=== PATIENT | female | born 1930 | race Caucasian/White ===

== ENCOUNTER 2016-11-15 13:43 | Observation (INO) | payer MEDICARE ==
[~2016-11-15] VITALS: Ht 162.6 cm; Wt 67.0 kg
[~2016-11-15 13:43] MED LIST: ASPI81CH CHEW; ASPI81TA19 PO; CALCCHW25 CHEW; CARD120T4 PO; CORT5TAB PO; DILT120T PO; HYDR10TA65 PO; HYDR5TAB64 PO; MACR100C2 PO; OMEP20TA PO; PAXI10TA2 PO; PRIL20CA9 PO; ZOFR4TAB3 SL
[2016-11-15 13:52] VITALS: BP 99/68; PULSE 97; RESP 17; TEMP 98.4; O2SAT 95
[2016-11-15] MEDS ORDERED: ONDANSETRON HCL 4 MG/2 ML VIAL IV PUSH ONE (14:30)
[2016-11-15] MEDS ORDERED: HYDROCORTISONE SOD SUCCINATE 100 MG VIAL IV PUSH ONE (14:30)
--- NOTE | 2016-11-15 14:35 | PD ---
HPI Chief Complaint: GI Complaint Time Seen by Provider: 14:25 Travel History International Travel<30 days: No Contact w/Intl Traveler<30days: No Traveled to known affect area: No History of Present Illness HPI This 86-year-old female is complaining of vomiting and diarrhea. She states that this morning she had 5 bouts of diarrhea. She had some abdominal pain while having the diarrhea. She is not having pain now. He tried to drink some water and vomited that. She then tried to drink Gatorade and she also vomited that. She has a history of a pituitary adenoma and takes hydrocortisone. She did not hold her hydrocortisone. Says that her stools were black. She had been traveling yesterday and had eaten at the airport. [facility] Past Medical History Cardiovascular Problems: Yes Diminished Hearing: Yes (RIGHT) Hypertension: Yes Past Surgical History Abdominal Surgery: Yes Cholecystectomy: Yes Genitourinary Surgery: Yes (HEMORRHOIDS) Tonsillectomy: Yes Other Surgery: Yes (PITUITARY) Social History Alcohol Use: No Tobacco Use: No Substance Use: No Allergies-Medications (Allergen,Severity, Reaction): Coded Allergies: No Known Allergies (Unverified , 11/15/16) Reported Meds & Prescriptions Reported Meds & Active Scripts Active Reported Cardizem (Diltiazem HCl) 120 Mg Tab 120 Mg PO BID Aspir-Low (Aspirin) 81 Mg Tabdr 1 Tab PO DAILY Omeprazole 20 Mg Tab 20 Mg PO DAILY Paxil (Paroxetine HCl) 10 Mg Tab 10 Mg PO DAILY Hydrocortisone 5 Mg Tab 5 Mg PO HS Take with food to decrease GI upset Hydrocortisone 10 Mg Tab 10 Mg PO DAILY IN THE AM Take with food to decrease GI upset Review of Systems General / Constitutional: No: Fever, Chills Eyes: No: Diploplia, Blurred Vision HENT: No: Headaches, Vertigo Respiratory: No: Cough Gastrointestinal: Positive: Vomiting, Diarrhea Genitourinary: No: Urgency, Frequency Musculoskeletal: No: Myalgias Skin: No Rash, No Itching Physical Exam Narrative GENERAL: Well-developed female SKIN: Warm and dry. HEAD: Atraumatic. Normocephalic. EYES: Pupils equal and round. No scleral icterus. No injection or drainage. ENT: No nasal bleeding or discharge. Mucous membranes dry NECK: Trachea midline. No JVD. CARDIOVASCULAR: Regular rate and rhythm. No murmur appreciated. RESPIRATORY: No accessory muscle use. Clear to auscultation. Breath sounds equal bilaterally. GASTROINTESTINAL: Abdomen soft, non-tender, nondistended. Hepatic and splenic margins not palpable. Stool is brown and guaiac negative MUSCULOSKELETAL: No obvious deformities. No clubbing. No cyanosis. No edema. NEUROLOGICAL: Awake and alert. No obvious cranial nerve deficits. Motor grossly within normal limits. Normal speech. PSYCHIATRIC: Appropriate mood and affect; insight and judgment normal. Data Data Last Documented VS Vital Signs Date Time Temp Pulse Resp B/P Pulse Ox O2 Delivery O2 Flow Rate FiO2 11/15/16 15:11 87 18 102/61 96 Room Air 11/15/16 13:52 98.4 Orders Complete Blood Count With Diff (11/15/16 14:29) Basic Metabolic Panel (Bmp) (11/15/16 14:29) Hydrocortisone Inj (Solucortef Inj) (11/15/16 14:30) Ondansetron Inj (Zofran Inj) (11/15/16 14:30) Sodium Chlor 0.9% 1000 Ml Inj (Ns 1000 M (11/15/16 14:45) Electrocardiogram (11/15/16 15:30) Sodium Chlor 0.9% 1000 Ml Inj (Ns 1000 M (11/15/16 15:30) Urinalysis - C+S If Indicated (11/15/16 15:46) Labs Laboratory Tests Test 11/15/16 14:30 White Blood Count 10.5 TH/MM3 Red Blood Count 5.32 MIL/MM3 Hemoglobin 14.3 GM/DL Hematocrit 43.3 % Mean Corpuscular Volume 81.5 FL Mean Corpuscular Hemoglobin 26.9 PG Mean Corpuscular Hemoglobin 33.0 % Concent Red Cell Distribution Width 14.9 % Platelet Count 282 TH/MM3 Mean Platelet Volume 9.4 FL Neutrophils (%) (Auto) 76.2 % Lymphocytes (%) (Auto) 10.9 % Monocytes (%) (Auto) 5.7 % Eosinophils (%) (Auto) 2.4 % Basophils (%) (Auto) 4.8 % Neutrophils # (Auto) 8.0 TH/MM3 Lymphocytes # (Auto) 1.1 TH/MM3 Monocytes # (Auto) 0.6 TH/MM3 Eosinophils # (Auto) 0.3 TH/MM3 Basophils # (Auto) 0.5 TH/MM3 CBC Comment DIFF FINAL Differential Comment Sodium Level 141 MEQ/L Potassium Level 6.5 MEQ/L Chloride Level 106 MEQ/L Carbon Dioxide Level 24.8 MEQ/L Anion Gap 10 MEQ/L Blood Urea Nitrogen 16 MG/DL Creatinine 1.20 MG/DL Estimat Glomerular Filtration 43 ML/MIN Rate Random Glucose 107 MG/DL Calcium Level 9.1 MG/DL [facility] Medical Decision Making Medical Screen Exam Complete: Yes Emergency Medical Condition: Yes Medical Record Reviewed: Yes Interpretation(s) Laboratory Tests Test 11/15/16 14:30 White Blood Count 10.5 TH/MM3 Red Blood Count 5.32 MIL/MM3 Hemoglobin 14.3 GM/DL Hematocrit 43.3 % Mean Corpuscular Volume 81.5 FL Mean Corpuscular Hemoglobin 26.9 PG Mean Corpuscular Hemoglobin 33.0 % Concent Red Cell Distribution Width 14.9 % Platelet Count 282 TH/MM3 Mean Platelet Volume 9.4 FL Neutrophils (%) (Auto) 76.2 % Lymphocytes (%) (Auto) 10.9 % Monocytes (%) (Auto) 5.7 % Eosinophils (%) (Auto) 2.4 % Basophils (%) (Auto) 4.8 % Neutrophils # (Auto) 8.0 TH/MM3 Lymphocytes # (Auto) 1.1 TH/MM3 Monocytes # (Auto) 0.6 TH/MM3 Eosinophils # (Auto) 0.3 TH/MM3 Basophils # (Auto) 0.5 TH/MM3 CBC Comment DIFF FINAL Differential Comment Sodium Level 141 MEQ/L Potassium Level 6.5 MEQ/L Chloride Level 106 MEQ/L Carbon Dioxide Level 24.8 MEQ/L Anion Gap 10 MEQ/L Blood Urea Nitrogen 16 MG/DL Creatinine 1.20 MG/DL Estimat Glomerular Filtration 43 ML/MIN Rate Random Glucose 107 MG/DL Calcium Level 9.1 MG/DL Differential Diagnosis Differential includes gastroenteritis, dehydration, Harnett's disease Narrative Course Lab work was drawn and the patient was started on IV fluids. 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 She has been given Solu-Cortef and additional fluids. It was noted that there is some hemolysis. EKG shows normal sinus rhythm with first-degree heart block the rate is 85. Patient has been given Zofran and IV fluids. She continues to complain of nausea. She lives alone. I don't think he is stable for discharge in view of the hyperkalemia and ongoing nausea Diagnosis Primary Impression: Adrenal insufficiency (Harnett's disease) Additional Impression: Intractable vomiting Admitting Information Admitting Physician Requests: Observation Adrian Lazo MD Nov 15, 2016 14:35
[2016-11-15] MEDS ORDERED: SODIUM CHLOR 0.9% 1000 ML INJ 1,000 ML IV ONE (14:45)
[2016-11-15 14:51] LABS: BASOPHIL # 0.5 TH/MM3 (0-0.2); BASOPHIL % 4.8 % (0.0-2.0); EOSINOPHIL # 0.3 TH/MM3 (0-0.4); EOSINOPHIL % 2.4 % (0.0-4.0); HEMATOCRIT 43.3 % (35.0-46.0); LYMPH % 10.9 % (9.0-44.0); LYMPHOCYTE # 1.1 TH/MM3 (1.0-4.8); MEAN CELL VOLUME 81.5 FL (80.0-100.0); MEAN CORPUSCULAR HEMOGLOBIN 26.9 PG (27.0-34.0); MONO % 5.7 % (0.0-8.0); NEUT % 76.2 % (16.0-70.0); PLATELET COUNT 282 TH/MM3 (150-450); RED BLOOD COUNT 5.32 MIL/MM3 (4.00-5.30); RED CELL DISTRIBUTION WIDTH 14.9 % (11.6-17.2); WHITE BLOOD COUNT 10.5 TH/MM3 (4.0-11.0)
[2016-11-15 15:00] LABS: HEMO FLAGS DIFF FINAL
[2016-11-15 15:08] LABS: BICARBONATE 24.8 MEQ/L (21.0-32.0)
[2016-11-15 15:11] VITALS: BP 102/61; PULSE 87; RESP 18; O2SAT 96
[2016-11-15 15:13] LABS: POTASSIUM 6.5 MEQ/L (3.5-5.1)
[2016-11-15] MEDS: SODIUM CHLOR 0.9% 1000 ML INJ 1,000 ML IV SCH ×2 (16:27→21:40)
[2016-11-15 16:29] LABS: BLOOD, URINE NEG (NEG); GLUCOSE,URINE NEG (NEG); KETONE, URINE 15 mg/dL (NEG); NITRITE,URINE NEG (NEG); PH, URINE 5.5 (5.0-8.5)
[2016-11-15 16:32] LABS: METHOD OF COLLECTION CLEAN CATCH; URINE COLOR YELLOW (YELLW/STRAW)
[2016-11-15 16:34] LABS: COMMENT (UR) CULT NOT INDICATED; COMMENT2 (UR) MUCOUS PRESENT; CULTURE IF INDICATED CULT NOT INDICATED; RBC, URINE 0-3 /hpf (0-3); SQUAMOUS EPITHELIAL CELL URINE 0-5 /hpf (0-5)
[2016-11-15 17:21] VITALS: BP 120/68; PULSE 83; RESP 18; O2SAT 99
[2016-11-15 18:15] VITALS: BP 191/91; PULSE 92; RESP 20; O2SAT 97
[2016-11-15 20:00] VITALS: BP 125/67; PULSE 85; RESP 18; TEMP 96; O2SAT 93
[2016-11-15] MEDS ORDERED: SODIUM CHLORIDE 0.9% FLUSH 5 ML FLUSH FLUSH PRN (20:15)
[2016-11-15] MEDS ORDERED: ONDANSETRON HCL 4 MG/2 ML VIAL IVP PRN (20:15)
[2016-11-15] MEDS ORDERED: ACETAMINOPHEN 325 MG TAB PO PRN (20:15)
[2016-11-15] MEDS ORDERED: NALOXONE HCL 0.4 MG/ML AMP IV PRN (20:15)
[2016-11-15] MEDS ORDERED: TEMAZEPAM 15 MG CAP PO PRN (20:15)
[2016-11-15] MEDS ORDERED: DILTIAZEM-CD 120 MG CAP ER PO SCH (21:00)
[2016-11-15] MEDS ORDERED: HYDROCORTISONE 10 MG TAB PO SCH ×2 (21:00)
[2016-11-15] MEDS: SODIUM CHLORIDE 0.9% FLUSH 5 ML FLUSH FLUSH SCH (21:00)
--- NOTE | 2016-11-15 21:30 | EKG ---
Date Performed: 11/15/2016 Time Performed: 15:30:56 PTAGE: 86 years EKG: Sinus rhythm with 1st degree A-V block Possible left anterior fascicular block Abnormal ECG PREVIOUS TRACING : 10/08/2016 10.27 No significant change from previous tracing noted. DOCTOR: Jared Kamara Interpretating Date/Time 11/15/2016 21:29:07
[2016-11-15] MEDS: HYDROCORTISONE 10 MG TAB PO SCH (21:41)
[2016-11-16] VITALS: BP 127/71; PULSE 77; RESP 20; TEMP 97; O2SAT 93
[2016-11-16 04:00] VITALS: BP 104/64; PULSE 81; RESP 20; TEMP 97.6; O2SAT 92; O2SAT 97
[2016-11-16] MEDS: SODIUM CHLOR 0.9% 1000 ML INJ 1,000 ML IV SCH ×2 (04:50→11:48)
--- NOTE | 2016-11-16 05:31 | MH ---
cc: MINNA VALLE DATE OF ADMISSION: 11/15/2016 ADMISSION DIAGNOSES Intractable vomiting, diarrhea. Adrenal insufficiency. HISTORY OF PRESENT ILLNESS The patient is a very pleasant 86-year-old female who states she was in fairly good health. She was visiting her daughter [facility] for the holidays. She states she returned to [facility] yesterday. Apparently yesterday she was already feeling poorly. She was a little bit nauseous. She really did not eat much. She actually asked a flight manager if she could lay out on the plane; they got her three seats and she did so. She arrived in [facility]. She states that as soon as she got in she went to bed as she was so fatigued. However, this morning when she woke up she states she had copious diarrhea; some of it was black which made her worried. She had approximately four to five bowel movements. She tried to keep down liquids and could not. She tried water, she tried Gatorade. Finally she became very concerned and she came to the emergency room. PAST MEDICAL HISTORY 1. Significant for adrenal insufficiency. 2. Reflux. 3. Hypertension. 4. Sarcoidosis. ALLERGIES She denies. PAST SURGICAL HISTORY 1. She has had bilateral hip replacement. 2. Hemorrhoidectomy. 3. She has also had surgery for pituitary adenoma. 4. Tonsillectomy. 5. Cholecystectomy. MEDICATIONS 1. Diltiazem 120 twice a day. 2. Hydrocortisone 10 in the morning and 5 in the evening. She says when she is in a period of increased stress her apn we will have her double this dose. She does state she did miss a dose yesterday and today. 3. She is on Paxil 10 mg; she says she takes this for muscle spasms. 4. Omeprazole 20 mg daily. 5. A baby aspirin. HABITS She smoked approximately a pack a day for five years; she stopped 55 years ago. She denies any alcohol consumption. SOCIAL HISTORY She is . 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 Currently she lives alone locally. She is waiting to get into [facility]. Her daughter lives [facility]. REVIEW OF SYSTEMS See HPI. She says up until the last couple of days she was feeling fairly well. No fevers, no chills, no weight change. She states that she has occasional chest pain but she was admitted and a evaluated for that in October of this year. She denies any shortness of breath or palpitations. She denies any abdominal pain with any of these episodes. She does say that she has problems with constipation and sometimes needs to take a medication to help her bowel movements. She is due for a colonoscopy. No difficulty with urination, no dysuria or burning, no increased or diminished urination. No swelling or pain in her lower extremities. FAMILY HISTORY Noncontributory. PHYSICAL EXAMINATION Vital Signs: Temperature was 96, pulse was 85, respirations 15, blood pressure 125/67, pulse ox was 93% on room air. General: This is an elderly female lying in the hospital bed. She is alert and oriented, very pleasant and cooperative. Does not appear to be in any acute distress right now. HEENT: Normocephalic and traumatic. EOM is intact. She is wearing glasses. She has moist oral mucosa. Neck: Supple. She has no bruits. Lungs: Clear to auscultation bilaterally. No rhonchi, rales or wheezes. Heart: Regular rate and work my rhythm. She has no murmurs. Abdomen: Sounded slightly diminished to me, slight mid-epigastric tenderness. No rebound or guarding. She has a healed midline incision from a prior surgery. Extremities: No clubbing, cyanosis or edema. Skin: She does have a rash under her left breast; it is erythematous. The skin is a little bit moist. LABORATORY DATA Lab work that was done when she came in showed a white count of 10.5, hemoglobin of 13.3, hematocrit of 43.3, platelet count of 282. Sodium was 141, potassium was 6.5. According to the conversation with the emergency room doctor he says the specimen was slightly hemolyzed. BUN was 16, creatinine was 1.2, GFR was 43. Random glucose was 107,calcium was 9.1. Her urine was clear. ASSESSMENT/PLAN 1. An 86-year-old female with history of adrenal insufficiency, presented to the emergency room with diarrhea, nausea and emesis, unable to take her medication for the last two days. According to the emergency room doctor, when she presented her blood pressure was a little bit low. When she came in she was hydrated and she continued with the nausea and ability to tolerate orals. In view of her adrenal insufficiency she received Solu-Cortef and volume resuscitation in the emergency room. She has been admitted overnight for continued IV fluids and hydrocortisone or Decadron depending on how she does overnight. Already when I saw her this evening she is already beginning to feel a little bit better. We will tentatively start her on ice chips and clear liquids, if we can monitor her blood pressure. 2. The hyperkalemia I suspect might have been secondary to the hemolysis when the blood was drawn but we will recheck that. 3. For her history of reflux, we will maintain her on her PPI. 4. She does have hypertension. Currently I will hold her diltiazem until we get a more adequate blood pressure response. Hopefully she will do well overnight and we will be able to discharge her in the a.m. Further recommendations as the case develops. MD DULCE Sheets/MAVIS /9:34 PM /5:02 AM
[2016-11-16 06:15] LABS: AUTOMATED NEUTROPHIL # 6.7 TH/MM3 (1.8-7.7); BASOPHIL % 0.3 % (0.0-2.0); EOSINOPHIL # 0.1 TH/MM3 (0-0.4); EOSINOPHIL % 0.9 % (0.0-4.0); HEMATOCRIT 36.2 % (35.0-46.0); HEMO FLAGS DIFF FINAL; LYMPH % 11.2 % (9.0-44.0); LYMPHOCYTE # 0.9 TH/MM3 (1.0-4.8); MEAN CELL VOLUME 80.7 FL (80.0-100.0); MEAN CORPUSCULAR HEMOGLOBIN 26.2 PG (27.0-34.0); MEAN CORPUSCULAR HGB CONC 32.4 % (32.0-36.0); MONO % 5.9 % (0.0-8.0); NEUT % 81.7 % (16.0-70.0); PLATELET COUNT 231 TH/MM3 (150-450); RED BLOOD COUNT 4.49 MIL/MM3 (4.00-5.30); RED CELL DISTRIBUTION WIDTH 13.9 % (11.6-17.2); WHITE BLOOD COUNT 8.2 TH/MM3 (4.0-11.0)
[2016-11-16 06:17] LABS: BICARBONATE 25.3 MEQ/L (21.0-32.0)
[2016-11-16 08:00] VITALS: BP 112/54; PULSE 70; RESP 20; TEMP 96.8; O2SAT 95
[2016-11-16] MEDS ORDERED: ASPIRIN EC 81 MG TABEC PO SCH (09:00)
[2016-11-16] MEDS ORDERED: PNEUMOCOCCAL POLYVALENT INJ 25 MCG/0.5 ML SYR IM ONE (09:00)
[2016-11-16] MEDS ORDERED: PARoxetine HCL 20 MG TAB PO SCH (09:00)
[2016-11-16] MEDS ORDERED: PANTOPRAZOLE SOD 20 MG DELAYED RELEASE TAB PO SCH (09:00)
[2016-11-16] MEDS ORDERED: DEXAMETHASONE SOD PHOS 4 MG/ML VIAL IV PUSH ONE (11:00)
[2016-11-16] MEDS: HYDROCORTISONE 10 MG TAB PO SCH ×2 (11:00→18:49)
--- NOTE | 2016-11-16 11:00 | HHI.PR ---
Subjective Remarks Feels better this am, still tired, no diarrhea. Tolerated clear liquids, no diarrhea. Objective Vitals Vital Signs Date Time Temp Pulse Resp B/P Pulse Ox O2 Delivery O2 Flow Rate FiO2 11/16/16 08:00 96.8 70 20 112/54 95 11/16/16 04:00 97.6 81 20 104/64 92 11/16/16 04:00 97.6 81 20 104/64 97 11/16/16 00:00 97.0 77 20 127/71 93 11/15/16 20:00 96.0 85 18 125/67 93 11/15/16 18:15 92 20 191/91 97 Room Air 11/15/16 17:21 83 18 120/68 99 Room Air 11/15/16 15:11 87 18 102/61 96 Room Air 11/15/16 13:52 98.4 97 17 99/68 95 11/15/16 11/15/16 11/16/16 15:00 23:00 07:00 Intake Total 60 ml 240 ml Balance 60 ml 240 ml Intake Oral 60 ml 240 ml # Voids 1 2 # Bowel Movements 0 0 Result Diagram: 11/16/16 0515 11/16/16 0515 A/P Problem List: (1) Hypertension Status: Chronic Plan: cardizem on hold , cont IVfluids, hydrocortisone (2) Intractable vomiting Status: Acute Plan: so far no further emesis or diarrhea today progress diet (3) Adrenal insufficiency (Gustavo's disease) Status: Chronic Plan: she has been under increased stress with her visit [place] and missed her medication for 2 days have temporarily increased her hydrocortisone Discharge Planning if she tolerates food and has no further gi symptoms will probably discharge later today Jyotsna Estrella MD Nov 16, 2016 11:00
[2016-11-16] MEDS: SODIUM CHLORIDE 0.9% FLUSH 5 ML FLUSH FLUSH SCH (11:01)
[2016-11-16 12:00] VITALS: BP 126/63; PULSE 72; RESP 20; TEMP 96.9; O2SAT 94
[2016-11-16 16:00] VITALS: BP 126/76; PULSE 67; RESP 16; TEMP 98.1; O2SAT 98
[2016-11-16] MEDS ORDERED: HYDRO10 PO (18:27)
[2016-11-16] MEDS ORDERED: PAXI10TA2 PO (18:27)
== END 2016-11-16 19:14 | disposition home or self-care (01) ==
LOC: PHED 13:43 → PHEDA 16:00 → UNDOADMOB 16:00 → MERGE 16:00 → PHEDA 18:56 → PH3A 18:56 → UNDODISOB 11-16 19:14
PROVIDERS: ADMIT Legal Medicine; ATTEND Legal Medicine
DX: E27.1 Primary adrenocortical insufficiency (principal); E87.5 Hyperkalemia; K21.9 Gastro-esophageal reflux disease without esophagitis; I10 Essential (primary) hypertension; D86.9 Sarcoidosis, unspecified; H91.91 Unspecified hearing loss, right ear; Z87.891 Personal history of nicotine dependence; Z96.643 Presence of artificial hip joint, bilateral; Z23 Encounter for immunization
CPT/HCPCS: 80048; 81001; 84132; 85025; 90732; 93005; 96374; 96375; 99285; G0009; G0378; J1100; J1720; J2405; J7030; 90471

== ENCOUNTER 2017-02-01 17:55 | Observation (INO) | payer MEDICARE ==
[~2017-02-01] VITALS: Ht 162.6 cm; Wt 63.6 kg
[~2017-02-01 17:55] MED LIST changes: -CARD120T4 PO; +HYDRO10 PO
[2017-02-01 18:31] VITALS: BP 116/76; PULSE 85; RESP 20; TEMP 98.8; O2SAT 95
--- NOTE | 2017-02-01 18:49 | PD ---
HPI Chief Complaint: Fall Time Seen by Provider: 18:45 Travel History International Travel<30 days: No Contact w/Intl Traveler<30days: No Traveled to known affect area: No History of Present Illness HPI Patient is 86-year-old female presenting to the emergency department for evaluation of left wrist and forearm pain after sustaining a mechanical fall prior to arrival. 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 She denies any chest pain, shortness breath, dizziness prior to the fall. She denies any other physical complaints currently. Left wrist is a 7 out of 10. She normally ambulates with a cane only but did not have it with her when she fell. She denies any head injury or loss of consciousness. 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) Endocrine: No Genitourinary: No Hypertension: Yes Immune Disorder: No Neurologic: No Psychiatric: No Reproductive: No Respiratory: Yes (SARCOIDOSIS) Immunizations Current: Yes Menopausal: Yes Past Surgical History Abdominal Surgery: Yes Cholecystectomy: Yes Genitourinary Surgery: Yes (HEMORRHOIDS) Joint Replacement: Yes (LEFT HIP) Tonsillectomy: Yes Other Surgery: Yes (PITUITARY) Social History Alcohol Use: No Tobacco Use: No Substance Use: No Allergies-Medications (Allergen,Severity, Reaction): Coded Allergies: No Known Allergies (Unverified , 02/01/17) Reported Meds & Prescriptions Reported Meds & Active Scripts Active Paxil (Paroxetine HCl) 10 Mg Tab 5 Mg PO DAILY Reported Hydrocortisone 5 Mg Tab 5 Mg PO DAILY Take with food to decrease GI upset Omeprazole 20 Mg Tab 20 Mg PO DAILY Review of Systems Except as stated in HPI: all other systems reviewed are Neg Musculoskeletal: Positive: Myalgias, Arthralgias, Edema, Pain Physical Exam Narrative GENERAL: Well-developed, well-nourished, alert elderly female. Resting comfortably in no acute distress. SKIN: Focused skin assessment warm/dry. Mild edema noted to the lateral aspect of the left wrist. HEAD: Atraumatic. Normocephalic. EYES: Pupils equal and round. No scleral icterus. No injection or drainage. ENT: No nasal bleeding or discharge. Mucous membranes pink and moist. NECK: Trachea midline. No JVD. CARDIOVASCULAR: Regular rate and rhythm. No murmur appreciated. RESPIRATORY: No accessory muscle use. Clear to auscultation. Breath sounds equal bilaterally. GASTROINTESTINAL: Abdomen soft, non-tender, nondistended. Hepatic and splenic margins not palpable. MUSCULOSKELETAL: No obvious deformities. No clubbing. No cyanosis. Positive radial pulse, brisk less than 3 second capillary refill. Decreased furnace brazer strength on the left. NEUROLOGICAL: Awake and alert. No obvious cranial nerve deficits. Motor grossly within normal limits with the exception of the above. Normal speech. PSYCHIATRIC: Appropriate mood and affect; insight and judgment normal. Data Data Last Documented VS Vital Signs Date Time Temp Pulse Resp B/P Pulse Ox O2 Delivery O2 Flow Rate FiO2 02/01/17 19:13 72 18 116/76 97 Room Air 02/01/17 18:31 98.8 Orders Wrist, Complete ([id number]) (02/01/17 ) Forearm (2vws) (02/01/17 ) Iv Access Insert/Monitor (02/01/17 19:17) Morphine Inj (Morphine Inj) (02/01/17 19:30) Ondansetron Inj (Zofran Inj) (02/01/17 19:30) Sodium Chlor 0.9% 1000 Ml Inj (Ns 1000 M (02/01/17 19:30) Splinting (02/01/17 ) Support Splint (02/01/17 19:29) Acetamin-Hydrocod 325-5 Mg ([place] 5-325 (02/01/17 19:45) Admit Order (Ed Use Only) (02/01/17 20:06) Complete Blood Count With Diff (02/01/17 20:06) Comprehensive Metabolic Panel (02/01/17 20:06) Act Partial Throm Time (Ptt) (02/01/17 20:06) Prothrombin Time / Inr (Pt) (02/01/17 20:06) Diet Heart Healthy (02/01/17 Dinner) MDM Medical Decision Making Medical Screen Exam Complete: Yes Emergency Medical Condition: Yes Interpretation(s) Vital Signs Date Time Temp Pulse Resp B/P Pulse Ox O2 Delivery O2 Flow Rate FiO2 02/01/17 18:42 77 20 95 Room Air 02/01/17 18:31 98.8 85 20 116/76 95 Differential Diagnosis Fracture versus sprain versus strain versus dislocation versus other Narrative Course Patient is an 86-year-old female presenting to emergency department evaluation of left wrist and forearm pain after sustaining a mechanical fall. Patient denies any head injury or loss of consciousness, she denies any other complaints at this time. Patient is neurovascularly intact. Imaging ordered and pending. 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 Patient placed in sugar tong splint, pain medication ordered per my attending physician. We discussed results of imaging with patient as well as plan of care and follow-up with orthopedic surgeon, she is hesitant to be discharged home as she lives alone and feels she cannot care for herself. [facility] hospitalist paged for admission. accepted admission a month patient placed under observation. Labs, IV access ordered. Diagnosis Primary Impression: Wrist fracture, left Qualified Code: S62.102A - Wrist fracture, left, closed, initial encounter Additional Impressions: Impaired mobility and ADLs Adrenal insufficiency (Bedford's disease) Admitting Information Admitting Physician Requests: Observation Condition: Stable Em Schumacher Feb 01, 2017 18:49
[2017-02-01] MEDS ORDERED: HYDR5TAB64 PO (19:11)
--- NOTE | 2017-02-01 19:12 | RADRPT ---
EXAM DATE/TIME: 02/01/2017 18:58 [facility] COMPARISON: No previous studies available for comparison. INDICATIONS : Left forearm pain after fall. MEDICAL HISTORY : None. SURGICAL HISTORY : None. ENCOUNTER: Initial ACUITY: 1 day PAIN SCORE: 6/10 LOCATION: Left distal forearm. FINDINGS: There is evidence of an acute minimally angulated comminuted fracture involving the left distal radiu s with involvement of the articular surface. Severe osteoarthritis is noted involving the first carp ometacarpal joint as well as the scaphotrapezium and scaphotrapezoid joints. CONCLUSION: 1. Acute minimally angulated comminuted fracture involving the left distal radius with involvement of the articular surface. 2. Severe osteoarthritis involving the first carpometacarpal joint and the scaphotrapezium and scapho trapezoid joints. Fritz Sidhu MD on February 01, 2017 at 19:06 Board Certified Radiologist. This report was verified electronically.
[2017-02-01 19:13] VITALS: BP 116/76; PULSE 72; RESP 18; O2SAT 97
--- NOTE | 2017-02-01 19:14 | RADRPT ---
EXAM DATE/TIME: 02/01/2017 19:01 [facility] COMPARISON: No previous studies available for comparison. INDICATIONS : Left wrist pain after fall. MEDICAL HISTORY : None. SURGICAL HISTORY : None. ENCOUNTER: Initial ACUITY: 1 day PAIN SCORE: 8/10 LOCATION: Left distal wrist. FINDINGS: There is an acute minimally angulated comminuted fracture involving the left distal radius with invol vement of the articular surface. The distal ulna appears to be intact. Severe osteoarthritis is not ed involving the first carpometacarpal joint as well as the scaphotrapezium and scaphotrapezoid joint s. CONCLUSION: 1. Acute minimally displaced comminuted fracture involving the left distal radius with involvement of the articular surface. 2. Severe osteoarthritis involving the left first carpometacarpal joint as well as the scaphotrapeziu m and scaphotrapezoid joints. Fritz Sidhu MD on February 01, 2017 at 19:07 Board Certified Radiologist. This report was verified electronically.
[2017-02-01] MEDS ORDERED: SODIUM CHLOR 0.9% 1000 ML INJ 1,000 ML IV SCH (19:30)
[2017-02-01] MEDS ORDERED: MORPHINE SULFATE 4 MG/ML INJ IV PUSH ONE (19:30)
[2017-02-01] MEDS ORDERED: ONDANSETRON HCL 4 MG/2 ML VIAL IV PUSH ONE (19:30)
[2017-02-01] MEDS ORDERED: ACETAMINOPHEN/HYDROcodone 325 MG/5 MG TAB PO ONE (19:45)
--- NOTE | 2017-02-01 20:04 | PD ---
Data Data Last Documented VS Vital Signs Date Time Temp Pulse Resp B/P Pulse Ox O2 Delivery O2 Flow Rate FiO2 02/01/17 19:13 72 18 116/76 97 Room Air 02/01/17 18:31 98.8 Orders Wrist, Complete ([id number]) (02/01/17 ) Forearm (2vws) (02/01/17 ) Iv Access Insert/Monitor (02/01/17 19:17) Morphine Inj (Morphine Inj) (02/01/17 19:30) Ondansetron Inj (Zofran Inj) (02/01/17 19:30) Sodium Chlor 0.9% 1000 Ml Inj (Ns 1000 M (02/01/17 19:30) Splinting (02/01/17 ) Support Splint (02/01/17 19:29) Acetamin-Hydrocod 325-5 Mg ([place] 5-325 (02/01/17 19:45) MDM Medical Record Reviewed: Yes Supervised Visit with ANNETTE: Yes Narrative Course I, Dr. Cisse, have reviewed the advance practice practitioner's documentation and am in agreement, met with the patient face to face, made the diagnosis, and the medical decision making was done by me. The patient was initially seen by Em, the nurse practitioner. Please see her complete history and physical. *My assessment and Findings: The patient is an 86-year-old female who presents to [facility] emergency Department with a history of a mechanical trip and fall onto her outstretched left wrist. The patient's past medical history is significant for [place]'s, sarcoidosis, hypertension. The patient reports that she lives at home alone and is usually unsteady on her feet and uses a cane for mobility. The patient is concerned about going home related to her left wrist fracture. The patient denies hitting her head or losing consciousness. She denies having any new neck pain. She denies having chest pain or shortness of breath. She denies having any abdominal pain. She denies having any other extremity pain. The patient's examination is remarkable for left wrist swelling, tenderness to the distal radius on palpation. The patient has intact sensation over all fingertips and less than 3 second capillary refill. The patient has no other extremity pain on examination the left upper extremities. X-ray reveals a mildly displaced distal radius fracture involving the joint. [facility] with a consultation to the orthopedic physician. The patient was placed in a splint. Gala Cisse MD Feb 01, 2017 20:04
--- NOTE | 2017-02-01 21:29 | HHI.HP ---
HPI Service [facility] Hospitalists Primary Care Physician Chad Garcia MD Admission Diagnosis WRIST FRACTURE, IMPAIRED GAIT, IMPAIRED ADL'S Chief Complaint: accidental fall with left wrist fracture Travel History International Travel<30 Days: No Contact w/Intl Traveler <30 Da: No Traveled to Known Affected Are: No History of Present Illness Patient is 86-year-old female presenting to the emergency department for evaluation of left wrist and forearm pain after sustaining a mechanical fall prior to arrival. Patient states she was in her yard attempting to clam picker her newspaper when she tripped because she stepped on sticky things and fell forward bracing herself with her left arm. She denies any chest pain, shortness breath, dizziness prior to the fall. She denies any other physical complaints currently. Left wrist is a 7 out of 10. She normally ambulates with a cane only but did not have it with her when she fell. She denies any head injury or loss of consciousness Patient with difficulty ambulating and with splint to left hand feels uncomfortable going home will ask for ortho to see and arrange follow up and will ask case management to see as well. Review of Systems Musculoskeletal: COMPLAINS OF: Joint pain Past Family Social History Past Medical History darryl sarcoid,hypertension, Past Surgical History gallbladder,left hip tonsil Reported Medications paxil hydrocortisone,prilosec Allergies: Coded Allergies: No Known Allergies (Unverified , 02/01/17) Social History NS,ND Physical Exam Vital Signs Vital Signs Date Time Temp Pulse Resp B/P Pulse Ox O2 Delivery O2 Flow Rate FiO2 02/01/17 19:13 72 18 116/76 97 Room Air 02/01/17 18:42 77 20 95 Room Air 02/01/17 18:31 98.8 85 20 116/76 95 Physical Exam GENERAL: This is a well-nourished, well-developed patient, in no apparent distress. SKIN: No rashes, ecchymoses or lesions. Cool and dry. HEAD: Atraumatic. Normocephalic. No temporal or scalp tenderness. EYES: Pupils equal round and reactive. Extraocular motions intact. No scleral icterus. No injection or drainage. ENT: Nose without bleeding, purulent drainage or septal hematoma. Throat without erythema, tonsillar hypertrophy or exudate. Uvula midline. Airway patent. NECK: Trachea midline. No JVD or lymphadenopathy. Supple, nontender, no meningeal signs. CARDIOVASCULAR: Regular rate and rhythm without murmurs, gallops, or rubs. RESPIRATORY: Clear to auscultation. Breath sounds equal bilaterally. No wheezes , rales, or rhonchi. GASTROINTESTINAL: Abdomen soft, non-tender, nondistended. No hepato-splenomegaly , or palpable masses. No guarding. MUSCULOSKELETAL: Extremities with left wrist splint with pain NEUROLOGICAL: Awake and alert. Cranial nerves II through XII intact. Motor and sensory grossly within normal limits. Five out of 5 muscle strength in all muscle groups. Normal speech. Imaging Last 24 hours Impressions Wrist X-Ray 02/01/17 0000 Signed Impressions: Service Date/Time: Wednesday, February 01, 2017 19:01 - CONCLUSION: 1. Acute minimally displaced comminuted fracture involving the left distal radius with involvement of the articular surface. 2. 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 Fritz Sidhu MD Radius/Ulna X-Ray 02/01/17 0000 Signed Impressions: Service Date/Time: Wednesday, February 01, 2017 18:58 - CONCLUSION: 1. Acute minimally angulated comminuted fracture involving the left distal radius with involvement of the articular surface. 2. Severe osteoarthritis involving the first carpometacarpal joint and the scaphotrapezium and scaphotrapezoid joints. Fritz Sidhu MD Course in er given splint and pain meds Assessment and Plan Problem List: (1) Wrist fracture, left Status: Acute Plan: plan ortho evaluation casemanagement for possible placement , (2) Impaired mobility and ADLs Status: Acute Plan: somewhat impaired ability to ambulate will get PT evaluation Assessment and Plan as above continue home meds Code Status full Discussed Condition With patient Problem Qualifiers (1) Wrist fracture, left: Qualified Code: S62.102A - Wrist fracture, left, closed, initial encounter Gavin Kinsey MD Feb 01, 2017 21:29
[2017-02-01] MEDS ORDERED: NALOXONE HCL 0.4 MG/ML AMP IV PRN (21:30)
[2017-02-01] MEDS ORDERED: PILL SPLITTER OTHER PRN (21:30)
[2017-02-01] MEDS ORDERED: SODIUM CHLORIDE 0.9% FLUSH 10 ML FLUSH IV FLUSH PRN (21:30)
[2017-02-01] MEDS ORDERED: ONDANSETRON HCL 4 MG/2 ML VIAL IVP PRN (21:30)
[2017-02-01 21:39] LABS: AUTOMATED NEUTROPHIL # 8.8 TH/MM3 (1.8-7.7); BASOPHIL # 0.1 TH/MM3 (0-0.2); BASOPHIL % 0.5 % (0.0-2.0); EOSINOPHIL # 0.3 TH/MM3 (0-0.4); EOSINOPHIL % 2.4 % (0.0-4.0); HEMATOCRIT 38.9 % (35.0-46.0); HEMO FLAGS DIFF FINAL; LYMPH % 19.8 % (9.0-44.0); LYMPHOCYTE # 2.5 TH/MM3 (1.0-4.8); MEAN CELL VOLUME 80.3 FL (80.0-100.0); MEAN CORPUSCULAR HGB CONC 33.6 % (32.0-36.0); MONO % 7.6 % (0.0-8.0); NEUT % 69.7 % (16.0-70.0); PLATELET COUNT 252 TH/MM3 (150-450); RED BLOOD COUNT 4.85 MIL/MM3 (4.00-5.30); RED CELL DISTRIBUTION WIDTH 15.1 % (11.6-17.2); WHITE BLOOD COUNT 12.6 TH/MM3 (4.0-11.0)
[2017-02-01 21:49] LABS: APTT (PATIENT) 27.3 SEC (24.3-30.1); INTERNATIONAL NORMALIZED RATIO 1.1 RATIO; PROTHROMBIN TIME - PATIENT 12.2 SEC (9.8-11.6)
[2017-02-01 21:53] LABS: ANION GAP 10 MEQ/L (5-15); AST (GOT) 19 U/L (15-37); BICARBONATE 25.7 MEQ/L (21.0-32.0); BLOOD UREA NITROGEN 24 MG/DL (7-18); CHLORIDE 102 MEQ/L (98-107); GLOMERULAR FILTRATION RATE 45 ML/MIN (>89); POTASSIUM 4.2 MEQ/L (3.5-5.1); SODIUM (NA) 138 MEQ/L (136-145)
[2017-02-01 21:56] LABS: ALKALINE PHOSPHATASE 76 U/L (45-117); ALT (GPT) 22 U/L (10-53); TOTAL BILIRUBIN ADULT 0.3 MG/DL (0.2-1.0)
[2017-02-01 23:18] VITALS: BP 129/64; PULSE 72; RESP 18; TEMP 97.8; O2SAT 92
[2017-02-01] MEDS: MORPHINE SULFATE 4 MG/ML INJ IV PRN (23:25)
[2017-02-02 04:04] VITALS: BP 91/59; PULSE 75; RESP 18; TEMP 97.7; O2SAT 94
[2017-02-02] MEDS: MORPHINE SULFATE 4 MG/ML INJ IV PRN ×3 (04:13→14:53)
[2017-02-02 07:11] VITALS: BP 141/66; PULSE 79; RESP 18; TEMP 98.3; O2SAT 93
[2017-02-02] MEDS ORDERED: PAROXETINE 5 MG PO SCH (09:00)
[2017-02-02] MEDS ORDERED: HYDROCORTISONE 10 MG TAB PO SCH (09:00)
[2017-02-02] MEDS ORDERED: PARoxetine HCL SUSP 20 MG/10 ML UDC PO SCH (09:00)
[2017-02-02] MEDS ORDERED: NON-FORMULARY DRUG (Omeprazole 20 MG) PO SCH (09:00)
[2017-02-02] MEDS ORDERED: PANTOPRAZOLE SOD 20 MG DELAYED RELEASE TAB PO SCH (09:00)
[2017-02-02] MEDS ORDERED: SODIUM CHLORIDE 0.9% FLUSH 10 ML FLUSH IV FLUSH SCH (09:00)
[2017-02-02] MEDS ORDERED: ACETAMINOPHEN/HYDROcodone 325 MG/5 MG TAB PO PRN ×2 (11:00)
[2017-02-02 11:15] VITALS: BP 136/69; PULSE 90; RESP 18; TEMP 98.9; O2SAT 94
[2017-02-02] MEDS ORDERED: DOCUSATE SODIUM 100 MG CAP PO SCH (11:15)
[2017-02-02] MEDS ORDERED: HYDR-3516 PO (15:12)
[2017-02-02] MEDS ORDERED: ZOFR4TAB PO (15:12)
--- NOTE | 2017-02-02 15:14 | HHI.DCPOC ---
Discharge Care Plan Diagnosis: (1) Wrist fracture, left (2) Hypertension (3) GERD (gastroesophageal reflux disease) (4) Impaired mobility and ADLs Goals to Promote Your Health * To prevent worsening of your condition and complications * To maintain your health at the optimal level Directions to Meet Your Goals Take your medications as prescribed Follow your dietary instruction Follow activity as directed Keep your appointments as scheduled Take your immunizations and boosters as scheduled If your symptoms worsen call your PCP, if no PCP go to Urgent Care Center or Emergency Room Smoking is Dangerous to Your Health. Avoid second hand smoke Call the 24-hour hour crisis hotline for domestic abuse at Abraham Spaulding DO Feb 02, 2017 15:14
[2017-02-02 15:18] VITALS: BP 121/68; PULSE 94; RESP 20; TEMP 98.8; O2SAT 94
--- NOTE | 2017-02-02 15:19 | HHI.PR ---
Subjective Remarks pain controlled. Objective Vitals Vital Signs Date Time Temp Pulse Resp B/P Pulse Ox O2 Delivery O2 Flow Rate FiO2 02/02/17 11:15 98.9 90 18 136/69 94 02/02/17 07:11 98.3 79 18 141/66 93 02/02/17 04:04 97.7 75 18 91/59 94 02/01/17 23:18 97.8 72 18 129/64 92 02/01/17 19:13 72 18 116/76 97 Room Air 02/01/17 18:42 77 20 95 Room Air 02/01/17 18:31 98.8 85 20 116/76 95 02/01/17 02/01/17 02/02/17 15:00 23:00 07:00 Intake Total 240 ml Balance 240 ml Intake Oral 240 ml # Voids 1 Result Diagram: 02/01/17211402/01/172114 Imaging Last 24 hours Impressions Wrist X-Ray 02/01/17 0000 Signed Impressions: Service Date/Time: Wednesday, February 01, 2017 19:01 - CONCLUSION: 1. Acute minimally displaced comminuted fracture involving the left distal radius with involvement of the articular surface. 2. 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 Fritz Sidhu MD Radius/Ulna X-Ray 02/01/17 0000 Signed Impressions: Service Date/Time: Wednesday, February 01, 2017 18:58 - CONCLUSION: 1. Acute minimally angulated comminuted fracture involving the left distal radius with involvement of the articular surface. 2. Severe osteoarthritis involving the first carpometacarpal joint and the scaphotrapezium and scaphotrapezoid joints. Fritz Sidhu MD Objective Remarks GENERAL: This is a well-nourished, well-developed patient, in no apparent distress. CARDIOVASCULAR: Regular rate and rhythm without murmurs, gallops, or rubs. RESPIRATORY: Clear to auscultation. Breath sounds equal bilaterally. No wheezes , rales, or rhonchi. GASTROINTESTINAL: Abdomen soft, non-tender, nondistended. Normal active bowel sounds MUSCULOSKELETAL: Extremities without clubbing, cyanosis, or edema. NEURO: Alert & Oriented x4 to person, place, time, situation. Moves all ext x4 A/P Problem List: (1) Wrist fracture, left Status: Acute Plan: - case reviewed by on-call Orthopedist - Pt will NOT require surgery. Conservative Mgmt - Sling and swath of LUE - norco prn - discharge to SNF - Per pt she already has upcoming appointment with Dr. Luis M Zaidi for 02/05/17 - SNF will arrange transportation to above appointment or arrange for below - F/U with Dr. Bradford in 1 week (2) Impaired mobility and ADLs Status: Acute Plan: - will need SNF at the conclusion of this hospitalization - Pt has been accepted at [facility] Problem Qualifiers (1) Wrist fracture, left: Qualified Code: S62.102A - Wrist fracture, left, closed, initial encounter Abraham Spaulding DO Feb 02, 2017 15:19
== END 2017-02-02 17:47 ==
LOC: NEPC 17:55 → NEDA 20:12 → MERGE 20:12 → NEPHCDU 22:49
PROVIDERS: ADMIT Hospitalist; ATTEND Hospitalist
DX: S62.102A Fracture of unspecified carpal bone, left wrist, initial encounter for closed fracture (principal); I10 Essential (primary) hypertension; H91.90 Unspecified hearing loss, unspecified ear; Z96.642 Presence of left artificial hip joint; Z74.09 Other reduced mobility; W01.0XXA Fall on same level from slipping, tripping and stumbling without subsequent striking against object, initial encounter; Y92.096 Garden or yard of other non-institutional residence as the place of occurrence of the external cause
CPT/HCPCS: 29125; 73090; 73110; 80053; 85025; 85610; 85730; 97162; 99285; G0378; J2270

== ENCOUNTER 2017-02-08 10:12 | Emergency (ER) | payer MEDICARE ==
[~2017-02-08] VITALS: Ht 162.6 cm; Wt 74.0 kg
[~2017-02-08 10:12] MED LIST changes: -ASPI81TA19 PO; +HYDR-3516 PO; -HYDR10TA65 PO; -HYDRO10 PO; +ZOFR4TAB PO
[2017-02-08 10:16] VITALS: BP 100/64; PULSE 80; RESP 16; TEMP 98.8; O2SAT 90
--- NOTE | 2017-02-08 10:51 | PD ---
HPI Chief Complaint: Edema Time Seen by Provider: 10:22 Travel History International Travel<30 days: No Contact w/Intl Traveler<30days: No Traveled to known affect area: No History of Present Illness HPI The patient is a 86-year-old female who presents emergency department for edema of the left upper extremity. Patient has a history of recent left wrist fracture and was a 23 hour observation at [facility] at the end of January. The patient had a splint applied at that time and was referred to see orthopedics on an outpatient basis. The patient did seen orthopedic [facility] who [facility], [facility]y [facility], to evaluate the patient. The patient has been wearing a sugar tong splint, however, now complains of edema to the fingers of the left hand. The patient has been elevating the affected area and wore a a sling, however, continues to have edema. She denies any numbness or tingling to the left upper extremity. The patient is right- hand dominant. PFSH Past Medical History Arthritis: Yes Blood Disorders: No Anxiety: Yes Depression: Yes Heart Rhythm Problems: No Cancer: No Cardiac Catheterization: Yes Cardiovascular Problems: Yes High Cholesterol: No Chemotherapy: No Chest Pain: No Congestive Heart Failure: No Cerebrovascular Accident: No Diabetes: No Diminished Hearing: Yes ([place] BOTH EARS) Endocrine: Yes (SUSAN'S) Gastrointestinal Disorders: Yes GERD: Yes Glaucoma: No Genitourinary: No Hepatitis: No Hiatal Hernia: No Hypertension: Yes Immune Disorder: No Inguinal Hernia: Yes Implanted Vascular Access Dvce: No Musculoskeletal: Yes (SCIATICA, "SEVERAL COLLAPSED VERTEBRAE") Neurologic: Yes Psychiatric: Yes Reproductive: No Respiratory: Yes (SARCODOSIS) Immunizations Current: Yes Myocardial Infarction: No Radiation Therapy: No Thyroid Disease: No Ulcer: No Menopausal: Yes Past Surgical History Abdominal Surgery: Yes (EXP LAP) AICD: No Appendectomy: Yes Body Medical Devices: ADDISONS Cardiac Surgery: No Cholecystectomy: Yes Coronary Artery Bypass Graft: No Ear Surgery: No Endocrine Surgery: Yes (PITUITARY ADENOMA REMOVED) Eye Surgery: No Genitourinary Surgery: No Gynecologic Surgery: No Hysterectomy: Yes Joint Replacement: No Neurologic Surgery: No Oral Surgery: Yes (TONSILECTOMY) Pacemaker: No Thoracic Surgery: No Tonsillectomy: Yes Other Surgery: Yes Social History Alcohol Use: No Tobacco Use: No Substance Use: No Allergies-Medications (Allergen,Severity, Reaction): Coded Allergies: No Known Allergies (Verified , 09/29/16) Reported Meds & Prescriptions Reported Meds & Active Scripts Active Macrobid (Nitrofurantoin Monoh/Nitrofur Macro) 100 Mg Cap 100 Mg PO BID 10 Days Zofran Odt (Ondansetron Odt) 4 Mg Tab 4 Mg SL Q6HR PRN Reported Cortef (Hydrocortisone) 5 Mg Tab 5 Mg PO DAILY Take with food to decrease GI upset Paxil (Paroxetine HCl) 10 Mg Tab 5 Mg PO DAILY Diltiazem (Diltiazem HCl) 120 Mg Tab 120 Mg PO BID Prilosec (Omeprazole) 20 Mg Cap 20 Mg PO DAILY Calcium + D & K (Calcium-Vitamins D & K) 500-1,000-40 Mg-Unit-Mcg Chew 1,200 Tab CHEW HS Aspirin 81 Mg Chew 81 Mg CHEW DAILY Review of Systems ROS Limitations: Other: (extremely hard of hearing) Except as stated in HPI: all other systems reviewed are Neg General / Constitutional: No: Fever Musculoskeletal: Positive: Edema, Pain Neurologic: No: Paresthesia, Sensory Disturbance Physical Exam Narrative GENERAL: Awake, alert, very pleasant 86-year-old female who appears her stated age and is in no acute respiratory distress. The patient is hard of hearing. SKIN: Focused skin assessment warm/dry. HEAD: Atraumatic. Normocephalic. EYES: No injection or drainage. NECK: Trachea midline. No JVD. MUSCULOSKELETAL: The left upper extremity was in a sugar tong splint. The splint was removed, the patient does have mild edema the fingers of the left hand just distal to the splint. Positive left radial pulse. Mild ecchymosis and swelling over the anterior aspect of the left wrist. Patient is able flex and extend the left elbow, but is unable to flex or extend the left wrist or supinate/pronate secondary to pain. Patient is able to move all 5 digits of the left hand. NEUROLOGICAL: Awake and alert. No obvious cranial nerve deficits. Motor grossly within normal limits. Normal speech. Sensation is intact with radial, median, and ulnar distribution of the left hand. PSYCHIATRIC: Appropriate mood and affect; insight and judgment normal. Data Data Last Documented VS Vital Signs Date Time Temp Pulse Resp B/P Pulse Ox O2 Delivery O2 Flow Rate FiO2 02/08/17 10:39 Room Air 4/3/17 10:16 98.8 80 16 100/64 90 Orders Radiology Film Requests (02/08/17 ) Support Splint (02/08/17 10:34) MDM Medical Decision Making Medical Screen Exam Complete: Yes Emergency Medical Condition: Yes Medical Record Reviewed: Yes Differential Diagnosis Differential diagnosis includes compartment syndrome, fracture, dependent edema , splenic complication, fracture, hematoma, contusion. Narrative Course The patient's splint was removed, patient was neurovascularly intact. A new sugar tong splint will be applied. The patient is advised elevate, ice, take Tylenol and or Motrin as needed for pain. The patient will be provided a copy of her x-rays at discharge as [place] by orthopedics. Diagnosis Primary Impression: Wrist fracture, left Qualified Code: S62.102D - Wrist fracture, left, with routine healing, subsequent encounter Patient Instructions: General Instructions Additional Instructions: Sugar tong splint and sling as directed. Please provide the patient a copy of her x-ray on DVD/disc as she is [place] to be evaluated by orthopedics. Elevate and ice. Disposition: 01 DISCHARGE HOME Condition: Stable Robbin Hawthorne MD Feb 08, 2017 10:51
== END 2017-02-08 11:18 | disposition home or self-care (01) ==
LOC: PHED 10:12
DX: S62.102D Fracture of unspecified carpal bone, left wrist, subsequent encounter for fracture with routine healing (principal); E27.1 Primary adrenocortical insufficiency; K21.9 Gastro-esophageal reflux disease without esophagitis; D86.9 Sarcoidosis, unspecified; M19.90 Unspecified osteoarthritis, unspecified site; F41.9 Anxiety disorder, unspecified; F32.9 Major depressive disorder, single episode, unspecified; X58.XXXD Exposure to other specified factors, subsequent encounter
CPT/HCPCS: 29125

== ENCOUNTER 2017-07-04 13:49 | Emergency (ER) | payer MEDICARE ==
[~2017-07-04] VITALS: Ht 162.6 cm; Wt 65.0 kg
[~2017-07-04 13:49] MED LIST changes: -DILT120T PO; -MACR100C2 PO
[2017-07-04 13:52] VITALS: BP 149/77; PULSE 86; RESP 16; TEMP 98.1; O2SAT 95
[2017-07-04 14:15] VITALS: BP 160/83; PULSE 79; RESP 18; O2SAT 94
[2017-07-04] MEDS ORDERED: SODIUM CHLORIDE 0.9% FLUSH 10 ML FLUSH IVF PRN (14:15)
[2017-07-04] MEDS ORDERED: HTN MED (14:18)
--- NOTE | 2017-07-04 14:23 | PD ---
HPI . Bilateral upper extremity pain Chief Complaint: Musculoskeletal Complaint Time Seen by Provider: 14:03 Travel History International Travel<30 days: No Contact w/Intl Traveler<30days: No Traveled to known affect area: No History of Present Illness HPI This patient presents complaining with a 2 day history of bilateral upper extremity pain. She has noted the pain on awakening the past 2 mornings. The pain only lasts for a very short period of time. She has not noted any exacerbating or relieving factor. That is, she has not noticed increased pain with movement. She denies any chest pain, shortness of breath, nausea, diaphoresis. She states that she is here because she is concerned that this might be her heart. She states that other people in her family have had heart disease. She further states that this could be arthritis. She states that she was diagnosed with arthritis several years ago and was treated with gabapentin. She states that she had good relief of her pain with gabapentin. She no longer takes it. She states that she had arthritis in her hands and her shoulder. She reports no pain now. 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) Gastrointestinal Disorders: Yes GERD: Yes Glaucoma: No Genitourinary: No Hepatitis: No Hiatal Hernia: No Hypertension: Yes Immune Disorder: No Inguinal Hernia: Yes Implanted Vascular Access Dvce: Yes Musculoskeletal: Yes (SCIATICA, "SEVERAL COLLAPSED VERTEBRAE") Neurologic: Yes Psychiatric: Yes Reproductive: No Respiratory: Yes (SARCODOSIS) Immunizations Current: Yes Myocardial Infarction: No Radiation Therapy: No Sleep Apnea: No Thyroid Disease: No Ulcer: No Influenza Vaccination: Yes ?: Not Menopausal: Yes Past Surgical History Abdominal Surgery: Yes (EXP LAP) AICD: No Appendectomy: Yes Body Medical Devices: ADDISONS Cardiac Surgery: No Cholecystectomy: Yes Coronary Artery Bypass Graft: No Ear Surgery: No Endocrine Surgery: Yes (PITUITARY ADENOMA REMOVED) Eye Surgery: No Genitourinary Surgery: Yes (HEMORRHOIDS) Gynecologic Surgery: No Hysterectomy: Yes Joint Replacement: Yes (LEFT HIP) Neurologic Surgery: No Oral Surgery: Yes (TONSILECTOMY) Pacemaker: No Thoracic Surgery: No Tonsillectomy: Yes Other Surgery: Yes Family History Family Myocardial Infarction: Yes Social History Alcohol Use: No Tobacco Use: No Substance Use: No Allergies-Medications (Allergen,Severity, Reaction): Coded Allergies: No Known Allergies (Verified , 07/04/17) Reported Meds & Prescriptions Reported Meds & Active Scripts Active Reported [Htn Med] 0 Omeprazole 20 Mg Tab 20 Mg PO DAILY Cortef (Hydrocortisone) 5 Mg Tab 5 Mg PO DAILY Take with food to decrease GI upset Paxil (Paroxetine HCl) 10 Mg Tab 5 Mg PO DAILY Calcium + D & K (Calcium-Vitamins D & K) 500-1,000-40 Mg-Unit-Mcg Chew 1,200 Tab CHEW HS Aspirin 81 Mg Chew 81 Mg CHEW DAILY Review of Systems Except as stated in HPI: all other systems reviewed are Neg General / Constitutional: No: Fever, Chills Cardiovascular: No: Chest Pain or Discomfort Respiratory: No: Shortness of Breath Gastrointestinal: No: Nausea Musculoskeletal: Positive: Myalgias Physical Exam Narrative GENERAL: This is an elderly woman who is hard of hearing but in no acute distress. SKIN: Warm and dry. HEAD: Atraumatic. Normocephalic. EYES: Pupils equal and round. Extraocular movements are intact. ENT: No nasal bleeding or discharge. Mucous membranes pink and moist. NECK: Trachea midline. C-spine is nontender. CARDIOVASCULAR: Regular rate and rhythm. Heart sounds are normal. RESPIRATORY: No accessory muscle use. Lungs are clear with good air movement throughout. GASTROINTESTINAL: Abdomen soft, non-tender, nondistended. MUSCULOSKELETAL: No obvious deformities. No edema. I am unable to elicit any tenderness of her joints or muscles. NEUROLOGICAL: Awake and alert. No obvious cranial nerve deficits. Motor grossly within normal limits. Normal speech. PSYCHIATRIC: Appropriate mood and affect; insight and judgment normal. Data Data Last Documented VS Vital Signs Date Time Temp Pulse Resp B/P (MAP) Pulse Ox O2 Delivery O2 Flow Rate FiO2 07/04/17 14:36 106/70 (82) 07/04/17 14:15 79 18 94 Room Air 07/04/17 13:52 98.1 Orders Orders Electrocardiogram (07/04/17 14:03) Basic Metabolic Panel (Bmp) (07/04/17 14:03) Ckmb (Isoenzyme) Profile (07/04/17 14:03) Complete Blood Count With Diff (07/04/17 14:03) Magnesium (Mg) (07/04/17 14:03) Prothrombin Time / Inr (Pt) (07/04/17 14:03) Act Partial Throm Time (Ptt) (07/04/17 14:03) Troponin I (07/04/17 14:03) Chest, Single Ap (07/04/17 14:03) Ecg Monitoring (07/04/17 14:03) Bilateral Bp Monitoring (07/04/17 14:03) Iv Access Insert/Monitor (07/04/17 14:03) Oximetry (07/04/17 14:03) Oxygen Administration (07/04/17 14:03) Sodium Chloride 0.9% Flush (Ns Flush) (07/04/17 14:15) Labs Laboratory Tests Test 07/04/17 14:40 White Blood Count 8.3 TH/MM3 Red Blood Count 4.86 MIL/MM3 Hemoglobin 13.1 GM/DL Hematocrit 39.1 % Mean Corpuscular Volume 80.4 FL Mean Corpuscular Hemoglobin 26.9 PG Mean Corpuscular Hemoglobin Concent 33.5 % Red Cell Distribution Width 13.7 % Platelet Count 212 TH/MM3 Mean Platelet Volume 8.5 FL Neutrophils (%) (Auto) 53.9 % Lymphocytes (%) (Auto) 31.7 % Monocytes (%) (Auto) 8.2 % Eosinophils (%) (Auto) 5.1 % Basophils (%) (Auto) 1.1 % Neutrophils # (Auto) 4.5 TH/MM3 Lymphocytes # (Auto) 2.6 TH/MM3 Monocytes # (Auto) 0.7 TH/MM3 Eosinophils # (Auto) 0.4 TH/MM3 Basophils # (Auto) 0.1 TH/MM3 CBC Comment DIFF FINAL Differential Comment Prothrombin Time 11.6 SEC Prothromb Time International Ratio 1.0 RATIO Activated Partial Thromboplast Time 26.6 SEC Blood Urea Nitrogen 17 MG/DL Creatinine 1.10 MG/DL Random Glucose 101 MG/DL Calcium Level 8.6 MG/DL Magnesium Level 2.1 MG/DL Sodium Level 139 MEQ/L Potassium Level 3.7 MEQ/L Chloride Level 105 MEQ/L Carbon Dioxide Level 23.3 MEQ/L Anion Gap 11 MEQ/L Estimat Glomerular Filtration Rate 47 ML/MIN Total Creatine Kinase 37 U/L Troponin I LESS THAN 0.02 NG/ML MDM Medical Decision Making Medical Screen Exam Complete: Yes Emergency Medical Condition: Yes Interpretation(s) EKG shows a sinus rhythm with a first-degree AV block. No acute changes. Differential Diagnosis Differential diagnosis includes but is not limited to viral syndrome, rhabdomyolysis, sepsis, overuse syndrome, arthritis, cervical radiculopathy, ACS Narrative Course This patient presents complaining with bilateral upper extremity pain. She has had brief pain upon awakening last 2 mornings. She has no pain now. She has no other symptoms. She states that she is here because she wants to make sure that her heart is okay. She is also concerned that she might have arthritis. Last Impressions Chest X-Ray 07/04/17 1403 Signed Impressions: Service Date/Time: Tuesday, July 04, 2017 14:23 - CONCLUSION: Mild bibasilar atelectasis. Josh Au MD The chest x-ray has been independently viewed by me. CBC & BMP Diagram 07/04/17 14:40 Calcium Level 8.6, Magnesium Level 2.1 Cardiac enzymes are negative. The history, exam, diagnostic testing, and current condition do not suggest any significant pathology to warrant further testing, continued ED treatment, admission, or surgical evaluation at this point. The patient's condition is stable and appropriate for discharge. Diagnosis Primary Impression: Bilateral arm pain Patient Instructions: Arm Pain (ED), General Instructions Disposition: 01 DISCHARGE HOME Condition: Stable Jess Ernst MD Jul 04, 2017 14:23
[2017-07-04 14:36] VITALS: BP 106/70
--- NOTE | 2017-07-04 14:38 | RADRPT ---
EXAM DATE/TIME: 07/04/2017 14:23 [facility] COMPARISON: CHEST SINGLE AP, October 08, 2016, 2:26. INDICATIONS : Bilateral arm, shoulder area pain, upper chest pain MEDICAL HISTORY : None. SURGICAL HISTORY : None. ENCOUNTER: Initial ACUITY: 2 days PAIN SCORE: 8/10 LOCATION: Bilateral upper chest FINDINGS: A single view of the chest demonstrates mild bibasilar atelectasis. There is hypoaeration of both lali g leiva most likely from poor inspiration. Otherwise, no significant changes compared to the prior s tudy.. The cardiomediastinal contours are unremarkable. Osseous structures are intact and stable wi th evidence of previous kyphoplasty involving the lower thoracic spine.. CONCLUSION: Mild bibasilar atelectasis. Josh Au MD on July 04, 2017 at 14:35 Board Certified Radiologist. This report was verified electronically.
[2017-07-04 14:44] LABS: AUTOMATED NEUTROPHIL # 4.5 TH/MM3 (1.8-7.7); BASOPHIL # 0.1 TH/MM3 (0-0.2); BASOPHIL % 1.1 % (0.0-2.0); EOSINOPHIL # 0.4 TH/MM3 (0-0.4); EOSINOPHIL % 5.1 % (0.0-4.0); HEMATOCRIT 39.1 % (35.0-46.0); HEMO FLAGS DIFF FINAL; LYMPH % 31.7 % (9.0-44.0); LYMPHOCYTE # 2.6 TH/MM3 (1.0-4.8); MEAN CELL VOLUME 80.4 FL (80.0-100.0); MEAN CORPUSCULAR HEMOGLOBIN 26.9 PG (27.0-34.0); MEAN CORPUSCULAR HGB CONC 33.5 % (32.0-36.0); MONO % 8.2 % (0.0-8.0); NEUT % 53.9 % (16.0-70.0); PLATELET COUNT 212 TH/MM3 (150-450); RED BLOOD COUNT 4.86 MIL/MM3 (4.00-5.30); RED CELL DISTRIBUTION WIDTH 13.7 % (11.6-17.2); WHITE BLOOD COUNT 8.3 TH/MM3 (4.0-11.0)
[2017-07-04 14:52] LABS: CHLORIDE 105 MEQ/L (98-107); POTASSIUM 3.7 MEQ/L (3.5-5.1); SODIUM (NA) 139 MEQ/L (136-145)
[2017-07-04 14:55] LABS: ANION GAP 11 MEQ/L (5-15); BICARBONATE 23.3 MEQ/L (21.0-32.0); BLOOD UREA NITROGEN 17 MG/DL (7-18); MAGNESIUM 2.1 MG/DL (1.5-2.5)
[2017-07-04 14:58] LABS: APTT (PATIENT) 26.6 SEC (24.3-30.1); PROTHROMBIN TIME - PATIENT 11.6 SEC (9.8-11.6)
[2017-07-04 14:59] LABS: GLOMERULAR FILTRATION RATE 47 ML/MIN (>89)
[2017-07-04 15:04] LABS: CREATINE KINASE 37 U/L (26-192)
[2017-07-04 15:25] VITALS: BP 115/89
--- NOTE | 2017-07-05 15:12 | EKG ---
Date Performed: 07/04/2017 Time Performed: 14:11:14 PTAGE: 87 years EKG: Sinus rhythm WITH FIRST DEGREE AV BLOCK MARKED LEFT AXIS DEVIATION ABNORMAL ECG PREVIOUS TRACING : 11/15/2016 15.30 Since previous tracing, no significant change noted DOCTOR: Roger Su Interpretating Date/Time 07/05/2017 15:10:01
== END 2017-07-04 15:38 | disposition home or self-care (01) ==
LOC: PHED 13:49
DX: M79.602 Pain in left arm (principal); M79.601 Pain in right arm; M19.90 Unspecified osteoarthritis, unspecified site; E27.9 Disorder of adrenal gland, unspecified; K21.9 Gastro-esophageal reflux disease without esophagitis; I10 Essential (primary) hypertension; H91.93 Unspecified hearing loss, bilateral; Z79.899 Other long term (current) drug therapy
CPT/HCPCS: 71010; 80048; 82550; 83735; 84484; 85025; 85610; 85730; 93005; 99285

== ENCOUNTER 2017-08-05 21:23 | Emergency (ER) | payer MEDICARE ==
[~2017-08-05] VITALS: Ht 162.6 cm; Wt 60.0 kg
[~2017-08-05 21:23] MED LIST changes: +HTN MED; -HYDR-3516 PO; -HYDR5TAB64 PO; -PRIL20CA9 PO; -ZOFR4TAB PO; -ZOFR4TAB3 SL
--- NOTE | 2017-08-05 21:40 | PD ---
HPI Chief Complaint: FALL Time Seen by Provider: 21:32 Travel History International Travel<30 days: No Contact w/Intl Traveler<30days: No Traveled to known affect area: No History of Present Illness HPI WHILE AT HOME, HAD A MECH FALL IN WHICH SHE LANDED ON RIGHT HIP AND NECK WHIPPED AROUND, NOW C/O NECK PAIN MORE THAN RIGHT HIP PAIN, NECK 7/10, RIGHT HIP 4/10, NONRAD. 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) Gastrointestinal Disorders: Yes GERD: Yes Glaucoma: No Genitourinary: No Hepatitis: No Hiatal Hernia: No Hypertension: Yes Immune Disorder: No Inguinal Hernia: Yes Implanted Vascular Access Dvce: Yes Musculoskeletal: Yes (SCIATICA, "SEVERAL COLLAPSED VERTEBRAE") Neurologic: Yes Psychiatric: Yes Reproductive: No Respiratory: Yes (SARCODOSIS) Immunizations Current: Yes Myocardial Infarction: No Radiation Therapy: No Sleep Apnea: No Thyroid Disease: No Ulcer: No Menopausal: Yes Past Surgical History Abdominal Surgery: Yes (EXP LAP) AICD: No Appendectomy: Yes Body Medical Devices: ADDISONS Cardiac Surgery: No Cholecystectomy: Yes Coronary Artery Bypass Graft: No Ear Surgery: No Endocrine Surgery: Yes (PITUITARY ADENOMA REMOVED) Eye Surgery: No Genitourinary Surgery: Yes (HEMORRHOIDS) Gynecologic Surgery: No Hysterectomy: Yes Joint Replacement: Yes (LEFT HIP) Neurologic Surgery: No Oral Surgery: Yes (TONSILECTOMY) Pacemaker: No Thoracic Surgery: No Tonsillectomy: Yes Other Surgery: Yes Social History Alcohol Use: No Tobacco Use: No Substance Use: No Allergies-Medications (Allergen,Severity, Reaction): Coded Allergies: No Known Allergies (Verified , 07/04/17) Reported Meds & Prescriptions Reported Meds & Active Scripts Active Reported [Htn Med] 0 Omeprazole 20 Mg Tab 20 Mg PO DAILY Cortef (Hydrocortisone) 5 Mg Tab 5 Mg PO DAILY Take with food to decrease GI upset Paxil (Paroxetine HCl) 10 Mg Tab 5 Mg PO DAILY Calcium + D & K (Calcium-Vitamins D & K) 500-1,000-40 Mg-Unit-Mcg Chew 1,200 Tab CHEW HS Aspirin 81 Mg Chew 81 Mg CHEW DAILY Review of Systems Except as stated in HPI: all other systems reviewed are Neg HENT: Positive: Neck Pain Musculoskeletal: Positive: Pain (RT HIP PAIN) Physical Exam Narrative GENERAL: SKIN: Warm and dry. HEAD: Atraumatic. Normocephalic. EYES: Pupils equal and round. No scleral icterus. No injection or drainage. ENT: No nasal bleeding or discharge. Mucous membranes pink and moist. NECK: Trachea midline. No JVD. C COLLAR IN PLACE BY EMS CARDIOVASCULAR: Regular rate and rhythm. RESPIRATORY: No accessory muscle use. Clear to auscultation. Breath sounds equal bilaterally. GASTROINTESTINAL: Abdomen soft, non-tender, nondistended. Hepatic and splenic margins not palpable. MUSCULOSKELETAL: Extremities without clubbing, cyanosis, or edema. No obvious deformities. NEUROLOGICAL: Awake and alert. No obvious cranial nerve deficits. Motor grossly within normal limits. Five out of 5 muscle strength in the arms and legs. Normal speech. PSYCHIATRIC: Appropriate mood and affect; insight and judgment normal. Data Data Last Documented VS Vital Signs Date Time Temp Pulse Resp B/P (MAP) Pulse Ox O2 Delivery O2 Flow Rate FiO2 08/05/17 23:16 97.9 70 16 115/58 (77) [address] Cerv Spine W/O Contrast (08/05/17 ) Ct Brain W/O Iv Contrast(Rout) (08/05/17 ) Electrocardiogram (08/05/17 21:40) Complete Blood Count With Diff (08/05/17 21:40) Comprehensive Metabolic Panel (08/05/17 21:40) B-Type Natriuretic Peptide (08/05/17 21:40) Ckmb (Isoenzyme) Profile (08/05/17 21:40) Troponin I (08/05/17 21:40) Act Partial Throm Time (Ptt) (08/05/17 21:40) Prothrombin Time / Inr (Pt) (08/05/17 21:40) Urinalysis - C+S If Indicated (08/05/17 21:40) Chest, Single Ap (08/05/17 21:40) Ecg Monitoring (08/05/17 21:40) Iv Access Insert/Monitor (08/05/17 21:40) Oximetry (08/05/17 21:40) Sodium Chloride 0.9% Flush (Ns Flush) (08/05/17 21:45) Labs Laboratory Tests Test 08/05/17 21:54 White Blood Count 11.9 TH/MM3 Red Blood Count 5.03 MIL/MM3 Hemoglobin 13.6 GM/DL Hematocrit 41.6 % Mean Corpuscular Volume 82.8 FL Mean Corpuscular Hemoglobin 27.1 PG Mean Corpuscular Hemoglobin Concent 32.8 % Red Cell Distribution Width 14.6 % Platelet Count 241 TH/MM3 Mean Platelet Volume 9.1 FL Neutrophils (%) (Auto) 71.1 % Lymphocytes (%) (Auto) 17.4 % Monocytes (%) (Auto) 7.6 % Eosinophils (%) (Auto) 3.4 % Basophils (%) (Auto) 0.5 % Neutrophils # (Auto) 8.5 TH/MM3 Lymphocytes # (Auto) 2.1 TH/MM3 Monocytes # (Auto) 0.9 TH/MM3 Eosinophils # (Auto) 0.4 TH/MM3 Basophils # (Auto) 0.1 TH/MM3 CBC Comment DIFF FINAL Differential Comment Prothrombin Time 11.4 SEC Prothromb Time International Ratio 1.0 RATIO Activated Partial Thromboplast Time 24.7 SEC Blood Urea Nitrogen 23 MG/DL Creatinine 1.40 MG/DL Random Glucose 126 MG/DL Total Protein 7.1 GM/DL Albumin 3.7 GM/DL Calcium Level 9.2 MG/DL Alkaline Phosphatase 91 U/L Aspartate Amino Transf (AST/SGOT) 19 U/L Alanine Aminotransferase (ALT/SGPT) 20 U/L Total Bilirubin 0.5 MG/DL Sodium Level 140 MEQ/L Potassium Level 3.6 MEQ/L Chloride Level 106 MEQ/L Carbon Dioxide Level 25.0 MEQ/L Anion Gap 9 MEQ/L Estimat Glomerular Filtration Rate 36 ML/MIN Total Creatine Kinase 48 U/L Troponin I LESS THAN 0.02 NG/ML B-Type Natriuretic Peptide 64 PG/ML MDM Medical Decision Making Medical Screen Exam Complete: Yes Emergency Medical Condition: Yes Medical Record Reviewed: Yes Differential Diagnosis ICH V NECK SPRAIN V NECK FX V SYNCOPE Narrative Course NO ICH, NO NECK FX, NO ANEMIA, NO ELECTROLYTE ABNL, Diagnosis Primary Impression: S/P FALL Additional Impressions: NECK SPRAIN Contusion of right hip Qualified Codes: S70.01XA - Contusion of right hip, initial encounter Patient Instructions: Cervical Neck Strain Exercises (GEN), General Instructions, Hip Contusion (ED) Disposition: 01 DISCHARGE HOME Condition: Stable Roe Kat MD Aug 05, 2017 21:40
[2017-08-05] MEDS ORDERED: SODIUM CHLORIDE 0.9% FLUSH 10 ML FLUSH IVF PRN (21:45)
--- NOTE | 2017-08-05 22:06 | RADRPT ---
EXAM DATE/TIME: 08/05/2017 21:51 [facility] COMPARISON: CT BRAIN W/O CONTRAST, October 04, 2014, 18:56. INDICATIONS : Trauma, fall. RADIATION DOSE: 37.09 CTDIvol (mGy) MEDICAL HISTORY : Cardiovascular disease. Gastroesophageal reflux disease. Hypertension.[place]one[place]'s disease. inguinal her magalis.sarcodosis. SURGICAL HISTORY : Hysterectomy. Appendectomy.Cholecystectomy. ENCOUNTER: Initial ACUITY: 1 day PAIN SCALE: 0/10 LOCATION: cranial TECHNIQUE: Multiple contiguous axial images were obtained of the head. Using automated exposure control and adj ustment of the mA and/or kV according to patient size, radiation dose was kept as low as reasonably a chievable to obtain optimal diagnostic quality images. DICOM format image data is available electro nically for review and comparison. FINDINGS: CEREBRUM: The ventricles are normal for age. No evidence of midline shift, mass lesion, hemorrhage or acute in farction. No extra-axial fluid collections are seen. POSTERIOR FOSSA: The cerebellum and brainstem are intact. The 4th ventricle is midline. The cerebellopontine angle i s unremarkable. EXTRACRANIAL: The visualized portion of the orbits is intact. SKULL: The calvaria is intact. No evidence of skull fracture. CONCLUSION: Negative noncontrast head CT. Lenny Taylor MD on August 05, 2017 at 22:04 Board Certified Radiologist. This report was verified electronically.
--- NOTE | 2017-08-05 22:08 | RADRPT ---
EXAM DATE/TIME: 08/05/2017 21:51 [facility] COMPARISON: No previous studies available for comparison. INDICATIONS : Trauma, fall. Complains of neck pain. RADIATION DOSE: 17.91 CTDIvol (mGy) MEDICAL HISTORY : Cardiovascular disease. Hypertension. Gastroesophageal reflux disease.Inguinal hernia. Sarcodosis. Ad dison's disease. SURGICAL HISTORY : Hysterectomy. Appendectomy.Cholecystectomy. ENCOUNTER: Initial ACUITY: 1 day PAIN SCALE: 7/10 LOCATION: neck TECHNIQUE: Volumetric scanning of the cervical spine was performed. Multiplanar reconstructions in the sagittal, coronal and oblique axial planes were performed. Using automated exposure control and adjustment o f the mA and/or kV according to patient size, radiation dose was kept as low as reasonably achievable to obtain optimal diagnostic quality images. DICOM format image data is available electronically f or review and comparison. FINDINGS: Cervical spine alignment is normal. Vertebral bodies have normal height. No cortical break or trabecu lar disruption. Mild uncovertebral and facet osteoarthritis seen at essentially all levels. There is mild disc space narrowing and a small, broad/diffuse disc osteophyte complex at C4/C5. Paravertebral soft tissues are within normal limits. Mild wispy infiltrate and/or scarring seen in the visualized right upper lobe. CONCLUSION: 1. Intact cervical spine. 2. Mild degenerative changes, mostly C4/C5. 3. Mild scarring or infiltrate seen of the visualized upper lobe of the right lung. Lenny Taylor MD on August 05, 2017 at 22:05 Board Certified Radiologist. This report was verified electronically.
--- NOTE | 2017-08-05 22:14 | RADRPT ---
EXAM DATE/TIME: 08/05/2017 21:57 [facility] COMPARISON: CHEST SINGLE AP, July 04, 2017, 14:23. INDICATIONS : Weakness; fall today. MEDICAL HISTORY : Hypertension. Sarcodosis. SURGICAL HISTORY : Cardiac cath. ENCOUNTER: Initial ACUITY: 1 day PAIN SCORE: 0/10 LOCATION: Bilateral chest FINDINGS: A single view of the chest demonstrates the lungs to be symmetrically aerated without evidence of mas s, infiltrate or effusion. The cardiomediastinal contours are unremarkable. Osseous structures are grossly intact. Evidence of lower thoracic kyphoplasty again noted. CONCLUSION: No acute pneumonia or other acute cardiopulmonary disease demonstrated. Lenny Taylor MD on August 05, 2017 at 22:12 Board Certified Radiologist. This report was verified electronically.
[2017-08-05 22:16] LABS: AUTOMATED NEUTROPHIL # 8.5 TH/MM3 (1.8-7.7); BASOPHIL # 0.1 TH/MM3 (0-0.2); BASOPHIL % 0.5 % (0.0-2.0); EOSINOPHIL # 0.4 TH/MM3 (0-0.4); EOSINOPHIL % 3.4 % (0.0-4.0); HEMATOCRIT 41.6 % (35.0-46.0); HEMO FLAGS DIFF FINAL; LYMPH % 17.4 % (9.0-44.0); LYMPHOCYTE # 2.1 TH/MM3 (1.0-4.8); MEAN CELL VOLUME 82.8 FL (80.0-100.0); MEAN CORPUSCULAR HEMOGLOBIN 27.1 PG (27.0-34.0); MEAN CORPUSCULAR HGB CONC 32.8 % (32.0-36.0); MONO % 7.6 % (0.0-8.0); NEUT % 71.1 % (16.0-70.0); PLATELET COUNT 241 TH/MM3 (150-450); RED BLOOD COUNT 5.03 MIL/MM3 (4.00-5.30); RED CELL DISTRIBUTION WIDTH 14.6 % (11.6-17.2); WHITE BLOOD COUNT 11.9 TH/MM3 (4.0-11.0)
[2017-08-05 22:23] LABS: APTT (PATIENT) 24.7 SEC (24.3-30.1); PROTHROMBIN TIME - PATIENT 11.4 SEC (9.8-11.6)
[2017-08-05 22:41] LABS: ALT (GPT) 20 U/L (10-53); ANION GAP 9 MEQ/L (5-15); AST (GOT) 19 U/L (15-37); BLOOD UREA NITROGEN 23 MG/DL (7-18); CHLORIDE 106 MEQ/L (98-107); GLOMERULAR FILTRATION RATE 36 ML/MIN (>89); POTASSIUM 3.6 MEQ/L (3.5-5.1); SODIUM (NA) 140 MEQ/L (136-145)
[2017-08-05 22:45] LABS: ALKALINE PHOSPHATASE 91 U/L (45-117); TOTAL BILIRUBIN ADULT 0.5 MG/DL (0.2-1.0)
[2017-08-05 22:58] LABS: CREATINE KINASE 48 U/L (26-192)
[2017-08-05 23:13] VITALS: O2SAT 95
[2017-08-05 23:16] VITALS: BP 115/58; PULSE 70; RESP 16; TEMP 97.9; O2SAT 95
[2017-08-06] MEDS ORDERED: CYCL5TAB PO (00:34)
[2017-08-06 06:00] VITALS: BP 137/67; PULSE 75; RESP 16; O2SAT 96
== END 2017-08-06 09:50 | disposition home or self-care (01) ==
LOC: NEPE 21:23
DX: S13.9XXA Sprain of joints and ligaments of unspecified parts of neck, initial encounter (principal); S70.01XA Contusion of right hip, initial encounter; H91.90 Unspecified hearing loss, unspecified ear; I10 Essential (primary) hypertension; W01.0XXA Fall on same level from slipping, tripping and stumbling without subsequent striking against object, initial encounter; Y92.009 Unspecified place in unspecified non-institutional (private) residence as the place of occurrence of the external cause
CPT/HCPCS: 70450; 71010; 72125; 80053; 82550; 83880; 84484; 85025; 85610; 85730; 99285

== ENCOUNTER 2017-08-11 17:43 | Observation (INO) | payer MEDICARE ==
[~2017-08-11] VITALS: Ht 162.6 cm; Wt 60.0 kg
[~2017-08-11 17:43] MED LIST changes: +CYCL5TAB PO
[2017-08-11 17:58] VITALS: BP 130/60; PULSE 84; RESP 16; TEMP 99.1; O2SAT 95
[2017-08-11] MEDS ORDERED: SODIUM CHLORIDE 0.9% FLUSH 10 ML FLUSH IVF PRN (18:15)
--- NOTE | 2017-08-11 18:25 | PD ---
HPI Chief Complaint: Chest Pain Time Seen by Provider: 18:05 Travel History International Travel<30 days: No Contact w/Intl Traveler<30days: No Traveled to known affect area: No History of Present Illness HPI 87-year-old female presents with central chest pain that is been present since yesterday. She states she is concerned about her heart as she's had an issue with their before. She states her mother also had heart disease. She states the pain is worse if she walks. She does state that she recently had a fall but she is arty been evaluated for that. She denies any other concurrent complaints. Quality is pressure. She received aspirin and nitroglycerin in route denies any specific change. 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'S) Gastrointestinal Disorders: Yes GERD: Yes Glaucoma: No Genitourinary: No Hepatitis: No Hiatal Hernia: No Heparin Induced Thrombocytopen: No Hypertension: Yes Immune Disorder: No Inguinal Hernia: Yes Implanted Vascular Access Dvce: Yes Musculoskeletal: Yes (SCIATICA, "SEVERAL COLLAPSED VERTEBRAE") Neurologic: Yes Psychiatric: Yes Reproductive: No Respiratory: Yes (SARCODOSIS) Immunizations Current: Yes Myocardial Infarction: No Radiation Therapy: No Sleep Apnea: No Thyroid Disease: No Ulcer: No Menopausal: Yes Past Surgical History Abdominal Surgery: Yes (EXP LAP) AICD: No Appendectomy: Yes Body Medical Devices: ADDISONS Cardiac Surgery: No Cholecystectomy: Yes Coronary Artery Bypass Graft: No Ear Surgery: No Endocrine Surgery: Yes (PITUITARY ADENOMA REMOVED) Eye Surgery: No Genitourinary Surgery: Yes (HEMORRHOIDS) Gynecologic Surgery: No Hysterectomy: Yes Insulin Pump: No Joint Replacement: Yes (LEFT HIP) Neurologic Surgery: No Oral Surgery: Yes (TONSILECTOMY) Pacemaker: No Thoracic Surgery: No Tonsillectomy: Yes Other Surgery: Yes Family History Family Myocardial Infarction: Yes Social History Alcohol Use: No Tobacco Use: No Substance Use: No Allergies-Medications (Allergen,Severity, Reaction): Coded Allergies: No Known Allergies (Verified , 08/11/17) Reported Meds & Prescriptions Reported Meds & Active Scripts Active Reported [Htn Med] 0 Omeprazole 20 Mg Tab 20 Mg PO DAILY Cortef (Hydrocortisone) 5 Mg Tab 5 Mg PO DAILY Take with food to decrease GI upset Paxil (Paroxetine HCl) 10 Mg Tab 5 Mg PO DAILY Calcium + D & K (Calcium-Vitamins D & K) 500-1,000-40 Mg-Unit-Mcg Chew 1,200 Tab CHEW HS Aspirin 81 Mg Chew 81 Mg CHEW DAILY Review of Systems Except as stated in HPI: all other systems reviewed are Neg Physical Exam Exam Limitations: Poor Historian Narrative GENERAL: Well-nourished, well-developed patient. SKIN: Warm and dry. HEAD: Normocephalic and atraumatic. EYES: No injection or drainage. ENT: No nasal drainage noted. NECK: Supple, trachea midline. CARDIOVASCULAR: Regular rate and rhythm RESPIRATORY: Breath sounds equal bilaterally. No accessory muscle use. GASTROINTESTINAL: Abdomen soft, non-tender, nondistended. NEUROLOGICAL: Moves all extremities, clear speech, awake and appropriate Data Data Last Documented VS Vital Signs Date Time Temp Pulse Resp B/P (MAP) Pulse Ox O2 Delivery O2 Flow Rate FiO2 08/11/17 17:58 99.1 84 16 130/60 (83) 95 Orders Orders Electrocardiogram (08/11/17 ) Electrocardiogram (08/11/17 18:05) Ckmb (Isoenzyme) Profile (08/11/17 18:05) Complete Blood Count With Diff (08/11/17 18:05) Comprehensive Metabolic Panel (08/11/17 18:05) Magnesium (Mg) (08/11/17 18:05) Prothrombin Time / Inr (Pt) (08/11/17 18:05) Act Partial Throm Time (Ptt) (08/11/17 18:05) Troponin I (08/11/17 18:05) Chest, Single Ap (08/11/17 18:05) Ecg Monitoring (08/11/17 18:05) Bilateral Bp Monitoring (08/11/17 18:05) Iv Access Insert/Monitor (08/11/17 18:05) Oximetry (08/11/17 18:05) Sodium Chloride 0.9% Flush (Ns Flush) (08/11/17 18:15) Admit Order (Ed Use Only) (08/11/17 18:53) Activity Bed Rest With Brp (08/11/17 18:53) Vital Signs (Adult) Q4H (08/11/17 18:53) Cardiac Rhythm .As Directed (08/11/17 18:53) Notify Dr: Other .PRN (08/11/17 18:53) Notify DrJosé Manuel Parameters (08/11/17 18:53) Resp Oxygen Nasal Cannula (08/11/17 ) Ckmb (Isoenzyme) Profile (08/11/17 18:53) Ckmb (Isoenzyme) Profile (08/11/17 21:53) Troponin I (08/11/17 18:53) Troponin I (08/11/17 21:53) Electrocardiogram (08/11/17 18:53) Electrocardiogram (08/11/17 21:53) ^ Obtain (08/11/17 18:53) Sodium Chloride 0.9% Flush (Ns Flush) (08/11/17 19:00) Sodium Chloride 0.9% Flush (Ns Flush) (08/11/17 21:00) Foreign Languages Professor / Telemetry ABNER.Q8H (08/11/17 18:53) Labs Laboratory Tests Test 08/11/17 18:15 White Blood Count 8.6 TH/MM3 Red Blood Count 4.52 MIL/MM3 Hemoglobin 12.7 GM/DL Hematocrit 37.5 % Mean Corpuscular Volume 83.0 FL Mean Corpuscular Hemoglobin 28.1 PG Mean Corpuscular Hemoglobin Concent 33.8 % Red Cell Distribution Width 14.8 % Platelet Count 184 TH/MM3 Mean Platelet Volume 8.8 FL Neutrophils (%) (Auto) 63.1 % Lymphocytes (%) (Auto) 23.2 % Monocytes (%) (Auto) 9.0 % Eosinophils (%) (Auto) 2.3 % Basophils (%) (Auto) 2.4 % Neutrophils # (Auto) 5.4 TH/MM3 Lymphocytes # (Auto) 2.0 TH/MM3 Monocytes # (Auto) 0.8 TH/MM3 Eosinophils # (Auto) 0.2 TH/MM3 Basophils # (Auto) 0.2 TH/MM3 CBC Comment DIFF FINAL Differential Comment Prothrombin Time 12.5 SEC Prothromb Time International Ratio 1.1 RATIO Activated Partial Thromboplast Time 30.3 SEC Blood Urea Nitrogen 17 MG/DL Creatinine 0.98 MG/DL Random Glucose 85 MG/DL Total Protein 5.8 GM/DL Albumin 3.0 GM/DL Calcium Level 8.1 MG/DL Magnesium Level 1.7 MG/DL Alkaline Phosphatase 77 U/L Aspartate Amino Transf (AST/SGOT) 15 U/L Alanine Aminotransferase (ALT/SGPT) 13 U/L Total Bilirubin 0.6 MG/DL Sodium Level 138 MEQ/L Potassium Level 3.7 MEQ/L Chloride Level 106 MEQ/L Carbon Dioxide Level 23.6 MEQ/L Anion Gap 8 MEQ/L Estimat Glomerular Filtration Rate 54 ML/MIN Total Creatine Kinase 30 U/L Troponin I LESS THAN 0.02 NG/ML MDM Medical Decision Making Medical Screen Exam Complete: Yes Emergency Medical Condition: Yes Medical Record Reviewed: Yes (past history confirm, stress test from 2015 reviewed) Interpretation(s) EKG shows NSR, no ST elevation or depression, and no arrhythmias. No significant T-wave inversions. CBC & BMP Diagram 08/11/17 18:15 Total Protein 5.8 #L, Albumin 3.0 L, Calcium Level 8.1 L, Magnesium Level 1.7, Alkaline Phosphatase 77, Aspartate Amino Transf (AST/SGOT) 15, Alanine Aminotransferase (ALT/SGPT) 13, Total Bilirubin 0.6 Differential Diagnosis [place], gastritis, musculoskeletal, pneumothorax.... Narrative Course will check labs, cxr, ekg and monitor, patient already had aspirin and nitroglycerin labs without emergent findings, will place in [facility] observation Diagnosis Primary Impression: Chest pain Qualified Codes: R07.9 - Chest pain, unspecified Admitting Information Admitting Physician Requests: Observation Maryjane Tao MD Aug 11, 2017 18:25
[2017-08-11 18:41] LABS: APTT (PATIENT) 30.3 SEC (24.3-30.1); INTERNATIONAL NORMALIZED RATIO 1.1 RATIO; PROTHROMBIN TIME - PATIENT 12.5 SEC (9.8-11.6)
--- NOTE | 2017-08-11 18:43 | RADRPT ---
EXAM DATE/TIME: 08/11/2017 18:27 [facility] COMPARISON: CHEST SINGLE AP, July 04, 2017, 14:23. CHEST SINGLE AP, August 05, 2017, 21:57. INDICATIONS : Chest pain post fall 3 days ago MEDICAL HISTORY : Hypertension. Sarcodosis. SURGICAL HISTORY : Cardiac cath. ENCOUNTER: Initial ACUITY: 3 days PAIN SCORE: 5/10 LOCATION: Right chest FINDINGS: A single view of the chest demonstrates the lungs to be symmetrically aerated without evidence of mas s, infiltrate or effusion. The cardiomediastinal contours are unremarkable. The patient is status po st vertebroplasty at the lower thoracic spine.. CONCLUSION: No acute disease. Lenny Henderson MD on August 11, 2017 at 18:40 Board Certified Radiologist. This report was verified electronically.
[2017-08-11 18:44] LABS: AUTOMATED NEUTROPHIL # 5.4 TH/MM3 (1.8-7.7); BASOPHIL # 0.2 TH/MM3 (0-0.2); BASOPHIL % 2.4 % (0.0-2.0); EOSINOPHIL # 0.2 TH/MM3 (0-0.4); EOSINOPHIL % 2.3 % (0.0-4.0); HEMATOCRIT 37.5 % (35.0-46.0); HEMO FLAGS DIFF FINAL; LYMPH % 23.2 % (9.0-44.0); MEAN CORPUSCULAR HEMOGLOBIN 28.1 PG (27.0-34.0); MEAN CORPUSCULAR HGB CONC 33.8 % (32.0-36.0); NEUT % 63.1 % (16.0-70.0); PLATELET COUNT 184 TH/MM3 (150-450); RED BLOOD COUNT 4.52 MIL/MM3 (4.00-5.30); RED CELL DISTRIBUTION WIDTH 14.8 % (11.6-17.2); WHITE BLOOD COUNT 8.6 TH/MM3 (4.0-11.0)
[2017-08-11 18:46] LABS: ANION GAP 8 MEQ/L (5-15); AST (GOT) 15 U/L (15-37); BICARBONATE 23.6 MEQ/L (21.0-32.0); BLOOD UREA NITROGEN 17 MG/DL (7-18); CHLORIDE 106 MEQ/L (98-107); GLOMERULAR FILTRATION RATE 54 ML/MIN (>89); MAGNESIUM 1.7 MG/DL (1.5-2.5); POTASSIUM 3.7 MEQ/L (3.5-5.1); SODIUM (NA) 138 MEQ/L (136-145)
[2017-08-11 18:47] LABS: ALT (GPT) 13 U/L (10-53)
[2017-08-11 18:50] LABS: ALKALINE PHOSPHATASE 77 U/L (45-117); TOTAL BILIRUBIN ADULT 0.6 MG/DL (0.2-1.0)
[2017-08-11 18:51] LABS: CREATINE KINASE 30 U/L (26-192)
[2017-08-11] MEDS ORDERED: SODIUM CHLORIDE 0.9% FLUSH 10 ML FLUSH IV FLUSH PRN (19:00)
[2017-08-11 20:32] VITALS: BP 125/82; PULSE 81; RESP 16; TEMP 98.2; O2SAT 96
[2017-08-11] MEDS: SODIUM CHLORIDE 0.9% FLUSH 10 ML FLUSH IV FLUSH SCH (21:00)
[2017-08-11 21:38] VITALS: BP 126/58; PULSE 88; RESP 12; TEMP 99.1; O2SAT 97
[2017-08-11] MEDS ORDERED: MIRA3350 PO (21:40)
[2017-08-11 21:45] VITALS: PULSE 80
[2017-08-11 22:22] LABS: CREATINE KINASE 77 U/L (26-192)
[2017-08-11 23:59] VITALS: PULSE 78
[2017-08-12 00:30] VITALS: PULSE 80
[2017-08-12 01:18] LABS: CREATINE KINASE 56 U/L (26-192)
[2017-08-12 01:54] VITALS: BP 121/59; PULSE 78; RESP 19; TEMP 98; O2SAT 96
[2017-08-12 04:00] VITALS: PULSE 72
[2017-08-12 07:49] VITALS: BP 117/76; PULSE 70; RESP 18; TEMP 96.8; O2SAT 92
[2017-08-12 08:10] VITALS: PULSE 70
--- NOTE | 2017-08-12 08:21 | HHI.HP ---
HPI Primary Care Physician Chad Garcia MD Chief Complaint Chest pain History of Present Illness Ms. Christiansen is an 87-year-old female patient with a known medical history of Seymour's disease, hypertension, and GERD who presented to the ED with complains of chest pain. Patient states she fell a week ago on her left side and has had intermittent pain since. Last evening patient was resting and awoken by a sharp pain in her left rib cage area. She states that the pain would last roughly 1 min, would go away, and then return on and off. Inspiration made the pain worse, no known alleviating factors. Patient does state that the pain is much better today and has resolved. Denies any radiation of pain. Denies any associated shortness of breath, nausea or diaphoresis. Denies any recent illness including fever, chills, cough, abdominal pain, nausea , vomiting, diarrhea or dysuria. Review of Systems Consitutional: DENIES: Fever, Chills Respiratory: DENIES: Cough, Shortness of breath, Wheezing Cardiovascular: COMPLAINS OF: See HPI, Chest pain Gastrointestinal: DENIES: Nausea, Vomiting, Change in bowel habits Genitourinary: DENIES: Urinary incontinence Neurologic: DENIES: Tingling or numbness Musculoskeletal: COMPLAINS OF: Back pain Past Family Social History Allergies: Coded Allergies: No Known Allergies (Verified , 08/11/17) Past Medical History Arthritis Anxiety Seymour's disease Hypertension MANZANITA in bilateral ears. Sciatica Sarcoidosis GERD Past Surgical History Appendectomy Cholecystectomy Hysterectomy Pituitary adenoma removal Left hip replacement Tonsillectomy Hemorrhoidectomy Reported Medications Active Reported Miralax Powder (Polyethylene Glycol 3350 Powder) 17 Gm Powd 17 Gm PO HS Mix and dissolve one measuring cap-ful (17 grams) in water or juice. [Htn Med] 0 Omeprazole 20 Mg Tab 20 Mg PO DAILY Cortef (Hydrocortisone) 5 Mg Tab 5 Mg PO DAILY Take with food to decrease GI upset Paxil (Paroxetine HCl) 10 Mg Tab 5 Mg PO DAILY Calcium + D & K (Calcium-Vitamins D & K) 500-1,000-40 Mg-Unit-Mcg Chew 1,200 Tab CHEW HS Aspirin 81 Mg Chew 81 Mg CHEW DAILY Active Ordered Medications Current Medications Medications (Trade) Dose Ordered Sig/Jorge Route Start Time Stop Time Status Last Admin (NS Flush) 2 ml UNSCH PRN IVF 08/11/17 18:15 (NS Flush) 2 ml UNSCH PRN IV FLUSH 08/11/17 19:00 (NS Flush) 2 ml BID IV FLUSH 08/11/17 21:00 Family History Maternal medical history significant for [place] at the age of 67. Father had Alzheimer disease. Social History Denies any current tobacco use. Denies any alcohol use. Denies any illicit drug use. Physical Exam Vital Signs Vital Signs Date Time Temp Pulse Resp B/P (MAP) Pulse Ox O2 Delivery O2 Flow Rate FiO2 08/12/17 07:49 96.8 70 18 117/76 (90) 92 08/12/17 04:00 72 08/12/17 01:54 98.0 78 19 121/59 (79) 96 08/12/17 00:30 80 08/11/17 23:59 78 08/11/17 23:18 Nasal Cannula 2.00 08/11/17 21:45 80 08/11/17 21:38 99.1 88 12 126/58 (80) 97 08/11/17 21:16 08/11/17 20:32 98.2 81 16 125/82 (96) 96 Nasal Cannula 3.00 08/11/17 17:58 99.1 84 16 130/60 (83) 95 Physical Exam GENERAL: This is a well-nourished, well-developed patient, in no apparent distress. Patient speaks in clear complete sentences. Patient is pleasant. HEENT: Head is atraumatic and normocephalic. Neck is supple without lymphadenopathy and trachea is midline. No JVD or carotid bruits. CARDIOVASCULAR: Regular rate and rhythm without murmurs, gallops, or rubs. RESPIRATORY: Clear to auscultation. Breath sounds equal bilaterally. No wheezes , rales, or rhonchi. No use of accessory muscles. GASTROINTESTINAL: Abdomen is nontender, nondistended. Abdomen soft. No obvious pulsatile mass or bruit. No CVA tenderness. Normal bowel sounds in all quadrants. MUSCULOSKELETAL: Patient is moving upper and lower extremities freely. No calf tenderness or edema, no Homans sign. Strong pulses in upper and lower extremities. Left lateral rib cage area tender to palpation and torso movement. NEUROLOGICAL: Patient is alert and oriented. Cranial nerves 2-12 are grossly intact. No focal deficits and speech is clear. SKIN: No rash and turgor is normal. Laboratory Laboratory Tests Test 08/11/17 18:15 08/11/17 21:25 08/12/17 00:15 White Blood Count 8.6 Red Blood Count 4.52 Hemoglobin 12.7 Hematocrit 37.5 Mean Corpuscular Volume 83.0 Mean Corpuscular Hemoglobin 28.1 Mean Corpuscular Hemoglobin Concent 33.8 Red Cell Distribution Width 14.8 Platelet Count 184 Mean Platelet Volume 8.8 Neutrophils (%) (Auto) 63.1 Lymphocytes (%) (Auto) 23.2 Monocytes (%) (Auto) 9.0 Eosinophils (%) (Auto) 2.3 Basophils (%) (Auto) 2.4 Neutrophils # (Auto) 5.4 Lymphocytes # (Auto) 2.0 Monocytes # (Auto) 0.8 Eosinophils # (Auto) 0.2 Basophils # (Auto) 0.2 CBC Comment DIFF FINAL Differential Comment Prothrombin Time 12.5 Prothromb Time International Ratio 1.1 Activated Partial Thromboplast Time 30.3 Blood Urea Nitrogen 17 Creatinine 0.98 Random Glucose 85 Total Protein 5.8 Albumin 3.0 Calcium Level 8.1 Magnesium Level 1.7 Alkaline Phosphatase 77 Aspartate Amino Transf (AST/SGOT) 15 Alanine Aminotransferase (ALT/SGPT) 13 Total Bilirubin 0.6 Sodium Level 138 Potassium Level 3.7 Chloride Level 106 Carbon Dioxide Level 23.6 Anion Gap 8 Estimat Glomerular Filtration Rate 54 Total Creatine Kinase 30 77 56 Troponin I LESS THAN 0.02 LESS THAN 0.02 LESS THAN 0.02 Result Diagram: 08/11/17181408/11/171814 Imaging Last Impressions Chest X-Ray 08/11/171804 Signed Impressions: Service Date/Time: Friday, August 11, 2017 18:27 - CONCLUSION: No acute disease. Lenny Henderson MD Caprini VTE Risk Assessment Caprini VTE Risk Assessment: Mod/High Risk (score >= 2) Caprini Risk Assessment Model Point Value = 1 Point Value = 2 Point Value = 3 Point Value = 5 Age 41-60 Minor surgery BMI > 25 kg/m2 Swollen legs Varicose veins or History of unexplained or recurrent spontaneous Oral contraceptives or hormone replacement Sepsis (< 1 month) Serious lung disease, including pneumonia (< 1 month) Abnormal pulmonary function Acute myocardial infarction Congestive heart failure (< 1 month) History of inflammatory bowel disease Medical patient at bed rest Age 61-74 Arthroscopic surgery Major open surgery (> 45 min) Laparoscopic surgery (> 45 min) Malignancy Confined to bed (> 72 hours) Immobilizing plaster cast Central venous access Age >= 75 History of VTE Family history of VTE Factor V Leiden Prothrombin [id number] Lupus anticoagulant Anticardiolipin antibodies Elevated serum homocysteine Heparin-induced thrombocytopenia Other congenital or acquired thrombophilia Stroke (< 1 month) Elective arthroplasty Hip, pelvis, or leg fracture Acute spinal cord injury (< 1 month) Prophylaxis Regimen Total Risk Factor Score Risk Level Prophylaxis Regimen 0-1 Low Early ambulation 2 Moderate Order ONE of the following: *Sequential Compression Device (SCD) *Heparin 5000 units SQ BID 3-4 Higher Order ONE of the following medications: *Heparin 5000 units SQ TID *Enoxaparin/Lovenox 40 mg SQ daily (WT < 150 kg, CrCl > 30 mL/min) *Enoxaparin/Lovenox 30 mg SQ daily (WT < 150 kg, CrCl > 10-29 mL/min) *Enoxaparin/Lovenox 30 mg SQ BID (WT < 150 kg, CrCl > 30 mL/min) AND/OR *Sequential Compression Device (SCD) 5 or more Highest Order ONE of the following medications: *Heparin 5000 units SQ TID (Preferred with Epidurals) *Enoxaparin/Lovenox 40 mg SQ daily (WT < 150 kg, CrCl > 30 mL/min) *Enoxaparin/Lovenox 30 mg SQ daily (WT < 150 kg, CrCl > 10-29 mL/min) *Enoxaparin/Lovenox 30 mg SQ BID (WT < 150 kg, CrCl > 30 mL/min) AND *Sequential Compression Device (SCD) Assessment and Plan Assessment and Plan * Chest pain: likely musculoskeletal in nature secondary to fall. Serial EKGs and troponins done for ruling out purposes. CXR reviewed showing no acute disease. Patient has been seen and examined by Dr. Avila in the chest pain center. A chemical stress test has been offered and patient adamantly refusing. All risks and benefits were shared with patient and patient continues to refuse recommendations for a stress test. Refusal of treatment form has been signed by patient. Patient encouraged to follow up with PCP in the outpatient setting and return to ED for interval issues. Patient is stable at this time and agreeable to the plan. Kash De Los Santos Aug 12, 2017 08:21
--- NOTE | 2017-08-12 08:38 | HHI.DCPOC ---
Discharge Care Plan Diagnosis: (1) Chest pain Goals to Promote Your Health * To prevent worsening of your condition and complications * To maintain your health at the optimal level Directions to Meet Your Goals Take your medications as prescribed Follow your dietary instruction Follow activity as directed Keep your appointments as scheduled Take your immunizations and boosters as scheduled If your symptoms worsen call your PCP, if no PCP go to Urgent Care Center or Emergency Room Smoking is Dangerous to Your Health. Avoid second hand smoke Call the 24-hour hour crisis hotline for domestic abuse at Kash De Los Santos Aug 12, 2017 08:38
[2017-08-12] MEDS ORDERED: PILL SPLITTER OTHER PRN (08:45)
[2017-08-12] MEDS ORDERED: ASPIRIN 81 MG CHEW TAB CHEW SCH (09:00)
[2017-08-12] MEDS ORDERED: HYDROCORTISONE 10 MG TAB PO SCH (09:00)
[2017-08-12] MEDS ORDERED: PARoxetine HCL 20 MG TAB PO SCH (09:00)
[2017-08-12] MEDS: PANTOPRAZOLE SOD 20 MG DELAYED RELEASE TAB PO SCH ×2 (09:00→09:32)
[2017-08-12] MEDS: SODIUM CHLORIDE 0.9% FLUSH 10 ML FLUSH IV FLUSH SCH (09:33)
--- NOTE | 2017-08-12 11:38 | HHI.FF ---
Face to Face Verification Diagnosis: (1) Risk for falls (2) Chest pain Physical Therapy Order: Evaluate and Treat, Improve ambulation, Strength and gait training Home Health Nursing Order: Medical education Medication education-adverse effect Nursing assessment with vital signs I have seen patient Kasia Christiansen on 08/12/17. My clinical findings support the need for the requested home health care services because: Deconditioned w/ increased weakness High risk of falls I certify that my clinical findings support that this patient is homebound because: Unsteady gait/balance Kash De Los Santos Aug 12, 2017 11:38
[2017-08-12 11:50] VITALS: PULSE 75
--- NOTE | 2017-08-12 17:15 | EKG ---
Date Performed: 08/11/2017 Time Performed: 18:06:34 PTAGE: 87 years EKG: Sinus rhythm WITH FIRST DEGREE AV BLOCK MARKED LEFT AXIS DEVIATION INCOMPLETE RIGHT BUNDLE BRANCH BLOCK ABNORMAL ECG Since PREVIOUS TRACING , no significant change noted PREVIOUS TRACIN07/04/2017 14.11 DOCTOR: Gwendolyn Avila Interpretating Date/Time 08/12/2017 17:14:06
--- NOTE | 2017-08-12 17:16 | EKG ---
Date Performed: 08/11/2017 Time Performed: 22:31:07 PTAGE: 87 years EKG: Sinus rhythm WITH FIRST DEGREE AV BLOCK MARKED LEFT AXIS DEVIATION SEPTAL MYOCARDIAL INFARCTION ABNORMAL ECG Sinc e PREVIOUS TRACING , no significant change noted PREVIOUS TRACIN08/11/2017 18.06 DOCTOR: Gwendolyn Avila Interpretating Date/Time 08/12/2017 17:15:34
--- NOTE | 2017-08-12 17:17 | EKG ---
Date Performed: 08/12/2017 Time Performed: 02:02:38 PTAGE: 87 years EKG: Sinus rhythm WITH FIRST DEGREE AV BLOCK LEFT ANTERIOR FASCICULAR BLOCK SEPTAL MYOCARDIAL INFARCTION ABNORMAL ECG Since PREVIOUS TRACING , no significant change noted PREVIOUS TRACIN08/11/2017 22.31 DOCTOR: Gwendolyn Avila Interpretating Date/Time 08/12/2017 17:16:10
== END 2017-08-12 13:43 | disposition home or self-care (01) ==
LOC: NEPE 17:43 → NEDA 18:54 → NEPHCDU 21:18
PROVIDERS: ADMIT Internal Medicine Cardiovascular Disease; ATTEND Internal Medicine Cardiovascular Disease
DX: R07.9 Chest pain, unspecified (principal); I10 Essential (primary) hypertension; K21.9 Gastro-esophageal reflux disease without esophagitis; R94.31 Abnormal electrocardiogram [ECG] [EKG]; E27.1 Primary adrenocortical insufficiency; M54.30 Sciatica, unspecified side; Z91.81 History of falling; M19.90 Unspecified osteoarthritis, unspecified site; H91.90 Unspecified hearing loss, unspecified ear
CPT/HCPCS: 71010; 80053; 82550; 83735; 84484; 85025; 85610; 85730; 93005; 97163; 99285; G0378; G8987; G8988

== ENCOUNTER 2017-11-06 18:51 | Observation (INO) | payer MEDICARE ==
[~2017-11-06] VITALS: Ht 162.6 cm; Wt 59.0 kg
[~2017-11-06 18:51] MED LIST changes: +ASPI-516 CHEW; -ASPI81CH CHEW; -CYCL5TAB PO; +MIRA3350 PO; -OMEP20TA PO; +OMEP20TA93 PO; -PAXI10TA2 PO; +PAXI10TA8 PO
[2017-11-06 18:58] VITALS: BP 144/64; PULSE 66; RESP 17; TEMP 98.7; O2SAT 96
[2017-11-06] MEDS ORDERED: TRIAM.1%T TOPICAL (19:17)
[2017-11-06] MEDS ORDERED: CART120C PO (19:17)
--- NOTE | 2017-11-06 19:24 | PD ---
HPI Chief Complaint: Chest Pain Time Seen by Provider: 19:08 Travel History International Travel<30 days: No Contact w/Intl Traveler<30days: No Traveled to known affect area: No History of Present Illness HPI 87-year-old female complains of chest pain. Patient states that the pain aching pain started on the left sided chest with radiation to left upper back and left shoulder pad. Patient denies any coughing congestion fever chills. Patient denies any injury. Patient denies any history of CAD. Patient denies palpitation nausea diaphoresis. Patient states that the pain is not associate with exertion. Patient states the pain started 5 days ago and has been persistent since then. Patient has history hypertension and hyperlipidemia. Patient denies history diabetes. Patient is a nonsmoker. Patient has family history of heart disease. Patient also complains of generalized and weakness. On a scale of 1-10 the pain is 6. 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) Endocrine: Yes (GUSTAVO'S) Gastrointestinal Disorders: Yes GERD: Yes Glaucoma: No Genitourinary: No Hepatitis: No Hiatal Hernia: No Heparin Induced Thrombocytopen: No Hypertension: Yes Immune Disorder: No Inguinal Hernia: Yes Implanted Vascular Access Dvce: Yes Musculoskeletal: Yes (SCIATICA, "SEVERAL COLLAPSED VERTEBRAE") Neurologic: Yes Psychiatric: Yes Reproductive: No Respiratory: Yes (SARCODOSIS) Immunizations Current: Yes Myocardial Infarction: No Radiation Therapy: No Sleep Apnea: No Thyroid Disease: No Ulcer: No Influenza Vaccination: Yes Menopausal: Yes Past Surgical History Abdominal Surgery: Yes (EXP LAP) AICD: No Appendectomy: Yes Body Medical Devices: ADDISONS Cardiac Surgery: No Cholecystectomy: Yes Coronary Artery Bypass Graft: No Ear Surgery: No Endocrine Surgery: Yes (PITUITARY ADENOMA REMOVED) Eye Surgery: No Genitourinary Surgery: Yes (HEMORRHOIDS) Gynecologic Surgery: No Hysterectomy: Yes Insulin Pump: No Joint Replacement: Yes (LEFT HIP) Neurologic Surgery: No Oral Surgery: Yes (TONSILECTOMY) Pacemaker: No Thoracic Surgery: No Tonsillectomy: Yes Other Surgery: Yes Family History Family Myocardial Infarction: Yes Social History Alcohol Use: No Tobacco Use: No Substance Use: No Allergies-Medications (Allergen,Severity, Reaction): Coded Allergies: No Known Allergies (Verified Adverse Reaction, Unknown, 11/06/17) Reported Meds & Prescriptions Reported Meds & Active Scripts Active Reported Triamcinolone Topical (Triamcinolone Acetonide) 0.1 % Oint 1 Applic TOPICAL BID Cartia Xt (Diltiazem ER 24 HR) 120 Mg Caper 120 Mg PO BID Miralax Powder (Polyethylene Glycol 3350 Powder) 17 Gm Powd 17 Gm PO HS Mix and dissolve one measuring cap-ful (17 grams) in water or juice. [Htn Med] 0 Omeprazole 20 Mg Tab 20 Mg PO BID Cortef (Hydrocortisone) 5 Mg Tab 15 Mg PO BID Take with food to decrease GI upset Paxil (Paroxetine HCl) 10 Mg Tab 5 Mg PO DAILY Aspirin 81 Mg Chew 81 Mg CHEW DAILY Review of Systems General / Constitutional: No: Fever Eyes: No: Visual changes HENT: No: Headaches Cardiovascular: Positive: Chest Pain or Discomfort Respiratory: No: Shortness of Breath Gastrointestinal: No: Abdominal Pain Genitourinary: No: Dysuria Musculoskeletal: No: Pain Skin: No Rash Neurologic: No: Weakness Psychiatric: No: Depression Endocrine: No: Polydipsia Hematologic/Lymphatic: No: Easy Bruising Physical Exam Narrative GENERAL: Well-nourished, well-developed patient. SKIN: Focused skin assessment warm/dry. HEAD: Normocephalic. EYES: No scleral icterus. No injection or drainage. NECK: Supple, trachea midline. No JVD or lymphadenopathy. CARDIOVASCULAR: Regular rate and rhythm without murmurs, gallops, or rubs. RESPIRATORY: Breath sounds equal bilaterally. No accessory muscle use. GASTROINTESTINAL: Abdomen soft, non-tender, nondistended. MUSCULOSKELETAL: No cyanosis, or edema. BACK: Nontender without obvious deformity. No CVA tenderness. Neurologic exam normal. Data Data Last Documented VS Vital Signs Date Time Temp Pulse Resp B/P (MAP) Pulse Ox O2 Delivery O2 Flow Rate FiO2 11/06/17 20:04 88 18 111/59 (76) 93 Room Air 11/06/17 18:58 98.7 Orders Orders Electrocardiogram (11/06/17 19:14) Complete Blood Count With Diff (11/06/17 19:14) Comprehensive Metabolic Panel (11/06/17 19:14) Creatine Kinase (Cpk) (11/06/17 19:14) Troponin I (11/06/17 19:14) Prothrombin Time / Inr (Pt) (11/06/17 19:14) Act Partial Throm Time (Ptt) (11/06/17 19:14) Urinalysis - C+S If Indicated (11/06/17 19:14) D-Dimer (11/06/17 19:14) Thyroid Stimulating Hormone (11/06/17 19:14) Chest, Single Ap (11/06/17 19:14) Iv Access Insert/Monitor (11/06/17 19:14) Ecg Monitoring (11/06/17 19:14) Oximetry (11/06/17 19:14) Ct Pulmonary Angiogram (11/06/17 20:03) Iohexol 350 Inj (Omnipaque 350 Inj) (11/06/17 20:38) Labs Laboratory Tests Test 11/06/17 19:20 11/06/17 21:00 White Blood Count 10.1 TH/MM3 Red Blood Count 5.02 MIL/MM3 Hemoglobin 14.1 GM/DL Hematocrit 41.9 % Mean Corpuscular Volume 83.4 FL Mean Corpuscular Hemoglobin 28.1 PG Mean Corpuscular Hemoglobin Concent 33.7 % Red Cell Distribution Width 14.0 % Platelet Count 225 TH/MM3 Mean Platelet Volume 8.8 FL Neutrophils (%) (Auto) 79.2 % Lymphocytes (%) (Auto) 11.7 % Monocytes (%) (Auto) 6.6 % Eosinophils (%) (Auto) 2.0 % Basophils (%) (Auto) 0.5 % Neutrophils # (Auto) 8.0 TH/MM3 Lymphocytes # (Auto) 1.2 TH/MM3 Monocytes # (Auto) 0.7 TH/MM3 Eosinophils # (Auto) 0.2 TH/MM3 Basophils # (Auto) 0.1 TH/MM3 CBC Comment DIFF FINAL Differential Comment Prothrombin Time 11.8 SEC Prothromb Time International Ratio 1.2 RATIO Activated Partial Thromboplast Time 28.4 SEC D-Dimer Quantitative (PE/DVT) 0.82 MG/L FEU Blood Urea Nitrogen 17 MG/DL Creatinine 1.11 MG/DL Random Glucose 104 MG/DL Total Protein 7.2 GM/DL Albumin 3.4 GM/DL Calcium Level 8.9 MG/DL Alkaline Phosphatase 105 U/L Aspartate Amino Transf (AST/SGOT) 31 U/L Alanine Aminotransferase (ALT/SGPT) 21 U/L Total Bilirubin 0.9 MG/DL Sodium Level 139 MEQ/L Potassium Level 4.0 MEQ/L Chloride Level 102 MEQ/L Carbon Dioxide Level 25.6 MEQ/L Anion Gap 11 MEQ/L Estimat Glomerular Filtration Rate 46 ML/MIN Total Creatine Kinase 31 U/L Troponin I LESS THAN 0.02 NG/ML Thyroid Stimulating Hormone 3rd Gen 2.010 uIU/ML MDM Medical Decision Making Medical Screen Exam Complete: Yes Emergency Medical Condition: Yes Interpretation(s) 1923 PM. EKG shows sinus rhythm nonspecific ST-T wave change. 2053 PM. Chest x-ray shows no acute process. CBC within normal limit. CMP within normal limit. Creatinine 1.11. Cardiac enzymes are normal. D-dimer 0.82. Differential Diagnosis Differential diagnosis including musculoskeletal, angina, MT, PE, pneumothorax. Narrative Course 87-year-old female with chest pain. Aspirin 162 mg by mouth now Patient will be admitted to the chest pain center. Diagnosis Primary Impression: Chest pain Qualified Codes: R07.9 - Chest pain, unspecified Admitting Information Admitting Physician Requests: Observation Oleg Che MD Nov 06, 2017 19:24
[2017-11-06 19:41] LABS: BASOPHIL # 0.1 TH/MM3 (0-0.2); BASOPHIL % 0.5 % (0.0-2.0); EOSINOPHIL # 0.2 TH/MM3 (0-0.4); HEMATOCRIT 41.9 % (35.0-46.0); HEMOGLOBIN 14.1 GM/DL (11.6-15.3); LYMPH % 11.7 % (9.0-44.0); LYMPHOCYTE # 1.2 TH/MM3 (1.0-4.8); MEAN CELL VOLUME 83.4 FL (80.0-100.0); MEAN CORPUSCULAR HEMOGLOBIN 28.1 PG (27.0-34.0); MEAN CORPUSCULAR HGB CONC 33.7 % (32.0-36.0); MEAN PLATELET VOLUME 8.8 FL (7.0-11.0); MONO % 6.6 % (0.0-8.0); MONOCYTE # 0.7 TH/MM3 (0-0.9); NEUT % 79.2 % (16.0-70.0); PLATELET COUNT 225 TH/MM3 (150-450); RED BLOOD COUNT 5.02 MIL/MM3 (4.00-5.30); WHITE BLOOD COUNT 10.1 TH/MM3 (4.0-11.0)
--- NOTE | 2017-11-06 19:53 | RADRPT ---
EXAM DATE/TIME: 11/06/2017 19:25 [facility] COMPARISON: CHEST SINGLE AP, August 11, 2017, 18:27. INDICATIONS : Chest pain. MEDICAL HISTORY : Hypertension. Sarcodosis. SURGICAL HISTORY : Cardiac cath. Kyphoplasty. ENCOUNTER: Initial ACUITY: 1 day PAIN SCORE: 6/10 LOCATION: Bilateral chest FINDINGS: The lungs are clear without infiltrate, nodule, or mass. There is no appreciable pleural effusion fo r technique. Heart and mediastinum are unremarkable. There is evidence for prior vertebroplasty. The re are atherosclerotic calcifications of the aorta due to chronic atherosclerotic disease. CONCLUSION: No acute cardiopulmonary disease. Eitan Hampton MD on November 06, 2017 at 19:51 Board Certified Radiologist. This report was verified electronically.
[2017-11-06 19:58] LABS: INTERNATIONAL NORMALIZED RATIO 1.2 RATIO; PROTHROMBIN TIME - PATIENT 11.8 SEC (9.8-11.6)
[2017-11-06 19:59] LABS: D-DIMER 0.82 MG/L FEU (0.00-0.50)
[2017-11-06 20:00] LABS: ALBUMIN 3.4 GM/DL (3.4-5.0); AST (GOT) 31 U/L (15-37); BICARBONATE 25.6 MEQ/L (21.0-32.0); BLOOD UREA NITROGEN 17 MG/DL (7-18); CALCIUM 8.9 MG/DL (8.5-10.1); CHLORIDE 102 MEQ/L (98-107); CREATININE 1.11 MG/DL (0.50-1.00); GLOMERULAR FILTRATION RATE 46 ML/MIN (>89); GLUCOSE,RANDOM 104 MG/DL (74-106); SODIUM (NA) 139 MEQ/L (136-145)
[2017-11-06 20:01] LABS: ALT (GPT) 21 U/L (10-53)
[2017-11-06 20:04] VITALS: BP 111/59; PULSE 88; RESP 18; O2SAT 93
[2017-11-06 20:11] LABS: ALKALINE PHOSPHATASE 105 U/L (45-117); TOTAL BILIRUBIN ADULT 0.9 MG/DL (0.2-1.0); TOTAL PROTEIN 7.2 GM/DL (6.4-8.2); TROPONIN I LESS THAN 0.02 NG/ML (0.02-0.05)
[2017-11-06] MEDS ORDERED: IOHEXOL 350 MG/ML 10 ML VIAL (for RAD DIAG) IVCONTRAST ONE (20:38)
--- NOTE | 2017-11-06 20:56 | RADRPT ---
EXAM DATE/TIME: 11/06/2017 20:19 [facility] COMPARISON: CHEST SINGLE AP, November 06, 2017, 19:25. INDICATIONS : Chest pain with hypoxia; rule out pulmonary embolus IV CONTRAST: 56 cc Omnipaque 350 (iohexol) IV RADIATION DOSE: 6.18 CTDIvol (mGy) MEDICAL HISTORY : Cardiovascular disease. Hypertension. TB SURGICAL HISTORY : Appendectomy. Cholecystectomy. ENCOUNTER: Initial ACUITY: 1 day PAIN SCALE: Non-responsive LOCATION: chest TECHNIQUE: Volumetric scanning of the chest was performed using a pulmonary embolism protocol MIP images were re constructed. Using automated exposure control and adjustment of the mA and/or kV according to patien t size, radiation dose was kept as low as reasonably achievable to obtain optimal diagnostic quality images. DICOM format image data is available electronically for review and comparison. Follow-up recommendations for detected pulmonary nodules are based at a minimum on nodule size and pa tient risk factors according to Fleischner Society Guidelines. FINDINGS: The lungs are clear without infiltrate, nodule, or mass except for slight scarring in the lingula and right apex. There is no pleural effusion. No appreciable pathological adenopathy is seen within th e mediastinum. There is no evidence for PE for technique. There are atherosclerotic calcifications of the aorta due to chronic atherosclerotic disease. There is evidence for prior vertebroplasty. CONCLUSION: Scarring in the lungs and no evidence for PE. Eitan Hampton MD on November 06, 2017 at 20:50 Board Certified Radiologist. This report was verified electronically.
[2017-11-06] MEDS ORDERED: ASPIRIN 81 MG CHEW TAB ONE (21:07)
[2017-11-06] MEDS ORDERED: ASPIRIN 81 MG CHEW TAB CHEW ONE (21:15)
[2017-11-06] MEDS ORDERED: SODIUM CHLORIDE 0.9% FLUSH 10 ML FLUSH IV FLUSH PRN (21:15)
[2017-11-06] MEDS ORDERED: ACETAMINOPHEN 500 MG CPLT PO PRN (21:15)
[2017-11-06 21:20] LABS: BACTERIA, URINE OCC /hpf; BILIRUBIN, URINE NEG (NEG); BLOOD, URINE NEG (NEG); GLUCOSE,URINE NEG (NEG); HYALINE CAST, URINE 4 /lpf (RARE); KETONE, URINE NEG (NEG); MUCUS URINE FEW /lpf (OCC); NITRITE,URINE NEG (NEG); PH, URINE 5.5 (5.0-8.5); SQUAMOUS EPITHELIAL CELL URINE 1 /hpf (0-5); URINE COLOR YELLOW (YELLW/STRAW); URINE LEUKOCYTE ESTERASE LARGE (NEG)
[2017-11-06 21:49] VITALS: O2SAT 93; O2SAT 97
[2017-11-06 21:52] VITALS: BP 112/57
[2017-11-06 22:55] VITALS: PULSE 84
[2017-11-06 23:11] VITALS: BP 105/59; PULSE 86; RESP 18; TEMP 98.7; O2SAT 93
[2017-11-06 23:54] LABS: TROPONIN I LESS THAN 0.02 NG/ML (0.02-0.05)
[2017-11-07 02:45] VITALS: BP 103/58; PULSE 78; RESP 18; TEMP 98.2; O2SAT 92
[2017-11-07 03:33] LABS: TROPONIN I LESS THAN 0.02 NG/ML (0.02-0.05)
[2017-11-07 03:57] VITALS: PULSE 76
[2017-11-07] MEDS ORDERED: PILL SPLITTER OTHER PRN (07:30)
[2017-11-07 08:09] VITALS: PULSE 79
[2017-11-07 08:34] VITALS: BP 93/50; PULSE 87; RESP 16; TEMP 98.1; O2SAT 95
[2017-11-07] MEDS ORDERED: PARoxetine HCL 20 MG TAB PO SCH (09:00)
[2017-11-07] MEDS ORDERED: PANTOPRAZOLE SOD 20 MG DELAYED RELEASE TAB PO SCH (09:00)
[2017-11-07] MEDS ORDERED: DILTIAZEM-CD 120 MG CAP ER PO SCH (09:00)
[2017-11-07] MEDS ORDERED: NITROFURANTOIN MONOHYD MACROCR 100 MG CAP PO SCH (09:00)
[2017-11-07] MEDS ORDERED: SODIUM CHLORIDE 0.9% FLUSH 10 ML FLUSH IV FLUSH SCH (09:00)
[2017-11-07] MEDS ORDERED: ASPIRIN 81 MG CHEW TAB CHEW SCH (09:00)
[2017-11-07] MEDS ORDERED: HYDROCORTISONE 10 MG TAB PO SCH (09:00)
[2017-11-07] MEDS ORDERED: BACT400T PO (09:40)
--- NOTE | 2017-11-07 09:42 | HHI.DCPOC ---
Discharge Care Plan Diagnosis: (1) UTI (urinary tract infection) (2) Chest pain, atypical Goals to Promote Your Health * To prevent worsening of your condition and complications * To maintain your health at the optimal level Directions to Meet Your Goals Take your medications as prescribed Follow your dietary instruction Follow activity as directed Keep your appointments as scheduled Take your immunizations and boosters as scheduled If your symptoms worsen call your PCP, if no PCP go to Urgent Care Center or Emergency Room Smoking is Dangerous to Your Health. Avoid second hand smoke Call the 24-hour hour crisis hotline for domestic abuse at Eva Lozada Nov 07, 2017 09:42
[2017-11-07 10:58] VITALS: BP 104/52; PULSE 76; RESP 16; TEMP 98.7; O2SAT 93
--- NOTE | 2017-11-07 11:35 | HHI.HP ---
HPI Primary Care Physician Chad Garcia MD History of Present Illness 87 year old elderly female admitted to [facility] for observation for chest pain. She verbalizes that she came to the ER because she has been sleeping a lot over the last week and feels like she has no energy. She lives alone and endorses she felt very anxious about it and "thought she was going to " so came to the ER. She denies multiple times during the conversation that she has any chest pain but then said she had some pain in her left upper back 3 days ago when she bumped it along the wall last week. She denies that it is bothering her currently at all. She has friends coming down from [place] on Wednesday. Her daughter lives in [place] and she may be going to live with her sometime in the summertime. She also mentions she has spoken to her PCP about going to [employer] to live if she sells her house. She denies any other symptoms/pains. Past Family Social History Allergies: Coded Allergies: No Known Allergies (Verified Allergy, Unknown, 11/06/17) Reported Medications Reported Meds & Active Scripts Active Bactrim (Sulfamethoxazole-Trimethoprim) 400-80 Mg Tab 1 Tab PO BID 7 Days Reported Triamcinolone Topical (Triamcinolone Acetonide) 0.1 % Oint 1 Applic TOPICAL BID Cartia Xt (Diltiazem ER 24 HR) 120 Mg Caper 120 Mg PO BID Miralax Powder (Polyethylene Glycol 3350 Powder) 17 Gm Powd 17 Gm PO HS Mix and dissolve one measuring cap-ful (17 grams) in water or juice. [Htn Med] 0 Omeprazole 20 Mg Tab 20 Mg PO BID Cortef (Hydrocortisone) 5 Mg Tab 15 Mg PO BID Take with food to decrease GI upset Paxil (Paroxetine HCl) 10 Mg Tab 5 Mg PO DAILY Aspirin 81 Mg Chew 81 Mg CHEW DAILY Active Ordered Medications Current Medications Medications (Trade) Dose Ordered Sig/Jorge Route Start Time Stop Time Status Last Admin (Aspirin Chew) 162 mg DAILY CHEW 11/07/17 09:00 11/07/17 09:33 (NS Flush) 2 ml UNSCH PRN IV FLUSH 11/06/17 21:15 (NS Flush) 2 ml BID IV FLUSH 11/07/17 09:00 (Tylenol) 500 mg Q4H PRN PO 11/06/17 21:15 (Cortef) 15 mg BID PO 11/07/17 09:00 11/07/17 10:24 (Miralax) 17 gm HS PO 11/07/17 21:00 (Protonix) 20 mg BID PO 11/07/17 09:00 11/07/17 09:33 (Paxil) 5 mg DAILY PO 11/07/17 09:00 11/07/17 09:33 (Pill Splitter) 1 ea UNSCH PRN OTHER 11/07/17 07:30 (Cardizem Cd) 120 mg BID PO 11/07/17 09:00 11/07/17 09:33 Physical Exam Vital Signs Vital Signs Date Time Temp Pulse Resp B/P (MAP) Pulse Ox O2 Delivery O2 Flow Rate FiO2 11/07/17 10:58 98.7 76 16 104/52 (69) 93 11/07/17 08:34 98.1 87 16 93/50 (64) 95 11/07/17 08:09 79 11/07/17 03:57 76 11/07/17 02:45 98.2 78 18 103/58 (73) 92 11/06/17 23:11 98.7 86 18 105/59 (74) 93 11/06/17 22:55 84 11/06/17 21:52 93 16 112/57 (75) 92 11/06/17 21:49 93 11/06/17 20:04 88 18 111/59 (76) 93 Room Air 11/06/17 18:58 98.7 66 17 144/64 (90) 96 Laboratory Laboratory Tests Test 11/06/17 19:20 11/06/17 21:00 11/06/17 23:10 11/07/17 02:30 White Blood Count 10.1 Red Blood Count 5.02 Hemoglobin 14.1 Hematocrit 41.9 Mean Corpuscular Volume 83.4 Mean Corpuscular Hemoglobin 28.1 Mean Corpuscular Hemoglobin Concent 33.7 Red Cell Distribution Width 14.0 Platelet Count 225 Mean Platelet Volume 8.8 Neutrophils (%) (Auto) 79.2 Lymphocytes (%) (Auto) 11.7 Monocytes (%) (Auto) 6.6 Eosinophils (%) (Auto) 2.0 Basophils (%) (Auto) 0.5 Neutrophils # (Auto) 8.0 Lymphocytes # (Auto) 1.2 Monocytes # (Auto) 0.7 Eosinophils # (Auto) 0.2 Basophils # (Auto) 0.1 CBC Comment DIFF FINAL Differential Comment Prothrombin Time 11.8 Prothromb Time International Ratio 1.2 Activated Partial Thromboplast Time 28.4 D-Dimer Quantitative (PE/DVT) 0.82 Blood Urea Nitrogen 17 Creatinine 1.11 Random Glucose 104 Total Protein 7.2 Albumin 3.4 Calcium Level 8.9 Alkaline Phosphatase 105 Aspartate Amino Transf (AST/SGOT) 31 Alanine Aminotransferase (ALT/SGPT) 21 Total Bilirubin 0.9 Sodium Level 139 Potassium Level 4.0 Chloride Level 102 Carbon Dioxide Level 25.6 Anion Gap 11 Estimat Glomerular Filtration Rate 46 Total Creatine Kinase 31 25 27 Troponin I LESS THAN 0.02 LESS THAN 0.02 LESS THAN 0.02 Thyroid Stimulating Hormone 3rd Gen 2.010 Urine Color YELLOW Urine Turbidity CLEAR Urine pH 5.5 Urine Specific [place] 1.024 Urine Protein TRACE Urine Glucose (UA) NEG Urine Ketones NEG Urine Occult Blood NEG Urine Nitrite NEG Urine Bilirubin NEG Urine Urobilinogen LESS THAN 2.0 Urine Leukocyte Esterase LARGE Urine RBC 6 Urine WBC 49 Urine Squamous Epithelial Cells 1 Urine Bacteria OCC Urine Hyaline Casts 4 Urine Mucus FEW Microscopic Urinalysis Comment CULTURE INDICATED Date/Time Source Procedure Growth Status 11/06/17 21:00 Urine Random Urine Urine Culture Pending Received Result Diagram: 11/06/17191911/06/171919 Caprini VTE Risk Assessment Caprini Risk Assessment Model Point Value = 1 Point Value = 2 Point Value = 3 Point Value = 5 Age 41-60 Minor surgery BMI > 25 kg/m2 Swollen legs Varicose veins or History of unexplained or recurrent spontaneous Oral contraceptives or hormone replacement Sepsis (< 1 month) Serious lung disease, including pneumonia (< 1 month) Abnormal pulmonary function Acute myocardial infarction Congestive heart failure (< 1 month) History of inflammatory bowel disease Medical patient at bed rest Age 61-74 Arthroscopic surgery Major open surgery (> 45 min) Laparoscopic surgery (> 45 min) Malignancy Confined to bed (> 72 hours) Immobilizing plaster cast Central venous access Age >= 75 History of VTE Family history of VTE Factor V Leiden Prothrombin [id number] Lupus anticoagulant Anticardiolipin antibodies Elevated serum homocysteine Heparin-induced thrombocytopenia Other congenital or acquired thrombophilia Stroke (< 1 month) Elective arthroplasty Hip, pelvis, or leg fracture Acute spinal cord injury (< 1 month) Prophylaxis Regimen Total Risk Factor Score Risk Level Prophylaxis Regimen 0-1 Low Early ambulation 2 Moderate Order ONE of the following: *Sequential Compression Device (SCD) *Heparin 5000 units SQ BID 3-4 Higher Order ONE of the following medications: *Heparin 5000 units SQ TID *Enoxaparin/Lovenox 40 mg SQ daily (WT < 150 kg, CrCl > 30 mL/min) *Enoxaparin/Lovenox 30 mg SQ daily (WT < 150 kg, CrCl > 10-29 mL/min) *Enoxaparin/Lovenox 30 mg SQ BID (WT < 150 kg, CrCl > 30 mL/min) AND/OR *Sequential Compression Device (SCD) 5 or more Highest Order ONE of the following medications: *Heparin 5000 units SQ TID (Preferred with Epidurals) *Enoxaparin/Lovenox 40 mg SQ daily (WT < 150 kg, CrCl > 30 mL/min) *Enoxaparin/Lovenox 30 mg SQ daily (WT < 150 kg, CrCl > 10-29 mL/min) *Enoxaparin/Lovenox 30 mg SQ BID (WT < 150 kg, CrCl > 30 mL/min) AND *Sequential Compression Device (SCD) Eva Lozada Nov 07, 2017 11:35
--- NOTE | 2017-11-07 11:35 | HHI.HP ---
HPI Service [facility] Dr. Saravia Primary Care Physician Chad Garcia MD Chief Complaint fatigue, unsteady gait, lack of energy, chest pain History of Present Illness 87 year old elderly female admitted to [facility] for observation for chest pain. She verbalizes that she came to the ER because she has been sleeping a lot over the last week and feels like she has no energy. She lives alone and endorses she felt very anxious about it and "thought she was going to " so came to the ER. She denies multiple times during the conversation that she has any chest pain but then said she had some pain in her left upper back 3 days ago when she bumped it along the wall last week. She denies that it is bothering her currently at all. She has friends coming down from [place] on Wednesday. Her daughter lives in [place] and she may be going to live with her sometime in the summertime. She also mentions she has spoken to her PCP about going to [place] to live if she sells her house. She denies any other symptoms/pains. Review of Systems Consitutional: COMPLAINS OF: Fatigue Eyes: DENIES: Amaurosis Fugax, Change in vision HEENT: DENIES: Lightheadedness, Change in hearing Respiratory: DENIES: See HPI, Cough, Snoring, Shortness of breath, Wheezing, Sputum production Cardiovascular: DENIES: See HPI, Chest pain, Palpitations, Syncope, Tachycardia Gastrointestinal: DENIES: Nausea, Vomiting, Change in bowel habits, Reflux, Bloody stools, Melena Genitourinary: DENIES: Urinary incontinence, Difficulty voiding Integumentary: DENIES: Rash Neurologic: COMPLAINS OF: Poor Balance Musculoskeletal: DENIES: Joint pain, Muscle pain, Limited range of motion, Back pain Psychiatric: COMPLAINS OF: Anxiety Past Family Social History Allergies: Coded Allergies: No Known Allergies (Verified Allergy, Unknown, 11/06/17) Past Medical History OA, Anxiety, Gustavo's disease, [place], sciatica, sarcoidosis, GERD, HTN. Denies CAD Past Surgical History Appendectomy, Cholecystectomy, Hysterectomy, Pituitary Adenoma removed, Left Hip Arthroplasty, Tonsillectomy, Hemorrhoidectomy Reported Medications Reported Meds & Active Scripts Active Bactrim (Sulfamethoxazole-Trimethoprim) 400-80 Mg Tab 1 Tab PO BID 7 Days Reported Triamcinolone Topical (Triamcinolone Acetonide) 0.1 % Oint 1 Applic TOPICAL BID Cartia Xt (Diltiazem ER 24 HR) 120 Mg Caper 120 Mg PO BID Miralax Powder (Polyethylene Glycol 3350 Powder) 17 Gm Powd 17 Gm PO HS Mix and dissolve one measuring cap-ful (17 grams) in water or juice. [Htn Med] 0 Omeprazole 20 Mg Tab 20 Mg PO BID Cortef (Hydrocortisone) 5 Mg Tab 15 Mg PO BID Take with food to decrease GI upset Paxil (Paroxetine HCl) 10 Mg Tab 5 Mg PO DAILY Aspirin 81 Mg Chew 81 Mg CHEW DAILY Active Ordered Medications Current Medications Medications (Trade) Dose Ordered Sig/Jorge Route Start Time Stop Time Status Last Admin (Aspirin Chew) 162 mg DAILY CHEW 11/07/17 09:00 11/07/17 09:33 (NS Flush) 2 ml UNSCH PRN IV FLUSH 11/06/17 21:15 (NS Flush) 2 ml BID IV FLUSH 11/07/17 09:00 (Tylenol) 500 mg Q4H PRN PO 11/06/17 21:15 (Cortef) 15 mg BID PO 11/07/17 09:00 11/07/17 10:24 (Miralax) 17 gm HS PO 11/07/17 21:00 (Protonix) 20 mg BID PO 11/07/17 09:00 11/07/17 09:33 (Paxil) 5 mg DAILY PO 11/07/17 09:00 11/07/17 09:33 (Pill Splitter) 1 ea UNSCH PRN OTHER 11/07/17 07:30 (Cardizem Cd) 120 mg BID PO 11/07/17 09:00 11/07/17 09:33 Family History Mom with MS age 67 Father with Alzheimer Disease Social History No ETOH No Tobacco No Illicit Drug Use Physical Exam Vital Signs Vital Signs Date Time Temp Pulse Resp B/P (MAP) Pulse Ox O2 Delivery O2 Flow Rate FiO2 11/07/17 10:58 98.7 76 16 104/52 (69) 93 11/07/17 08:34 98.1 87 16 93/50 (64) 95 11/07/17 08:09 79 11/07/17 03:57 76 11/07/17 02:45 98.2 78 18 103/58 (73) 92 11/06/17 23:11 98.7 86 18 105/59 (74) 93 11/06/17 22:55 84 11/06/17 21:52 93 16 112/57 (75) 92 11/06/17 21:49 93 11/06/17 20:04 88 18 111/59 (76) 93 Room Air 11/06/17 18:58 98.7 66 17 144/64 (90) 96 Physical Exam GENERAL: Very pleasant elderly thin 87 y.o. female lying quietly in bed. Arouses easily and answers questions readily. SKIN: Warm and dry. HEAD: Atraumatic. Normocephalic. EYES: Pupils equal and round. No scleral icterus. No injection or drainage. ENT: No nasal bleeding or discharge. Mucous membranes pink and moist. NECK: Trachea midline. No JVD. No Carotid bruits. CARDIOVASCULAR: Regular rate and rhythm. Two heart sounds. No rub, gallop, murmur. RESPIRATORY: No accessory muscle use. Clear to auscultation. Breath sounds equal bilaterally. GASTROINTESTINAL: Abdomen soft, non-tender, nondistended. Hepatic and splenic margins not palpable. MUSCULOSKELETAL: Extremities without clubbing, cyanosis, or edema. No obvious deformities. NEUROLOGICAL: Awake and alert. No obvious cranial nerve deficits. Motor grossly within normal limits. Normal speech. PSYCHIATRIC: Mildly depressed and anxious affect; insight and judgment normal. EXT: No leg edema. Pulses 2+ Laboratory Laboratory Tests Test 11/06/17 19:20 11/06/17 21:00 11/06/17 23:10 11/07/17 02:30 White Blood Count 10.1 Red Blood Count 5.02 Hemoglobin 14.1 Hematocrit 41.9 Mean Corpuscular Volume 83.4 Mean Corpuscular Hemoglobin 28.1 Mean Corpuscular Hemoglobin Concent 33.7 Red Cell Distribution Width 14.0 Platelet Count 225 Mean Platelet Volume 8.8 Neutrophils (%) (Auto) 79.2 Lymphocytes (%) (Auto) 11.7 Monocytes (%) (Auto) 6.6 Eosinophils (%) (Auto) 2.0 Basophils (%) (Auto) 0.5 Neutrophils # (Auto) 8.0 Lymphocytes # (Auto) 1.2 Monocytes # (Auto) 0.7 Eosinophils # (Auto) 0.2 Basophils # (Auto) 0.1 CBC Comment DIFF FINAL Differential Comment Prothrombin Time 11.8 Prothromb Time International Ratio 1.2 Activated Partial Thromboplast Time 28.4 D-Dimer Quantitative (PE/DVT) 0.82 Blood Urea Nitrogen 17 Creatinine 1.11 Random Glucose 104 Total Protein 7.2 Albumin 3.4 Calcium Level 8.9 Alkaline Phosphatase 105 Aspartate Amino Transf (AST/SGOT) 31 Alanine Aminotransferase (ALT/SGPT) 21 Total Bilirubin 0.9 Sodium Level 139 Potassium Level 4.0 Chloride Level 102 Carbon Dioxide Level 25.6 Anion Gap 11 Estimat Glomerular Filtration Rate 46 Total Creatine Kinase 31 25 27 Troponin I LESS THAN 0.02 LESS THAN 0.02 LESS THAN 0.02 Thyroid Stimulating Hormone 3rd Gen 2.010 Urine Color YELLOW Urine Turbidity CLEAR Urine pH 5.5 Urine Specific [place] 1.024 Urine Protein TRACE Urine Glucose (UA) NEG Urine Ketones NEG Urine Occult Blood NEG Urine Nitrite NEG Urine Bilirubin NEG Urine Urobilinogen LESS THAN 2.0 Urine Leukocyte Esterase LARGE Urine RBC 6 Urine WBC 49 Urine Squamous Epithelial Cells 1 Urine Bacteria OCC Urine Hyaline Casts 4 Urine Mucus FEW Microscopic Urinalysis Comment CULTURE INDICATED Date/Time Source Procedure Growth Status 11/06/17 21:00 Urine Random Urine Urine Culture Pending Received Result Diagram: 11/06/17191911/06/171919 Imaging Last [address] Angiography 11/06/172002 Signed Impressions: Service Date/Time: Monday, November 06, 2017 20:19 - CONCLUSION: Scarring in the lungs and no evidence for PE. Eitan Hampton MD Chest X-Ray 11/06/171913 Signed Impressions: Service Date/Time: Monday, November 06, 2017 19:25 - CONCLUSION: No acute cardiopulmonary disease. Eitan Hampton MD Course EKGs x 3 SR, 1st degree AV block, Left axis, LAFB. No ischemia Caprini VTE Risk Assessment Caprini VTE Risk Assessment: Mod/High Risk (score >= 2) Caprini Risk Assessment Model Point Value = 1 Point Value = 2 Point Value = 3 Point Value = 5 Age 41-60 Minor surgery BMI > 25 kg/m2 Swollen legs Varicose veins or History of unexplained or recurrent spontaneous Oral contraceptives or hormone replacement Sepsis (< 1 month) Serious lung disease, including pneumonia (< 1 month) Abnormal pulmonary function Acute myocardial infarction Congestive heart failure (< 1 month) History of inflammatory bowel disease Medical patient at bed rest Age 61-74 Arthroscopic surgery Major open surgery (> 45 min) Laparoscopic surgery (> 45 min) Malignancy Confined to bed (> 72 hours) Immobilizing plaster cast Central venous access Age >= 75 History of VTE Family history of VTE Factor V Leiden Prothrombin [id number] Lupus anticoagulant Anticardiolipin antibodies Elevated serum homocysteine Heparin-induced thrombocytopenia Other congenital or acquired thrombophilia Stroke (< 1 month) Elective arthroplasty Hip, pelvis, or leg fracture Acute spinal cord injury (< 1 month) Prophylaxis Regimen Total Risk Factor Score Risk Level Prophylaxis Regimen 0-1 Low Early ambulation 2 Moderate Order ONE of the following: *Sequential Compression Device (SCD) *Heparin 5000 units SQ BID 3-4 Higher Order ONE of the following medications: *Heparin 5000 units SQ TID *Enoxaparin/Lovenox 40 mg SQ daily (WT < 150 kg, CrCl > 30 mL/min) *Enoxaparin/Lovenox 30 mg SQ daily (WT < 150 kg, CrCl > 10-29 mL/min) *Enoxaparin/Lovenox 30 mg SQ BID (WT < 150 kg, CrCl > 30 mL/min) AND/OR *Sequential Compression Device (SCD) 5 or more Highest Order ONE of the following medications: *Heparin 5000 units SQ TID (Preferred with Epidurals) *Enoxaparin/Lovenox 40 mg SQ daily (WT < 150 kg, CrCl > 30 mL/min) *Enoxaparin/Lovenox 30 mg SQ daily (WT < 150 kg, CrCl > 10-29 mL/min) *Enoxaparin/Lovenox 30 mg SQ BID (WT < 150 kg, CrCl > 30 mL/min) AND *Sequential Compression Device (SCD) Assessment and Plan Problem List: (1) UTI (urinary tract infection) ICD Codes: N39.0 - Urinary tract infection, site not specified Status: Acute Plan: Rx low dose Bactrim bid x 1 week. C & S pending, discussed f/u with Dr. Garcia in office. (2) Chest pain, atypical ICD Codes: R07.89 - Other chest pain Status: Resolved Plan: Patient was ruled out for ACS with 3 sets of cardiac enzymes and EKGs. Had negative Lexiscan for ischemia in 12/2015. Denied any chest pain upon assessment. Telemetry monitoring without events. Declines repeat Lexiscan. F/U Dr. Garcia (3) Risk for falls ICD Codes: Z91.81 - History of falling Plan: Physical therapy evaluation ordered and ambulated well without ataxia. Case management was also consulted. Patient safe for discharge home. Has friends coming from [place] day after tomorrow. Urged f/u with Dr. Garcia next week and return to ER for any emergent needs. Discussed Condition With Patient was seen and evaluated by Dr. Saravia in Cardiology and agrees with plan above. Eva Lozada Nov 07, 2017 11:35
--- NOTE | 2017-11-07 13:08 | EKG ---
Date Performed: 11/07/2017 Time Performed: 02:52:53 PTAGE: 87 years EKG: Sinus rhythm WITH FIRST DEGREE AV BLOCK LEFT ANTERIOR FASCICULAR BLOCK ABNORMAL ECG NO CHANGE PREVIOUS TRACING : 11/06/2017 23.18 DOCTOR: Ciro Saravia Interpretating Date/Time 11/07/2017 13:06:39
--- NOTE | 2017-11-07 13:09 | EKG ---
Date Performed: 11/06/2017 Time Performed: 23:18:22 PTAGE: 87 years EKG: Sinus rhythm WITH FIRST DEGREE AV BLOCK MARKED LEFT AXIS DEVIATION SEPTAL MYOCARDIAL INFARCTION ABNORMAL ECG NO S IG CHANGE PREVIOUS TRACING : 11/06/2017 19.02 DOCTOR: Ciro Saravia Interpretating Date/Time 11/07/2017 13:07:26
--- NOTE | 2017-11-07 13:10 | EKG ---
Date Performed: 11/06/2017 Time Performed: 19:02:34 PTAGE: 87 years EKG: ATRIAL FLUTTER/TACHYCARDIA MARKED LEFT AXIS DEVIATION POSSIBLE ANTERIOR INFARCT AGE UNDETER MINED ABNORMAL ECG NO SIGNIFICANT CHANGE NO PREVIOUS TRACING DOCTOR: Ciro Saravia Interpretating Date/Time 11/07/2017 13:08:42
--- NOTE | 2017-11-07 14:05 | HHI.DCPOC ---
Discharge Care Plan Diagnosis: (1) UTI (urinary tract infection) (2) Risk for falls (3) Impaired mobility and ADLs Your Health Problems Are: Anxiety Difficulty with ADL Weight Loss Goals to Promote Your Health * To prevent worsening of your condition and complications * To maintain your health at the optimal level Directions to Meet Your Goals Take your medications as prescribed Follow your dietary instruction Follow activity as directed Keep your appointments as scheduled Take your immunizations and boosters as scheduled If your symptoms worsen call your PCP, if no PCP go to Urgent Care Center or Emergency Room Smoking is Dangerous to Your Health. Avoid second hand smoke Call the 24-hour hour crisis hotline for domestic abuse at Physical Therapy Order: Evaluate and Treat Home Health Nursing Order: Medical education Nursing assessment with vital signs Home Health Aide Order: To Assist In: Bathing and personal care, linen grader and meal prep I have seen patient Kasia Christiansen on 11/07/17. My clinical findings support the need for the requested home health care services because: home safety evaluation and treatment 3x/week Deconditioned w/ increased weakness High risk of falls I certify that my clinical findings support that this patient is homebound because: Unsteady gait/balance Unsafe to leave home unassisted Unable to use public transportation Eva Lozada Nov 07, 2017 14:05
[2017-11-07] MEDS ORDERED: POLYETHYLENE GLYCOL 17 GM PKG PO SCH (21:00)
== END 2017-11-07 14:26 | disposition home or self-care (01) ==
LOC: NEPC 18:51 → NEDA 21:10 → NEPGCP 21:56
PROVIDERS: ADMIT Internal Medicine Interventional Cardiology; ATTEND Internal Medicine Interventional Cardiology
DX: N39.0 Urinary tract infection, site not specified (principal); R07.89 Other chest pain; R63.4 Abnormal weight loss; I44.0 Atrioventricular block, first degree; I10 Essential (primary) hypertension; E78.5 Hyperlipidemia, unspecified; F41.9 Anxiety disorder, unspecified; E27.1 Primary adrenocortical insufficiency; K21.9 Gastro-esophageal reflux disease without esophagitis; D86.9 Sarcoidosis, unspecified; H91.90 Unspecified hearing loss, unspecified ear; Z91.81 History of falling; Z79.82 Long term (current) use of aspirin; Z90.710 Acquired absence of both cervix and uterus; Z96.642 Presence of left artificial hip joint
CPT/HCPCS: 71010; 71275; 80053; 81001; 82550; 84443; 84484; 85025; 85379; 85610; 85730; 87086; 93005; 97162; 99285; G0378; G8987; G8988; Q9967

== ENCOUNTER 2017-11-13 19:08 | Observation (INO) | payer MEDICARE ==
[~2017-11-13] VITALS: Ht 162.6 cm; Wt 60.0 kg
[~2017-11-13 19:08] MED LIST changes: +BACT400T PO; -CALCCHW25 CHEW; +CART120C PO; +TRIAM.1%T TOPICAL
[2017-11-13 19:14] VITALS: BP 143/66; PULSE 78; RESP 20; TEMP 98.1; O2SAT 97
--- NOTE | 2017-11-13 20:38 | RADRPT ---
EXAM DATE/TIME: 11/13/2017 19:56 [facility] COMPARISON: HIP LEFT (AP&LAT 2/3VWS) W AP PELVIS, December 07, 2015, 10:37. INDICATIONS : Pain in left hip after fall today. MEDICAL HISTORY : Cardiovascular disease. Hypertension TB. SURGICAL HISTORY : Appendectomy. Cholecystectomy. Bilateral hip replacements. ENCOUNTER: Initial ACUITY: 1 day PAIN SCORE: 8/10 LOCATION: Left hip. FINDINGS: Bilateral hip prostheses are noted. There is no evidence of acute fracture or dislocation. CONCLUSION: Status post left hip replacement. No evidence of acute fracture or dislocation. Christiano Beltran MD on November 13, 2017 at 20:35 Board Certified Radiologist. This report was verified electronically.
--- NOTE | 2017-11-13 20:42 | RADRPT ---
EXAM DATE/TIME: 11/13/2017 19:56 [facility] COMPARISON: No previous studies available for comparison. INDICATIONS : Left sided rib pain after fall today. MEDICAL HISTORY : Hyperthyroidism. Cardiovascular disease. TB. SURGICAL HISTORY : Appendectomy. Cholecystectomy. Bilateral hip replacements. ENCOUNTER: Initial ACUITY: 1 day PAIN SCORE: 8/10 LOCATION: Left ribs. FINDINGS: Multiple views of the left ribs were performed. Cortical deformity is identified of the left third fo urth and fifth ribs. There is no evidence of displaced rib fracture. Chronic lung changes are noted. Bone cement is identified in the lower thoracic spine following previous augmentation. CONCLUSION: 1. Suspected nondisplaced fractures of the third fourth and fifth left ribs. 2. No evidence of displaced rib fracture. 3. Status post vertebral body augmentation in the lower thoracic spine. Christiano Beltran MD on November 13, 2017 at 20:36 Board Certified Radiologist. This report was verified electronically.
--- NOTE | 2017-11-13 20:44 | RADRPT ---
EXAM DATE/TIME: 11/13/2017 20:01 [facility] COMPARISON: CT BRAIN W/O CONTRAST, August 05, 2017, 21:51. INDICATIONS : Trauma. Fall today. RADIATION DOSE: 56.36 CTDIvol (mGy) MEDICAL HISTORY : Cardiovascular disease. Hypertension. SURGICAL HISTORY : None. ENCOUNTER: Initial ACUITY: 1 day PAIN SCALE: 6/10 LOCATION: cranial TECHNIQUE: Multiple contiguous axial images were obtained of the head. Using automated exposure control and adj ustment of the mA and/or kV according to patient size, radiation dose was kept as low as reasonably a chievable to obtain optimal diagnostic quality images. DICOM format image data is available electro nically for review and comparison. FINDINGS: CEREBRUM: Enlarged CSF spaces are again noted. No evidence of midline shift, mass lesion, hemorrhage or acute infarction. No extra-axial fluid collections are seen. POSTERIOR FOSSA: The cerebellum and brainstem are intact. The 4th ventricle is midline. The cerebellopontine angle i s unremarkable. EXTRACRANIAL: Chronic occlusion the sphenoid sinus is identified with opacification and sclerotic wall thickening SKULL: The calvaria is intact. No evidence of skull fracture. CONCLUSION: 1. No evidence of acute infarct, hemorrhage, mass or edema. 2. Aging brain with generalized volume loss. 3. Chronic sphenoid sinus occlusion Christiano Beltran MD on November 13, 2017 at 20:39 Board Certified Radiologist. This report was verified electronically.
--- NOTE | 2017-11-13 20:47 | RADRPT ---
EXAM DATE/TIME: 11/13/2017 20:02 [place] COMPARISON: CT CERVICAL SPINE W/O CONTRAST, August 05, 2017, 21:51. INDICATIONS : Trauma. Fall. RADIATION DOSE: 43.14 CTDIvol (mGy) MEDICAL HISTORY : Cardiovascular disease. Hypertension. SURGICAL HISTORY : None. ENCOUNTER: Initial ACUITY: 1 day PAIN SCALE: 6/10 LOCATION: neck TECHNIQUE: Volumetric scanning of the cervical spine was performed. Multiplanar reconstructions in the sagittal, coronal and oblique axial planes were performed. Using automated exposure control and adjustment o f the mA and/or kV according to patient size, radiation dose was kept as low as reasonably achievable to obtain optimal diagnostic quality images. DICOM format image data is available electronically f or review and comparison. FINDINGS: Craniocervical cervical vertebral body alignment are intact. There is no evidence of acute compression fracture. Posterior elements are intact. Facet joints are satisfactory aligned. Mild degenerative disc disease is noted. Mild/moderate facet arthropathy is seen bilaterally. CONCLUSION: Stable evaluation of the cervical spine with facet arthropathy but no evidence of acute bony trauma o r traumatic listhesis. Christiano Beltran MD on November 13, 2017 at 20:42 Board Certified Radiologist. This report was verified electronically.
--- NOTE | 2017-11-13 21:15 | PD ---
HPI Chief Complaint: Fall Time Seen by Provider: 19:29 Travel History International Travel<30 days: No Contact w/Intl Traveler<30days: No Traveled to known affect area: No History of Present Illness HPI 87-year-old female that presents to the ED for evaluation of mechanical fall. Per patient she had a fall will at home. Per patient she missed a step and fell. She landed on her left ribs. Per patient her pain is only in the left ribs. She denies any abdominal pain. She also has some neck pain and hip pain but she states that she did not hit. She is not too concerned about it. Apparently per ambulance she took off her cervical collar on her own. She has a history multiple falls in the past has been here for similar in the past. Denies any urinary or bowel movement issues. Per patient she had a left hip replacement. She's been able to ambulate otherwise. She is able to move her neck to palpation the pain is minimal if she doesn't move it if she moves or takes a deep breath on the left ribs she has sharp pain. Per patient she rates an 8 out of 10. She denies any blood thinners. She denies hitting her head or losing consciousness. No back pain. No ankle pain or knee pain. No allergies to medication. No urinary or bowel movement issues. Injury occurred an hour before coming. Came by ambulance. 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) Gastrointestinal Disorders: Yes GERD: Yes Glaucoma: No Genitourinary: No Hepatitis: No Hiatal Hernia: No Heparin Induced Thrombocytopen: No Hypertension: Yes Immune Disorder: No Inguinal Hernia: Yes Implanted Vascular Access Dvce: Yes Musculoskeletal: Yes (SCIATICA, "SEVERAL COLLAPSED VERTEBRAE") Neurologic: Yes Psychiatric: Yes Reproductive: No Respiratory: Yes (SARCODOSIS) Immunizations Current: Yes Myocardial Infarction: No Radiation Therapy: No Sleep Apnea: No Thyroid Disease: No Ulcer: No Menopausal: Yes Past Surgical History Abdominal Surgery: Yes (EXP LAP) AICD: No Appendectomy: Yes Body Medical Devices: ADDISONS Cardiac Surgery: No Cholecystectomy: Yes Coronary Artery Bypass Graft: No Ear Surgery: No Endocrine Surgery: Yes (PITUITARY ADENOMA REMOVED) Eye Surgery: No Genitourinary Surgery: Yes (HEMORRHOIDS) Gynecologic Surgery: No Hysterectomy: Yes Insulin Pump: No Joint Replacement: Yes (LEFT HIP) Oral Surgery: Yes (TONSILECTOMY) Pacemaker: No Thoracic Surgery: No Tonsillectomy: Yes Other Surgery: Yes Family History Family Myocardial Infarction: Yes Social History Alcohol Use: No Tobacco Use: No Substance Use: No Allergies-Medications (Allergen,Severity, Reaction): Coded Allergies: No Known Allergies (Verified Allergy, Unknown, 11/13/17) Reported Meds & Prescriptions Reported Meds & Active Scripts Active Bactrim (Sulfamethoxazole-Trimethoprim) 400-80 Mg Tab 1 Tab PO BID 7 Days Reported Triamcinolone Topical (Triamcinolone Acetonide) 0.1 % Oint 1 Applic TOPICAL BID Cartia Xt (Diltiazem ER 24 HR) 120 Mg Caper 120 Mg PO BID Miralax Powder (Polyethylene Glycol 3350 Powder) 17 Gm Powd 17 Gm PO HS Mix and dissolve one measuring cap-ful (17 grams) in water or juice. [Htn Med] 0 Omeprazole 20 Mg Tab 20 Mg PO BID Cortef (Hydrocortisone) 5 Mg Tab 15 Mg PO BID Take with food to decrease GI upset Paxil (Paroxetine HCl) 10 Mg Tab 5 Mg PO DAILY Aspirin 81 Mg Chew 81 Mg CHEW DAILY Review of Systems Except as stated in HPI: all other systems reviewed are Neg Physical Exam Narrative GENERAL: SKIN: Warm and dry. HEAD: Atraumatic. Normocephalic. EYES: Pupils equal and round. No scleral icterus. No injection or drainage. ENT: No nasal bleeding or discharge. Mucous membranes pink and moist. Tongue is midline. No uvula deviation. NECK: Trachea midline. No JVD. CARDIOVASCULAR: Regular rate and rhythm. No murmurs, S3, S4. RESPIRATORY: No accessory muscle use. Clear to auscultation. Breath sounds equal bilaterally. GASTROINTESTINAL: Abdomen soft, non-tender, nondistended. Hepatic and splenic margins not palpable. MUSCULOSKELETAL: Extremities without clubbing, cyanosis, or edema. No obvious deformities. Full range of motion of the upper and lower extremities bilaterally. 2+ pulses bilaterally. Tenderness to palpation on the left ribs. NEUROLOGICAL: Awake and alert. No obvious cranial nerve deficits. Motor grossly within normal limits. Five out of 5 muscle strength in the arms and legs. Normal speech. PSYCHIATRIC: Appropriate mood and affect; insight and judgment normal. Data Data Last Documented VS Vital Signs Date Time Temp Pulse Resp B/P (MAP) Pulse Ox O2 Delivery O2 Flow Rate FiO2 11/13/17 19:14 98.1 78 20 143/66 (91) 97 Orders Orders Complete Blood Count With Diff (11/13/17 19:43) Basic Metabolic Panel (Bmp) (11/13/17 19:43) Ct Brain W/O Iv Contrast(Rout) (11/13/17 19:43) Ct Cerv Spine W/O Contrast (11/13/17 19:43) Hip, Uni(Ap&Lat) W Ap Pelvis (11/13/17 19:43) Ribs, Uni (W/Exp Cxr-Min 3vw) (11/13/17 19:43) Resp Incentive Spirometry (11/13/17 ) Acetaminophen (Tylenol) (11/13/17 21:30) Admit Order (Ed Use Only) (11/13/17 21:49) MDM Medical Decision Making Medical Screen Exam Complete: Yes Emergency Medical Condition: Yes Medical Record Reviewed: Yes Interpretation(s) Last Impressions Ribs X-Ray 11/13/171942 Signed Impressions: Service Date/Time: Monday, November 13, 2017 19:56 - CONCLUSION: 1. Suspected nondisplaced fractures of the third fourth and fifth left ribs. 2. No evidence of displaced rib fracture. 3. Status post vertebral body augmentation in the lower thoracic spine. Christiano Beltran MD Hip and Pelvis X-Ray 11/13/171942 Signed Impressions: Service Date/Time: Monday, November 13, 2017 19:56 - CONCLUSION: Status post left hip replacement. No evidence of acute fracture or dislocation. Christiano Beltran MD Head CT 11/13/171942 Signed Impressions: Service Date/Time: Monday, November 13, 2017 20:01 - CONCLUSION: 1. No evidence of acute infarct, hemorrhage, mass or edema. 2. Aging brain with generalized volume loss. 3. Chronic sphenoid sinus occlusion Christiano Beltran MD Cervical Spine CT 11/13/171942 Signed Impressions: Service Date/Time: Monday, November 13, 2017 20:02 - CONCLUSION: Stable evaluation of the cervical spine with facet arthropathy but no evidence of acute bony trauma or traumatic listhesis. Christiano Beltran MD Differential Diagnosis Rib fracture versus neck injury versus fall versus mechanical fall Narrative Course 87-year-old female that presents to the ED for evaluation of mechanical fall. Patient was properly examined and was found to have signs and symptoms consistent with fall. Labs and imaging were ordered. Labs and imaging show fractures of the third and fourth ribs. Patient takes no blood thinners. No loss of consciousness. Case was discussed in my attending who recommends admission for observation as patient is unsafe discharge. She is 87 years old and lives by herself. She has been here multiple times for falls. I did review patient's medical records and she was here on November 06 for chest pain and at the time they did recommend that placement but she did not want it at the time I sent her home with home health and possible physical therapy. Per patient she has not had any home health at home and she has no one to take care of her. She does have very fractures. Concerned that she will go back and she will follow again. A call was placed to [facility] doctor to evaluate for possible ADMISSION as there is no case management able to evaluate the patient. Case discussed with Dr. Spaulding who agrees to admission. Diagnosis Primary Impression: Ribs, multiple fractures Qualified Codes: S22.42XA - Multiple fractures of ribs, left side, initial encounter for closed fracture Additional Impression: Risk for falls Admitting Information Admitting Physician Requests: Observation Bertram Diaz Nov 13, 2017 21:15
[2017-11-13] MEDS ORDERED: ACETAMINOPHEN 325 MG TAB PO ONE (21:30)
[2017-11-13 21:54] VITALS: BP 122/62; PULSE 77; RESP 20; O2SAT 97
[2017-11-13] MEDS ORDERED: NALOXONE HCL 0.4 MG/ML AMP IV PUSH PRN (22:15)
[2017-11-13] MEDS ORDERED: MAGNESIUM HYDROXIDE SUSP 30 ML CUP PO PRN (22:15)
[2017-11-13] MEDS ORDERED: SODIUM CHLORIDE 0.9% FLUSH 10 ML FLUSH IV FLUSH PRN (22:15)
[2017-11-13] MEDS ORDERED: ACETAMINOPHEN 325 MG TAB PO PRN ×2 (22:15→22:30)
[2017-11-13] MEDS ORDERED: ONDANSETRON HCL 4 MG/2 ML VIAL IVP PRN (22:15)
[2017-11-13 22:40] LABS: AUTOMATED NEUTROPHIL # 6.7 TH/MM3 (1.8-7.7); BASOPHIL % 0.4 % (0.0-2.0); EOSINOPHIL # 0.2 TH/MM3 (0-0.4); HEMATOCRIT 40.5 % (35.0-46.0); HEMOGLOBIN 13.4 GM/DL (11.6-15.3); LYMPH % 12.3 % (9.0-44.0); MEAN CORPUSCULAR HEMOGLOBIN 27.8 PG (27.0-34.0); MEAN CORPUSCULAR HGB CONC 33.1 % (32.0-36.0); MEAN PLATELET VOLUME 8.5 FL (7.0-11.0); MONO % 5.5 % (0.0-8.0); MONOCYTE # 0.5 TH/MM3 (0-0.9); NEUT % 79.8 % (16.0-70.0); PLATELET COUNT 267 TH/MM3 (150-450); RED BLOOD COUNT 4.82 MIL/MM3 (4.00-5.30); RED CELL DISTRIBUTION WIDTH 14.5 % (11.6-17.2); WHITE BLOOD COUNT 8.4 TH/MM3 (4.0-11.0)
[2017-11-13] MEDS ORDERED: PILL SPLITTER OTHER PRN (22:45)
[2017-11-13 22:54] LABS: BICARBONATE 26.2 MEQ/L (21.0-32.0); CALCIUM 8.6 MG/DL (8.5-10.1); CREATININE 1.19 MG/DL (0.50-1.00)
[2017-11-13 23:55] VITALS: BP 111/52; PULSE 77; RESP 16; TEMP 98.1; O2SAT 98
[2017-11-14 04:02] VITALS: BP 104/52; PULSE 75; RESP 16; TEMP 98.7; O2SAT 96
[2017-11-14] MEDS: traMADol HCL 50 MG TAB PO PRN ×2 (04:52→13:01)
[2017-11-14 08:06] VITALS: BP 127/60; PULSE 70; RESP 20; TEMP 98.5; O2SAT 97
[2017-11-14 08:15] VITALS: PULSE 67
[2017-11-14] MEDS ORDERED: PARoxetine HCL 20 MG TAB PO SCH (09:00)
[2017-11-14] MEDS ORDERED: PANTOPRAZOLE SOD 20 MG DELAYED RELEASE TAB PO SCH (09:00)
[2017-11-14] MEDS ORDERED: ASPIRIN 81 MG CHEW TAB CHEW SCH (09:00)
[2017-11-14] MEDS ORDERED: DILTIAZEM-CD 120 MG CAP ER PO SCH (09:00)
[2017-11-14] MEDS ORDERED: SODIUM CHLORIDE 0.9% FLUSH 10 ML FLUSH IV FLUSH SCH (09:00)
[2017-11-14] MEDS ORDERED: HYDROCORTISONE 10 MG TAB PO SCH (09:00)
--- NOTE | 2017-11-14 09:09 | HHI.HP ---
HPI Service [facility] Hospitalists Primary Care Physician Chad Garcia MD Admission Diagnosis acute fall, multiple falls, unsafe discharge, rib fractures Chief Complaint: Mechanical fall Travel History International Travel<30 Days: No Contact w/Intl Traveler <30 Da: No Traveled to Known Affected Are: No History of Present Illness This is a 87-year-old female patient with past medical history which includes arthritis, anxiety, [place]'s disease, hypertension, heart of hearing, sciatica , sarcoidosis and GERD. Patient presented to the emergency department last night 11/13/2017 after a mechanical fall at home where she hurt her left chest. Patient reports the pain is worsened with deep breathing and is sharp in nature. Rib x-ray reveals suspected nondisplaced ribs of the third fourth and fifth left ribs. No evidence of displaced rib fracture. Status post vertebral body augmentation in the lower thoracic spine. Patient denies head trauma or loss of consciousness. Patient offers no other specific complaints. Patient does endorse a history of multiple falls prior to this admission patient was seen in the emergency department on August 05, 2017 for a fall. Patient denies feeling lightheaded, dizzy shortness of breath nausea vomiting diarrhea constipation fevers or chills. Review of Systems Constitutional: DENIES: Fatigue, Fever, Chills Eyes: DENIES: Blurred vision, Diplopia, Vision loss Respiratory: DENIES: Cough, Sputum production, Shortness of breath Cardiovascular: COMPLAINS OF: Chest pain (fractured ribs status post fall), DENIES: Palpitations, Syncope, Dyspnea on Exertion Gastrointestinal: DENIES: Abdominal pain, Constipation, Diarrhea, Nausea, Vomiting Neurologic: COMPLAINS OF: Abnormal gait, Poor Balance, DENIES: Headache, Localized weakness, Speech Problems Psychiatric: DENIES: Anxiety, Confusion, Depression Past Family Social History Past Medical History Arthritis Anxiety Gustavo's disease Hypertension 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 Sciatica Sarcoidosis GERD Past Surgical History Appendectomy Cholecystectomy Hysterectomy Pituitary adenoma removal Left hip replacement Tonsillectomy Hemorrhoidectomy Reported Medications Triamcinolone Topical (Triamcinolone Acetonide) 0.1 % Oint 1 Applic TOPICAL BID Cartia Xt (Diltiazem ER 24 HR) 120 Mg Caper 120 Mg PO BID Miralax Powder (Polyethylene Glycol 3350 Powder) 17 Gm Powd 17 Gm PO HS Mix and dissolve one measuring cap-ful (17 grams) in water or juice. [Htn Med] 0 Omeprazole 20 Mg Tab 20 Mg PO BID Cortef (Hydrocortisone) 5 Mg Tab 15 Mg PO BID Take with food to decrease GI upset Paxil (Paroxetine HCl) 10 Mg Tab 5 Mg PO DAILY Aspirin 81 Mg Chew 81 Mg CHEW DAILY Allergies: Coded Allergies: No Known Allergies (Verified Allergy, Unknown, 11/13/17) Active Ordered Medications Current Medications Medications (Trade) Dose Ordered Sig/Jorge Route Start Time Stop Time Status Last Admin (NS Flush) 2 ml UNSCH PRN IV FLUSH 11/13/17 22:15 (NS Flush) 2 ml BID IV FLUSH 11/14/17 09:00 11/14/17 08:20 (Tylenol) 650 mg Q4H PRN PO 11/13/17 22:15 (Zofran Inj) 4 mg Q6H PRN IVP 11/13/17 22:15 (Narcan Inj) 0.4 mg UNSCH PRN IV PUSH 11/13/17 22:15 (Milk Of Magnsasha Liq) 30 ml Q12H PRN PO 11/13/17 22:15 (Tylenol) 650 mg Q4H PRN PO 11/13/17 22:30 (Ultram) 50 mg Q6H PRN PO 11/13/17 22:30 11/14/17 04:52 (Aspirin Chew) 81 mg DAILY CHEW 11/14/17 09:00 (Cardizem Cd) 120 mg BID PO 11/14/17 09:00 11/14/17 08:21 (Cortef) 15 mg BID PO 11/14/17 09:00 (Miralax) 17 gm HS PO 11/14/17 21:00 (Protonix) 20 mg BID PO 11/14/17 09:00 11/14/17 08:21 (Paxil) 5 mg DAILY PO 11/14/17 09:00 11/14/17 08:20 (Pill Splitter) 1 ea UNSCH PRN OTHER 11/13/17 22:45 Family History Maternal medical history significant for IA at the age of 67. Father had Alzheimer disease. Social History Denies any current tobacco use. Denies any alcohol use. Denies any illicit drug use. Physical Exam Vital Signs Vital Signs Date Time Temp Pulse Resp B/P (MAP) Pulse Ox O2 Delivery O2 Flow Rate FiO2 11/14/17 08:06 98.5 70 20 127/60 (82) 97 11/14/17 04:02 98.7 75 16 104/52 (69) 96 11/13/17 23:55 98.1 77 16 111/52 (71) 98 11/13/17 22:57 11/13/17 21:54 77 20 122/62 (82) 97 11/13/17 19:14 98.1 78 20 143/66 (91) 97 Physical Exam GENERAL: This is a well-nourished, well-developed patient elderly 87-year-old female, in no apparent distress. SKIN: No rashes, ecchymoses or lesions. Cool and dry. HEAD: Atraumatic. Normocephalic. No temporal or scalp tenderness. EYES: Extraocular motions intact. No scleral icterus. No injection or drainage. CARDIOVASCULAR: Regular rate and rhythm RESPIRATORY: Clear to auscultation. Breath sounds equal bilaterally. GASTROINTESTINAL: Abdomen soft, non-tender, nondistended. MUSCULOSKELETAL: Extremities without clubbing, cyanosis, or edema. No joint tenderness, effusion, or edema noted. No calf tenderness. Negative Homans sign bilaterally. NEUROLOGICAL: Awake and alert. No focal deficits appreciated. Motor and sensory grossly within normal limits. 4 out of 5 muscle strength in all muscle groups. Normal speech. Laboratory Laboratory Tests Test 11/13/17 22:20 White Blood Count 8.4 Red Blood Count 4.82 Hemoglobin 13.4 Hematocrit 40.5 Mean Corpuscular Volume 84.0 Mean Corpuscular Hemoglobin 27.8 Mean Corpuscular Hemoglobin Concent 33.1 Red Cell Distribution Width 14.5 Platelet Count 267 Mean Platelet Volume 8.5 Neutrophils (%) (Auto) 79.8 Lymphocytes (%) (Auto) 12.3 Monocytes (%) (Auto) 5.5 Eosinophils (%) (Auto) 2.0 Basophils (%) (Auto) 0.4 Neutrophils # (Auto) 6.7 Lymphocytes # (Auto) 1.0 Monocytes # (Auto) 0.5 Eosinophils # (Auto) 0.2 Basophils # (Auto) 0.0 CBC Comment DIFF FINAL Differential Comment Blood Urea Nitrogen 22 Creatinine 1.19 Random Glucose 103 Calcium Level 8.6 Sodium Level 139 Potassium Level 4.9 Chloride Level 106 Carbon Dioxide Level 26.2 Anion Gap 7 Estimat Glomerular Filtration Rate 43 Result Diagram: 11/13/17221911/13/172219 Imaging Last Impressions Ribs X-Ray 11/13/171942 Signed Impressions: Service Date/Time: Monday, November 13, 2017 19:56 - CONCLUSION: 1. Suspected nondisplaced fractures of the third fourth and fifth left ribs. 2. No evidence of displaced rib fracture. 3. Status post vertebral body augmentation in the lower thoracic spine. Christiano Beltran MD Hip and Pelvis X-Ray 11/13/171942 Signed Impressions: Service Date/Time: Monday, November 13, 2017 19:56 - CONCLUSION: Status post left hip replacement. No evidence of acute fracture or dislocation. Christiano Beltran MD Head CT 11/13/171942 Signed Impressions: Service Date/Time: Monday, November 13, 2017 20:01 - CONCLUSION: 1. No evidence of acute infarct, hemorrhage, mass or edema. 2. Aging brain with generalized volume loss. 3. Chronic sphenoid sinus occlusion Christiano Beltran MD Cervical Spine CT 11/13/171942 Signed Impressions: Service Date/Time: Monday, November 13, 2017 20:02 - CONCLUSION: Stable evaluation of the cervical spine with facet arthropathy but no evidence of acute bony trauma or traumatic listhesis. Christiano Beltran MD Caprini VTE Risk Assessment Caprini VTE Risk Assessment: No/Low Risk (score <= 1) Caprini Risk Assessment Model Point Value = 1 Point Value = 2 Point Value = 3 Point Value = 5 Age 41-60 Minor surgery BMI > 25 kg/m2 Swollen legs Varicose veins or History of unexplained or recurrent spontaneous Oral contraceptives or hormone replacement Sepsis (< 1 month) Serious lung disease, including pneumonia (< 1 month) Abnormal pulmonary function Acute myocardial infarction Congestive heart failure (< 1 month) History of inflammatory bowel disease Medical patient at bed rest Age 61-74 Arthroscopic surgery Major open surgery (> 45 min) Laparoscopic surgery (> 45 min) Malignancy Confined to bed (> 72 hours) Immobilizing plaster cast Central venous access Age >= 75 History of VTE Family history of VTE Factor V Leiden Prothrombin [id number] Lupus anticoagulant Anticardiolipin antibodies Elevated serum homocysteine Heparin-induced thrombocytopenia Other congenital or acquired thrombophilia Stroke (< 1 month) Elective arthroplasty Hip, pelvis, or leg fracture Acute spinal cord injury (< 1 month) Prophylaxis Regimen Total Risk Factor Score Risk Level Prophylaxis Regimen 0-1 Low Early ambulation 2 Moderate Order ONE of the following: *Sequential Compression Device (SCD) *Heparin 5000 units SQ BID 3-4 Higher Order ONE of the following medications: *Heparin 5000 units SQ TID *Enoxaparin/Lovenox 40 mg SQ daily (WT < 150 kg, CrCl > 30 mL/min) *Enoxaparin/Lovenox 30 mg SQ daily (WT < 150 kg, CrCl > 10-29 mL/min) *Enoxaparin/Lovenox 30 mg SQ BID (WT < 150 kg, CrCl > 30 mL/min) AND/OR *Sequential Compression Device (SCD) 5 or more Highest Order ONE of the following medications: *Heparin 5000 units SQ TID (Preferred with Epidurals) *Enoxaparin/Lovenox 40 mg SQ daily (WT < 150 kg, CrCl > 30 mL/min) *Enoxaparin/Lovenox 30 mg SQ daily (WT < 150 kg, CrCl > 10-29 mL/min) *Enoxaparin/Lovenox 30 mg SQ BID (WT < 150 kg, CrCl > 30 mL/min) AND *Sequential Compression Device (SCD) Assessment and Plan Problem List: (1) Recurrent falls ICD Codes: R29.6 - Repeated falls Plan: This is a 87-year-old female patient presented to the emergency department last night 11/13/2017 after a mechanical fall at home where she hurt her left chest. Patient reports the pain is worsened with deep breathing and is sharp in nature. Rib x-ray reveals suspected nondisplaced ribs of the third fourth and fifth left ribs. No evidence of displaced rib fracture. Status post vertebral body augmentation in the lower thoracic spine. Patient denies head trauma or loss of consciousness. Patient offers no other specific complaints. Patient does endorse a history of multiple falls prior to this admission patient was seen in the emergency department on August 05, 2017 for a fall. Left hip and pelvis x-ray reviewed and reveals status post left hip replacement no evidence of acute fracture or dislocation CT of the head reviewed no evidence of acute infarction, hemorrhage, mass or edema. 18 brain with generalized volume loss. Chronic sphenoid sinusitis occlusion. Cervical spine CT reviewed and reveals stable evaluation of the cervical spine with facet arthropathy but no evidence of acute bony trauma or traumatic listhesis Physical therapy requested Plan to discharged to SNF DVT prophylaxis with SCDs Patient medically stable will DC to SNF with prescription for pain medication and laxatives as needed Patient to follow up with PCP in 1 week IS Q1H while awake - Pt meets criteria for observation status. (2) Ribs, multiple fractures ICD Codes: S22.49XA - Multiple fractures of ribs, unspecified side, initial encounter for closed fracture Status: Acute Plan: X-ray reviewed and reveals suspected nondisplaced fractures of the third fourth and fifth left ribs. No evidence of displaced rib fracture. Status post vertebral body augmentation in the lower thoracic spine. 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 Assessment and plan formulated with Rebekah Otrega PA-C. I agree with the above. Problem Qualifiers (1) Ribs, multiple fractures: Qualified Codes: S22.42XA - Multiple fractures of ribs, left side, initial encounter for closed fracture Rebekah Ortega Nov 14, 2017 09:09 Abraham Spaulding DO Nov 14, 2017 15:35
[2017-11-14 12:23] VITALS: BP 128/62; PULSE 72; RESP 18; TEMP 98.2; O2SAT 95
[2017-11-14 12:25] VITALS: PULSE 69
[2017-11-14] MEDS ORDERED: MAGN30S PO (13:33)
[2017-11-14] MEDS ORDERED: ACETAMINOPHEN/HYDROcodone 325 MG/5 MG TAB PO PRN (13:45)
--- NOTE | 2017-11-14 13:52 | EKG ---
Date Performed: 11/13/2017 Time Performed: 22:55:12 PTAGE: 87 years EKG: AXIS BORDERLINE LEFTWARD FIRST DEGREE AV BLOCK POOR INITIAL ANTERIOR FORCES WHICH MAY BE NO RMAL VARIANT Compared to previous tracing, there is slight loss of R force loss in V2, otherwise no s ignificant change. ABNORMAL ECG PREVIOUS TRACING : 11/07/2017 02.52 DOCTOR: Gold Dyer Interpretating Date/Time 11/14/2017 13:51:04
[2017-11-14] MEDS ORDERED: HYDR-3516 PO (14:00)
[2017-11-14] MEDS ORDERED: POLYETHYLENE GLYCOL 17 GM PKG PO SCH (21:00)
== END 2017-11-14 19:00 | disposition home or self-care (01) ==
LOC: NEPC 19:08 → NEDA 21:50 → INTOOBSV 22:15 → OBSVTOIN 22:15 → NEPHCDU 23:41 → UNDODISIN 11-14 19:01
PROVIDERS: ADMIT Hospitalist; ATTEND Hospitalist
DX: S22.42XA Multiple fractures of ribs, left side, initial encounter for closed fracture (principal); R29.6 Repeated falls; E27.1 Primary adrenocortical insufficiency; I10 Essential (primary) hypertension; D86.9 Sarcoidosis, unspecified; E78.00 Pure hypercholesterolemia, unspecified; J32.3 Chronic sphenoidal sinusitis; K21.9 Gastro-esophageal reflux disease without esophagitis; M46.90 Unspecified inflammatory spondylopathy, site unspecified; W10.9XXA Fall (on) (from) unspecified stairs and steps, initial encounter; Y92.009 Unspecified place in unspecified non-institutional (private) residence as the place of occurrence of the external cause; Z91.81 History of falling; Z90.710 Acquired absence of both cervix and uterus; Z96.643 Presence of artificial hip joint, bilateral
CPT/HCPCS: 70450; 71101; 72125; 73502; 80048; 85025; 93005; 94150; 97163; 99285; G0378; G8987; G8988

== ENCOUNTER 2018-01-03 09:31 | Emergency (ER) | payer MEDICARE ==
[~2018-01-03] VITALS: Ht 162.6 cm; Wt 56.0 kg
[~2018-01-03 09:31] MED LIST changes: -BACT400T PO; -HTN MED; +HYDR-3516 PO; +MAGN30S PO; -TRIAM.1%T TOPICAL
[2018-01-03 09:38] VITALS: BP 109/69; PULSE 85; RESP 17; TEMP 98.1; O2SAT 96
[2018-01-03] MEDS ORDERED: SODIUM CHLORID 0.9% 500 ML INJ 500 ML IV ONE (09:45)
[2018-01-03 09:47] VITALS: O2SAT 96
--- NOTE | 2018-01-03 10:06 | PD ---
HPI Chief Complaint: Syncope/Near-Syncope Time Seen by Provider: 09:43 Travel History International Travel<30 days: No Contact w/Intl Traveler<30days: No Traveled to known affect area: No History of Present Illness HPI 87-year-old female with a history of reactive airway disease, Cannon's disease , who presents here today with complaints of a near syncopal episode. Patient was at her primary care physician's office for what she describes as just feeling "washed out". She states that when she was at the desk to pay for her co-pay, she became severely dizzy and nauseous and nearly passed out. Initially she did not recall the incident. When her physician evaluated her, they found her systolic blood pressure to be in the 80s and her heart rate to be 110. The patient denies any chest pain, chest pressure. She denies any palpitations. She did report feeling weak and dizzy. She denies any dizziness at this time. She reports that she still feels "washed out". There has been no reported dysuria urgency or frequency. The patient denies any nausea vomiting diarrhea. She does report that she takes MiraLAX daily and has normal bowel movements with that. She does admit that she may not be drinking enough fluid. 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) Endocrine: No Gastrointestinal Disorders: Yes GERD: Yes Glaucoma: No Genitourinary: No Hepatitis: No Hiatal Hernia: No Heparin Induced Thrombocytopen: No Hypertension: Yes Immune Disorder: Yes (addisons disease) Inguinal Hernia: Yes Implanted Vascular Access Dvce: Yes Musculoskeletal: Yes (arthritis) Neurologic: No Psychiatric: No Reproductive: No Respiratory: Yes (sarcoidosis) Immunizations Current: Yes Myocardial Infarction: No Radiation Therapy: No Sleep Apnea: No Thyroid Disease: No Ulcer: No Menopausal: Yes Past Surgical History Abdominal Surgery: Yes (EXP LAP) AICD: No Appendectomy: Yes Body Medical Devices: artificial hips Cardiac Surgery: No Cholecystectomy: Yes Coronary Artery Bypass Graft: No Ear Surgery: No Endocrine Surgery: Yes (PITUITARY ADENOMA REMOVED) Eye Surgery: No Genitourinary Surgery: Yes (HEMORRHOIDS) Gynecologic Surgery: No Hysterectomy: Yes Insulin Pump: No Joint Replacement: Yes (LEFT HIP) Oral Surgery: Yes (TONSILECTOMY) Pacemaker: No Thoracic Surgery: No Tonsillectomy: Yes Other Surgery: Yes Social History Alcohol Use: No Tobacco Use: No Substance Use: No Allergies-Medications (Allergen,Severity, Reaction): Coded Allergies: No Known Allergies (Verified Allergy, Unknown, 11/13/17) Reported Meds & Prescriptions Reported Meds & Active Scripts Active Hydrocodone-Acetamin 5-325 mg (Hydrocodone/Acetaminophen) 5 Mg-325 Mg Tablet 1 Tab PO Q6H PRN Qc Milk of Magnesia (Magnesium Hydroxide) 400 Mg/5 Ml Arelis 30 Ml PO Q12H PRN Reported Cartia Xt (Diltiazem ER 24 HR) 120 Mg Caper 120 Mg PO BID Miralax Powder (Polyethylene Glycol 3350 Powder) 17 Gm Powd 17 Gm PO HS Mix and dissolve one measuring cap-ful (17 grams) in water or juice. Omeprazole 20 Mg Tab 20 Mg PO BID Cortef (Hydrocortisone) 5 Mg Tab 15 Mg PO BID Take with food to decrease GI upset Paxil (Paroxetine HCl) 10 Mg Tab 5 Mg PO DAILY Aspirin 81 Mg Chew 81 Mg CHEW DAILY Review of Systems Except as stated in HPI: all other systems reviewed are Neg General / Constitutional: No: Fever, Chills HENT: Positive: Lightheadedness (Earlier), No: Headaches, Neck Pain Cardiovascular: No: Chest Pain or Discomfort, Palpitations Respiratory: No: Cough, Shortness of Breath Gastrointestinal: Positive: Nausea (Earlier, none now), No: Vomiting, Diarrhea , Abdominal Pain Genitourinary: No: Frequency, Dysuria, Incontinence Musculoskeletal: Positive: Weakness, No: Pain Neurologic: Positive: Weakness, No: Dizziness, Headache, Change in Mentation Physical Exam Narrative GENERAL: Well-developed well-nourished female in no acute respiratory distress. SKIN: Focused skin assessment warm/dry. HEAD: Atraumatic. Normocephalic. EYES: Pupils equal and round. No scleral icterus. No injection or drainage. ENT: No nasal bleeding or discharge. Mucous membranes pink and dry. NECK: Trachea midline. No JVD. CARDIOVASCULAR: Regular rate and rhythm. No murmur appreciated. RESPIRATORY: No accessory muscle use. Clear to auscultation. Breath sounds equal bilaterally. GASTROINTESTINAL: Abdomen soft, non-tender, nondistended. No palpable masses. No pulsatile masses. MUSCULOSKELETAL: No obvious deformities. No clubbing. No cyanosis. No edema. NEUROLOGICAL: Awake and alert. No obvious cranial nerve deficits. Motor grossly within normal limits. Normal speech. Data Data Last Documented VS Vital Signs Date Time Temp Pulse Resp B/P (MAP) Pulse Ox O2 Delivery O2 Flow Rate FiO2 01/03/18 13:31 75 17 136/68 (90) 96 Room Air 01/03/18 09:38 98.1 Orders Orders Electrocardiogram (01/03/18 09:44) Complete Blood Count With Diff (01/03/18 09:44) Comprehensive Metabolic Panel (01/03/18 09:44) Creatine Kinase (Cpk) (01/03/18 09:44) Troponin I (01/03/18 09:44) Lipase (01/03/18 09:44) Urinalysis - C+S If Indicated (01/03/18 09:44) Thyroid Stimulating Hormone (01/03/18 09:44) Chest, Single Ap (01/03/18 09:44) Iv Access Insert/Monitor (01/03/18 09:44) Ecg Monitoring (01/03/18 09:44) Oximetry (01/03/18 09:44) Sodium Chlorid 0.9% 500 Ml Inj (Ns 500 M (01/03/18 09:45) Labs Laboratory Tests Test 01/03/18 10:00 White Blood Count 9.5 TH/MM3 Red Blood Count 4.95 MIL/MM3 Hemoglobin 14.1 GM/DL Hematocrit 41.5 % Mean Corpuscular Volume 83.8 FL Mean Corpuscular Hemoglobin 28.4 PG Mean Corpuscular Hemoglobin Concent 33.9 % Red Cell Distribution Width 14.4 % Platelet Count 224 TH/MM3 Mean Platelet Volume 9.0 FL Neutrophils (%) (Auto) 61.4 % Lymphocytes (%) (Auto) 21.4 % Monocytes (%) (Auto) 11.7 % Eosinophils (%) (Auto) 4.9 % Basophils (%) (Auto) 0.6 % Neutrophils # (Auto) 5.8 TH/MM3 Lymphocytes # (Auto) 2.0 TH/MM3 Monocytes # (Auto) 1.1 TH/MM3 Eosinophils # (Auto) 0.5 TH/MM3 Basophils # (Auto) 0.1 TH/MM3 CBC Comment DIFF FINAL Differential Comment Blood Urea Nitrogen 18 MG/DL Creatinine 1.16 MG/DL Random Glucose 107 MG/DL Total Protein 7.0 GM/DL Albumin 3.4 GM/DL Calcium Level 8.7 MG/DL Alkaline Phosphatase 91 U/L Aspartate Amino Transf (AST/SGOT) 21 U/L Alanine Aminotransferase (ALT/SGPT) 17 U/L Total Bilirubin 0.4 MG/DL Sodium Level 139 MEQ/L Potassium Level 3.9 MEQ/L Chloride Level 108 MEQ/L Carbon Dioxide Level 25.3 MEQ/L Anion Gap 6 MEQ/L Estimat Glomerular Filtration Rate 44 ML/MIN Total Creatine Kinase 34 U/L Troponin I LESS THAN 0.02 NG/ML Lipase 173 U/L Thyroid Stimulating Hormone 3rd Gen 3.160 uIU/ML MDM Medical Decision Making Medical Screen Exam Complete: Yes Emergency Medical Condition: Yes Interpretation(s) EKG shows sinus rhythm with a rate of 82. There are no acute ST elevations or depressions. There is nonspecific ST changes noted in the anterior septal leads , V1, V2. Differential Diagnosis Near syncope versus metabolic derangement versus anemia versus cardiac dysrhythmia Narrative Course 87-year-old female presents from her primary care doctor's office after a near syncopal episode. Patient was found to be hypotensive and tachycardic upon the initial episode. The patient states that she does not feel normal. She has been given IV fluids, 500 cc bolus 1 dose. Labs show no evidence of acute process. EKG showed no obvious findings. Laboratory tests are within normal limits. The patient states she feels much improved. She wants to go home. We will arrange for her to be taken home. She will follow-up with her primary care physician, Dr. Chad Garcia. Diagnosis Primary Impression: Near syncope Additional Impression: Hx of Cannon's disease Additional Instructions: Drink plenty of fluids. Return if feeling worse. Follow-up with your primary care physician. Disposition: 01 DISCHARGE HOME Condition: Stable Cesar Rose MD Jan 03, 2018 10:06
[2018-01-03 10:18] LABS: AUTOMATED NEUTROPHIL # 5.8 TH/MM3 (1.8-7.7); BASOPHIL # 0.1 TH/MM3 (0-0.2); BASOPHIL % 0.6 % (0.0-2.0); EOSINOPHIL # 0.5 TH/MM3 (0-0.4); EOSINOPHIL % 4.9 % (0.0-4.0); HEMATOCRIT 41.5 % (35.0-46.0); HEMOGLOBIN 14.1 GM/DL (11.6-15.3); LYMPH % 21.4 % (9.0-44.0); MEAN CELL VOLUME 83.8 FL (80.0-100.0); MEAN CORPUSCULAR HEMOGLOBIN 28.4 PG (27.0-34.0); MEAN CORPUSCULAR HGB CONC 33.9 % (32.0-36.0); MONO % 11.7 % (0.0-8.0); MONOCYTE # 1.1 TH/MM3 (0-0.9); NEUT % 61.4 % (16.0-70.0); PLATELET COUNT 224 TH/MM3 (150-450); RED BLOOD COUNT 4.95 MIL/MM3 (4.00-5.30); RED CELL DISTRIBUTION WIDTH 14.4 % (11.6-17.2); WHITE BLOOD COUNT 9.5 TH/MM3 (4.0-11.0)
--- NOTE | 2018-01-03 10:41 | RADRPT ---
EXAM DATE/TIME: 01/03/2018 10:07 [facility] COMPARISON: CT PULMONARY ANGIOGRAM, November 06, 2017, 20:19. CHEST SINGLE AP, November 06, 2017, 19:25. INDICATIONS : Possible syncopal episode. MEDICAL HISTORY : Sarcoidosis. Addisons disease. SURGICAL HISTORY : Cardiac cath. ENCOUNTER: Initial ACUITY: 1 day PAIN SCORE: 0/10 LOCATION: Bilateral chest FINDINGS: A single view of the chest demonstrates the lungs to be symmetrically aerated without evidence of mas s, infiltrate or effusion. The cardiomediastinal contours are unremarkable. Previous kyphoplasty is noted.. CONCLUSION: No acute disease. Lenny Marsh MD on January 03, 2018 at 10:39 Board Certified Radiologist. This report was verified electronically.
[2018-01-03 10:52] LABS: ALBUMIN 3.4 GM/DL (3.4-5.0); ALKALINE PHOSPHATASE 91 U/L (45-117); ALT (GPT) 17 U/L (10-53); AST (GOT) 21 U/L (15-37); BICARBONATE 25.3 MEQ/L (21.0-32.0); BLOOD UREA NITROGEN 18 MG/DL (7-18); CALCIUM 8.7 MG/DL (8.5-10.1); CHLORIDE 108 MEQ/L (98-107); CREATININE 1.16 MG/DL (0.50-1.00); GLOMERULAR FILTRATION RATE 44 ML/MIN (>89); GLUCOSE,RANDOM 107 MG/DL (74-106); SODIUM (NA) 139 MEQ/L (136-145); TOTAL BILIRUBIN ADULT 0.4 MG/DL (0.2-1.0); TROPONIN I LESS THAN 0.02 NG/ML (0.02-0.05)
[2018-01-03 11:11] VITALS: BP 129/62; PULSE 74; RESP 18; O2SAT 96
[2018-01-03 13:31] VITALS: BP 136/68; PULSE 75; RESP 17; O2SAT 96
[2018-01-03 14:28] VITALS: BP 132/67
--- NOTE | 2018-01-04 22:57 | EKG ---
Date Performed: 01/03/2018 Time Performed: 09:48:04 PTAGE: 87 years EKG: Sinus rhythm WITH FIRST DEGREE AV BLOCK MARKED LEFT AXIS DEVIATION ABNORMAL ECG PREVIOUS TRACING : 11/13/2017 22.55 Since the prior tracing, there has been no significant knapp DOCTOR: Kassandra Tejada Interpretating Date/Time 01/04/2018 22:55:43
== END 2018-01-03 14:29 | disposition home or self-care (01) ==
LOC: NEPC 09:31
DX: E27.1 Primary adrenocortical insufficiency (principal); K21.9 Gastro-esophageal reflux disease without esophagitis
CPT/HCPCS: 71045; 80053; 82550; 83690; 84443; 84484; 85025; 93005; 96360; 99285; J7040

== ENCOUNTER 2018-01-17 23:38 | Emergency (ER) | payer MEDICARE ==
[2018-01-17 23:52] VITALS: BP 115/61; PULSE 105; RESP 18; TEMP 98.1; O2SAT 96
[2018-01-18 00:10] LABS: AUTOMATED NEUTROPHIL # 4.1 TH/MM3 (1.8-7.7); BASOPHIL # 0.1 TH/MM3 (0-0.2); BASOPHIL % 0.8 % (0.0-2.0); EOSINOPHIL # 0.5 TH/MM3 (0-0.4); EOSINOPHIL % 5.9 % (0.0-4.0); HEMATOCRIT 42.6 % (35.0-46.0); HEMOGLOBIN 14.8 GM/DL (11.6-15.3); LYMPHOCYTE # 2.5 TH/MM3 (1.0-4.8); MEAN CORPUSCULAR HEMOGLOBIN 29.1 PG (27.0-34.0); MEAN CORPUSCULAR HGB CONC 34.7 % (32.0-36.0); MEAN PLATELET VOLUME 8.3 FL (7.0-11.0); MONO % 11.5 % (0.0-8.0); MONOCYTE # 0.9 TH/MM3 (0-0.9); NEUT % 50.8 % (16.0-70.0); PLATELET COUNT 232 TH/MM3 (150-450); RED BLOOD COUNT 5.07 MIL/MM3 (4.00-5.30)
[2018-01-18 00:23] LABS: INTERNATIONAL NORMALIZED RATIO 1.2 RATIO
[2018-01-18 00:40] LABS: ALBUMIN 3.8 GM/DL (3.4-5.0); ALT (GPT) 16 U/L (10-53); AST (GOT) 22 U/L (15-37); BLOOD UREA NITROGEN 22 MG/DL (7-18); CALCIUM 9.4 MG/DL (8.5-10.1); CHLORIDE 104 MEQ/L (98-107); GLOMERULAR FILTRATION RATE 42 ML/MIN (>89); GLUCOSE,RANDOM 82 MG/DL (74-106); SODIUM (NA) 140 MEQ/L (136-145)
[2018-01-18 00:43] LABS: ALKALINE PHOSPHATASE 89 U/L (45-117); TOTAL PROTEIN 7.2 GM/DL (6.4-8.2)
[2018-01-18 03:29] VITALS: BP 130/61; PULSE 91; RESP 17; O2SAT 99
[2018-01-18] MEDS ORDERED: SODIUM CHLOR 0.9% 1000 ML INJ 1,000 ML IV ONE (04:15)
--- NOTE | 2018-01-18 04:15 | PD ---
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 Said she also has abdominal pain. Denies any fever, chest pain, sob, urinary complaints, focal weakness or numbness. Pt said she is moving into a [place] in a few weeks but lives by herself now. 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) Endocrine: No Gastrointestinal Disorders: Yes GERD: Yes Glaucoma: No Genitourinary: No Hepatitis: No Hiatal Hernia: No Heparin Induced Thrombocytopen: No Hypertension: Yes Immune Disorder: Yes (addisons disease) Inguinal Hernia: Yes Implanted Vascular Access Dvce: Yes Musculoskeletal: Yes (arthritis) Neurologic: No Psychiatric: No Reproductive: No Respiratory: Yes (sarcoidosis) Immunizations Current: Yes Myocardial Infarction: No Radiation Therapy: No Sleep Apnea: No Thyroid Disease: No Ulcer: No ?: Not Menopausal: Yes Past Surgical History Abdominal Surgery: Yes (EXP LAP) AICD: No Appendectomy: Yes Body Medical Devices: artificial hips Cardiac Surgery: No Cholecystectomy: Yes Coronary Artery Bypass Graft: No Ear Surgery: No Endocrine Surgery: Yes (PITUITARY ADENOMA REMOVED) Eye Surgery: No Genitourinary Surgery: Yes (HEMORRHOIDS) Gynecologic Surgery: No Hysterectomy: Yes Insulin Pump: No Joint Replacement: Yes (LEFT HIP) Oral Surgery: Yes (TONSILECTOMY) Pacemaker: No Thoracic Surgery: No Tonsillectomy: Yes Other Surgery: Yes (hip replacement) Family History Family Myocardial Infarction: Yes Social History Alcohol Use: No Tobacco Use: No Substance Use: No Allergies-Medications (Allergen,Severity, Reaction): Coded Allergies: No Known Allergies (Verified Allergy, Unknown, 01/17/18) Reported Meds & Prescriptions Reported Meds & Active Scripts Active Zofran Odt (Ondansetron Odt) 4 Mg Tab 4 Mg SL Q12HR PRN Bactrim DS (Sulfamethoxazole-Trimethoprim) 800-160 Mg Tab 1 Tab PO BID Hydrocodone-Acetamin 5-325 mg (Hydrocodone/Acetaminophen) 5 Mg-325 Mg Tablet 1 Tab PO Q6H PRN Qc Milk of Magnesia (Magnesium Hydroxide) 400 Mg/5 Ml Arelis 30 Ml PO Q12H PRN Reported Cartia Xt (Diltiazem ER 24 HR) 120 Mg Caper 120 Mg PO BID Miralax Powder (Polyethylene Glycol 3350 Powder) 17 Gm Powd 17 Gm PO HS Mix and dissolve one measuring cap-ful (17 grams) in water or juice. Omeprazole 20 Mg Tab 20 Mg PO BID Cortef (Hydrocortisone) 5 Mg Tab 15 Mg PO BID Take with food to decrease GI upset Paxil (Paroxetine HCl) 10 Mg Tab 5 Mg PO DAILY Aspirin 81 Mg Chew 81 Mg CHEW DAILY Review of Systems Except as stated in HPI: all other systems reviewed are Neg Physical Exam Narrative GENERAL: 87yo F not in distress. SKIN: Focused skin assessment warm/dry. HEAD: Atraumatic. Normocephalic. CARDIOVASCULAR: Regular rate and rhythm. No murmur appreciated. RESPIRATORY: No accessory muscle use. Clear to auscultation. Breath sounds equal bilaterally. GASTROINTESTINAL: Abdomen soft, mild tenderness to palpation diffusely. No rebound tenderness or guarding. MUSCULOSKELETAL: No obvious deformities. No clubbing. No cyanosis. No edema. NEUROLOGICAL: Awake and alert. No obvious cranial nerve deficits. Motor grossly within normal limits. Normal speech. PSYCHIATRIC: Appropriate mood and affect; insight and judgment normal. Data Data Last Documented VS Vital Signs Date Time Temp Pulse Resp B/P (MAP) Pulse Ox O2 Delivery O2 Flow Rate FiO2 01/18/18 07:59 16 01/18/18 06:17 93 120/57 (78) 97 Room Air 01/17/18 23:52 98.1 Orders Orders Complete Blood Count With Diff (01/17/18 23:49) Comprehensive Metabolic Panel (01/17/18 23:49) Urinalysis - C+S If Indicated (01/17/18 23:49) Iv Access Insert/Monitor (01/17/18 23:49) Oxygen Administration (01/17/18 23:49) Oximetry (01/17/18 23:49) Lipase (01/17/18 23:49) Act Partial Throm Time (Ptt) (01/17/18 23:49) Prothrombin Time / Inr (Pt) (01/17/18 23:49) Electrocardiogram (01/18/18 ) Ct Abd/Pel W Iv Contrast(Rout) (01/18/18 ) Sodium Chlor 0.9% 1000 Ml Inj (Ns 1000 M (01/18/18 04:15) Iohexol 350 Inj (Omnipaque 350 Inj) (01/18/18 04:23) Ondansetron Inj (Zofran Inj) (01/18/18 05:45) Acetaminophen (Tylenol) (01/18/18 05:45) Urine Culture (01/18/18 05:20) Ceftriaxone Inj (Rocephin Inj) (01/18/18 06:30) Ed Discharge Order (01/18/18 06:43) Labs Laboratory Tests Test 01/17/18 23:55 01/18/18 05:20 White Blood Count 8.0 TH/MM3 Red Blood Count 5.07 MIL/MM3 Hemoglobin 14.8 GM/DL Hematocrit 42.6 % Mean Corpuscular Volume 84.0 FL Mean Corpuscular Hemoglobin 29.1 PG Mean Corpuscular Hemoglobin Concent 34.7 % Red Cell Distribution Width 14.0 % Platelet Count 232 TH/MM3 Mean Platelet Volume 8.3 FL Neutrophils (%) (Auto) 50.8 % Lymphocytes (%) (Auto) 31.0 % Monocytes (%) (Auto) 11.5 % Eosinophils (%) (Auto) 5.9 % Basophils (%) (Auto) 0.8 % Neutrophils # (Auto) 4.1 TH/MM3 Lymphocytes # (Auto) 2.5 TH/MM3 Monocytes # (Auto) 0.9 TH/MM3 Eosinophils # (Auto) 0.5 TH/MM3 Basophils # (Auto) 0.1 TH/MM3 CBC Comment DIFF FINAL Differential Comment Prothrombin Time 12.0 SEC Prothromb Time International Ratio 1.2 RATIO Activated Partial Thromboplast Time 29.9 SEC Blood Urea Nitrogen 22 MG/DL Creatinine 1.20 MG/DL Random Glucose 82 MG/DL Total Protein 7.2 GM/DL Albumin 3.8 GM/DL Calcium Level 9.4 MG/DL Alkaline Phosphatase 89 U/L Aspartate Amino Transf (AST/SGOT) 22 U/L Alanine Aminotransferase (ALT/SGPT) 16 U/L Total Bilirubin 1.0 MG/DL Sodium Level 140 MEQ/L Potassium Level 4.2 MEQ/L Chloride Level 104 MEQ/L Carbon Dioxide Level 27.0 MEQ/L Anion Gap 9 MEQ/L Estimat Glomerular Filtration Rate 42 ML/MIN Lipase 155 U/L Urine Color YELLOW Urine Turbidity CLEAR Urine pH 5.0 Urine Specific [place] 1.040 Urine Protein TRACE mg/dL Urine Glucose (UA) NEG mg/dL Urine Ketones 10 mg/dL Urine Occult Blood NEG Urine Nitrite NEG Urine Bilirubin NEG Urine Urobilinogen LESS THAN 2.0 MG/DL Urine Leukocyte Esterase LARGE Urine RBC 4 /hpf Urine WBC 29 /hpf Urine Squamous Epithelial Cells <1 /hpf Urine Transitional Epithelial Cells <1 /hpf Urine Bacteria RARE /hpf Urine Hyaline Casts 1 /lpf Urine Mucus FEW /lpf Microscopic Urinalysis Comment CULTURE INDICATED MDM Medical Decision Making Medical Screen Exam Complete: Yes Emergency Medical Condition: Yes Interpretation(s) EKG: NSR 89bpm. LAD. No ST segment elevation or depression. Differential Diagnosis Gastroenteritis vs. dehydration vs. electrolyte abnormality vs. colitis Narrative Course 87yo F with abdominal pain, diarrhea and vomiting for 4 days. Pt is well appearing but a little anxious appearing. Initially a little tachycardic but HR improved with NS IVF. She is afebrile. Labs reviewed, no leukocytosis. H/ H normal. BUN/creatinine mildly elevated at 22/1.20. Lipase normal. CT a/p showed no acute abnormality. Prior cholecystectomy. Colonic diverticulosis. Pt given zofran for nausea. Pt reevaluated and feels better after NS IVF and zofran. UA showed large leukocyte. WBC 29. Pt given ceftriaxone 1mg IV. She is well appearing and tolerating PO. Will prescribe antibiotics for UTI and instruct pt to return to the ED if symptoms worsen. Diagnosis Primary Impression: Dehydration Additional Impression: UTI (urinary tract infection) Qualified Codes: N39.0 - Urinary tract infection, site not specified Patient Instructions: General Instructions Departure Forms: Tests/Procedures Additional Instructions: Please follow up with your primary care physician in 2-3 days. Return to the ED if symptoms worsen. Med/Other Pt SpecificInfo: Prescription(s) given Scripts Ondansetron Odt (Zofran Odt) 4 Mg Tab 4 MG SL Q12HR Y for Nausea/Vomiting, #6 TAB 0 Refills Prov: Yadira Centeno DO 01/18/18 Sulfamethoxazole-Trimethoprim (Bactrim DS) 800-160 Mg Tab 1 TAB PO BID for Infection, #14 TAB 0 Refills Prov: Yadira Centeno DO 01/18/18 Disposition: 01 DISCHARGE HOME Condition: Stable Yadira Centeno DO Jan 18, 2018 04:15
[2018-01-18] MEDS ORDERED: IOHEXOL 350 MG/ML 10 ML VIAL (for RAD DIAG) IVCONTRAST ONE (04:23)
--- NOTE | 2018-01-18 04:51 | RADRPT ---
EXAM DATE/TIME: 01/18/2018 04:21 [facility] COMPARISON: No previous studies available for comparison. INDICATIONS : Patient complains of weakness and loss of appetite. IV CONTRAST: 70 cc Omnipaque 350 (iohexol) IV ORAL CONTRAST: No oral contrast ingested. RADIATION DOSE: 7.86 CTDIvol (mGy) MEDICAL HISTORY : Gustavo's disease, sarcoidosis SURGICAL HISTORY : Hysterectomy. Appendectomy.Cholecystectomy.Bilateral hip replacements ENCOUNTER: Initial ACUITY: 2 days PAIN SCALE: 0/10 LOCATION: abdomen TECHNIQUE: Volumetric scanning of the abdomen and pelvis was performed. Using automated exposure control and ad justment of the mA and/or kV according to patient size, radiation dose was kept as low as reasonably achievable to obtain optimal diagnostic quality images. DICOM format image data is available electro nically for review and comparison. FINDINGS: Study is breathing motion degraded. LOWER LUNGS: The visualized lower lungs are clear. LIVER: Homogeneous density without lesion. There is no dilation of the biliary tree. Prior cholecystectomy. SPLEEN: Normal size without lesion. PANCREAS: Within normal limits. KIDNEYS: Normal in size and shape. There is no mass, stone or hydronephrosis. A 1 cm cortical cyst seen invol ving the upper pole the right kidney. ADRENAL GLANDS: Within normal limits. VASCULAR: There is no aortic aneurysm. BOWEL/MESENTERY: The stomach, small bowel, and colon demonstrate no acute abnormality. There is no free intraperitone al air or fluid. Colonic diverticuli without acute inflammation. ABDOMINAL WALL: Within normal limits. RETROPERITONEUM: There is no lymphadenopathy. BLADDER: No wall thickening or mass. REPRODUCTIVE: Within normal limits. INGUINAL: There is no lymphadenopathy or hernia. MUSCULOSKELETAL: Bilateral hip arthroplasties obscures the lower pelvis. CONCLUSION: 1. No acute abnormality. 2. Prior cholecystectomy. 3. Colonic diverticulosis. Kelechi Blanco Jr., MD on January 18, 2018 at 4:46 Board Certified Radiologist. This report was verified electronically.
[2018-01-18] MEDS ORDERED: ACETAMINOPHEN 500 MG CPLT PO ONE (05:45)
[2018-01-18] MEDS ORDERED: ONDANSETRON HCL 4 MG/2 ML VIAL IV PUSH ONE (05:45)
[2018-01-18 06:05] LABS: BACTERIA, URINE RARE /hpf; BILIRUBIN, URINE NEG (NEG); BLOOD, URINE NEG (NEG); GLUCOSE,URINE NEG (NEG); HYALINE CAST, URINE 1 /lpf (RARE); KETONE, URINE 10 mg/dL (NEG); MUCUS URINE FEW /lpf (OCC); NITRITE,URINE NEG (NEG); SQUAMOUS EPITHELIAL CELL URINE <1 /hpf (0-5); TRANSITIONAL EPI CELLS, URINE <1 /hpf; URINE COLOR YELLOW (YELLW/STRAW); URINE LEUKOCYTE ESTERASE LARGE (NEG)
[2018-01-18 06:17] VITALS: BP 120/57; PULSE 93; RESP 17; O2SAT 97
[2018-01-18] MEDS ORDERED: cefTRIAXone INJ 1,000 MG in SODIUM CHLORIDE 0.9% INJ 100 ML IV ONE (06:30)
[2018-01-18] MEDS ORDERED: ZOFR4TAB3 SL (06:31)
[2018-01-18] MEDS ORDERED: BACT800T5 PO (06:31)
[2018-01-18 07:59] VITALS: RESP 16
--- NOTE | 2018-01-18 19:24 | EKG ---
Date Performed: 01/18/2018 Time Performed: 04:31:15 PTAGE: 87 years EKG: Sinus rhythm LEFT ANTERIOR FASCICULAR BLOCK ABNORMAL ECG Since the PREVIOUS TRACING , no significant change noted DOCTOR: Kassandra Tejada Interpretating Date/Time 01/18/2018 19:22:34
== END 2018-01-18 12:17 | disposition home or self-care (01) ==
LOC: NEDAMB 23:38
DX: E86.0 Dehydration (principal); N39.0 Urinary tract infection, site not specified; R94.31 Abnormal electrocardiogram [ECG] [EKG]; E27.1 Primary adrenocortical insufficiency; F41.9 Anxiety disorder, unspecified; F32.9 Major depressive disorder, single episode, unspecified; E78.00 Pure hypercholesterolemia, unspecified; I10 Essential (primary) hypertension; D86.9 Sarcoidosis, unspecified
CPT/HCPCS: 74177; 80053; 81001; 83690; 85025; 85610; 85730; 87086; 93005; 96361; 96365; 96375; 99285; J0696; J2405; J7030; Q9967

== ENCOUNTER 2018-01-23 01:11 | Emergency (ER) | payer MEDICARE ==
[~2018-01-23] VITALS: Ht 165.1 cm; Wt 60.0 kg
[~2018-01-23 01:11] MED LIST changes: +BACT800T5 PO; +ZOFR4TAB3 SL
[2018-01-23 01:30] VITALS: BP 113/60; PULSE 80; RESP 16; TEMP 98.7; O2SAT 96
--- NOTE | 2018-01-23 03:24 | PD ---
HPI Chief Complaint: Hip Injury Time Seen by Provider: 03:01 Travel History International Travel<30 days: No Contact w/Intl Traveler<30days: No Traveled to known affect area: No History of Present Illness HPI Patient 87-year-old female presents emergency department with left hip pain that started prior to arrival. Patient states that she felt a pop in the middle the night in the left hip which was operated on 2 years ago. She is concerned because she thinks she might have done something to it. She states the pain is fairly well resolved at this time and she is able to sleep. Pain resolved, left hip, no radiation, context as above. Denies trauma. 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) Endocrine: No Gastrointestinal Disorders: Yes GERD: Yes Glaucoma: No Genitourinary: No Hepatitis: No Hiatal Hernia: No Heparin Induced Thrombocytopen: No Hypertension: Yes Immune Disorder: Yes (addisons disease) Inguinal Hernia: Yes Implanted Vascular Access Dvce: Yes Musculoskeletal: Yes (arthritis) Neurologic: No Psychiatric: No Reproductive: No Respiratory: Yes (sarcoidosis) Immunizations Current: Yes Myocardial Infarction: No Radiation Therapy: No Sleep Apnea: No Thyroid Disease: No Ulcer: No Menopausal: Yes Past Surgical History Abdominal Surgery: Yes (EXP LAP) AICD: No Appendectomy: Yes Body Medical Devices: artificial hips Cardiac Surgery: No Cholecystectomy: Yes Coronary Artery Bypass Graft: No Ear Surgery: No Endocrine Surgery: Yes (PITUITARY ADENOMA REMOVED) Eye Surgery: No Genitourinary Surgery: Yes (HEMORRHOIDS) Gynecologic Surgery: No Hysterectomy: Yes Insulin Pump: No Joint Replacement: Yes (LEFT HIP) Oral Surgery: Yes (TONSILECTOMY) Pacemaker: No Thoracic Surgery: No Tonsillectomy: Yes Other Surgery: Yes (hip replacement) Family History Family Myocardial Infarction: Yes Social History Alcohol Use: No Tobacco Use: No Substance Use: No Allergies-Medications (Allergen,Severity, Reaction): Coded Allergies: No Known Allergies (Verified Allergy, Unknown, 01/23/18) Reported Meds & Prescriptions Reported Meds & Active Scripts Active Zofran Odt (Ondansetron Odt) 4 Mg Tab 4 Mg SL Q12HR PRN Bactrim DS (Sulfamethoxazole-Trimethoprim) 800-160 Mg Tab 1 Tab PO BID Hydrocodone-Acetamin 5-325 mg (Hydrocodone/Acetaminophen) 5 Mg-325 Mg Tablet 1 Tab PO Q6H PRN Qc Milk of Magnesia (Magnesium Hydroxide) 400 Mg/5 Ml Arelis 30 Ml PO Q12H PRN Reported Cartia Xt (Diltiazem ER 24 HR) 120 Mg Caper 120 Mg PO BID Miralax Powder (Polyethylene Glycol 3350 Powder) 17 Gm Powd 17 Gm PO HS Mix and dissolve one measuring cap-ful (17 grams) in water or juice. Omeprazole 20 Mg Tab 20 Mg PO BID Cortef (Hydrocortisone) 5 Mg Tab 15 Mg PO BID Take with food to decrease GI upset Paxil (Paroxetine HCl) 10 Mg Tab 5 Mg PO DAILY Aspirin 81 Mg Chew 81 Mg CHEW DAILY Review of Systems Except as stated in HPI: all other systems reviewed are Neg Physical Exam Narrative GENERAL: Well-nourished, well-developed patient. SKIN: Focused skin assessment warm/dry. HEAD: Normocephalic. EYES: No scleral icterus. No injection or drainage. NECK: Supple, trachea midline. No JVD or lymphadenopathy. CARDIOVASCULAR: Regular rate and rhythm without murmurs, gallops, or rubs. RESPIRATORY: Breath sounds equal bilaterally. No accessory muscle use. GASTROINTESTINAL: Abdomen soft, non-tender, nondistended. MUSCULOSKELETAL: No cyanosis, or edema. Well-healed surgical hip scars, full nontender range of motion of both hips. Pulses motor and sensory intact distally in all 4 extremities, knees are atraumatic BACK: Nontender without obvious deformity. No CVA tenderness. Data Data Last Documented VS Vital Signs Date Time Temp Pulse Resp B/P (MAP) Pulse Ox O2 Delivery O2 Flow Rate FiO2 01/23/18 02:54 15 01/23/18 01:30 98.7 80 113/60 (77) 96 Orders Orders Hip, Uni(4+Vws) W Ap Pelvis (01/23/18 ) Naproxen (Naprosyn) (01/23/18 03:30) Ed Discharge Order (01/23/18 04:22) MDM Medical Decision Making Medical Screen Exam Complete: Yes Emergency Medical Condition: Yes Differential Diagnosis Hip strain, hip s sprain, hip fracture unlikely, hip spasm. Narrative Course Patient room to the emergency murmur, x-ray negative, she is amatory in the emergency department. Will be discharged home, naproxen at her request. Discussed returning to criteria follow-up with a primary care physician peer Diagnosis Primary Impression: Hip pain, left Disposition: 01 DISCHARGE HOME Condition: Stable Fritz Mathews MD Jan 23, 2018 03:24
[2018-01-23] MEDS ORDERED: NAPROXEN 375 MG TAB PO ONE (03:30)
--- NOTE | 2018-01-23 04:54 | RADRPT ---
EXAM DATE/TIME: 01/23/2018 03:37 [facility] COMPARISON: HIP LEFT (MIN 4VWS) W AP PELVIS, December 08, 2015, 9:23. INDICATIONS : Fall. Pain on left side. MEDICAL HISTORY : Cardiovascular disease. Hypertension TB. SURGICAL HISTORY : Appendectomy. Cholecystectomy. Bilateral hip replacements. ENCOUNTER: Initial ACUITY: 1 day PAIN SCORE: 4/10 LOCATION: Left Hip FINDINGS: Examination of the left hip was performed with AP pelvis. Bilateral total hip arthroplasties are radi ographically intact without fracture or dislocation. Negative bony pelvis also appears to be intact. CONCLUSION: 1. Bilateral total hip arthroplasties, both appear to be intact. 2. No acute fracture Andrew Pillai MD on January 23, 2018 at 4:51 Board Certified Radiologist. This report was verified electronically.
== END 2018-01-23 09:38 | disposition home or self-care (01) ==
LOC: NEDAMB 01:11 → NEPC 09:38
DX: M25.552 Pain in left hip (principal); K21.9 Gastro-esophageal reflux disease without esophagitis
CPT/HCPCS: 73503; 99283

== ENCOUNTER 2018-02-11 11:08 | Observation (INO) | payer MEDICARE ==
[2018-02-11] VITALS (8 sets, daily range): BP systolic 93–128; BP diastolic 51–60; PULSE 72–101; RESP 18–19; TEMP 97.2–98.6; O2SAT 92–98
[~2018-02-11] VITALS: Ht 162.6 cm; Wt 55.9 kg
[2018-02-11] MEDS ORDERED: SODIUM CHLORIDE 0.9% FLUSH 10 ML FLUSH IVF PRN (11:30)
--- NOTE | 2018-02-11 11:49 | PD ---
HPI Chief Complaint: Fall Time Seen by Provider: 11:24 Travel History International Travel<30 days: No Contact w/Intl Traveler<30days: No Traveled to known affect area: No History of Present Illness HPI 87-year-old female presents emergency department for evaluation of right hip pain and a fall that occurred just prior to arrival. Patient states that she she lives at home alone and was on the toilet this morning, attempted to stand up, and fell forward. Patient denies any loss of consciousness but was suspected to be down for approximately 1 hour. She was actually found by a friend and found sitting back on the toilet. Patient states that she was unable to stand up on her own. She does have a history of bilateral JIM of unknown ages. Currently she complains of right hip pain that is worse with movement and decreases with rest. She does have spontaneous movement of her leg but again has trouble with weightbearing because of the pain. States the pain is mild to moderate. 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) Endocrine: No Gastrointestinal Disorders: Yes GERD: Yes Glaucoma: No Genitourinary: No Hepatitis: No Hiatal Hernia: No Heparin Induced Thrombocytopen: No Hypertension: Yes Immune Disorder: Yes (addisons disease) Inguinal Hernia: Yes Implanted Vascular Access Dvce: Yes Musculoskeletal: Yes (arthritis) Neurologic: No Psychiatric: No Reproductive: No Respiratory: Yes (sarcoidosis) Immunizations Current: Yes Myocardial Infarction: No Radiation Therapy: No Sleep Apnea: No Thyroid Disease: No Ulcer: No Menopausal: Yes Past Surgical History Abdominal Surgery: Yes (EXP LAP) AICD: No Appendectomy: Yes Body Medical Devices: artificial hips Cardiac Surgery: No Cholecystectomy: Yes Coronary Artery Bypass Graft: No Ear Surgery: No Endocrine Surgery: Yes (PITUITARY ADENOMA REMOVED) Eye Surgery: No Genitourinary Surgery: Yes (HEMORRHOIDS) Gynecologic Surgery: No Hysterectomy: Yes Insulin Pump: No Joint Replacement: Yes (LEFT HIP) Oral Surgery: Yes (TONSILECTOMY) Pacemaker: No Thoracic Surgery: No Tonsillectomy: Yes Other Surgery: Yes (hip replacement) Family History Family Myocardial Infarction: Yes Social History Alcohol Use: No Tobacco Use: No Substance Use: No Allergies-Medications (Allergen,Severity, Reaction): Coded Allergies: No Known Allergies (Verified Allergy, Unknown, 01/23/18) Reported Meds & Prescriptions Reported Meds & Active Scripts Active Zofran Odt (Ondansetron Odt) 4 Mg Tab 4 Mg SL Q12HR PRN Qc Milk of Magnesia (Magnesium Hydroxide) 400 Mg/5 Ml Arelis 30 Ml PO Q12H PRN Reported Flexeril (Cyclobenzaprine HCl) 5 Mg Tab 5 Mg PO DAILY PRN Hydrocortisone 5 Mg Tab 5 Mg PO HS Take with food to decrease GI upset Cartia Xt (Diltiazem ER 24 HR) 120 Mg Caper 120 Mg PO DAILY Miralax Powder (Polyethylene Glycol 3350 Powder) 17 Gm Powd 17 Gm PO HS Mix and dissolve one measuring cap-ful (17 grams) in water or juice. Omeprazole 20 Mg Tab 20 Mg PO DAILY Cortef (Hydrocortisone) 5 Mg Tab 10 Mg PO DAILY Take with food to decrease GI upset Paxil (Paroxetine HCl) 10 Mg Tab 5 Mg PO DAILY Aspirin 81 Mg Chew 81 Mg CHEW DAILY Review of Systems Except as stated in HPI: all other systems reviewed are Neg Physical Exam Narrative GENERAL: WD, WN in NAD SKIN: Focused skin assessment warm/dry. HEAD: Atraumatic. Normocephalic. EYES: Pupils equal and round. No scleral icterus. No injection or drainage. PERRLA ENT: No nasal bleeding or discharge. Mucous membranes pink and moist. NECK: Trachea midline. No JVD. No midline tenderness CARDIOVASCULAR: Regular rate and rhythm. No murmur appreciated. RESPIRATORY: No accessory muscle use. Clear to auscultation. Breath sounds equal bilaterally. GASTROINTESTINAL: Abdomen soft, non-tender, nondistended. Hepatic and splenic margins not palpable. MUSCULOSKELETAL: No obvious deformities. No clubbing. No cyanosis. No edema. TTP to right hip- PSIS and joint region. Grade 5/5 strength. neurovascularly intact. NEUROLOGICAL: Awake and alert. No obvious cranial nerve deficits. Motor grossly within normal limits. Normal speech. PSYCHIATRIC: Appropriate mood and affect; insight and judgment normal. Data Data Last Documented VS Vital Signs Date Time Temp Pulse Resp B/P (MAP) Pulse Ox O2 Delivery O2 Flow Rate FiO2 4/6/18 13:00 88 18 103/56 (72) 92 Room Air 02/11/18 11:24 98.6 Orders Orders Electrocardiogram (02/11/18 11:25) Complete Blood Count With Diff (02/11/18 11:25) Comprehensive Metabolic Panel (02/11/18 11:25) Creatine Kinase (Cpk) (02/11/18 11:25) Prothrombin Time / Inr (Pt) (02/11/18 11:25) Act Partial Throm Time (Ptt) (02/11/18 11:25) Troponin I (02/11/18 11:25) Thyroid Stimulating Hormone (02/11/18 11:25) Urinalysis - C+S If Indicated (02/11/18 11:25) Chest, Single Ap (02/11/18 11:25) Ct Brain W/O Iv Contrast(Rout) (02/11/18 11:25) Oximetry (02/11/18 11:25) Ct Cerv Spine W/O Contrast (02/11/18 11:25) Ecg Monitoring (02/11/18 11:25) Iv Access Insert/Monitor (02/11/18 11:25) Sodium Chloride 0.9% Flush (Ns Flush) (02/11/18 11:30) Hydrocortisone (Cortef) (02/11/18 12:30) Femur (Ap & Lat/2vws) (02/11/18 ) Sodium Chlorid 0.9% 500 Ml Inj (Ns 500 M (02/11/18 12:45) CKMB (02/11/18 11:51) CKMB% (02/11/18 11:51) Pelvis, Ap Only (Routine) (02/11/18 ) Cath For Specimen (02/11/18 14:22) Aspirin Chew (Aspirin Chew) (02/11/18 16:30) Admit Order (Ed Use Only) (02/11/18 16:29) Labs Laboratory Tests Test 02/11/18 11:51 02/11/18 15:04 White Blood Count 12.5 TH/MM3 Red Blood Count 4.72 MIL/MM3 Hemoglobin 13.4 GM/DL Hematocrit 39.1 % Mean Corpuscular Volume 82.8 FL Mean Corpuscular Hemoglobin 28.5 PG Mean Corpuscular Hemoglobin Concent 34.4 % Red Cell Distribution Width 13.8 % Platelet Count 212 TH/MM3 Mean Platelet Volume 8.7 FL Neutrophils (%) (Auto) 84.3 % Lymphocytes (%) (Auto) 6.4 % Monocytes (%) (Auto) 8.4 % Eosinophils (%) (Auto) 0.6 % Basophils (%) (Auto) 0.3 % Neutrophils # (Auto) 10.5 TH/MM3 Lymphocytes # (Auto) 0.8 TH/MM3 Monocytes # (Auto) 1.0 TH/MM3 Eosinophils # (Auto) 0.1 TH/MM3 Basophils # (Auto) 0.0 TH/MM3 CBC Comment DIFF FINAL Differential Comment Prothrombin Time 12.4 SEC Prothromb Time International Ratio 1.2 RATIO Activated Partial Thromboplast Time 28.2 SEC Blood Urea Nitrogen 24 MG/DL Creatinine 1.46 MG/DL Random Glucose 92 MG/DL Total Protein 6.8 GM/DL Albumin 3.4 GM/DL Calcium Level 8.5 MG/DL Alkaline Phosphatase 205 U/L Aspartate Amino Transf (AST/SGOT) 89 U/L Alanine Aminotransferase (ALT/SGPT) 41 U/L Total Bilirubin 1.0 MG/DL Sodium Level 139 MEQ/L Potassium Level 3.9 MEQ/L Chloride Level 107 MEQ/L Carbon Dioxide Level 23.0 MEQ/L Anion Gap 9 MEQ/L Estimat Glomerular Filtration Rate 34 ML/MIN Total Creatine Kinase 571 U/L Creatine Kinase MB 8.1 NG/ML Creatine Kinase MB % 1.4 % Troponin I 0.58 NG/ML Thyroid Stimulating Hormone 3rd Gen 2.090 uIU/ML Urine Color YELLOW Urine Turbidity CLEAR Urine pH 7.0 Urine Specific [place] 1.016 Urine Protein TRACE mg/dL Urine Glucose (UA) NEG mg/dL Urine Ketones NEG mg/dL Urine Occult Blood LARGE Urine Nitrite NEG Urine Bilirubin NEG Urine Urobilinogen LESS THAN 2.0 MG/DL Urine Leukocyte Esterase NEG Urine RBC 3 /hpf Urine WBC 1 /hpf Urine Mucus FEW /lpf Microscopic Urinalysis Comment CATH-CULT NOT IND MDM Medical Decision Making Medical Screen Exam Complete: Yes Emergency Medical Condition: Yes Differential Diagnosis Urinary tract infection, dehydration, generalized weakness, right hip fracture, syncope Narrative Course 87y female presents emergency department via [facility] after being found on the toilet directly after fall that occurred today. Patient is unable to tell me her medical history is that she does take hydrocortisone daily. Patient has not taken any of her medications today. Labs and imaging studies ordered. EKG shows sinus rhythm without STEMI Patient has history is Winkelman's disease and takes hydrocortisone 15 mg twice daily. Will administer this in the emergency department today to avoid complications. According to the EMR, patient was here January 23 for left hip pain after she felt a pop in the middle the night while lying in bed. She was also here January 18 with abdominal pain, diarrhea and vomiting. She was diagnosed with urinary tract infection. Again she was here January 03 with a syncopal episode, likely after an adequate fluid intake. None of these visits required patient to be admitted. There was mention of patient going to an [facility] however, it is not apparent she has gone to 1 of these [facility] and continues to live alone. We will consult case management regarding potential placement of this patient. I spoke with case management who states patient did not previously want to go to an assisted living facility. I had this discussion with the patient as well. Patient states that she has had a hard time getting into facility as they are costly. I explained to her that she has been to the emergency department several times in the last couple months and she may require rehab facility or fpc facility for her care. Patient indicated understanding. Last Impressions Head CT 02/11/18 1125 Signed Impressions: Service Date/Time: Sunday, February 11, 2018 12:06 - CONCLUSION: 1. No bleed or other acute intracranial abnormality. 2. Atrophy and chronic white matter changes. 3. Chronic sphenoid sinus disease. Lenny Taylor MD Chest X-Ray 02/11/18 1125 Signed Impressions: Service Date/Time: Sunday, February 11, 2018 11:56 - CONCLUSION: Bibasilar atelectasis/scarring. Lenny Taylor MD Cervical Spine CT 02/11/18 1125 Signed Impressions: Service Date/Time: Sunday, February 11, 2018 12:06 - CONCLUSION: No fracture or subluxation of the cervical spine. Multilevel degenerative changes as above. Associated right foraminal stenosis at C4/C5. Lenny Taylor MD Pelvis X-Ray 02/11/18 0000 Signed Impressions: Service Date/Time: Sunday, February 11, 2018 13:43 - CONCLUSION: The bony pelvic ring is grossly intact. Kelechi Ríos MD Femur X-Ray 02/11/18 0000 Signed Impressions: Service Date/Time: Sunday, February 11, 2018 13:43 - CONCLUSION: No fracture seen. Kelechi Ríos MD ADDENDUM: The original images presented for the examination did not include the right distal femur. 2 views of the mid and distal femur are added to the study. The distal femur images demonstrate the shaft to be intact. No fracture seen. Opaque foreign bodies. Kelechi Ríos MD CBC & BMP Diagram 02/11/18 11:51 Total Protein 6.8, Albumin 3.4, Calcium Level 8.5, Alkaline Phosphatase 205 H, Aspartate Amino Transf (AST/SGOT) 89 H, Alanine Aminotransferase (ALT/SGPT) 41, Total Bilirubin 1.0 Troponin 0.58, total CK 571, CK-MB 8.1 She has leukocytosis, possibly secondary to her hydrocortisone treatment for Gustavo's. I do not see previous elevations of troponin, alk phos. patient does have apparent slight acute kidney injury likely secondary to dehydration. Patient will be admitted for generalized weakness with elevated troponin, acute kidney injury likely secondary to dehydration. Recommend case management consult. There have been placement issues secondary to financial strain. Diagnosis Primary Impression: Elevated troponin Additional Impression: Acute kidney injury Admitting Information Admitting Physician Requests: Admit Condition: Stable Keisha Gutierrez Feb 11, 2018 11:49
[2018-02-11 12:12] LABS: AUTOMATED NEUTROPHIL # 10.5 TH/MM3 (1.8-7.7); BASOPHIL % 0.3 % (0.0-2.0); EOSINOPHIL # 0.1 TH/MM3 (0-0.4); EOSINOPHIL % 0.6 % (0.0-4.0); HEMATOCRIT 39.1 % (35.0-46.0); HEMOGLOBIN 13.4 GM/DL (11.6-15.3); LYMPH % 6.4 % (9.0-44.0); LYMPHOCYTE # 0.8 TH/MM3 (1.0-4.8); MEAN CELL VOLUME 82.8 FL (80.0-100.0); MEAN CORPUSCULAR HEMOGLOBIN 28.5 PG (27.0-34.0); MEAN CORPUSCULAR HGB CONC 34.4 % (32.0-36.0); MEAN PLATELET VOLUME 8.7 FL (7.0-11.0); MONO % 8.4 % (0.0-8.0); NEUT % 84.3 % (16.0-70.0); PLATELET COUNT 212 TH/MM3 (150-450); RED BLOOD COUNT 4.72 MIL/MM3 (4.00-5.30); RED CELL DISTRIBUTION WIDTH 13.8 % (11.6-17.2); WHITE BLOOD COUNT 12.5 TH/MM3 (4.0-11.0)
[2018-02-11 12:20] LABS: INTERNATIONAL NORMALIZED RATIO 1.2 RATIO; PROTHROMBIN TIME - PATIENT 12.4 SEC (9.8-11.6)
--- NOTE | 2018-02-11 12:24 | RADRPT ---
EXAM DATE/TIME: 02/11/2018 11:56 [facility] COMPARISON: CHEST SINGLE AP, January 03, 2018, 10:07. INDICATIONS : Shortness of breath. MEDICAL HISTORY : Cardiovascular disease. Hypertension SURGICAL HISTORY : Appendectomy. Cholecystectomy. ENCOUNTER: Initial ACUITY: 1 day PAIN SCORE: 0/10 LOCATION: Bilateral chest FINDINGS: Chronic atelectasis/scarring seen of the bilateral lung bases, right more so than left and not apprec iably changed from prior CTs. Lungs otherwise appear clear. No acute pneumonia seen. No pleural effus ion seen. No pneumothorax. Normal, stable heart size. Very atherosclerotic thoracic aorta. There is a nonacute fracture laterall y of the left eighth rib, partially healed. No acute bony abnormality seen. CONCLUSION: Bibasilar atelectasis/scarring. Lenny Taylor MD on February 11, 2018 at 12:19 Board Certified Radiologist. This report was verified electronically.
[2018-02-11] MEDS ORDERED: HYDROCORTISONE 10 MG TAB PO ONE (12:30)
--- NOTE | 2018-02-11 12:30 | RADRPT ---
EXAM DATE/TIME: 02/11/2018 12:06 [facility] COMPARISON: CT BRAIN W/O CONTRAST, November 13, 2017, 20:01. INDICATIONS : Fell foward RADIATION DOSE: 64.63 CTDIvol (mGy) MEDICAL HISTORY : Cardiovascular disease. Hernia, inguinal. Osteoporosis.Hypertension, Addisons disease, pituitary lavinia lei, sarcardosis SURGICAL HISTORY : Cholecystectomy. Appendectomy.Hysterectomy. ENCOUNTER: Initial ACUITY: 1 day PAIN SCALE: 2/10 LOCATION: cranial TECHNIQUE: Multiple contiguous axial images were obtained of the head. Using automated exposure control and adj ustment of the mA and/or kV according to patient size, radiation dose was kept as low as reasonably a chievable to obtain optimal diagnostic quality images. DICOM format image data is available electro nically for review and comparison. FINDINGS: CEREBRUM: The ventricles are normal for age. No evidence of midline shift, mass lesion, hemorrhage or acute in farction. No extra-axial fluid collections are seen. Atrophy and chronic periventricular white matte r low attenuation again noted. POSTERIOR FOSSA: The cerebellum and brainstem are intact. The 4th ventricle is midline. The cerebellopontine angle i s unremarkable. EXTRACRANIAL: Chronic opacification of the sphenoid air cells again seen. SKULL: The calvaria is intact. No evidence of skull fracture. CONCLUSION: 1. No bleed or other acute intracranial abnormality. 2. Atrophy and chronic white matter changes. 3. Chronic sphenoid sinus disease. Lenny Taylor MD on February 11, 2018 at 12:27 Board Certified Radiologist. This report was verified electronically.
--- NOTE | 2018-02-11 12:36 | RADRPT ---
EXAM DATE/TIME: 02/11/2018 12:06 [facility] COMPARISON: No previous studies available for comparison. INDICATIONS : Fell forward, takes blood thinners. RADIATION DOSE: 64.63 CTDIvol (mGy) MEDICAL HISTORY : Cardiovascular disease. Osteoporosis, Adenoma, addisons, sarcoidosis SURGICAL HISTORY : Appendectomy. Cholecystectomy.Hysterectomy.Inguinal hernia ENCOUNTER: Initial ACUITY: 1 day PAIN SCALE: 6/10 LOCATION: neck TECHNIQUE: Volumetric scanning of the cervical spine was performed. Multiplanar reconstructions in the sagittal, coronal and oblique axial planes were performed. Using automated exposure control and adjustment o f the mA and/or kV according to patient size, radiation dose was kept as low as reasonably achievable to obtain optimal diagnostic quality images. DICOM format image data is available electronically f or review and comparison. FINDINGS: VERTEBRAE: Normal vertebral body height. ALIGNMENT: No evidence of subluxation. 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 There is mild to moderate intervertebral disc space narrowing with a small, broad posterior disc osteophyte complex a t C4/C5. There is moderate right foraminal stenosis at this level. CONCLUSION: No fracture or subluxation of the cervical spine. Multilevel degenerative changes as above. Associate d right foraminal stenosis at C4/C5. Lenny Taylor MD on February 11, 2018 at 12:33 Board Certified Radiologist. This report was verified electronically.
[2018-02-11 12:40] LABS: ALBUMIN 3.4 GM/DL (3.4-5.0); AST (GOT) 89 U/L (15-37); BLOOD UREA NITROGEN 24 MG/DL (7-18); CALCIUM 8.5 MG/DL (8.5-10.1); CHLORIDE 107 MEQ/L (98-107); CREATININE 1.46 MG/DL (0.50-1.00); GLOMERULAR FILTRATION RATE 34 ML/MIN (>89); GLUCOSE,RANDOM 92 MG/DL (74-106); SODIUM (NA) 139 MEQ/L (136-145)
[2018-02-11] MEDS ORDERED: SODIUM CHLORID 0.9% 500 ML INJ 500 ML IV ONE (12:45)
[2018-02-11 12:52] LABS: ALKALINE PHOSPHATASE 205 U/L (45-117); ALT (GPT) 41 U/L (10-53); TOTAL PROTEIN 6.8 GM/DL (6.4-8.2); TROPONIN I 0.58 NG/ML (0.02-0.05)
--- NOTE | 2018-02-11 14:02 | RADRPT ---
EXAM DATE/TIME: 02/11/2018 13:43 This report includes an Addendum and supersedes previous reports for this exam. [facility] COMPARISON: No previous studies available for comparison. INDICATIONS : Fall, complains of right hip pain. MEDICAL HISTORY : Dementia SURGICAL HISTORY : Bilateral total hips ENCOUNTER: Initial ACUITY: 1 day PAIN SCORE: 5/10 LOCATION: Right femur FINDINGS: Two view examination of the right femur demonstrates no evidence of fracture or dislocation. Bony mi neralization is normal. The soft tissue structures are intact. Bilateral non-cemented unipolar tota l hip arthroplasty with intact hardware. There is some heterotopic ossification between the acetabul um and lesser trochanter on the left side measuring 1.0 cm CONCLUSION: No fracture seen. Kelechi Ríos MD on February 11, 2018 at 13:59 Board Certified Radiologist. This report was verified electronically. ADDENDUM: The original images presented for the examination did not include the right distal femur. 2 views of the mid and distal femur are added to the study. The distal femur images demonstrate the shaft to b e intact. No fracture seen. Opaque foreign bodies. Kelechi Ríos MD on February 11, 2018 at 14:26 Board Certified Radiologist. This report was verified electronically.
--- NOTE | 2018-02-11 14:27 | RADRPT ---
EXAM DATE/TIME: 02/11/2018 13:43 [facility] COMPARISON: PELVIS AP ONLY, October 03, 2014, 12:53. INDICATIONS : Fall, complains of right hip pain. MEDICAL HISTORY : Dementia SURGICAL HISTORY : Bilateral total right hip ENCOUNTER: Initial ACUITY: 1 day PAIN SCORE: 6/10 LOCATION: Right pelvis FINDINGS: A single frontal view of the pelvis demonstrates no evidence of fracture. The bony pelvic ring is in tact. Bony mineralization is normal. The soft tissues are intact. Bilateral total hip arthroplasty . CONCLUSION: The bony pelvic ring is grossly intact. Kelechi Ríos MD on February 11, 2018 at 14:24 Board Certified Radiologist. This report was verified electronically.
[2018-02-11 16:09] LABS: BILIRUBIN, URINE NEG (NEG); BLOOD, URINE LARGE (NEG); GLUCOSE,URINE NEG (NEG); KETONE, URINE NEG (NEG); MUCUS URINE FEW /lpf (OCC); NITRITE,URINE NEG (NEG); URINE COLOR YELLOW (YELLW/STRAW); URINE LEUKOCYTE ESTERASE NEG (NEG)
--- NOTE | 2018-02-11 16:29 | PD ---
Physical Exam Date Seen by Provider: Feb 11, 2018 Time Seen by Provider: 14:00 Narrative I, Dr. Gibson, have reviewed the advance practice practitioner's documentation and am in agreement, met with the patient face to face, made the diagnosis, and the medical decision making was done by me. *My assessment and Findings: Patient is seen and evaluated with PA, please see PA notes for further details. She apparently had fallen off the toilet, complaining of right hip pains, and was weak. She did not have focal deficits. Exam was otherwise fairly unremarkable. EKG shows normal sinus rhythm with a rate of 93 bpm with no signs of acute ST elevations or depressions. Laboratory Tests Test 02/11/18 11:51 02/11/18 15:04 White Blood Count 12.5 TH/MM3 (4.0-11.0) Neutrophils (%) (Auto) 84.3 % (16.0-70.0) Lymphocytes (%) (Auto) 6.4 % (9.0-44.0) Monocytes (%) (Auto) 8.4 % (0.0-8.0) Neutrophils # (Auto) 10.5 TH/MM3 (1.8-7.7) Lymphocytes # (Auto) 0.8 TH/MM3 (1.0-4.8) Monocytes # (Auto) 1.0 TH/MM3 (0-0.9) Prothrombin Time 12.4 SEC (9.8-11.6) Blood Urea Nitrogen 24 MG/DL (7-18) Creatinine 1.46 MG/DL (0.50-1.00) Alkaline Phosphatase 205 U/L (45-117) Aspartate Amino Transf (AST/SGOT) 89 U/L (15-37) Estimat Glomerular Filtration Rate 34 ML/MIN (>89) Total Creatine Kinase 571 U/L (26-192) Creatine Kinase MB 8.1 NG/ML (0.5-3.6) Troponin I 0.58 NG/ML (0.02-0.05) Urine Occult Blood LARGE (NEG) Urine Mucus FEW /lpf (OCC) Last [address] 02/11/18 1125 Signed Impressions: Service Date/Time: Sunday, February 11, 2018 12:06 - CONCLUSION: 1. No bleed or other acute intracranial abnormality. 2. Atrophy and chronic white matter changes. 3. Chronic sphenoid sinus disease. Lenny Taylor MD Chest X-Ray 02/11/18 1125 Signed Impressions: Service Date/Time: Sunday, February 11, 2018 11:56 - CONCLUSION: Bibasilar atelectasis/scarring. Lenny Taylor MD Cervical Spine CT 02/11/18 1125 Signed Impressions: Service Date/Time: Sunday, February 11, 2018 12:06 - CONCLUSION: No fracture or subluxation of the cervical spine. Multilevel degenerative changes as above. Associated right foraminal stenosis at C4/C5. Lenny Taylor MD Pelvis X-Ray 02/11/18 0000 Signed Impressions: Service Date/Time: Sunday, February 11, 2018 13:43 - CONCLUSION: The bony pelvic ring is grossly intact. Kelechi Ríos MD Femur X-Ray 02/11/18 0000 Signed Impressions: Service Date/Time: Sunday, February 11, 2018 13:43 - CONCLUSION: No fracture seen. Kelechi Ríos MD ADDENDUM: The original images presented for the examination did not include the right distal femur. 2 views of the mid and distal femur are added to the study. The distal femur images demonstrate the shaft to be intact. No fracture seen. Opaque foreign bodies. Kelechi Ríos MD X-rays and CAT scans do not show any signs of acute injuries. Lab work did show elevation in troponin and mild elevation in CPK. Renal functions are mildly elevated as well. She has no chest pains currently. At this point, she has been given aspirin and plan would be to admit her for further evaluation of her heart as well. Case was discussed with Dr. Puente for admission. Data Data Last Documented VS Vital Signs Date Time Temp Pulse Resp B/P (MAP) Pulse Ox O2 Delivery O2 Flow Rate FiO2 02/11/18 13:00 88 18 103/56 (72) 92 Room Air 02/11/18 11:24 98.6 Orders Orders Electrocardiogram (02/11/18 11:25) Complete Blood Count With Diff (02/11/18 11:25) Comprehensive Metabolic Panel (02/11/18 11:25) Creatine Kinase (Cpk) (02/11/18 11:25) Prothrombin Time / Inr (Pt) (02/11/18 11:25) Act Partial Throm Time (Ptt) (02/11/18 11:25) Troponin I (02/11/18 11:25) Thyroid Stimulating Hormone (02/11/18 11:25) Urinalysis - C+S If Indicated (02/11/18 11:25) Chest, Single Ap (02/11/18 11:25) Ct Brain W/O Iv Contrast(Rout) (02/11/18 11:25) Oximetry (02/11/18 11:25) Ct Cerv Spine W/O Contrast (02/11/18 11:25) Ecg Monitoring (02/11/18 11:25) Iv Access Insert/Monitor (02/11/18 11:25) Sodium Chloride 0.9% Flush (Ns Flush) (02/11/18 11:30) Hydrocortisone (Cortef) (02/11/18 12:30) Femur (Ap & Lat/2vws) (02/11/18 ) Sodium Chlorid 0.9% 500 Ml Inj (Ns 500 M (02/11/18 12:45) CKMB (02/11/18 11:51) CKMB% (02/11/18 11:51) Pelvis, Ap Only (Routine) (02/11/18 ) Cath For Specimen (02/11/18 14:22) Aspirin Chew (Aspirin Chew) (02/11/18 16:30) Admit Order (Ed Use Only) (02/11/18 16:29) Place In Observation (02/11/18 ) Activity Oob With Assistance (02/11/18 16:34) Scd Bilateral/Knee High ABNER.QSHIFT (02/11/18 16:34) Vital Signs (Adult) ABNER.Q4H (02/11/18 16:34) Senior Director Insight / Telemetry ABNER.Q8H (02/11/18 16:34) Consult Pt Eval & Treat (02/11/18 16:34) Acetaminophen (Tylenol) (02/11/18 16:45) Ondansetron Inj (Zofran Inj) (02/11/18 16:45) Aspirin Chew (Aspirin Chew) (02/12/18 09:00) Polyethylene Glycol (Miralax) (02/11/18 21:00) (Nf) Paroxetine (Paxil) (02/12/18 09:00) Cyclobenzaprine (Flexeril) (02/11/18 16:45) Diltiazem Cd (Cardizem Cd) (02/12/18 09:00) Hydrocortisone (Cortef) (02/11/18 21:00) Hydrocortisone (Cortef) (02/12/18 09:00) (Nf) Omeprazole (02/12/18 09:00) Diet Heart Healthy (02/11/18 Dinner) Labs Laboratory Tests Test 02/11/18 11:51 02/11/18 15:04 White Blood Count 12.5 TH/MM3 Red Blood Count 4.72 MIL/MM3 Hemoglobin 13.4 GM/DL Hematocrit 39.1 % Mean Corpuscular Volume 82.8 FL Mean Corpuscular Hemoglobin 28.5 PG Mean Corpuscular Hemoglobin Concent 34.4 % Red Cell Distribution Width 13.8 % Platelet Count 212 TH/MM3 Mean Platelet Volume 8.7 FL Neutrophils (%) (Auto) 84.3 % Lymphocytes (%) (Auto) 6.4 % Monocytes (%) (Auto) 8.4 % Eosinophils (%) (Auto) 0.6 % Basophils (%) (Auto) 0.3 % Neutrophils # (Auto) 10.5 TH/MM3 Lymphocytes # (Auto) 0.8 TH/MM3 Monocytes # (Auto) 1.0 TH/MM3 Eosinophils # (Auto) 0.1 TH/MM3 Basophils # (Auto) 0.0 TH/MM3 CBC Comment DIFF FINAL Differential Comment Prothrombin Time 12.4 SEC Prothromb Time International Ratio 1.2 RATIO Activated Partial Thromboplast Time 28.2 SEC Blood Urea Nitrogen 24 MG/DL Creatinine 1.46 MG/DL Random Glucose 92 MG/DL Total Protein 6.8 GM/DL Albumin 3.4 GM/DL Calcium Level 8.5 MG/DL Alkaline Phosphatase 205 U/L Aspartate Amino Transf (AST/SGOT) 89 U/L Alanine Aminotransferase (ALT/SGPT) 41 U/L Total Bilirubin 1.0 MG/DL Sodium Level 139 MEQ/L Potassium Level 3.9 MEQ/L Chloride Level 107 MEQ/L Carbon Dioxide Level 23.0 MEQ/L Anion Gap 9 MEQ/L Estimat Glomerular Filtration Rate 34 ML/MIN Total Creatine Kinase 571 U/L Creatine Kinase MB 8.1 NG/ML Creatine Kinase MB % 1.4 % Troponin I 0.58 NG/ML Thyroid Stimulating Hormone 3rd Gen 2.090 uIU/ML Urine Color YELLOW Urine Turbidity CLEAR Urine pH 7.0 Urine Specific Holcomb 1.016 Urine Protein TRACE mg/dL Urine Glucose (UA) NEG mg/dL Urine Ketones NEG mg/dL Urine Occult Blood LARGE Urine Nitrite NEG Urine Bilirubin NEG Urine Urobilinogen LESS THAN 2.0 MG/DL Urine Leukocyte Esterase NEG Urine RBC 3 /hpf Urine WBC 1 /hpf Urine Mucus FEW /lpf Microscopic Urinalysis Comment CATH-CULT NOT IND MDM Medical Record Reviewed: Yes Supervised Visit with ANNETTE: Yes Diagnosis Primary Impression: Elevated troponin Additional Impression: Acute kidney injury Admitting Information Admitting Physician Requests: Admit Condition: Stable Iwona Gibson MD Feb 11, 2018 16:29
[2018-02-11] MEDS ORDERED: ASPIRIN 81 MG CHEW TAB CHEW ONE (16:30)
[2018-02-11] MEDS ORDERED: HYDR5TAB64 PO (16:43)
[2018-02-11] MEDS ORDERED: CYCL5TAB PO (16:43)
--- NOTE | 2018-02-11 17:10 | HHI.HP ---
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 Pt lives alone and says her daughter lives in "[place]" and works as laborer livestock. Pt says she was in her usual state of health when she went to bathroom this morning to urinate. When she stood her legs were weak and gave out and she fell to the floor. Apparently had some right hip pain. She was on the floor for at least 2 hours per her account. A neighbor found her and placed her back on the toilet seat where EMS reportedly found her. Pt denies any h/a, f/c, no cp or palpitation, no sob, no n/v/d. Pt says she was just weak. I am asked to observe her overnight. Pt now admits that she can't live alone records indicate she was given a week script for bactrim last month when she presented with vomiting. the urine cx was negative for true infection. pt doesn't recall taking the medication. Review of Systems Other fall unable to get off floor. 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 appe cholecystectomy depression right hip fx 2013 left femoral neck fx 2015. hemiarthroplasty wrist fx Reported Medications Zofran Odt (Ondansetron Odt) 4 Mg Tab 4 Mg SL Q12HR PRN Milk of Magnesia (Magnesium Hydroxide) 400 Mg/5 Ml Arelis 30 Ml PO Q12H PRN Flexeril (Cyclobenzaprine HCl) 5 Mg Tab 5 Mg PO DAILY PRN Cartia Xt (Diltiazem ER 24 HR) 120 Mg Caper 120 Mg PO DAILY Miralax Powder (Polyethylene Glycol 3350 Powder) 17 Gm Powd 17 Gm PO HS Mix and dissolve one measuring cap-ful (17 grams) in water or juice. Omeprazole 20 Mg Tab 20 Mg PO DAILY Cortef (Hydrocortisone) 10mg AM and 5mg pm Paxil (Paroxetine HCl) 10 Mg Tab 5 Mg PO DAILY Aspirin 81 Mg Chew 81 Mg CHEW DAILY Allergies: Coded Allergies: No Known Allergies (Verified Allergy, Unknown, 01/23/18) Family History nc Social History no etoh/tob Physical Exam Vital Signs lying in bed oriented following commands heart reg lung cta abd s/nt/bs ext no edema moves all 4 ext's. no focal weakness Vital Signs Date Time Temp Pulse Resp B/P (MAP) Pulse Ox O2 Delivery O2 Flow Rate FiO2 02/11/18 13:00 88 18 103/56 (72) 92 Room Air 02/11/18 12:19 92 18 98 Room Air 02/11/18 11:24 98.6 99 18 128/60 (82) 95 Room Air 02/11/18 11:24 98 18 96 Room Air 02/11/18 11:18 98.6 101 18 128/60 (82) 96 Laboratory Laboratory Tests Test 02/11/18 11:51 02/11/18 15:04 White Blood Count 12.5 Red Blood Count 4.72 Hemoglobin 13.4 Hematocrit 39.1 Mean Corpuscular Volume 82.8 Mean Corpuscular Hemoglobin 28.5 Mean Corpuscular Hemoglobin Concent 34.4 Red Cell Distribution Width 13.8 Platelet Count 212 Mean Platelet Volume 8.7 Neutrophils (%) (Auto) 84.3 Lymphocytes (%) (Auto) 6.4 Monocytes (%) (Auto) 8.4 Eosinophils (%) (Auto) 0.6 Basophils (%) (Auto) 0.3 Neutrophils # (Auto) 10.5 Lymphocytes # (Auto) 0.8 Monocytes # (Auto) 1.0 Eosinophils # (Auto) 0.1 Basophils # (Auto) 0.0 CBC Comment DIFF FINAL Differential Comment Prothrombin Time 12.4 Prothromb Time International Ratio 1.2 Activated Partial Thromboplast Time 28.2 Blood Urea Nitrogen 24 Creatinine 1.46 Random Glucose 92 Total Protein 6.8 Albumin 3.4 Calcium Level 8.5 Alkaline Phosphatase 205 Aspartate Amino Transf (AST/SGOT) 89 Alanine Aminotransferase (ALT/SGPT) 41 Total Bilirubin 1.0 Sodium Level 139 Potassium Level 3.9 Chloride Level 107 Carbon Dioxide Level 23.0 Anion Gap 9 Estimat Glomerular Filtration Rate 34 Total Creatine Kinase 571 Creatine Kinase MB 8.1 Creatine Kinase MB % 1.4 Troponin I 0.58 Thyroid Stimulating Hormone 3rd Gen 2.090 Urine Color YELLOW Urine Turbidity CLEAR Urine pH 7.0 Urine Specific Nimitz 1.016 Urine Protein TRACE Urine Glucose (UA) NEG Urine Ketones NEG Urine Occult Blood LARGE Urine Nitrite NEG Urine Bilirubin NEG Urine Urobilinogen LESS THAN 2.0 Urine Leukocyte Esterase NEG Urine RBC 3 Urine WBC 1 Urine Mucus FEW Microscopic Urinalysis Comment CATH-CULT NOT IND Result Diagram: 02/11/18 1151 02/11/18 1151 Caprini VTE Risk Assessment Caprini VTE Risk Assessment: Mod/High Risk (score >= 2) Caprini Risk Assessment Model Point Value = 1 Point Value = 2 Point Value = 3 Point Value = 5 Age 41-60 Minor surgery BMI > 25 kg/m2 Swollen legs Varicose veins or History of unexplained or recurrent spontaneous Oral contraceptives or hormone replacement Sepsis (< 1 month) Serious lung disease, including pneumonia (< 1 month) Abnormal pulmonary function Acute myocardial infarction Congestive heart failure (< 1 month) History of inflammatory bowel disease Medical patient at bed rest Age 61-74 Arthroscopic surgery Major open surgery (> 45 min) Laparoscopic surgery (> 45 min) Malignancy Confined to bed (> 72 hours) Immobilizing plaster cast Central venous access Age >= 75 History of VTE Family history of VTE Factor V Leiden Prothrombin [id number] Lupus anticoagulant Anticardiolipin antibodies Elevated serum homocysteine Heparin-induced thrombocytopenia Other congenital or acquired thrombophilia Stroke (< 1 month) Elective arthroplasty Hip, pelvis, or leg fracture Acute spinal cord injury (< 1 month) Prophylaxis Regimen Total Risk Factor Score Risk Level Prophylaxis Regimen 0-1 Low Early ambulation 2 Moderate Order ONE of the following: *Sequential Compression Device (SCD) *Heparin 5000 units SQ BID 3-4 Higher Order ONE of the following medications: *Heparin 5000 units SQ TID *Enoxaparin/Lovenox 40 mg SQ daily (WT < 150 kg, CrCl > 30 mL/min) *Enoxaparin/Lovenox 30 mg SQ daily (WT < 150 kg, CrCl > 10-29 mL/min) *Enoxaparin/Lovenox 30 mg SQ BID (WT < 150 kg, CrCl > 30 mL/min) AND/OR *Sequential Compression Device (SCD) 5 or more Highest Order ONE of the following medications: *Heparin 5000 units SQ TID (Preferred with Epidurals) *Enoxaparin/Lovenox 40 mg SQ daily (WT < 150 kg, CrCl > 30 mL/min) *Enoxaparin/Lovenox 30 mg SQ daily (WT < 150 kg, CrCl > 10-29 mL/min) *Enoxaparin/Lovenox 30 mg SQ BID (WT < 150 kg, CrCl > 30 mL/min) AND *Sequential Compression Device (SCD) Assessment and Plan Problem List: (1) Fall ICD Codes: W19.XXXA - Unspecified fall, initial encounter Status: Acute Plan: 1. general weakness, dehydration, mild a/ckd 3, and mild rhabdomyolysis from fall and lying on floor. At this point absolutely no clinical signs of ACS with the elevated trop. ckmb percent is nml. no cp/sob. no ischemia on ekg. 2. darryl dz. chronic steroids 3. sarcoidosis 4. depression plan gentle rehydration. monitor ck level and renal function. telemetry PT eval decide on dispo but at this point she seems appropriate for snf placement for PT..pt is agreeable. dvt prophylaxis. (2) Dehydration ICD Codes: E86.0 - Dehydration Status: Acute (3) Sarcoid ICD Codes: D86.9 - Sarcoidosis Status: Chronic (4) Depression ICD Codes: F32.9 - Depression Status: Chronic (5) Addisons disease ICD Codes: E27.1 - Darryl's disease Status: Chronic (6) CKD (chronic kidney disease) stage 3, GFR 30-59 ml/min ICD Codes: N18.3 - Chronic kidney disease, stage 3 (moderate) Status: Chronic Gold Puente MD Feb 11, 2018 17:10
[2018-02-11] MEDS ORDERED: ONDANSETRON HCL 4 MG/2 ML VIAL IV PRN (17:30)
[2018-02-11] MEDS ORDERED: ACETAMINOPHEN 325 MG TAB PO PRN (17:30)
[2018-02-11] MEDS ORDERED: CYCLOBENZAPRINE HCL 10 MG TAB PO PRN (17:30)
[2018-02-11] MEDS: SODIUM CHLOR 0.9% 1000 ML INJ 1,000 ML IV SCH (17:46)
[2018-02-11] MEDS ORDERED: PILL SPLITTER OTHER PRN (22:30)
[2018-02-11] MEDS: HYDROCORTISONE 10 MG TAB PO SCH (22:42)
[2018-02-11] MEDS: HEPARIN SODIUM - SQ 10,000 UNITS/ML VIAL SQ SCH (22:42)
[2018-02-11] MEDS: POLYETHYLENE GLYCOL 17 GM PKG PO SCH (22:42)
[2018-02-12] VITALS (10 sets, daily range): BP systolic 104–128; BP diastolic 53–67; PULSE 71–80; RESP 16–20; TEMP 97.7–98.3; O2SAT 94–96
[2018-02-12 02:16] LABS: BICARBONATE 24.9 MEQ/L (21.0-32.0); CALCIUM 7.8 MG/DL (8.5-10.1); CREATININE 1.45 MG/DL (0.50-1.00); MAGNESIUM 1.8 MG/DL (1.5-2.5)
[2018-02-12 02:34] LABS: TROPONIN I 0.39 NG/ML (0.02-0.05)
[2018-02-12] MEDS ORDERED: NITROGLYCERIN 0.4 MG SL 25 TABS/BTL SL ONE (03:54)
[2018-02-12] MEDS ORDERED: NITROGLYCERIN 0.4 MG SL 25 TABS/BTL SL PRN (04:15)
[2018-02-12] MEDS: SODIUM CHLOR 0.9% 1000 ML INJ 1,000 ML IV SCH ×2 (06:01→18:12)
[2018-02-12] MEDS: HYDROCORTISONE 10 MG TAB PO SCH ×2 (08:45→22:18)
[2018-02-12] MEDS: PANTOPRAZOLE SOD 20 MG DELAYED RELEASE TAB PO SCH (08:45)
[2018-02-12] MEDS: PARoxetine HCL 20 MG TAB PO SCH (08:45)
[2018-02-12] MEDS: DILTIAZEM-CD 120 MG CAP ER PO SCH ×2 (08:45→08:54)
[2018-02-12] MEDS: HEPARIN SODIUM - SQ 10,000 UNITS/ML VIAL SQ SCH ×2 (08:46→22:17)
[2018-02-12] MEDS: ASPIRIN 81 MG CHEW TAB CHEW SCH (08:46)
[2018-02-12 09:01] LABS: BASOPHIL % 0.5 % (0.0-2.0); EOSINOPHIL # 0.4 TH/MM3 (0-0.4); EOSINOPHIL % 5.4 % (0.0-4.0); HEMATOCRIT 33.9 % (35.0-46.0); HEMOGLOBIN 11.5 GM/DL (11.6-15.3); LYMPH % 12.7 % (9.0-44.0); LYMPHOCYTE # 0.9 TH/MM3 (1.0-4.8); MEAN CELL VOLUME 84.5 FL (80.0-100.0); MEAN CORPUSCULAR HEMOGLOBIN 28.7 PG (27.0-34.0); MEAN PLATELET VOLUME 9.1 FL (7.0-11.0); MONO % 8.3 % (0.0-8.0); MONOCYTE # 0.6 TH/MM3 (0-0.9); NEUT % 73.1 % (16.0-70.0); PLATELET COUNT 158 TH/MM3 (150-450); RED BLOOD COUNT 4.01 MIL/MM3 (4.00-5.30); RED CELL DISTRIBUTION WIDTH 14.2 % (11.6-17.2); WHITE BLOOD COUNT 6.9 TH/MM3 (4.0-11.0)
--- NOTE | 2018-02-12 10:44 | HHI.PR ---
Subjective Remarks in the bathroom. no distress trying to have bm Objective Vitals heart reg lung cta abd s/nt ext no edema Vital Signs Date Time Temp Pulse Resp B/P (MAP) Pulse Ox O2 Delivery O2 Flow Rate FiO2 02/12/18 08:00 73 02/12/18 08:00 98.0 73 19 114/55 (74) 95 02/12/18 04:00 97.8 71 16 104/55 (71) 94 02/12/18 03:48 75 02/12/18 00:00 97.7 75 17 105/53 (70) 94 02/11/18 23:45 72 02/11/18 21:39 75 02/11/18 20:00 97.2 73 19 104/51 (68) 94 02/11/18 18:49 98.3 75 18 93/53 (66) 93 Room Air 02/11/18 13:00 88 18 103/56 (72) 92 Room Air 02/11/18 12:19 92 18 98 Room Air 02/11/18 11:24 98.6 99 18 128/60 (82) 95 Room Air 02/11/18 11:24 98 18 96 Room Air 02/11/18 11:18 98.6 101 18 128/60 (82) 96 Result Diagram: 02/12/18 0711 02/12/18 0024 A/P Problem List: (1) Fall ICD Codes: W19.XXXA - Unspecified fall, initial encounter Status: Acute Plan: 1. general weakness, dehydration, mild a/ckd 3, and rhabdomyolysis from fall and lying on floor. At this point absolutely no clinical signs of ACS with the elevated trop. ckmb percent is nml. no cp/sob. no ischemia on ekg. 2. gustavo dz. chronic steroids 3. sarcoidosis 4. depression plan gentle rehydration. monitor ck level and renal function. telemetry PT eval decide on dispo but at this point she seems appropriate for snf placement for PT..pt is agreeable. dvt prophylaxis. (2) Rhabdomyolysis ICD Codes: M62.82 - Rhabdomyolysis Status: Acute (3) Dehydration ICD Codes: E86.0 - Dehydration Status: Acute (4) Sarcoid ICD Codes: D86.9 - Sarcoidosis Status: Chronic (5) Depression ICD Codes: F32.9 - Depression Status: Chronic (6) Addisons disease ICD Codes: E27.1 - Gustavo's disease Status: Chronic (7) CKD (chronic kidney disease) stage 3, GFR 30-59 ml/min ICD Codes: N18.3 - Chronic kidney disease, stage 3 (moderate) Status: Chronic Gold Puente MD Feb 12, 2018 10:44
[2018-02-12] MEDS ORDERED: MAGNESIUM HYDROXIDE SUSP 30 ML CUP PO PRN (12:00)
[2018-02-12] MEDS ORDERED: SENNOSIDES 8.6 MG TAB PO PRN (12:00)
[2018-02-12] MEDS ORDERED: BISACODYL 10 MG SUPP RECTAL PRN (12:00)
[2018-02-12] MEDS: DOCUSATE SODIUM 50 MG/SENNA 8.6 MG TAB PO SCH ×2 (12:07→22:17)
--- NOTE | 2018-02-12 18:37 | EKG ---
Date Performed: 02/12/2018 Time Performed: 04:10:16 PTAGE: 87 years EKG: Sinus rhythm with borderline 1st degree A-V block Possible left anterior fascicular block Since the previous trac ing, no significant change noted Borderline ECG PREVIOUS TRACING : 02/11/2018 12.34 DOCTOR: Gold Dyer Interpretating Date/Time 02/12/2018 18:36:52
--- NOTE | 2018-02-12 18:37 | EKG ---
Date Performed: 02/11/2018 Time Performed: 12:34:56 PTAGE: 87 years EKG: Sinus rhythm WITH FIRST DEGREE AV BLOCK MARKED LEFT AXIS DEVIATION Since the previous tracing, no significant layla nge noted ABNORMAL ECG PREVIOUS TRACING : 01/18/2018 04.31 DOCTOR: Gold Dyer Interpretating Date/Time 02/12/2018 18:36:26
[2018-02-12] MEDS: POLYETHYLENE GLYCOL 17 GM PKG PO SCH (22:18)
[2018-02-13] VITALS: PULSE 73
[2018-02-13 04:00] VITALS: PULSE 91
[2018-02-13 06:49] VITALS: BP 131/61; PULSE 82; RESP 20; TEMP 98.2; O2SAT 95
[2018-02-13 08:00] VITALS: BP 134/62; PULSE 72; RESP 18; TEMP 98.1; O2SAT 96
[2018-02-13 08:47] LABS: BICARBONATE 21.8 MEQ/L (21.0-32.0); CREATININE 1.08 MG/DL (0.50-1.00)
[2018-02-13] MEDS: DOCUSATE SODIUM 50 MG/SENNA 8.6 MG TAB PO SCH (09:00)
[2018-02-13] MEDS: ASPIRIN 81 MG CHEW TAB CHEW SCH (09:17)
[2018-02-13] MEDS: DILTIAZEM-CD 120 MG CAP ER PO SCH (09:17)
[2018-02-13] MEDS: PARoxetine HCL 20 MG TAB PO SCH (09:18)
[2018-02-13] MEDS: PANTOPRAZOLE SOD 20 MG DELAYED RELEASE TAB PO SCH (09:18)
[2018-02-13] MEDS: HYDROCORTISONE 10 MG TAB PO SCH (09:18)
[2018-02-13] MEDS: HEPARIN SODIUM - SQ 10,000 UNITS/ML VIAL SQ SCH (09:19)
[2018-02-13] MEDS: SODIUM CHLOR 0.9% 1000 ML INJ 1,000 ML IV SCH (09:26)
--- NOTE | 2018-02-13 09:54 | HHI.PR ---
Subjective Remarks eager to go to snf. Objective Vitals heart reg lung cta abd /snt ext no edema Vital Signs Date Time Temp Pulse Resp B/P (MAP) Pulse Ox O2 Delivery O2 Flow Rate FiO2 02/13/18 08:00 98.1 72 18 134/62 (86) 96 02/13/18 06:49 98.2 82 20 131/61 (84) 95 02/13/18 04:00 91 02/13/18 00:00 73 02/12/18 23:43 98.1 78 20 128/62 (84) 96 02/12/18 20:27 98.3 78 20 111/67 (82) 96 02/12/18 20:00 80 02/12/18 16:00 98.3 73 17 108/55 (72) 95 02/12/18 15:00 75 02/12/18 12:00 72 02/12/18 12:00 97.8 77 18 115/56 (75) 95 Result Diagram: 02/12/18 0711 02/13/18 0634 A/P Problem List: (1) Fall ICD Codes: W19.XXXA - Unspecified fall, initial encounter Status: Acute Plan: 1. general weakness, dehydration, mild a/ckd 3, and rhabdomyolysis from fall and lying on floor. At this point absolutely no clinical signs of ACS with the elevated trop. ckmb percent is nml. no cp/sob. no ischemia on ekg. 2. gustavo dz. chronic steroids 3. sarcoidosis 4. depression plan Pt was found down at home. She is weak and lives alone. She would like to go initially to snf for further PT and then decide on her living arrangement. I think she would benefit from snf. will write for d/c today (2) Rhabdomyolysis ICD Codes: M62.82 - Rhabdomyolysis Status: Acute (3) Dehydration ICD Codes: E86.0 - Dehydration Status: Acute (4) Sarcoid ICD Codes: D86.9 - Sarcoidosis Status: Chronic (5) Depression ICD Codes: F32.9 - Depression Status: Chronic (6) Addisons disease ICD Codes: E27.1 - Gustavo's disease Status: Chronic (7) CKD (chronic kidney disease) stage 3, GFR 30-59 ml/min ICD Codes: N18.3 - Chronic kidney disease, stage 3 (moderate) Status: Chronic Kwame,Gold L MD Feb 13, 2018 09:54
--- NOTE | 2018-02-13 10:02 | HHI.DCPOC ---
Discharge Care Plan Diagnosis: (1) Fall (2) Rhabdomyolysis (3) Dehydration (4) Acute kidney injury (5) Hx of Gustavo's disease (6) Depression (7) Sarcoid Goals to Promote Your Health * To prevent worsening of your condition and complications * To maintain your health at the optimal level Directions to Meet Your Goals Take your medications as prescribed Follow your dietary instruction Follow activity as directed Keep your appointments as scheduled Take your immunizations and boosters as scheduled If your symptoms worsen call your PCP, if no PCP go to Urgent Care Center or Emergency Room Smoking is Dangerous to Your Health. Avoid second hand smoke Call the 24-hour hour crisis hotline for domestic abuse at Gold Puente MD Feb 13, 2018 10:02
[2018-02-13 12:00] VITALS: BP 113/56; PULSE 70; PULSE 73; RESP 18; TEMP 97.9; O2SAT 97
[2018-02-13 16:00] VITALS: BP 105/55; PULSE 68; RESP 17; TEMP 98.2; O2SAT 96
== END 2018-02-13 17:08 | disposition home or self-care (01) ==
LOC: NEPC 11:08 → NEDA 16:31 → UNDOADMIN 16:31 → INTOOBSV 16:43 → NEDA 16:43 → N04A 19:42 → UNDODISIN 02-13 17:08
PROVIDERS: ADMIT Hospitalist; ATTEND Hospitalist
DX: M62.82 Rhabdomyolysis (principal); E86.0 Dehydration; N17.9 Acute kidney failure, unspecified; M25.551 Pain in right hip; Z96.643 Presence of artificial hip joint, bilateral; E27.1 Primary adrenocortical insufficiency; D86.9 Sarcoidosis, unspecified; F32.9 Major depressive disorder, single episode, unspecified; N18.3 Chronic kidney disease, stage 3 (moderate); I12.9 Hypertensive chronic kidney disease with stage 1 through stage 4 chronic kidney disease, or unspecified chronic kidney disease; Y92.012 Bathroom of single-family (private) house as the place of occurrence of the external cause; M19.90 Unspecified osteoarthritis, unspecified site; F41.9 Anxiety disorder, unspecified; E78.00 Pure hypercholesterolemia, unspecified; H91.90 Unspecified hearing loss, unspecified ear; K21.9 Gastro-esophageal reflux disease without esophagitis; K40.90 Unilateral inguinal hernia, without obstruction or gangrene, not specified as recurrent; R94.31 Abnormal electrocardiogram [ECG] [EKG]
CPT/HCPCS: 70450; 71045; 72125; 72170; 73552; 80048; 80053; 81001; 82550; 82552; 83735; 84443; 84484; 85025; 85610; 85730; 93005; 96360; 96361; 96372; 97163; 99285; G0378; G8987; G8988; J1644; J7030; J7040

== ENCOUNTER 2018-04-17 09:17 | Inpatient (IN) | payer MEDICARE ==
[~2018-04-17] VITALS: Ht 162.6 cm; Wt 55.0 kg
[2018-04-17] VITALS (7 sets, daily range): BP systolic 110–152; BP diastolic 53–77; PULSE 90–101; RESP 19–20; TEMP 89.8–100; O2SAT 95–98
[~2018-04-17 09:17] MED LIST changes: -BACT800T5 PO; +CYCL5TAB PO; -HYDR-3516 PO; +HYDR5TAB64 PO
[2018-04-17] MEDS ORDERED: SODIUM CHLORIDE 0.9% FLUSH 10 ML FLUSH IV FLUSH PRN ×2 (09:30→13:15)
[2018-04-17] MEDS ORDERED: SODIUM CHLOR 0.9% 1000 ML INJ 1,000 ML IV SCH (09:30)
--- NOTE | 2018-04-17 09:40 | PD ---
HPI Chief Complaint: LUQ PAIN Time Seen by Provider: 09:29 Travel History International Travel<30 days: No Contact w/Intl Traveler<30days: No Traveled to known affect area: No History of Present Illness HPI Patient complains of nausea and vomiting episodes times 2 hours ago, along with the left upper quadrant area pain, this pain is described as sharp, nonradiating. Upon EMS initially arriving they found the patient on her bed, her bed was soiled, her blood glucose was normal heart rate was normal however her blood pressure was noted to be a systolic of 84 which improved to 112 after receiving 500 cc of normal saline bolus. Patient also states that she has had some occasional episodes of diarrhea. Patient denies any alleviating or aggravating factors. Patient denies any associated factors such as fever, rash , chest pain, back pain, hematuria/frequency/urgency, sore throat, cough, runny nose. pcp dr wilkinson No nondrug allergies Past medical history significant for hard of hearing, sarcoidosis, corrective lenses, hypercholesterolemia, patient had expressed exploratory laparotomy and cholecystectomy, GERD, hysterectomy, hemorrhoids, pituitary adenoma removed, anxiety, Gustavo's disease, left hip replacement PFSH Past Medical History Arthritis: Yes Asthma: No Autoimmune Disease: Yes (Gustavo's disease) Blood Disorders: No Anxiety: Yes Depression: Yes Heart Rhythm Problems: No Cancer: No Cardiac Catheterization: Yes Cardiovascular Problems: No High Cholesterol: Yes Chemotherapy: No Chest Pain: No Congestive Heart Failure: No COPD: No Cerebrovascular Accident: No Diabetes: No Diminished Hearing: Yes ([place]) Endocrine: No Gastrointestinal Disorders: Yes GERD: Yes Glaucoma: No Genitourinary: No Hepatitis: No Hiatal Hernia: No Heparin Induced Thrombocytopen: No Hypertension: Yes Immune Disorder: Yes (addisons disease) Inguinal Hernia: Yes Implanted Vascular Access Dvce: Yes Musculoskeletal: Yes (arthritis) Neurologic: No Psychiatric: No Reproductive: No Respiratory: Yes (sarcoidosis) Immunizations Current: Yes Myocardial Infarction: No Radiation Therapy: No Sleep Apnea: No Thyroid Disease: No Ulcer: No Menopausal: Yes Past Surgical History Abdominal Surgery: Yes (EXP LAP) AICD: No Appendectomy: Yes Body Medical Devices: artificial hips Cardiac Surgery: No Cholecystectomy: Yes Coronary Artery Bypass Graft: No Ear Surgery: No Endocrine Surgery: Yes (PITUITARY ADENOMA REMOVED) Eye Surgery: No Genitourinary Surgery: Yes (HEMORRHOIDS) Gynecologic Surgery: No Hysterectomy: Yes Insulin Pump: No Joint Replacement: Yes (LEFT HIP) Oral Surgery: Yes (TONSILECTOMY) Pacemaker: No Thoracic Surgery: No Tonsillectomy: Yes Other Surgery: Yes (hip replacement) Social History Alcohol Use: No Tobacco Use: No Substance Use: No Allergies-Medications (Allergen,Severity, Reaction): Coded Allergies: No Known Allergies (Verified Allergy, Unknown, 04/17/18) Reported Meds & Prescriptions Reported Meds & Active Scripts Active Zofran Odt (Ondansetron Odt) 4 Mg Tab 4 Mg SL Q12HR PRN Qc Milk of Magnesia (Magnesium Hydroxide) 400 Mg/5 Ml Arelis 30 Ml PO Q12H PRN Reported Flexeril (Cyclobenzaprine HCl) 5 Mg Tab 5 Mg PO DAILY PRN Hydrocortisone 5 Mg Tab 5 Mg PO HS Take with food to decrease GI upset Cartia Xt (Diltiazem ER 24 HR) 120 Mg Caper 120 Mg PO DAILY Miralax Powder (Polyethylene Glycol 3350 Powder) 17 Gm Powd 17 Gm PO HS Mix and dissolve one measuring cap-ful (17 grams) in water or juice. Omeprazole 20 Mg Tab 20 Mg PO DAILY Cortef (Hydrocortisone) 5 Mg Tab 10 Mg PO DAILY Take with food to decrease GI upset Paxil (Paroxetine HCl) 10 Mg Tab 5 Mg PO DAILY Aspirin 81 Mg Chew 81 Mg CHEW DAILY Review of Systems General / Constitutional: No: Fever Eyes: No: Visual changes HENT: No: Headaches Cardiovascular: No: Chest Pain or Discomfort Respiratory: No: Shortness of Breath Gastrointestinal: Positive: Nausea, Vomiting, Diarrhea, Abdominal Pain Genitourinary: No: Dysuria Musculoskeletal: No: Pain Skin: No Rash Neurologic: No: Weakness Psychiatric: No: Depression Endocrine: No: Polydipsia Hematologic/Lymphatic: No: Easy Bruising Physical Exam Narrative GENERAL: SKIN: Warm and dry. HEAD: Atraumatic. Normocephalic. EYES: Pupils equal and round. No scleral icterus. No injection or drainage. ENT: No nasal bleeding or discharge. Mucous membranes pink and moist. NECK: Trachea midline. No JVD. CARDIOVASCULAR: Regular rate and rhythm. RESPIRATORY: No accessory muscle use. Clear to auscultation. Breath sounds equal bilaterally. GASTROINTESTINAL: Abdomen soft, mild tenderness to percussion over left upper quadrant , nondistended. MUSCULOSKELETAL: Extremities without clubbing, cyanosis, or edema. No obvious deformities. NEUROLOGICAL: Awake and alert. No obvious cranial nerve deficits. Motor grossly within normal limits. Five out of 5 muscle strength in the arms and legs. Normal speech. PSYCHIATRIC: Appropriate mood and affect; insight and judgment normal. Data Data Last Documented VS Vital Signs Date Time Temp Pulse Resp B/P (MAP) Pulse Ox O2 Delivery O2 Flow Rate FiO2 04/17/18 09:46 98 Nasal Cannula 2.00 04/17/18 09:42 98.4 96 20 131/68 (89) Orders Orders Complete Blood Count With Diff (04/17/18:30) Comprehensive Metabolic Panel (04/17/18:30) Lipase (04/17/18:30) Lactic Acid (04/17/18:30) Urinalysis - C+S If Indicated (04/17/18:30) Ct Abd/Pel W/O Iv Contrast (04/17/18:30) Iv Access Insert/Monitor (04/17/18:30) Ecg Monitoring (04/17/18:30) Oximetry (04/17/18:30) NPO (04/17/18 09:30) Sodium Chlor 0.9% 1000 Ml Inj (Ns 1000 M (04/17/18 09:30) Sodium Chloride 0.9% Flush (Ns Flush) (04/17/18 09:30) Metronidazole 500 Mg Inj (Flagyl 500 Mg (04/17/18 12:45) Levofloxacin 500 Mg Premix Inj (Levaquin (04/17/18 12:45) Labs Laboratory Tests Test 04/17/18 09:35 04/17/18 09:43 Urine Color YELLOW Urine Turbidity CLEAR Urine pH 5.0 Urine Specific [place] 1.016 Urine Protein TRACE mg/dL Urine Glucose (UA) NEG mg/dL Urine Ketones 10 mg/dL Urine Occult Blood NEG Urine Nitrite NEG Urine Bilirubin NEG Urine Urobilinogen LESS THAN 2.0 MG/DL Urine Leukocyte Esterase NEG Urine RBC 1 /hpf Urine WBC 1 /hpf Urine Amorphous Sediment RARE Urine Hyaline Casts 2 /lpf Urine Mucus FEW /lpf Microscopic Urinalysis Comment CULT NOT INDICATED White Blood Count 9.8 TH/MM3 Red Blood Count 5.37 MIL/MM3 Hemoglobin 15.3 GM/DL Hematocrit 44.8 % Mean Corpuscular Volume 83.4 FL Mean Corpuscular Hemoglobin 28.6 PG Mean Corpuscular Hemoglobin Concent 34.2 % Red Cell Distribution Width 14.0 % Platelet Count 201 TH/MM3 Mean Platelet Volume 8.5 FL Neutrophils (%) (Auto) 61.7 % Lymphocytes (%) (Auto) 22.7 % Monocytes (%) (Auto) 12.0 % Eosinophils (%) (Auto) 3.1 % Basophils (%) (Auto) 0.5 % Neutrophils # (Auto) 6.1 TH/MM3 Lymphocytes # (Auto) 2.2 TH/MM3 Monocytes # (Auto) 1.2 TH/MM3 Eosinophils # (Auto) 0.3 TH/MM3 Basophils # (Auto) 0.0 TH/MM3 CBC Comment DIFF FINAL Differential Comment Blood Urea Nitrogen 22 MG/DL Creatinine 1.35 MG/DL Random Glucose 81 MG/DL Total Protein 7.1 GM/DL Albumin 3.5 GM/DL Calcium Level 8.6 MG/DL Alkaline Phosphatase 99 U/L Aspartate Amino Transf (AST/SGOT) 24 U/L Alanine Aminotransferase (ALT/SGPT) 19 U/L Total Bilirubin 1.5 MG/DL Sodium Level 138 MEQ/L Potassium Level 4.3 MEQ/L Chloride Level 105 MEQ/L Carbon Dioxide Level 22.6 MEQ/L Anion Gap 10 MEQ/L Estimat Glomerular Filtration Rate 37 ML/MIN Lactic Acid Level 1.5 mmol/L Lipase 111 U/L [facility] Medical Decision Making Medical Screen Exam Complete: Yes Emergency Medical Condition: Yes Medical Record Reviewed: Yes Differential Diagnosis Colitis versus diverticulitis versus enteritis versus SBO Narrative Course No leukocytosis, no anemia, no left shift, normal platelet count UA is negative for UTI Electrolytes are all within normal limits with the exception of BUN 22, creatinine 1.35 which is elevated and a decreased GFR of 37 specific patient stage III CKD, patient has a normal lactic acid, normal liver and pancreatic enzymes Diagnosis Primary Impression: Acute diverticulitis Additional Impressions: RECURRENT EMESIS Dehydration Roe Kat MD Apr 17, 2018 09:40
[2018-04-17 09:48] LABS: AUTOMATED NEUTROPHIL # 6.1 TH/MM3 (1.8-7.7); BASOPHIL % 0.5 % (0.0-2.0); EOSINOPHIL # 0.3 TH/MM3 (0-0.4); EOSINOPHIL % 3.1 % (0.0-4.0); HEMATOCRIT 44.8 % (35.0-46.0); HEMOGLOBIN 15.3 GM/DL (11.6-15.3); LYMPH % 22.7 % (9.0-44.0); LYMPHOCYTE # 2.2 TH/MM3 (1.0-4.8); MEAN CELL VOLUME 83.4 FL (80.0-100.0); MEAN CORPUSCULAR HEMOGLOBIN 28.6 PG (27.0-34.0); MEAN CORPUSCULAR HGB CONC 34.2 % (32.0-36.0); MEAN PLATELET VOLUME 8.5 FL (7.0-11.0); MONOCYTE # 1.2 TH/MM3 (0-0.9); NEUT % 61.7 % (16.0-70.0); PLATELET COUNT 201 TH/MM3 (150-450); RED BLOOD COUNT 5.37 MIL/MM3 (4.00-5.30); WHITE BLOOD COUNT 9.8 TH/MM3 (4.0-11.0)
[2018-04-17 10:02] LABS: ALBUMIN 3.5 GM/DL (3.4-5.0); AST (GOT) 24 U/L (15-37); BICARBONATE 22.6 MEQ/L (21.0-32.0); BLOOD UREA NITROGEN 22 MG/DL (7-18); CALCIUM 8.6 MG/DL (8.5-10.1); CHLORIDE 105 MEQ/L (98-107); CREATININE 1.35 MG/DL (0.50-1.00); GLOMERULAR FILTRATION RATE 37 ML/MIN (>89); GLUCOSE,RANDOM 81 MG/DL (74-106); SODIUM (NA) 138 MEQ/L (136-145)
[2018-04-17 10:03] LABS: ALT (GPT) 19 U/L (10-53)
[2018-04-17 10:06] LABS: ALKALINE PHOSPHATASE 99 U/L (45-117); TOTAL BILIRUBIN ADULT 1.5 MG/DL (0.2-1.0); TOTAL PROTEIN 7.1 GM/DL (6.4-8.2)
[2018-04-17 10:42] LABS: AMORPHOUS SEDIMENT, URINE RARE; BILIRUBIN, URINE NEG (NEG); BLOOD, URINE NEG (NEG); GLUCOSE,URINE NEG (NEG); HYALINE CAST, URINE 2 /lpf (RARE); KETONE, URINE 10 mg/dL (NEG); MUCUS URINE FEW /lpf (OCC); NITRITE,URINE NEG (NEG); URINE COLOR YELLOW (YELLW/STRAW); URINE LEUKOCYTE ESTERASE NEG (NEG)
--- NOTE | 2018-04-17 11:42 | RADRPT ---
EXAM DATE: 04/17/2018 11:35 AM EDT AGE/SEX: 87 years / Female INDICATIONS: Left upper quadrant pain. CLINICAL DATA: This is the patient's initial encounter. Patient reports that signs and symptoms have been present for 1 day and indicates a pain score of 4/10. MEDICAL/SURGICAL HISTORY: Cardiovascular disease. Hysterectomy. Cholecystectomy. Appendectomy . RADIATION DOSE: 6.71 CTDI (mGy) COMPARISON: No prior exams available for comparison. TECHNIQUE: Multiple contiguous axial images were obtained through the abdomen. Images were obtained using multiple row detector helical technique. Using dose reduction techniques, radiation dose was ke pt as low as reasonably achievable to obtain optimal diagnostic quality images. FINDINGS: Bilateral total hip arthroplasties are noted. There are mild atelectatic changes at the lung bases. T he patient has had previous kyphoplasty at T10 and T11 mild wedge compression. Diffuse atheroscleroti c calcification of the aorta and iliac vessels are noted. There is an aortic valve prosthesis. Small hiatal hernia is noted. Patient is status post cholecystectomy. There is an exophytic nodule off the spleen posteriorly measuring 9.5 mm. It may reflect a small exophytic cyst, a splenule is felt less l ikely. The adrenals, kidneys unremarkable. Significant streak artifact secures the bladder and adnexa . There is focal inflammatory stranding and bowel wall thickening of the sigmoid colon within the pel vis. There is an inflamed diverticulum at this level. This is characteristic of acute diverticulitis. There is stranding of the pericolonic fat. There is severe diverticulosis of the sigmoid colon and d escending colon identified. The patient is status post appendectomy. There is no adenopathy. CONCLUSION: 1. Inflammatory stranding and bowel wall thickening of the sigmoid colon within the pelvis character istic of acute diverticulitis with severe diverticulosis present. 2. Small hiatal hernia. 3. Atherosclerosis. Electronically signed by: Uriel Higuera MD 04/17/2018 11:40 AM EDT
[2018-04-17] MEDS ORDERED: metroNIDAZOLE 500 MG INJ 100 ML IV ONE (12:45)
[2018-04-17] MEDS ORDERED: HYDROCORTISONE SOD SUCCINATE 100 MG VIAL IV PUSH ONE (12:45)
[2018-04-17] MEDS ORDERED: LEVOFLOXACIN 500 MG PREMIX INJ 100 ML IV ONE (12:45)
[2018-04-17] MEDS ORDERED: ACETAMINOPHEN 325 MG TAB PO PRN (13:15)
[2018-04-17] MEDS ORDERED: ONDANSETRON ODT 4 MG TAB PO PRN (13:15)
[2018-04-17] MEDS ORDERED: ACETAMINOPHEN/HYDROcodone 325 MG/5 MG TAB PO PRN (13:30)
[2018-04-17] MEDS ORDERED: HYDROmorphone HCL PF 2 MG/ML VIAL IV PUSH PRN (13:30)
--- NOTE | 2018-04-17 13:31 | HHI.HP ---
HPI Service [facility] Hospitalists Primary Care Physician Chad Garcia MD Admission Diagnosis diverticulitis Chief Complaint: abd pain n/v/d Travel History International Travel<30 Days: No Contact w/Intl Traveler <30 Da: No Traveled to Known Affected Are: No History of Present Illness This is a 87-year-old female patient with past medical history which includes arthritis, anxiety, Trego's disease, hypertension, heart of hearing, sciatica , sarcoidosis and GERD. Patient is [place] and a poor historian. Patient reports she feel very sick. Patient is a poor historian information gathered from patient as well as prior charting. Patient presents tot the ER today with complains of nausea and vomiting and abd pain along with the left upper quadrant area. Patient describes the pain as sharp and nonradiating. Patient also endorses intermittent episodes of diarrhea as well. Upon EMS initially arriving they found the patient on her bed, her bed was soiled and also patient noted to have systolic blood pressure of 84 which improved to 112 after receiving 500 cc of normal saline bolus. Patient denies fever, chills, rash, chest pain, back pain, hematuria/frequency/urgency, sore throat, cough, runny nose. Review of Systems ROS Limitations: Hearing Impaired, Poor Historian Gastrointestinal: COMPLAINS OF: Abdominal pain, Diarrhea, Nausea, Vomiting Past Family Social History Past Medical History Arthritis Anxiety Gustavo's disease Hypertension [place] in bilateral ears. Sciatica Sarcoidosis GERD Past Surgical History Appendectomy Cholecystectomy Hysterectomy Pituitary adenoma removal Left hip replacement Tonsillectomy Hemorrhoidectomy Reported Medications Zofran Odt (Ondansetron Odt) 4 Mg Tab 4 Mg SL Q12HR PRN Qc Milk of Magnesia (Magnesium Hydroxide) 400 Mg/5 Ml Arelis 30 Ml PO Q12H PRN Flexeril (Cyclobenzaprine HCl) 5 Mg Tab 5 Mg PO DAILY PRN Hydrocortisone 5 Mg Tab 5 Mg PO HS Take with food to decrease GI upset Cartia Xt (Diltiazem ER 24 HR) 120 Mg Caper 120 Mg PO DAILY Miralax Powder (Polyethylene Glycol 3350 Powder) 17 Gm Powd 17 Gm PO HS Mix and dissolve one measuring cap-ful (17 grams) in water or juice. Omeprazole 20 Mg Tab 20 Mg PO DAILY Cortef (Hydrocortisone) 5 Mg Tab 10 Mg PO DAILY Take with food to decrease GI upset Paxil (Paroxetine HCl) 10 Mg Tab 5 Mg PO DAILY Aspirin 81 Mg Chew 81 Mg CHEW DAILY Allergies: Coded Allergies: No Known Allergies (Verified Allergy, Unknown, 04/17/18) Family History Maternal medical history significant for PA at the age of 67. Father had Alzheimer disease. Social History Denies any current tobacco use. Denies any alcohol use. Denies any illicit drug use. Physical Exam Vital Signs Vital Signs Date Time Temp Pulse Resp B/P (MAP) Pulse Ox O2 Delivery O2 Flow Rate FiO2 04/17/18 09:46 98 Nasal Cannula 2.00 04/17/18 09:42 98.4 96 20 131/68 (89) 96 Physical Exam GENERAL: This is a elderly 87 year old female patient, well-developed patient, in no apparent distress. SKIN: No rashes, ecchymoses or lesions. Mucous membranes appear dry HEAD: Atraumatic. Normocephalic. No temporal or scalp tenderness. EYES: Extraocular motions intact. No scleral icterus. No injection or drainage. CARDIOVASCULAR: Regular rate and rhythm RESPIRATORY: Clear to auscultation. Breath sounds equal bilaterally. GASTROINTESTINAL: Abdomen soft, generalized tenderness worse LLQ, non-tender, nondistended. MUSCULOSKELETAL: Extremities without clubbing, cyanosis, or edema. No joint tenderness, effusion, or edema noted. No calf tenderness. Negative Homans sign bilaterally. NEUROLOGICAL: Awake and alert. No focal deficits. Motor and sensory grossly within normal limits. Five out of 5 muscle strength in all muscle groups. Normal speech. Laboratory Laboratory Tests Test 04/17/18 09:35 04/17/18 09:43 Urine Color YELLOW Urine Turbidity CLEAR Urine pH 5.0 Urine Specific [place] 1.016 Urine Protein TRACE Urine Glucose (UA) NEG Urine Ketones 10 Urine Occult Blood NEG Urine Nitrite NEG Urine Bilirubin NEG Urine Urobilinogen LESS THAN 2.0 Urine Leukocyte Esterase NEG Urine RBC 1 Urine WBC 1 Urine Amorphous Sediment RARE Urine Hyaline Casts 2 Urine Mucus FEW Microscopic Urinalysis Comment CULT NOT INDICATED White Blood Count 9.8 Red Blood Count 5.37 Hemoglobin 15.3 Hematocrit 44.8 Mean Corpuscular Volume 83.4 Mean Corpuscular Hemoglobin 28.6 Mean Corpuscular Hemoglobin Concent 34.2 Red Cell Distribution Width 14.0 Platelet Count 201 Mean Platelet Volume 8.5 Neutrophils (%) (Auto) 61.7 Lymphocytes (%) (Auto) 22.7 Monocytes (%) (Auto) 12.0 Eosinophils (%) (Auto) 3.1 Basophils (%) (Auto) 0.5 Neutrophils # (Auto) 6.1 Lymphocytes # (Auto) 2.2 Monocytes # (Auto) 1.2 Eosinophils # (Auto) 0.3 Basophils # (Auto) 0.0 CBC Comment DIFF FINAL Differential Comment Blood Urea Nitrogen 22 Creatinine 1.35 Random Glucose 81 Total Protein 7.1 Albumin 3.5 Calcium Level 8.6 Alkaline Phosphatase 99 Aspartate Amino Transf (AST/SGOT) 24 Alanine Aminotransferase (ALT/SGPT) 19 Total Bilirubin 1.5 Sodium Level 138 Potassium Level 4.3 Chloride Level 105 Carbon Dioxide Level 22.6 Anion Gap 10 Estimat Glomerular Filtration Rate 37 Lactic Acid Level 1.5 Lipase 111 Result Diagram: 04/17/1894204/17/18942 Imaging Last Impressions Abdomen/Pelvis CT 04/17/18 0930 Signed Impressions: CONCLUSION: 1. Inflammatory stranding and bowel wall thickening of the sigmoid colon withi n the pelvis characteristic of acute diverticulitis with severe diverticulosis present. 2. Small hiatal hernia. 3. Atherosclerosis. Caprini VTE Risk Assessment Caprini VTE Risk Assessment: No/Low Risk (score <= 1) Caprini Risk Assessment Model Point Value = 1 Point Value = 2 Point Value = 3 Point Value = 5 Age 41-60 Minor surgery BMI > 25 kg/m2 Swollen legs Varicose veins or History of unexplained or recurrent spontaneous Oral contraceptives or hormone replacement Sepsis (< 1 month) Serious lung disease, including pneumonia (< 1 month) Abnormal pulmonary function Acute myocardial infarction Congestive heart failure (< 1 month) History of inflammatory bowel disease Medical patient at bed rest Age 61-74 Arthroscopic surgery Major open surgery (> 45 min) Laparoscopic surgery (> 45 min) Malignancy Confined to bed (> 72 hours) Immobilizing plaster cast Central venous access Age >= 75 History of VTE Family history of VTE Factor V Leiden Prothrombin [id number] Lupus anticoagulant Anticardiolipin antibodies Elevated serum homocysteine Heparin-induced thrombocytopenia Other congenital or acquired thrombophilia Stroke (< 1 month) Elective arthroplasty Hip, pelvis, or leg fracture Acute spinal cord injury (< 1 month) Prophylaxis Regimen Total Risk Factor Score Risk Level Prophylaxis Regimen 0-1 Low Early ambulation 2 Moderate Order ONE of the following: *Sequential Compression Device (SCD) *Heparin 5000 units SQ BID 3-4 Higher Order ONE of the following medications: *Heparin 5000 units SQ TID *Enoxaparin/Lovenox 40 mg SQ daily (WT < 150 kg, CrCl > 30 mL/min) *Enoxaparin/Lovenox 30 mg SQ daily (WT < 150 kg, CrCl > 10-29 mL/min) *Enoxaparin/Lovenox 30 mg SQ BID (WT < 150 kg, CrCl > 30 mL/min) AND/OR *Sequential Compression Device (SCD) 5 or more Highest Order ONE of the following medications: *Heparin 5000 units SQ TID (Preferred with Epidurals) *Enoxaparin/Lovenox 40 mg SQ daily (WT < 150 kg, CrCl > 30 mL/min) *Enoxaparin/Lovenox 30 mg SQ daily (WT < 150 kg, CrCl > 10-29 mL/min) *Enoxaparin/Lovenox 30 mg SQ BID (WT < 150 kg, CrCl > 30 mL/min) AND *Sequential Compression Device (SCD) Assessment and Plan Problem List: (1) Diverticulitis ICD Codes: K57.92 - Diverticulitis of intestine, part unspecified, without perforation or abscess without bleeding Plan: CT abd pelvic reviewed and reveals: Inflammatory stranding and bowel wall thickening of the sigmoid colon within the pelvis characteristic of acute diverticulitis with severe diverticulosis present. Small hiatal hernia. Atherosclerosis. Patient continues to have nausea and vomiting in emergency department IV fluid supportive care Levaquin 500 mg every 24 Flagyl 500 mg every 8 hours Clear liquid diet at this time [place] as needed for pain CBC and BMP in a.m. Consult physical therapy for evaluation and treatment DVT prophylaxis with SCDs (2) Addisons disease ICD Codes: E27.1 - Gustavo's disease Status: Chronic Plan: Continue Cortef home dose 15 mg by mouth twice a day Assessment and Plan Patient examined. Assessment and plan formulated with Rebekah Ortega PA-C. Goran agree with the above. Pt states that she awoke with severe abdominal pain. On PE in ER, abdominal exam was unremarkable. Change ABX to PO in AM Anticipate d/c to home with HHC in 1-2 days. Physician Certification 2 Midnight Certification Type: Admission for Inpatient Services Order for Inpatient Services The services are ordered in accordance with Medicare regulations or non- Medicare payer requirements, as applicable. In the case of services not specified as inpatient-only, they are appropriately provided as inpatient services in accordance with the 2-midnight benchmark. Estimated LOS (days): 3 days is the estimated time the patient will need to remain in the hospital, assuming treatment plan goals are met and no additional complications. Post-Hospital Plan: SNF Rebekah Ortega Apr 17, 2018 13:31 Abraham Spaulding DO Apr 17, 2018 23:15
[2018-04-17] MEDS ORDERED: CYCLOBENZAPRINE HCL 10 MG TAB PO PRN (13:45)
[2018-04-17] MEDS ORDERED: PILL SPLITTER OTHER PRN (14:00)
[2018-04-17] MEDS: 1/2 NS + KCL 20 MEQ INJ 1,000 ML IV SCH (16:07)
[2018-04-17] MEDS: metroNIDAZOLE 500 MG INJ 100 ML IV SCH (18:05)
[2018-04-17] MEDS: HYDROCORTISONE 10 MG TAB PO SCH (20:46)
[2018-04-17] MEDS: SODIUM CHLORIDE 0.9% FLUSH 10 ML FLUSH IV FLUSH SCH (20:47)
[2018-04-18] VITALS: BP 113/56; PULSE 88; RESP 19; TEMP 97.7; O2SAT 96
[2018-04-18] MEDS: metroNIDAZOLE 500 MG INJ 100 ML IV SCH ×3 (02:07→19:00)
[2018-04-18] MEDS: 1/2 NS + KCL 20 MEQ INJ 1,000 ML IV SCH ×3 (02:08→21:47)
[2018-04-18 08:00] VITALS: BP 149/65; PULSE 83; RESP 18; TEMP 97.6; O2SAT 96
[2018-04-18] MEDS: PANTOPRAZOLE SOD 20 MG DELAYED RELEASE TAB PO SCH (09:00)
[2018-04-18] MEDS: SODIUM CHLORIDE 0.9% FLUSH 10 ML FLUSH IV FLUSH SCH ×2 (09:00→21:38)
[2018-04-18] MEDS: ASPIRIN 81 MG CHEW TAB CHEW SCH (10:35)
[2018-04-18] MEDS: DILTIAZEM-CD 120 MG CAP ER PO SCH (10:35)
[2018-04-18] MEDS: PARoxetine HCL 20 MG TAB PO SCH (10:35)
[2018-04-18] MEDS: LEVOFLOXACIN 500 MG PREMIX INJ 100 ML IV SCH (10:35)
[2018-04-18] MEDS: HYDROCORTISONE 10 MG TAB PO SCH ×2 (10:35→21:39)
--- NOTE | 2018-04-18 10:48 | HHI.PR ---
Subjective Remarks Patient reports that she had 3 loose BMs through the night patient also reports the stools are black in color Objective Vitals Vital Signs Date Time Temp Pulse Resp B/P (MAP) Pulse Ox O2 Delivery O2 Flow Rate FiO2 04/18/18 08:00 97.6 83 18 149/65 (93) 96 04/18/18 00:00 97.7 88 19 113/56 (75) 96 04/17/18 20:00 97.9 101 19 110/59 (76) 96 04/17/18 18:31 100.0 98 20 152/77 (102) 98 04/17/18 16:22 90 04/17/18 16:00 98.5 93 20 110/53 (72) 95 04/17/18 14:36 89.8 91 17 132/72 (92) 99 Result Diagram: 04/18/18 0916 04/17/18 0943 Other Results Laboratory Tests Test 04/17/18 09:35 04/17/18 09:43 04/18/18 09:16 Urine Color YELLOW Urine Turbidity CLEAR Urine pH 5.0 Urine Specific [place] 1.016 Urine Protein TRACE mg/dL Urine Glucose (UA) NEG mg/dL Urine Ketones 10 mg/dL Urine Occult Blood NEG Urine Nitrite NEG Urine Bilirubin NEG Urine Urobilinogen LESS THAN 2.0 MG/DL Urine Leukocyte Esterase NEG Urine RBC 1 /hpf Urine WBC 1 /hpf Urine Amorphous Sediment RARE Urine Hyaline Casts 2 /lpf Urine Mucus FEW /lpf Microscopic Urinalysis Comment CULT NOT INDICATED White Blood Count 9.8 TH/MM3 8.2 TH/MM3 Red Blood Count 5.37 MIL/MM3 3.76 MIL/MM3 Hemoglobin 15.3 GM/DL 10.6 GM/DL Hematocrit 44.8 % 31.4 % Mean Corpuscular Volume 83.4 FL 83.4 FL Mean Corpuscular Hemoglobin 28.6 PG 28.2 PG Mean Corpuscular Hemoglobin Concent 34.2 % 33.8 % Red Cell Distribution Width 14.0 % 13.7 % Platelet Count 201 TH/MM3 159 TH/MM3 Mean Platelet Volume 8.5 FL 9.0 FL Neutrophils (%) (Auto) 61.7 % 72.1 % Lymphocytes (%) (Auto) 22.7 % 14.9 % Monocytes (%) (Auto) 12.0 % 9.4 % Eosinophils (%) (Auto) 3.1 % 3.1 % Basophils (%) (Auto) 0.5 % 0.5 % Neutrophils # (Auto) 6.1 TH/MM3 5.9 TH/MM3 Lymphocytes # (Auto) 2.2 TH/MM3 1.2 TH/MM3 Monocytes # (Auto) 1.2 TH/MM3 0.8 TH/MM3 Eosinophils # (Auto) 0.3 TH/MM3 0.3 TH/MM3 Basophils # (Auto) 0.0 TH/MM3 0.0 TH/MM3 CBC Comment DIFF FINAL DIFF FINAL Differential Comment Blood Urea Nitrogen 22 MG/DL Creatinine 1.35 MG/DL Random Glucose 81 MG/DL Total Protein 7.1 GM/DL Albumin 3.5 GM/DL Calcium Level 8.6 MG/DL Alkaline Phosphatase 99 U/L Aspartate Amino Transf (AST/SGOT) 24 U/L Alanine Aminotransferase (ALT/SGPT) 19 U/L Total Bilirubin 1.5 MG/DL Sodium Level 138 MEQ/L Potassium Level 4.3 MEQ/L Chloride Level 105 MEQ/L Carbon Dioxide Level 22.6 MEQ/L Anion Gap 10 MEQ/L Estimat Glomerular Filtration Rate 37 ML/MIN Lactic Acid Level 1.5 mmol/L Lipase 111 U/L Imaging Last Impressions Abdomen/Pelvis CT 04/17/18 0930 Signed Impressions: CONCLUSION: 1. Inflammatory stranding and bowel wall thickening of the sigmoid colon withi n the pelvis characteristic of acute diverticulitis with severe diverticulosis present. 2. Small hiatal hernia. 3. Atherosclerosis. Objective Remarks GENERAL: This is an elderly well-nourished, well-developed patient, in no apparent distress. CARDIOVASCULAR: Regular rate and rhythm RESPIRATORY: Clear to auscultation. Breath sounds equal bilaterally. GASTROINTESTINAL: Abdomen soft, non-tender, nondistended. Normal active bowel sounds MUSCULOSKELETAL: Extremities without clubbing, cyanosis, or edema. NEURO: Alert & Oriented x4 to person, place, time, situation. Moves all ext x4 A/P Problem List: (1) Diverticulitis ICD Codes: K57.92 - Diverticulitis of intestine, part unspecified, without perforation or abscess without bleeding Plan: CT abd pelvic reviewed and reveals: Inflammatory stranding and bowel wall thickening of the sigmoid colon within the pelvis characteristic of acute diverticulitis with severe diverticulosis present. Small hiatal hernia. Atherosclerosis. 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 Assessment and plan formulated with Rebekah Ortega PA-C. I agree with the above. diverticulitis. cont abx. possible blood in stool. repeat h/h pending. Rebekah Ortega Apr 18, 2018 10:48 Gold Puente MD Apr 18, 2018 13:19
[2018-04-18 12:00] VITALS: BP 109/68; PULSE 74; RESP 20; TEMP 97.6; O2SAT 100
[2018-04-18 13:29] LABS: BICARBONATE 20.2 MEQ/L (21.0-32.0); CALCIUM 8.2 MG/DL (8.5-10.1); CREATININE 1.22 MG/DL (0.50-1.00)
[2018-04-18 14:09] LABS: AUTOMATED NEUTROPHIL # 7.3 TH/MM3 (1.8-7.7); BASOPHIL % 0.3 % (0.0-2.0); EOSINOPHIL # 0.4 TH/MM3 (0-0.4); EOSINOPHIL % 3.7 % (0.0-4.0); HEMATOCRIT 42.7 % (35.0-46.0); HEMOGLOBIN 14.4 GM/DL (11.6-15.3); LYMPH % 14.1 % (9.0-44.0); LYMPHOCYTE # 1.4 TH/MM3 (1.0-4.8); MEAN CELL VOLUME 84.3 FL (80.0-100.0); MEAN CORPUSCULAR HEMOGLOBIN 28.4 PG (27.0-34.0); MEAN CORPUSCULAR HGB CONC 33.7 % (32.0-36.0); MEAN PLATELET VOLUME 9.7 FL (7.0-11.0); MONO % 9.2 % (0.0-8.0); MONOCYTE # 0.9 TH/MM3 (0-0.9); NEUT % 72.7 % (16.0-70.0); PLATELET COUNT 207 TH/MM3 (150-450); RED BLOOD COUNT 5.06 MIL/MM3 (4.00-5.30); RED CELL DISTRIBUTION WIDTH 14.3 % (11.6-17.2); WHITE BLOOD COUNT 10.1 TH/MM3 (4.0-11.0)
[2018-04-18 16:00] VITALS: BP 119/70; PULSE 71; RESP 20; TEMP 97.2; O2SAT 99
[2018-04-18 17:44] LABS: HEMATOCRIT 38.3 % (35.0-46.0)
[2018-04-18 20:00] VITALS: BP 107/53; PULSE 86; RESP 18; TEMP 97.7; O2SAT 93
[2018-04-19] VITALS: BP 105/64; PULSE 114; RESP 20; TEMP 97.2; O2SAT 92
[2018-04-19] MEDS: metroNIDAZOLE 500 MG INJ 100 ML IV SCH (03:30)
[2018-04-19] MEDS: 1/2 NS + KCL 20 MEQ INJ 1,000 ML IV SCH (06:39)
[2018-04-19 07:25] LABS: AUTOMATED NEUTROPHIL # 4.4 TH/MM3 (1.8-7.7); BASOPHIL # 0.1 TH/MM3 (0-0.2); BASOPHIL % 0.8 % (0.0-2.0); EOSINOPHIL # 0.4 TH/MM3 (0-0.4); HEMATOCRIT 35.1 % (35.0-46.0); HEMOGLOBIN 11.9 GM/DL (11.6-15.3); LYMPH % 16.4 % (9.0-44.0); LYMPHOCYTE # 1.1 TH/MM3 (1.0-4.8); MEAN CELL VOLUME 82.6 FL (80.0-100.0); MEAN CORPUSCULAR HGB CONC 33.9 % (32.0-36.0); MEAN PLATELET VOLUME 8.7 FL (7.0-11.0); MONO % 11.5 % (0.0-8.0); MONOCYTE # 0.8 TH/MM3 (0-0.9); NEUT % 65.3 % (16.0-70.0); PLATELET COUNT 183 TH/MM3 (150-450); RED BLOOD COUNT 4.25 MIL/MM3 (4.00-5.30); RED CELL DISTRIBUTION WIDTH 14.5 % (11.6-17.2); WHITE BLOOD COUNT 6.8 TH/MM3 (4.0-11.0)
[2018-04-19 08:00] VITALS: BP 100/50; PULSE 71; RESP 18; TEMP 98.1; O2SAT 92
[2018-04-19] MEDS: ASPIRIN 81 MG CHEW TAB CHEW SCH (09:21)
[2018-04-19] MEDS: LEVOFLOXACIN 500 MG PREMIX INJ 100 ML IV SCH (09:21)
[2018-04-19] MEDS: SODIUM CHLORIDE 0.9% FLUSH 10 ML FLUSH IV FLUSH SCH ×2 (09:21→21:20)
[2018-04-19] MEDS: DILTIAZEM-CD 120 MG CAP ER PO SCH (09:22)
[2018-04-19] MEDS: HYDROCORTISONE 10 MG TAB PO SCH ×2 (09:22→21:17)
[2018-04-19] MEDS: PARoxetine HCL 20 MG TAB PO SCH (09:22)
[2018-04-19] MEDS: PANTOPRAZOLE SOD 20 MG DELAYED RELEASE TAB PO SCH (09:22)
--- NOTE | 2018-04-19 09:29 | HHI.PR ---
Subjective Remarks Patient reports feeling well reports that stool is becoming more formed unsure of the color of stool denies abd pain, N/V Objective Vitals Vital Signs Date Time Temp Pulse Resp B/P (MAP) Pulse Ox O2 Delivery O2 Flow Rate FiO2 04/19/18 08:00 98.1 71 18 100/50 (67) 92 04/19/18 00:00 97.2 114 20 105/64 (78) 92 04/18/18 20:00 97.7 86 18 107/53 (71) 93 04/18/18 16:00 97.2 71 20 119/70 (86) 99 04/18/18 12:00 97.6 74 20 109/68 (82) 100 04/19/18 04/19/18 04/20/18 15:00 23:00 07:00 Intake Total 534 ml Balance 534 ml IV Total 534 ml Result Diagram: 04/19/18 0648 04/18/18 1204 Other Results Laboratory Tests Test 04/17/18 09:35 04/17/18 09:43 04/18/18 09:16 04/18/18 12:04 Urine Color YELLOW Urine Turbidity CLEAR Urine pH 5.0 Urine Specific [place] 1.016 Urine Protein TRACE mg/dL Urine Glucose (UA) NEG mg/dL Urine Ketones 10 mg/dL Urine Occult Blood NEG Urine Nitrite NEG Urine Bilirubin NEG Urine Urobilinogen LESS THAN 2.0 MG/DL Urine Leukocyte Esterase NEG Urine RBC 1 /hpf Urine WBC 1 /hpf Urine Amorphous Sediment RARE Urine Hyaline Casts 2 /lpf Urine Mucus FEW /lpf Microscopic Urinalysis Comment CULT NOT INDICATED White Blood Count 9.8 TH/MM3 TH/MM3 10.1 TH/MM3 Red Blood Count 5.37 MIL/MM3 MIL/MM3 5.06 MIL/MM3 Hemoglobin 15.3 GM/DL GM/DL 14.4 GM/DL Hematocrit 44.8 % % 42.7 % Mean Corpuscular Volume 83.4 FL FL 84.3 FL Mean Corpuscular Hemoglobin 28.6 PG PG 28.4 PG Mean Corpuscular Hemoglobin Concent 34.2 % % 33.7 % Red Cell Distribution Width 14.0 % % 14.3 % Platelet Count 201 TH/MM3 TH/MM3 207 TH/MM3 Mean Platelet Volume 8.5 FL FL 9.7 FL Neutrophils (%) (Auto) 61.7 % % 72.7 % Lymphocytes (%) (Auto) 22.7 % % 14.1 % Monocytes (%) (Auto) 12.0 % % 9.2 % Eosinophils (%) (Auto) 3.1 % % 3.7 % Basophils (%) (Auto) 0.5 % % 0.3 % Neutrophils # (Auto) 6.1 TH/MM3 TH/MM3 7.3 TH/MM3 Lymphocytes # (Auto) 2.2 TH/MM3 TH/MM3 1.4 TH/MM3 Monocytes # (Auto) 1.2 TH/MM3 TH/MM3 0.9 TH/MM3 Eosinophils # (Auto) 0.3 TH/MM3 TH/MM3 0.4 TH/MM3 Basophils # (Auto) 0.0 TH/MM3 TH/MM3 0.0 TH/MM3 CBC Comment DIFF FINAL AUTO DIFF Differential Comment AUTO DIFF CONFIRMED Blood Urea Nitrogen 22 MG/DL 20 MG/DL Creatinine 1.35 MG/DL 1.22 MG/DL Random Glucose 81 MG/DL 78 MG/DL Total Protein 7.1 GM/DL Albumin 3.5 GM/DL Calcium Level 8.6 MG/DL 8.2 MG/DL Alkaline Phosphatase 99 U/L Aspartate Amino Transf (AST/SGOT) 24 U/L Alanine Aminotransferase (ALT/SGPT) 19 U/L Total Bilirubin 1.5 MG/DL Sodium Level 138 MEQ/L 140 MEQ/L Potassium Level 4.3 MEQ/L 4.3 MEQ/L Chloride Level 105 MEQ/L 109 MEQ/L Carbon Dioxide Level 22.6 MEQ/L 20.2 MEQ/L Anion Gap 10 MEQ/L 11 MEQ/L Estimat Glomerular Filtration Rate 37 ML/MIN 42 ML/MIN Lactic Acid Level 1.5 mmol/L Lipase 111 U/L Test 04/18/18 17:19 04/19/18 06:48 Hemoglobin 13.0 GM/DL 11.9 GM/DL Hematocrit 38.3 % 35.1 % White Blood Count 6.8 TH/MM3 Red Blood Count 4.25 MIL/MM3 Mean Corpuscular Volume 82.6 FL Mean Corpuscular Hemoglobin 28.0 PG Mean Corpuscular Hemoglobin Concent 33.9 % Red Cell Distribution Width 14.5 % Platelet Count 183 TH/MM3 Mean Platelet Volume 8.7 FL Neutrophils (%) (Auto) 65.3 % Lymphocytes (%) (Auto) 16.4 % Monocytes (%) (Auto) 11.5 % Eosinophils (%) (Auto) 6.0 % Basophils (%) (Auto) 0.8 % Neutrophils # (Auto) 4.4 TH/MM3 Lymphocytes # (Auto) 1.1 TH/MM3 Monocytes # (Auto) 0.8 TH/MM3 Eosinophils # (Auto) 0.4 TH/MM3 Basophils # (Auto) 0.1 TH/MM3 CBC Comment DIFF FINAL Differential Comment Imaging Last Impressions Abdomen/Pelvis CT 04/17/18 0930 Signed Impressions: CONCLUSION: 1. Inflammatory stranding and bowel wall thickening of the sigmoid colon withi n the pelvis characteristic of acute diverticulitis with severe diverticulosis present. 2. Small hiatal hernia. 3. Atherosclerosis. Objective Remarks GENERAL: This is an elderly well-nourished, well-developed patient, in no apparent distress. CARDIOVASCULAR: Regular rate and rhythm RESPIRATORY: Clear to auscultation. Breath sounds equal bilaterally. GASTROINTESTINAL: Abdomen soft, non-tender, nondistended. Normal active bowel sounds MUSCULOSKELETAL: Extremities without clubbing, cyanosis, or edema. NEURO: Alert & Oriented x4 to person, place, time, situation. Moves all ext x4 A/P Problem List: (1) Diverticulitis ICD Codes: K57.92 - Diverticulitis of intestine, part unspecified, without perforation or abscess without bleeding Plan: CT abd pelvic reviewed and reveals: Inflammatory stranding and bowel wall thickening of the sigmoid colon within the pelvis characteristic of acute diverticulitis with severe diverticulosis present. Small hiatal hernia. Atherosclerosis. - Patient continues to have nausea and vomiting in emergency department - IV fluid - supportive care - Levaquin 500 mg every 24 -> transitioned to PO (04/19) - Flagyl 500 mg every 8 hours -> transitioned to PO (04/19) - diet advanced to heart healthy diet - [place] as needed for pain - CBC reveals on admission hgb 15/3 -> (04/18) initially reported as 10.6 but blood was redrawn and then reported hgb 14.4 -> 11.9 (04/19) - Consult physical therapy for evaluation and treatment - C diff and occult stool requested and pending - recheck CBC in AM [place]'s disease continue patient's home steroids Plan to DC to SNF vs home with HHC in 1-2 days DVT prophylaxis with SCDs (2) Addisons disease ICD Codes: E27.1 - [place]'s disease Status: Chronic Assessment and Plan Patient examined. Assessment and plan formulated with Rebekah Ortega PA-C. I agree with the above. diverticulitis. cont po abx. plan for dc tomorrow with hhc/pt Rebekah Ortega Apr 19, 2018 09:28 Gold Puente MD Apr 19, 2018 13:02
[2018-04-19 12:00] VITALS: BP 120/54; PULSE 74; RESP 18; TEMP 97.6; O2SAT 97
[2018-04-19] MEDS: metroNIDAZOLE 500 MG TAB PO SCH ×2 (13:32→21:16)
[2018-04-19 16:00] VITALS: BP 126/65; PULSE 77; RESP 18; TEMP 98.1; O2SAT 96
[2018-04-19 20:00] VITALS: BP 104/54; PULSE 71; RESP 18; TEMP 98.1; O2SAT 96
[2018-04-20] VITALS: BP 116/62; PULSE 75; RESP 18; TEMP 98.3; O2SAT 95
[2018-04-20] MEDS: metroNIDAZOLE 500 MG TAB PO SCH (05:24)
[2018-04-20 08:00] VITALS: BP 107/54; PULSE 69; RESP 17; TEMP 97.9; O2SAT 94
--- NOTE | 2018-04-20 08:07 | HHI.PR ---
Subjective Remarks Pt reports that she has had one loose stool this morning She is tolerating oral intake Minimal abdominal discomfort Afebrile She is anxious for discharge to [facility] Objective Vitals Vital Signs Date Time Temp Pulse Resp B/P (MAP) Pulse Ox O2 Delivery O2 Flow Rate FiO2 04/20/18 00:00 98.3 75 18 116/62 (80) 95 04/19/18 20:00 98.1 71 18 104/54 (71) 96 04/19/18 16:00 98.1 77 18 126/65 (85) 96 04/19/18 12:00 97.6 74 18 120/54 (76) 97 Result Diagram: 04/19/18 0648 04/18/18 1204 Other Results Laboratory Tests Test 04/18/18 09:16 04/18/18 12:04 04/18/18 17:19 04/19/18 06:48 White Blood Count TH/MM3 10.1 TH/MM3 6.8 TH/MM3 Red Blood Count MIL/MM3 5.06 MIL/MM3 4.25 MIL/MM3 Hemoglobin GM/DL 14.4 GM/DL 13.0 GM/DL 11.9 GM/DL Hematocrit % 42.7 % 38.3 % 35.1 % Mean Corpuscular Volume FL 84.3 FL 82.6 FL Mean Corpuscular Hemoglobin PG 28.4 PG 28.0 PG Mean Corpuscular Hemoglobin Concent % 33.7 % 33.9 % Red Cell Distribution Width % 14.3 % 14.5 % Platelet Count TH/MM3 207 TH/MM3 183 TH/MM3 Mean Platelet Volume FL 9.7 FL 8.7 FL Neutrophils (%) (Auto) % 72.7 % 65.3 % Lymphocytes (%) (Auto) % 14.1 % 16.4 % Monocytes (%) (Auto) % 9.2 % 11.5 % Eosinophils (%) (Auto) % 3.7 % 6.0 % Basophils (%) (Auto) % 0.3 % 0.8 % Neutrophils # (Auto) TH/MM3 7.3 TH/MM3 4.4 TH/MM3 Lymphocytes # (Auto) TH/MM3 1.4 TH/MM3 1.1 TH/MM3 Monocytes # (Auto) TH/MM3 0.9 TH/MM3 0.8 TH/MM3 Eosinophils # (Auto) TH/MM3 0.4 TH/MM3 0.4 TH/MM3 Basophils # (Auto) TH/MM3 0.0 TH/MM3 0.1 TH/MM3 CBC Comment AUTO DIFF DIFF FINAL Differential Comment AUTO DIFF CONFIRMED Blood Urea Nitrogen 20 MG/DL Creatinine 1.22 MG/DL Random Glucose 78 MG/DL Calcium Level 8.2 MG/DL Sodium Level 140 MEQ/L Potassium Level 4.3 MEQ/L Chloride Level 109 MEQ/L Carbon Dioxide Level 20.2 MEQ/L Anion Gap 11 MEQ/L Estimat Glomerular Filtration Rate 42 ML/MIN Test 04/19/18 10:00 Stool C. difficile Toxin (PCR) NEGATIVE Stl C. difficile Toxin Epiderm 027 PRESUMPTIVE NEGATIVE Imaging Last Impressions Abdomen/Pelvis CT 04/17/18 0930 Signed Impressions: CONCLUSION: 1. Inflammatory stranding and bowel wall thickening of the sigmoid colon withi n the pelvis characteristic of acute diverticulitis with severe diverticulosis present. 2. Small hiatal hernia. 3. Atherosclerosis. Objective Remarks GENERAL: This is an elderly well-nourished, well-developed patient, in no apparent distress. CARDIO: Regular RESP: CTA bilaterally. ABD: +BS, soft, non-tender, nondistended. EXT: Extremities without clubbing, cyanosis, or edema. NEURO: Alert & Oriented x4 to person, place, time, situation. Moves all ext x4 A/P Problem List: (1) Diverticulitis ICD Codes: K57.92 - Diverticulitis of intestine, part unspecified, without perforation or abscess without bleeding Plan: Diverticulitis - Pt is an 87 y/o female with arthritis, anxiety, [place]'s disease, hypertension, heart of hearing, sciatica, sarcoidosis and GERD. Patient is TAZLINA and a poor historian. - She presented to the ER on 04/17/18 with complains of nausea and vomiting and abd pain along with the left upper quadrant area. - CT abd/pelvis (04/17/18) --> Inflammatory stranding and bowel wall thickening of the sigmoid colon within the pelvis characteristic of acute diverticulitis with severe diverticulosis present. Small hiatal hernia. Atherosclerosis. - Patient continues to have nausea and vomiting in emergency department and was admitted for IVF and IV Abx - Levaquin 500 mg every 24 -> transitioned to PO (04/19) - Flagyl 500 mg every 8 hours -> transitioned to PO (04/19) - diet advanced to heart healthy diet - [place] as needed for pain - CBC reveals on admission hgb 15.3 -> (04/18) initially reported as 10.6 but blood was redrawn and then reported hgb 14.4 -> 11.9 (04/19) - PT recommending home with HHC/PT but pt and family requesting SNF placement. Pt lives alone and her daughter is concerned about her being by herself as the daughter lives out of town reportedly - Pt still with loose stools, C diff is negative. - CBC and BMP are pending for today [place]'s disease - Continue patient's home steroids DVT prophylaxis with SCDs (2) Addisons disease ICD Codes: E27.1 - Gustavo's disease Status: Chronic Olga Pena Apr 20, 2018 08:07
--- NOTE | 2018-04-20 08:08 | HHI.FF ---
Face to Face Verification Diagnosis: (1) Hx of [place]'s disease (2) Diverticulitis (3) GERD (gastroesophageal reflux disease) Physical Therapy Order: Evaluate and Treat, Improve ambulation, Strength and gait training Home Health Nursing Order: Medical education Signs/symptoms of disease process Nursing assessment with vital signs I have seen patient Kasia Christiansen on 04/20/18. My clinical findings support the need for the requested home health care services because: Deconditioned w/ increased weakness Infection w/ risk of complications I certify that my clinical findings support that this patient is homebound because: Unsteady gait/balance Olga Pena Apr 20, 2018 08:08
[2018-04-20 08:32] LABS: AUTOMATED NEUTROPHIL # 4.1 TH/MM3 (1.8-7.7); BASOPHIL # 0.1 TH/MM3 (0-0.2); BASOPHIL % 0.9 % (0.0-2.0); EOSINOPHIL # 0.5 TH/MM3 (0-0.4); EOSINOPHIL % 6.9 % (0.0-4.0); HEMATOCRIT 37.1 % (35.0-46.0); HEMOGLOBIN 12.6 GM/DL (11.6-15.3); LYMPH % 20.2 % (9.0-44.0); LYMPHOCYTE # 1.4 TH/MM3 (1.0-4.8); MEAN CELL VOLUME 83.6 FL (80.0-100.0); MEAN CORPUSCULAR HEMOGLOBIN 28.4 PG (27.0-34.0); MEAN CORPUSCULAR HGB CONC 33.9 % (32.0-36.0); MEAN PLATELET VOLUME 8.9 FL (7.0-11.0); MONO % 11.4 % (0.0-8.0); MONOCYTE # 0.8 TH/MM3 (0-0.9); NEUT % 60.6 % (16.0-70.0); PLATELET COUNT 197 TH/MM3 (150-450); RED BLOOD COUNT 4.43 MIL/MM3 (4.00-5.30); RED CELL DISTRIBUTION WIDTH 14.2 % (11.6-17.2); WHITE BLOOD COUNT 6.8 TH/MM3 (4.0-11.0)
[2018-04-20] MEDS: ASPIRIN 81 MG CHEW TAB CHEW SCH (08:59)
[2018-04-20] MEDS: PANTOPRAZOLE SOD 20 MG DELAYED RELEASE TAB PO SCH (08:59)
[2018-04-20] MEDS: HYDROCORTISONE 10 MG TAB PO SCH (08:59)
[2018-04-20] MEDS: DILTIAZEM-CD 120 MG CAP ER PO SCH (09:00)
[2018-04-20] MEDS ORDERED: LEVOFLOXACIN 500 MG TAB PO SCH (09:00)
[2018-04-20] MEDS: PARoxetine HCL 20 MG TAB PO SCH (09:01)
[2018-04-20] MEDS: SODIUM CHLORIDE 0.9% FLUSH 10 ML FLUSH IV FLUSH SCH (09:05)
[2018-04-20 09:08] LABS: BICARBONATE 21.8 MEQ/L (21.0-32.0); CALCIUM 8.3 MG/DL (8.5-10.1); CREATININE 1.1 MG/DL (0.50-1.00)
[2018-04-20] MEDS ORDERED: LEVA500T33 PO ×2 (09:24→12:07)
[2018-04-20] MEDS ORDERED: METR-1 PO ×2 (09:24→12:07)
--- NOTE | 2018-04-20 09:26 | HHI.DCPOC ---
Discharge Care Plan Diagnosis: (1) Hx of Gustavo's disease (2) Diverticulitis Goals to Promote Your Health * To prevent worsening of your condition and complications * To maintain your health at the optimal level Directions to Meet Your Goals Take your medications as prescribed Follow your dietary instruction Follow activity as directed Keep your appointments as scheduled Take your immunizations and boosters as scheduled If your symptoms worsen call your PCP, if no PCP go to Urgent Care Center or Emergency Room Smoking is Dangerous to Your Health. Avoid second hand smoke Call the 24-hour hour crisis hotline for domestic abuse at Olga Pena Apr 20, 2018 09:26
[2018-04-20 12:00] VITALS: BP 112/57; PULSE 69; RESP 17; TEMP 97.9; O2SAT 96
== END 2018-04-20 13:48 | DRG 392 ==
LOC: NEPE 09:17 → OBSVTOIN 13:26 → NEDA 13:26 → NEPHCDU 14:45 → N07B 18:55
PROVIDERS: ADMIT Hospitalist; ATTEND Hospitalist
DX: K57.32 Diverticulitis of large intestine without perforation or abscess without bleeding (principal); E27.1 Primary adrenocortical insufficiency; D86.9 Sarcoidosis, unspecified; E86.0 Dehydration; I12.9 Hypertensive chronic kidney disease with stage 1 through stage 4 chronic kidney disease, or unspecified chronic kidney disease; N18.3 Chronic kidney disease, stage 3 (moderate); K44.9 Diaphragmatic hernia without obstruction or gangrene; I70.90 Unspecified atherosclerosis; E78.00 Pure hypercholesterolemia, unspecified; K21.9 Gastro-esophageal reflux disease without esophagitis; M54.30 Sciatica, unspecified side; Z96.642 Presence of left artificial hip joint; F32.9 Major depressive disorder, single episode, unspecified; F41.9 Anxiety disorder, unspecified; M19.90 Unspecified osteoarthritis, unspecified site; K64.9 Unspecified hemorrhoids; H91.93 Unspecified hearing loss, bilateral; Z90.710 Acquired absence of both cervix and uterus
CPT/HCPCS: 74176; 80048; 80053; 81001; 82272; 83605; 83690; 85014; 85018; 85025; 87493; 96361; 96365; 96368; 96375; G8987-GP; G8988-GP; J1720; J1956; J7030

== ENCOUNTER 2018-06-18 10:08 | Observation (INO) ==
[2018-06-18] MEDS ORDERED: Sod Chloride 0.9% Inj 1,000 ML IV.SIG ONE (10:59)
--- NOTE | 2018-06-18 11:09 | ED ---
HPI General Chief Complaint: Fall Stated Complaint: Syncope Time Seen by Provider: 06/18/18 10:51 Source: patient and EMS Mode of arrival: EMS Limitations: no limitations History of Present Illness HPI Narrative: 88-year-old female complains of neck pain, low back pain. Patient states that she fell this morning. Patient states that she injured her neck and back. Patient was lying on the floor and yelling for help. Patient's neighbor called EMS. Patient was brought to ED for evaluation. Patient denies any headache. Patient denies any visual change. Patient complains of sharp pain localized to her neck and low back area. Patient denies any chest pain or shortness of breath. Patient denies abdominal pain. Patient denies no focal weakness or numbness of the extremity. Patient states that she has intermittent constipation diarrhea for the past several days. Patient denies any fever chills. Patient denies any dysuria frequency. complaint: fall Onset (ago): hour(s) Fall from: standing Fall witnessed: no Place fall occurred: home Loss of consciousness: none Prolonged down time: yes Symptoms prior to fall: none Context: tripped/slipped Location of injury: neck and back Severity: moderate Severity scale (1-10): 7 Quality: sharp Associated symptoms (after fall): neck pain Related Data Home Medications Medication Instructions Recorded Confirmed albuterol sulfate [Ventolin HFA] 2 puff INHALATION Q6H PRN 06/18/18 06/18/18 aspirin 81 mg PO DAILY 06/18/18 06/18/18 calcium carbonate-vitamin D3 1 tab PO DAILY 06/18/18 06/18/18 [Calcium with Vitamin D] hydrocortisone 5 mg PO HS 06/18/18 06/18/18 hydrocortisone 10 mg PO DAILY 06/18/18 06/18/18 omeprazole 20 mg PO DAILY 06/18/18 06/18/18 paroxetine HCl [Paxil] 5 mg PO DAILY 06/18/18 06/18/18 Allergies Allergy/AdvReac Type Severity Reaction Status Date / Time No Known Allergies Allergy Verified 06/18/18 10:51 Review of Systems ROS: all other systems reviewed are negative [facility] Medical History Medical History Robeson's disease (Acute) Surgical History Surgical History History of hip surgery (Acute) History of surgical removal of pituitary gland (Acute) Hx of appendectomy (Acute) Social History Social History Substance History: No History of Abuse Second Hand Smoke Exposure: No Smoking Status: Never smoker How Often Do You Have a Drink Containing Alcohol: Never Recent Travel in [facility] within the Last 8 Weeks: No Recent Out of Country Travel within the Last 8 Weeks: No Immunization History Tetanus Immunization: Unsure Hx Influenza Vaccine This Season: No Exam Narrative Exam Narrative: GENERAL: Well-nourished, well-developed patient. SKIN: Focused skin assessment warm/dry. HEAD: Normocephalic. EYES: No scleral icterus. No injection or drainage. NECK: Supple, trachea midline. No JVD or lymphadenopathy. Patient has moderate tenderness in palpation paraspinal area cervical spine no midline tenderness. CARDIOVASCULAR: Regular rate and rhythm without murmurs, gallops, or rubs. RESPIRATORY: Breath sounds equal bilaterally. No accessory muscle use. GASTROINTESTINAL: Abdomen soft, non-tender, nondistended. MUSCULOSKELETAL: No cyanosis, or edema. BACK: Patient has moderate tenderness on palpation with the low lumbar area, without obvious deformity. No CVA tenderness. Neurologic exam: Patient is awake and alert oriented to place and person. Patient moves all extremity well. No obvious focal neurological deficit. Course Initial Documented Vital Signs Temperature 98.2 F 06/18/18 10:20 Pulse Rate 102 H 06/18/18 10:20 Respiratory Rate 18 06/18/18 10:20 Blood Pressure 103/55 L 06/18/18 10:20 Pulse Oximetry 94 L 06/18/18 10:20 Last Documented Vital Signs Temperature 98.2 F 06/18/18 10:20 Pulse Rate 107 H 06/18/18 11:15 Respiratory Rate 21 06/18/18 11:15 Blood Pressure 111/64 06/18/18 11:15 Pulse Oximetry 92 L 06/18/18 11:15 Medical Decision Making MDM Narrative Medical decision making narrative: 88-year-old female complains of neck and low back pain. Patient states that she fell this morning. Differential Diagnosis Differential Diagnosis: Differential diagnosis including head injury, neck injury, back injury, dehydration, electrolyte imbalance, UTI, sepsis. Lab Data Lab results reviewed: Yes I reviewed the patient's lab results. Result diagrams: 06/18/18 10:50 06/18/18 10:50 Lab Results 06/18/18 06/18/18 06/18/18 Range/Units 10:45 10:50 10:50 WBC 16.9 H (4.0-11.0) th/mm3 RBC 5.54 H (4.00-5.30) mil/mm3 Hgb 16.0 H (11.6-15.3) gm/dL Hct 48.5 H (35.0-46.0) % MCV 87.6 (80.0-100.0) fL MCH 29.0 (27.0-34.0) pg MCHC 33.1 (32.0-36.0) % RDW 15.1 (11.6-17.2) % Plt Count 252 (150-450) th/mm3 MPV 9.2 (7.0-11.0) fL Neut % (Auto) 80.2 H (16.0-70.0) % Lymph % (Auto) 9.9 (9.0-44.0) % [place] % (Auto) 8.8 H (0.0-8.0) % Eos % (Auto) 0.7 (0.0-4.0) % Baso % (Auto) 0.4 (0.0-2.0) % Neut # (Auto) 13.5 H (1.8-7.7) th/mm3 Lymph # (Auto) 1.7 (1.0-4.8) th/mm3 [place] # (Auto) 1.5 H (0.0-0.9) th/mm3 Eos # (Auto) 0.1 (0.0-0.4) th/mm3 Baso # (Auto) 0.1 (0.0-0.2) th/mm3 WBC Differential . Differential Comment Auto diff final PT 13.9 H (9.8-11.6) sec INR 1.4 Ratio Sodium (136-145) meq/L Potassium (3.5-5.1) meq/L Chloride (98-107) meq/L Carbon Dioxide (21.0-32.0) meq/L Anion Gap (5-15) meq/L BUN (7-18) mg/dL Creatinine (0.50-1.00) mg/dL Estimated GFR (>89) mL/min Random Glucose (74-106) mg/dL Calcium (8.5-10.1) mg/dL Total Bilirubin (0.2-1.0) mg/dL AST (15-37) U/L ALT (10-53) U/L Alkaline Phosphatase (45-117) U/L Total Creatine Kinase (26-192) U/L CK-MB (CK-2) (0.5-3.6) ng/mL CK-MB (CK-2) % (0.0-4.0) % Troponin I (0.02-0.05) ng/mL Total Protein (6.4-8.2) g/dL Albumin (3.4-5.0) g/dL TSH (0.358-3.740) uIU/mL Urine Color Yellow (Yellw/Straw) Urine Clarity Hazy H (Clear) Urine pH 5.0 (5.0-8.5) Ur Specific Agency 1.017 (1.002-1.035) Urine Protein Negative (Neg-Trace) mg/dL Urine Glucose (UA) Negative (Negative) mg/dL Urine Ketones Trace H (Negative) mg/dL Urine Occult Blood Negative (Negative) Urine Nitrate Negative (Negative) Urine Bilirubin Negative (Negative) Urine Urobilinogen Less than 2 (Less than 2) mg/dL Ur Leukocyte Esterase Trace H (Negative) Urine RBC Less than 1 (0-3) /hpf Urine WBC 2 (0-5) /hpf Urine Bacteria Rare H (None) /hpf Urine Mucus Few H (Occasional) /lpf Micro UA Comment Cath-culture ind Urine Culture Comments Cath-cult indicated 06/18/18 Range/Units 10:50 WBC (4.0-11.0) th/mm3 RBC (4.00-5.30) mil/mm3 Hgb (11.6-15.3) gm/dL Hct (35.0-46.0) % MCV (80.0-100.0) fL MCH (27.0-34.0) pg MCHC (32.0-36.0) % RDW (11.6-17.2) % Plt Count (150-450) th/mm3 MPV (7.0-11.0) fL Neut % (Auto) (16.0-70.0) % Lymph % (Auto) (9.0-44.0) % [place] % (Auto) (0.0-8.0) % Eos % (Auto) (0.0-4.0) % Baso % (Auto) (0.0-2.0) % Neut # (Auto) (1.8-7.7) th/mm3 Lymph # (Auto) (1.0-4.8) th/mm3 [place] # (Auto) (0.0-0.9) th/mm3 Eos # (Auto) (0.0-0.4) th/mm3 Baso # (Auto) (0.0-0.2) th/mm3 WBC Differential Differential Comment PT (9.8-11.6) sec INR Ratio Sodium 139 (136-145) meq/L Potassium 4.7 (3.5-5.1) meq/L Chloride 106 (98-107) meq/L Carbon Dioxide 22.5 (21.0-32.0) meq/L Anion Gap 11 (5-15) meq/L BUN 26 H (7-18) mg/dL Creatinine 1.55 H (0.50-1.00) mg/dL Estimated GFR 32 L (>89) mL/min Random Glucose 94 (74-106) mg/dL Calcium 9.0 (8.5-10.1) mg/dL Total Bilirubin 1.5 H (0.2-1.0) mg/dL AST 34 (15-37) U/L ALT 20 (10-53) U/L Alkaline Phosphatase 92 (45-117) U/L Total Creatine Kinase 255 H (26-192) U/L CK-MB (CK-2) 1.9 (0.5-3.6) ng/mL CK-MB (CK-2) % 0.7 (0.0-4.0) % Troponin I Less than 0.02 L (0.02-0.05) ng/mL Total Protein 7.6 D (6.4-8.2) g/dL Albumin 3.8 (3.4-5.0) g/dL TSH 2.120 (0.358-3.740) uIU/mL Urine Color (Yellw/Straw) Urine Clarity (Clear) Urine pH (5.0-8.5) Ur Specific Agency (1.002-1.035) Urine Protein (Neg-Trace) mg/dL Urine Glucose (UA) (Negative) mg/dL Urine Ketones (Negative) mg/dL Urine Occult Blood (Negative) Urine Nitrate (Negative) Urine Bilirubin (Negative) Urine Urobilinogen (Less than 2) mg/dL Ur Leukocyte Esterase (Negative) Urine RBC (0-3) /hpf Urine WBC (0-5) /hpf Urine Bacteria (None) /hpf Urine Mucus (Occasional) /lpf Micro UA Comment Urine Culture Comments Imaging Data Attestation: I personally reviewed and interpreted this imaging study as follows : Radiologist's impression: Cervical Spine CT 06/18/18 11:00 CONCLUSION: 1. No fracture or subluxation. Chest X-Ray 06/18/18 11:00 CONCLUSION: Chronic appearing interstitial changes Head CT 06/18/18 11:00 CONCLUSION: 1. No acute intracranial abnormality. . Lumbar Spine CT 06/18/18 11:00 CONCLUSION: 1. No acute bony fracture. 2. Mild grade 1 anterior spondylolisthesis of L4 over L5 and L5 over S1. 3. Disc degeneration and disc space narrowing at L5-S1. Moderate diffuse broad- based bulging with right lateral bulging at L4-5. There is some mild to moderate spinal canal stenosis at this level. 4. Diffuse broad-based bulging at L5-S1. 5. Mild broad-based bulging L2-3. Discharge Plan Discharge Disposition Patient Disposition: 30 Still Patient Discharge Details Diagnosis: Intractable back pain, Leukocytosis Physicians Team ED Provider: Oleg Che Primary Care Provider: UNKNOWN, Attending Provider: Gold Puente Status ED Status: Admitted Observation Patient
[2018-06-18 11:38] LABS: Baso # (Auto) 0.1 th/mm3 (0.0-0.2); Baso % (Auto) 0.4 % (0.0-2.0); Eos # (Auto) 0.1 th/mm3 (0.0-0.4); Eos % (Auto) 0.7 % (0.0-4.0); Hematocrit 48.5 % (35.0-46.0); Lymph # (Auto) 1.7 th/mm3 (1.0-4.8); Lymph % (Auto) 9.9 % (9.0-44.0); Mean Corpuscular HGB Conc 33.1 % (32.0-36.0); Mean Corpuscular Volume 87.6 fL (80.0-100.0); Mean Platelet Volume 9.2 fL (7.0-11.0); Mono # (Auto) 1.5 th/mm3 (0.0-0.9); Mono % (Auto) 8.8 % (0.0-8.0); Neut # (Auto) 13.5 th/mm3 (1.8-7.7); Neut % (Auto) 80.2 % (16.0-70.0); Platelet Count 252 th/mm3 (150-450); Red Blood Count 5.54 mil/mm3 (4.00-5.30); Red Cell Distribution Width 15.1 % (11.6-17.2); White Blood Count 16.9 th/mm3 (4.0-11.0)
[2018-06-18 11:49] LABS: Albumin 3.8 g/dL (3.4-5.0); Anion Gap 11 meq/L (5-15); Aspartate Aminotransferase 34 U/L (15-37); Blood Urea Nitrogen 26 mg/dL (7-18); Carbon Dioxide 22.5 meq/L (21.0-32.0); Chloride 106 meq/L (98-107); Glomerular Filtration Rate 32 mL/min (>89); Glucose,Random 94 mg/dL (74-106); Potassium 4.7 meq/L (3.5-5.1); Sodium 139 meq/L (136-145)
[2018-06-18 11:54] LABS: INR 1.4 Ratio; Prothrombin Time 13.9 sec (9.8-11.6)
[2018-06-18 11:55] LABS: Bacteria,Urine Rare /hpf; Bilirubin,Urine Negative (Negative); Clarity,Urine Hazy (Clear); Color,Urine Yellow (Yellw/Straw); Glucose,Urine (UA) Negative (Negative); Leukocyte Esterase,Urine Trace (Negative); Mucus,Urine Few /lpf (Occasional); Nitrite,Urine Negative (Negative); Specific Gravity,Urine 1.017 (1.002-1.035)
[2018-06-18 12:00] LABS: Alanine Aminotransferase 20 U/L (10-53); Alkaline Phosphatase 92 U/L (45-117); Creatine Kinase 255 U/L (26-192); Total Protein 7.6 g/dL (6.4-8.2)
--- NOTE | 2018-06-18 12:03 | XR ---
EXAM DATE: 06/18/2018 11:58 AM EDT AGE/SEX: 88 years / Female INDICATIONS: Trauma, Chest Pain CLINICAL DATA: This is the patient's initial encounter. Patient reports that signs and symptoms have been present for 1 day and indicates a pain score of 3/10. MEDICAL/SURGICAL HISTORY: . Cerebrovascular disease. Hyperparathyroidism. . Appendectomy. C holecystectomy. COMPARISON: [facility] [place], CHEST 1V SINGLE AP, 06/11/2018. [facility] [place], CT PULMONARY ANGIOGRAM, 11/06/2017. . FINDINGS: A single AP view of the chest demonstrates chronic interstitial changes. N. The cardiomediastinal co ntours are unremarkable. Osseous structures are intact. CONCLUSION: Chronic appearing interstitial changes Electronically signed by: Jerome Mueller MD 06/18/2018 12:02 PM EDT
[2018-06-18 12:12] LABS: CKMB Percent 0.7 % (0.0-4.0); Creatine Kinase MB 1.9 ng/mL (0.5-3.6)
--- NOTE | 2018-06-18 12:37 | CT ---
EXAM DATE: 06/18/2018 12:31 PM EDT AGE/SEX: 88 years / Female INDICATIONS: Trauma, fall. CLINICAL DATA: This is the patient's initial encounter. Patient reports that signs and symptoms have been present for 1 day and indicates a pain score of 7/10. MEDICAL/SURGICAL HISTORY: None. . pituitary gland removed RADIATION DOSE: 66.34 CTDI (mGy) COMPARISON: [facility] [place] BRAIN W/O CONTRAST, 02/11/2018. . TECHNIQUE: CT of the head without contrast. Using automated exposure control and adjustment of the mA and/or kV according to patient size, radiation dose was kept as low as reasonably achievable to ob tain optimal diagnostic quality images. DICOM format image data is available electronically for revi ew and comparison. FINDINGS: Cerebrum: The ventricles are normal for age. No evidence of midline shift, mass lesion, hemorrhage or acute infarction. No extraaxial fluid collections are seen. Posterior Fossa: The cerebellum and brainstem are intact. The 4th ventricle is midline. The cerebe llopontine angle is unremarkable. Extracranial: The visualized portion of the orbits is intact. Skull: The calvaria is intact. No evidence of skull fracture. CONCLUSION: 1. No acute intracranial abnormality. . Electronically signed by: Jerome Mueller MD 06/18/2018 12:35 PM EDT
--- NOTE | 2018-06-18 12:52 | CT ---
EXAM DATE: 06/18/2018 12:43 PM EDT AGE/SEX: 88 years / Female INDICATIONS: Trauma, fall. CLINICAL DATA: This is the patient's initial encounter. Patient reports that signs and symptoms have been present for 1 day and indicates a pain score of 7/10. MEDICAL/SURGICAL HISTORY: None. . pituitary gland removed RADIATION DOSE: 22.16 CTDI (mGy) COMPARISON: [facility] [place], CT CERVICAL SPINE W/O CONTRAST, 02/11/2018. . TECHNIQUE: Contiguous axial images were obtained using helical multirow detector technique. The vol umetric data was post-processed with multiplanar reconstruction in oblique axial, sagittal, and coron al planes. Using automated exposure control and adjustment of the mA and/or kV according to patient s ize, radiation dose was kept as low as reasonably achievable to obtain optimal diagnostic quality margie ges. DICOM format image data is available electronically for review and comparison. FINDINGS: Vertebrae: Normal vertebral body height. Scattered degenerative changes Alignment: Normal. No subluxation. C2-3: The bony spinal canal is normal in size. No evidence of disc bulge or herniation. The neural foramina are bilaterally patent. C3-4: The bony spinal canal is normal in size. No evidence of disc bulge or herniation. The neural foramina are bilaterally patent. C4-5: Small posterior disc osteophyte complex and mild neural foraminal narrowing. No canal stenosis . C5-6: Small posterior disc osteophyte complex and mild neural foraminal narrowing. No canal stenosis C6-7: The bony spinal canal is normal in size. No evidence of disc bulge or herniation. The neural foramina are bilaterally patent. C7-T1: The bony spinal canal is normal in size. No evidence of disc bulge or herniation. The neura l foramina are bilaterally patent. CONCLUSION: 1. No fracture or subluxation. Electronically signed by: Jerome Mueller MD 06/18/2018 12:50 PM EDT
--- NOTE | 2018-06-18 13:43 | CT ---
EXAM DATE: 06/18/2018 1:02 PM EDT AGE/SEX: 88 years / Female INDICATIONS: Trauma, fall. CLINICAL DATA: This is the patient's initial encounter. Patient reports that signs and symptoms have been present for 1 day and indicates a pain score of 7/10. MEDICAL/SURGICAL HISTORY: None. Appendectomy. RADIATION DOSE: 18.7 CTDI (mGy) COMPARISON: No prior exams available for comparison. TECHNIQUE: Contiguous axial images were acquired with a multirow detector CT scanner without contras t. Multiplanar reconstructions in the sagittal and coronal plane were also performed. Using automate d exposure control and adjustment of the mA and/or kV according to patient size, radiation dose was k ept as low as reasonably achievable to obtain optimal diagnostic quality images. DICOM format image data is available electronically for review and comparison. FINDINGS: Vertebrae: The bony structures are grossly intact. No compression fracture injuries are demonstrated . There is mild grade 1 anterior spondylolisthesis of L4 over L5 and L5 over S1. There is disc degene ration with disc space narrowing at L5-S1. There is mild curvature of the lumbar spine to the left. T here is evidence of previous kyphoplasty at T11. Alignment: Normal. No subluxation. T12-L1: The thecal sac has a normal diameter. No evidence of disc bulge or protrusion. The neural foramina are patent bilaterally. L1-L2: The thecal sac has a normal diameter. No evidence of disc bulge or protrusion. The neural f oramina are patent bilaterally. L2-L3: Mild broad-based bulging. Mild narrowing of the neural foramina. There is bilateral facet art hritis. L3-L4: The thecal sac has a normal diameter. No evidence of disc bulge or protrusion. The neural f oramina are patent bilaterally. Bilateral facet arthritis. L4-L5: Moderate diffuse broad-based bulging and right lateral bulging with narrowing of the right ne ural foramina. The left neural foramina appears patent. There is bilateral facet arthritis and hypert rophy ligamentum flavum creating some mild to moderate spinal canal stenosis. L5-S1: Diffuse broad-based bulging with some narrowing of the neural foramina bilaterally. There is bilateral facet arthritis. No significant spinal canal stenosis. CONCLUSION: 1. No acute bony fracture. 2. Mild grade 1 anterior spondylolisthesis of L4 over L5 and L5 over S1. 3. Disc degeneration and disc space narrowing at L5-S1. Moderate diffuse broad-based bulging with ri ght lateral bulging at L4-5. There is some mild to moderate spinal canal stenosis at this level. 4. Diffuse broad-based bulging at L5-S1. 5. Mild broad-based bulging L2-3. Electronically signed by: Josh Au MD 06/18/2018 1:41 PM EDT
[2018-06-18] MEDS ORDERED: Temazepam 15 MG Capsule PO PRN (15:28)
[2018-06-18] MEDS ORDERED: Acetaminophen 325 MG Tablet PO PRN ×2 (15:28→16:48)
--- NOTE | 2018-06-18 15:45 | P.HPIM ---
History of Present Illness Primary Care Physician: Trini Mejia Chief Complaint: Falls, back pain History of Present Illness: Ms. Christiansen is an 88 y/o female with HTN, GERD, CKD stage 3, and sciatica who presented to the ED at [facility] [place] with complaints of neck pain and low back pain. Per the ED physicians noted the pt reportedly fell this morning and was lying on the floor and yelling for help when her neighbor called EMS. Patient was reportedly found down in her own feces according to report from the ED physician. She states that she slipped and fell in the bathroom. She denies any LOC. She was brought to ED for further evaluation with complaints of neck and back pain. She states that she was able to walk without difficulty prior to her fall this morning. She had a Lumbar Spine CT in the ED which was negative for any acute bony fracture, but did note mild grade 1 anterior spondylolisthesis of L4 over L5 and L5 over S1, disc degeneration and disc space narrowing at L5-S1, moderate diffuse broad-based bulging with right lateral bulging at L4-5 with some mild to moderate spinal canal stenosis at this level, diffuse broad-based bulging at L5-S1, and mild broad-based bulging at L2-3. Cervical spine CT was negative for any fractures or subluxation. Pts labs in the ED noted WBC count 16.9, Hgb 16/Hct 48.5, Cr 1.55, BUN 26, Tbili 1.5. Her UA was abnormal and culture is pending. Patient denies any fever/ chills. Patient denies any dysuria, urgency or frequency. The patient denies any headache, visual change, chest pain, SOB, nausea/vomiting, abd pain, focal weakness or numbness of the extremity. Patient complains of sharp pain localized to her neck and low back area. Patient states that she has intermittent diarrhea for the past several days. 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 Sciatica Sarcoidosis GERD CKD, stage 3 Polymyalgia Rheumatica Asthma Past Surgical History Appendectomy Cholecystectomy Hysterectomy Pituitary adenoma removal Left hip replacement Tonsillectomy Hemorrhoidectomy Reported Medications -Omeprazole 20 Mg PO DAILY -Paxil 5 Mg PO DAILY -Aspirin 81 Mg CHEW DAILY -Ventolin HFA 90mcg 2 puffs QID PRN -Calcium with Vitamin D 600mg-400IU 2 tablets PO daily -Hydrocortisone 10 Mg PO in AM and 5 Mg in PM ?Zofran Odt 4 Mg SL Q12HR PRN ?Qc Milk of Magnesia 30 Ml PO Q12H PRN ?Flexeril 5 Mg PO DAILY PRN ?Cartia Xt 120 Mg PO DAILY ?Miralax Powder (Polyethylene Glycol 3350 Powder) 17 Gm Powd 17 Gm PO HS Family History Maternal medical history significant for PR at the age of 67. Father had Alzheimer disease. Social History Denies any current tobacco use. Denies any alcohol use. Denies any illicit drug use. Pt reports that she lives at [facility] - Diagnosis (1) Intractable back pain (2) Falls (3) HTN (hypertension) (4) GERD (gastroesophageal reflux disease) (5) Dehydration Review of Systems All other systems reviewed negative except as stated in HPI Constitutional: Denies chills, Denies fever(s) Eyes: Denies change in vision, Denies double vision Ears, Nose, Mouth, and Throat: Denies difficulty swallowing, Denies dizziness Cardiovascular: Denies chest pain, Denies rapid, pounding, or irregular heartbeat, Denies shortness of breath Respiratory: Denies chest congestion, Denies cough Gastrointestinal: Denies abdominal pain, Denies nausea, Denies vomiting Genitourinary: Denies urinary incontinence, Denies urinary urgency Musculoskeletal: Reports back pain, Reports neck pain Skin/Breast: Denies rash Neurologic: Reports frequent falls PMFSH - History History Provided By: Patient, Fun House Attendant / EMT - Medical History Medical History: Medical History (Last Reviewed 06/18/18 @ 11:07 by Oleg Che MD) Gustavo's disease - Surgical History Surgical History: Surgical History (Last Reviewed 06/18/18 @ 11:07 by Oleg Che MD) History of hip surgery History of surgical removal of pituitary gland Hx of appendectomy - Tobacco History Second Hand Smoke Exposure: No Tobacco Use In Past 30 Days: No Smoking Status: Never smoker - Alcohol History How Often Do You Have a Drink Containing Alcohol: Never - Substance Use History Substance History: No History of Abuse - Travel History Recent Travel in the [place] Within the Last 8 Weeks: No Recent Travel Out of the Country Within the Last 8 Weeks: No - Immunization History Tetanus Immunization: Unsure Hx Influenza Vaccine This Season: No Medications and Allergies Active Medications: Active Medications Acetaminophen (Tylenol) 650 mg PO Q4H PRN PRN Reason: Temp > 100.4 Al Hydroxide/Mg Hydroxide (Milk Of Alie Gandhi) 30 ml PO Q12H PRN PRN Reason: Mild Constipation Sodium Chloride (Ns Inj) 1,000 mls @ 84 mls/hr IV.CONT .[id number] SHEN Senna/Docusate Sodium (Rosa-Colace) 1 tab PO BID SHEN Temazepam (Restoril) 15 mg PO HS PRN PRN Reason: INSOMNIA Allergies Allergy/AdvReac Type Severity Reaction Status Date / Time No Known Allergies Allergy Verified 06/18/18 10:51 Home Medications Medication Instructions Recorded Confirmed Type albuterol sulfate [Ventolin HFA] 2 puff INHALATION Q6H PRN 06/18/18 06/18/18 History aspirin 81 mg PO DAILY 06/18/18 06/18/18 History calcium carbonate-vitamin D3 1 tab PO DAILY 06/18/18 06/18/18 History [Calcium with Vitamin D] hydrocortisone 5 mg PO HS 06/18/18 06/18/18 History hydrocortisone 10 mg PO DAILY 06/18/18 06/18/18 History omeprazole 20 mg PO DAILY 06/18/18 06/18/18 History paroxetine HCl [Paxil] 5 mg PO DAILY 06/18/18 06/18/18 History Exam Vital signs: Vital Signs 06/18/18 10:20 06/18/18 10:51 06/18/18 11:15 Temperature 98.2 F Pulse Rate 102 H 106 H 107 H Respiratory Rate 18 20 21 Blood Pressure 103/55 L 103/57 L 111/64 Pulse Oximetry 94 L 92 L Intake & Output 06/17/18 06/18/18 06/18/18 18:59 06:59 18:59 Intake Total 1000 / 1000 Balance 1000 / 1000 Weight 60 kg Intake: IV 1000 / 1000 NS Inj 1,000 ML @ Wide Open IV. 1000 / 1000 SIG BOLUS ONE Rx#:[id number] Narrative: GENERAL: NAD, awake and alert SKIN: Warm and dry. No notes spin tears, hematomas, or bruising HEENT: Atraumatic. Normocephalic. Pupils equal and round. No scleral icterus. No injection or drainage. No nasal bleeding or discharge. Mucous membranes pink and moist. NECK: Trachea midline. No JVD. CARDIO: Regular. RESP: No accessory muscle use. Clear to auscultation. Breath sounds equal bilaterally. ABD: Abdomen soft, non-tender, nondistended. Hepatic and splenic margins not palpable. EXT: Extremities without clubbing, cyanosis, or edema. No obvious deformities. Tenderness of the paraspinous muscles in the lumbar area bilaterally NEURO: Awake and alert. Motor grossly within normal limits. Five out of 5 muscle strength in the arms and legs. Normal speech. PSYCHIATRIC: Appropriate mood and affect; insight and judgment normal. Results - Labs CBC & Chem 7: 06/18/18 10:50 06/18/18 10:50 Labs: Short CBC 06/18/18 Range/Units 10:50 WBC 16.9 H (4.0-11.0) th/mm3 Hgb 16.0 H (11.6-15.3) gm/dL Hct 48.5 H (35.0-46.0) % Plt Count 252 (150-450) th/mm3 BMP 06/18/18 10:50 Sodium 139 Potassium 4.7 Chloride 106 Carbon Dioxide 22.5 BUN 26 H Creatinine 1.55 H Calcium 9.0 Cardiac Enzymes 06/18/18 Range/Units 10:50 Total Creatine Kinase 255 H (26-192) U/L CK-MB (CK-2) 1.9 (0.5-3.6) ng/mL Troponin I Less than 0.02 L (0.02-0.05) ng/mL Liver Function 06/18/18 Range/Units 10:50 Total Bilirubin 1.5 H (0.2-1.0) mg/dL AST 34 (15-37) U/L ALT 20 (10-53) U/L Alkaline Phosphatase 92 (45-117) U/L Albumin 3.8 (3.4-5.0) g/dL Urine 06/18/18 Range/Units 10:45 Urine Color Yellow (Yellw/Straw) Urine Clarity Hazy H (Clear) Urine pH 5.0 (5.0-8.5) Ur Specific [place] 1.017 (1.002-1.035) Urine Protein Negative (Neg-Trace) mg/dL Urine Glucose (UA) Negative (Negative) mg/dL - Imaging Impressions Cervical Spine CT 06/18/18 11:00 CONCLUSION: 1. No fracture or subluxation. Chest X-Ray 06/18/18 11:00 CONCLUSION: Chronic appearing interstitial changes Head CT 06/18/18 11:00 CONCLUSION: 1. No acute intracranial abnormality. Lumbar Spine CT 06/18/18 11:00 CONCLUSION: 1. No acute bony fracture. 2. Mild grade 1 anterior spondylolisthesis of L4 over L5 and L5 over S1. 3. Disc degeneration and disc space narrowing at L5-S1. Moderate diffuse broad- based bulging with right lateral bulging at L4-5. There is some mild to moderate spinal canal stenosis at this level. 4. Diffuse broad-based bulging at L5-S1. 5. Mild broad-based bulging L2-3. Caprini VTE Risk Assessment Caprini VTE Risk Assessment: Moderate/High Risk (score >= 2) Caprini Risk Assessment Model: Point Value = 1 Point Value = 2 Point Value = 3 Point Value = 5 Age 41-60 Minor surgery BMI > 25 kg/m2 Swollen legs Varicose veins or History of unexplained or recurrent spontaneous Oral contraceptives or hormone replacement Sepsis (< 1 month) Serious lung disease, including pneumonia (< 1 month) Abnormal pulmonary function Acute myocardial infarction Congestive heart failure (< 1 month) History of inflammatory bowel disease Medical patient at bed rest Age 61-74 Arthroscopic surgery Major open surgery (> 45 min) Laparoscopic surgery (> 45 min) Malignancy Confined to bed (> 72 hours) Immobilizing plaster cast Central venous access Age >= 75 History of VTE Family history of VTE Factor V Leiden Prothrombin [id number] Lupus anticoagulant Anticardiolipin antibodies Elevated serum homocysteine Heparin-induced thrombocytopenia Other congenital or acquired thrombophilia Stroke (< 1 month) Elective arthroplasty Hip, pelvis, or leg fracture Acute spinal cord injury (< 1 month) Prophylaxis Regimen: Total Risk Factor Score Risk Level Prophylaxis Regimen 0-1 Low Early ambulation 2 Moderate Order ONE of the following: *Sequential Compression Device (SCD) *Heparin 5000 units SQ BID 3-4 Higher Order ONE of the following medications: *Heparin 5000 units SQ TID *Enoxaparin/Lovenox 40 mg SQ daily (WT < 150 kg, CrCl > 30 mL/min) *Enoxaparin/Lovenox 30 mg SQ daily (WT < 150 kg, CrCl > 10-29 mL/min) *Enoxaparin/Lovenox 30 mg SQ BID (WT < 150 kg, CrCl > 30 mL/min) AND/OR *Sequential Compression Device (SCD) 5 or more Highest Order ONE of the following medications: *Heparin 5000 units SQ TID (Preferred with Epidurals) *Enoxaparin/Lovenox 40 mg SQ daily (WT < 150 kg, CrCl > 30 mL/min) *Enoxaparin/Lovenox 30 mg SQ daily (WT < 150 kg, CrCl > 10-29 mL/min) *Enoxaparin/Lovenox 30 mg SQ BID (WT < 150 kg, CrCl > 30 mL/min) AND *Sequential Compression Device (SCD) Assessment and Plan - Assessment (1) Intractable back pain Code(s): M54.9 - Dorsalgia, unspecified Status: Acute Plan: Intractable back pain Falls Dehydration Diarrhea - Pt is an 88 y/o female with HTN, GERD, CKD stage 3, and sciatica who presented to the ED at [facility] [place] on 06/18/[place] with complaints of neck pain and low back pain. - Per the ED physicians noted the pt reportedly fell this morning and was lying on the floor and yelling for help when her neighbor called EMS. Patient was reportedly found down in her own feces and was brought to ED for further evaluation. - Lumbar Spine CT (06/18/18): - Negative for any acute bony fracture - Mild grade 1 anterior spondylolisthesis of L4 over L5 and L5 over S1 - Disc degeneration and disc space narrowing at L5-S1 - Moderate diffuse broad-based bulging with right lateral bulging at L4-5 with some mild to moderate spinal canal stenosis at this level - Diffuse broad-based bulging at L5-S1, and mild broad-based bulging at L2- 3. - Cervical spine CT (06/18/18) - Negative for any fractures or subluxation. - Pts labs in the ED noted WBC count 16.9, Hgb 16/Hct 48.5, Cr 1.55, BUN 26, Tbili 1.5. Labs are likely consistent with more dehydration - Her UA was abnormal and culture is pending. - Pt was given a bolus of NS in the ED. We will continued with NS @ 84mL/hr - Encourage oral intake - Pain control with Pinon 5/325 Q4H PRN - PT evaluation in AM - Pt may need placement at SNF at the end of this hospitalization - Repeat labs in AM - Check KUB today - Check stool for C. diff - Supportive care HTN - Pts BP is low/normal in the ED - Monitor closely - Clonidine PRN - Pt noted to be tachycardic, which may be related to more dehydration, monitor HR on telemetry GERD - PPI (2) Falls Code(s): W19.XXXA - Unspecified fall, initial encounter Status: Acute (3) HTN (hypertension) Code(s): I10 - Essential (primary) hypertension Status: Acute (4) GERD (gastroesophageal reflux disease) Code(s): K21.9 - Gastro-esophageal reflux disease without esophagitis Status: Acute (5) Dehydration Code(s): E86.0 - Dehydration Status: Acute
[2018-06-18] MEDS: Sod Chloride 0.9% Inj 1,000 ML IV.CONT SCH ×2 (18:14)
--- NOTE | 2018-06-18 20:28 | XR ---
EXAM DATE: 06/18/2018 8:12 PM EDT AGE/SEX: 88 years / Female INDICATIONS: Abdominal pain. CLINICAL DATA: This is the patient's initial encounter. Patient reports that signs and symptoms have been present for 2 days and indicates a pain score of 6/10. MEDICAL/SURGICAL HISTORY: None. Cholecystectomy. Hysterectomy. Appendectomy. COMPARISON: No prior exams available for comparison. FINDINGS: The abdominal bowel gas pattern is normal. No abnormal masses, calcifications, or organomegaly is s een. The osseous structures are unremarkable. CONCLUSION: Nonspecific, nonobstructive bowel gas pattern. Electronically signed by: Lenny Taylor MD 06/18/2018 8:27 PM EDT
[2018-06-18] MEDS: Senna/Docusate Sodium 8.6/50 MG Tablet PO SCH (20:33)
[2018-06-18] MEDS: Hydrocortisone 10 MG Tablet PO SCH (20:34)
[2018-06-18 23:41] VITALS: RESP 16
[2018-06-19] MEDS: Sod Chloride 0.9% Inj 1,000 ML IV.CONT SCH ×4 (03:12→17:24)
--- NOTE | 2018-06-19 07:56 | P.PNIM ---
Subjective Interval history: Pt is confused She is sitting on bedside commode having a BM which is loose. Back pain is relatively unchanged. Physical Exam Vital signs: Vital Signs 06/18/18 10:20 06/18/18 10:51 06/18/18 11:15 Temperature 98.2 F Pulse Rate 102 H 106 H 107 H Respiratory Rate 18 20 21 Blood Pressure 103/55 L 103/57 L 111/64 Pulse Oximetry 94 L 92 L 06/18/18 15:28 06/18/18 18:03 06/18/18 18:34 Temperature 97.8 F Pulse Rate 105 H 98 H Respiratory Rate 18 16 18 Blood Pressure 110/60 113/63 Pulse Oximetry 95 06/18/18 19:26 06/18/18 23:40 06/19/18 03:15 Temperature 97.9 F 97.9 F 98.2 F Pulse Rate 96 H 92 H 92 H Respiratory Rate 17 16 16 Blood Pressure 110/64 108/62 104/60 Pulse Oximetry 96 96 97 06/19/18 07:45 Temperature 98.9 F Pulse Rate 97 H Respiratory Rate 16 Blood Pressure 109/57 L Pulse Oximetry 97 Intake & Output 06/18/18 06/19/18 06/19/18 18:59 06:59 18:59 Intake Total 1000 / 1000 1000 / 1000 Balance 1000 / 1000 1000 / 1000 Weight 60 kg Intake: IV 1000 / 1000 1000 / 1000 NS Inj 1,000 ML @ 84 mls/hr IV. 1000 / 1000 CONT .[id number] SHEN Rx#:[id number] NS Inj 1,000 ML @ Wide Open IV. 1000 / 1000 SIG BOLUS ONE Rx#:[id number] Other: # Voids 3 Date of Last Bowel Movement 06/15/18 Narrative: GENERAL: NAD, Awake and alert SKIN: Warm and dry. CARDIO: Regular RESP: Breath sounds equal bilaterally. No accessory muscle use. ABD: Abdomen soft, non-tender, nondistended. EXT: No cyanosis, or edema. BACK: Nontender without obvious deformity. Results - Labs CBC & Chem 7: 06/18/18 10:50 06/18/18 10:50 Laboratory Results - last 24 hr 06/18/18 06/18/18 06/18/18 10:45 10:50 10:50 WBC 16.9 H RBC 5.54 H Hgb 16.0 H Hct 48.5 H MCV 87.6 MCH 29.0 MCHC 33.1 RDW 15.1 Plt Count 252 MPV 9.2 Neut % (Auto) 80.2 H Lymph % (Auto) 9.9 [place] % (Auto) 8.8 H Eos % (Auto) 0.7 Baso % (Auto) 0.4 Neut # (Auto) 13.5 H Lymph # (Auto) 1.7 [place] # (Auto) 1.5 H Eos # (Auto) 0.1 Baso # (Auto) 0.1 WBC Differential . Differential Comment Auto diff final PT 13.9 H INR 1.4 Sodium Potassium Chloride Carbon Dioxide Anion Gap BUN Creatinine Estimated GFR Random Glucose Calcium Total Bilirubin AST ALT Alkaline Phosphatase Total Creatine Kinase CK-MB (CK-2) CK-MB (CK-2) % Troponin I Total Protein Albumin TSH Urine Color Yellow Urine Clarity Hazy H Urine pH 5.0 Ur Specific [place] 1.017 Urine Protein Negative Urine Glucose (UA) Negative Urine Ketones Trace H Urine Occult Blood Negative Urine Nitrate Negative Urine Bilirubin Negative Urine Urobilinogen Less than 2 Ur Leukocyte Esterase Trace H Urine RBC Less than 1 Urine WBC 2 Urine Bacteria Rare H Urine Mucus Few H Micro UA Comment Cath-culture ind Urine Culture Comments Cath-cult indicated 06/18/18 10:50 WBC RBC Hgb Hct MCV MCH MCHC RDW Plt Count MPV Neut % (Auto) Lymph % (Auto) [place] % (Auto) Eos % (Auto) Baso % (Auto) Neut # (Auto) Lymph # (Auto) [place] # (Auto) Eos # (Auto) Baso # (Auto) WBC Differential Differential Comment PT INR Sodium 139 Potassium 4.7 Chloride 106 Carbon Dioxide 22.5 Anion Gap 11 BUN 26 H Creatinine 1.55 H Estimated GFR 32 L Random Glucose 94 Calcium 9.0 Total Bilirubin 1.5 H AST 34 ALT 20 Alkaline Phosphatase 92 Total Creatine Kinase 255 H CK-MB (CK-2) 1.9 CK-MB (CK-2) % 0.7 Troponin I Less than 0.02 L Total Protein 7.6 D Albumin 3.8 TSH 2.120 Urine Color Urine Clarity Urine pH Ur Specific [place] Urine Protein Urine Glucose (UA) Urine Ketones Urine Occult Blood Urine Nitrate Urine Bilirubin Urine Urobilinogen Ur Leukocyte Esterase Urine RBC Urine WBC Urine Bacteria Urine Mucus Micro UA Comment Urine Culture Comments - Imaging Impressions Abdomen X-Ray 06/18/18 00:00 CONCLUSION: Nonspecific, nonobstructive bowel gas pattern. Cervical Spine CT 06/18/18 11:00 CONCLUSION: 1. No fracture or subluxation. Chest X-Ray 06/18/18 11:00 CONCLUSION: Chronic appearing interstitial changes Head CT 06/18/18 11:00 CONCLUSION: 1. No acute intracranial abnormality. . Lumbar Spine CT 06/18/18 11:00 CONCLUSION: 1. No acute bony fracture. 2. Mild grade 1 anterior spondylolisthesis of L4 over L5 and L5 over S1. 3. Disc degeneration and disc space narrowing at L5-S1. Moderate diffuse broad- based bulging with right lateral bulging at L4-5. There is some mild to moderate spinal canal stenosis at this level. 4. Diffuse broad-based bulging at L5-S1. 5. Mild broad-based bulging L2-3. Assessment and Plan - Assessment (1) Intractable back pain Code(s): M54.9 - Dorsalgia, unspecified Status: Inactive Plan: Intractable back pain Falls Dehydration Diarrhea - Pt is an 88 y/o female with HTN, GERD, CKD stage 3, and sciatica who presented to the ED [place] [facility] [place] with complaints of neck pain and low back pain. - Per the ED physicians noted the pt reportedly fell this morning and was lying on the floor and yelling for help when her neighbor called EMS. Patient was reportedly found down in her own feces and was brought to ED for further evaluation. - Lumbar Spine CT (06/18/18): - Negative for any acute bony fracture - Mild grade 1 anterior spondylolisthesis of L4 over L5 and L5 over S1 - Disc degeneration and disc space narrowing at L5-S1 - Moderate diffuse broad-based bulging with right lateral bulging at L4-5 with some mild to moderate spinal canal stenosis at this level - Diffuse broad-based bulging at L5-S1, and mild broad-based bulging at L2- 3. - Cervical spine CT (06/18/18) - Negative for any fractures or subluxation. - Pts labs in the ED noted WBC count 16.9, Hgb 16/Hct 48.5, Cr 1.55, BUN 26, Tbili 1.5. Labs are likely consistent with more dehydration - Her UA was abnormal and culture is pending. - Pt was given a bolus of NS in the ED. - Continue with NS @ 84mL/hr - Encourage oral intake - Pain control with [place] 5/325 Q4H PRN - PT evaluation - Pt may need placement at SNF at the end of this hospitalization - Awaiting repeat labs this AM - KUB (06/18/18) --> Nonobstructive bowel gas pattern. - Stool for C. diff ordered but has not been sent yet. - Supportive care HTN - Pts BP is low/normal in the ED - Monitor closely - Clonidine PRN - Pt noted to be tachycardic, which may be related to more dehydration, monitor HR on telemetry GERD - PPI (2) Falls Code(s): W19.XXXA - Unspecified fall, initial encounter Status: Acute (3) HTN (hypertension) Code(s): I10 - Essential (primary) hypertension Status: Acute (4) GERD (gastroesophageal reflux disease) Code(s): K21.9 - Gastro-esophageal reflux disease without esophagitis Status: Acute (5) Dehydration Code(s): E86.0 - Dehydration Status: Acute
--- NOTE | 2018-06-19 08:39 | ECG ---
Date Performed: 06/18/2018 Time Performed: 10:29:51 PTAGE: 88 years EKG: ATRIAL FLUTTER/TACHYCARDIA WITH RAPID VENTRICULAR RESPONSE MARKED LEFT AXIS DEVIATION INCOM PLETE RIGHT BUNDLE BRANCH BLOCK ABNORMAL ECG WARNING: DATA QUALITY MAY AFFECT INTERPRETATION PREVIOUS TRACING : 06/11/2018 12.19 DOCTOR: Rishabh Lewis Interpretating Date/Time 06/19/2018 08:31:55
[2018-06-19] MEDS: Senna/Docusate Sodium 8.6/50 MG Tablet PO SCH ×2 (08:56→22:01)
[2018-06-19] MEDS: Pantoprazole Sodium 20 MG DR Tablet PO SCH (08:57)
[2018-06-19] MEDS: Hydrocortisone 10 MG Tablet PO SCH ×2 (08:58→22:01)
[2018-06-19 15:45] LABS: Baso % (Auto) 0.2 % (0.0-2.0); Eos # (Auto) 0.2 th/mm3 (0.0-0.4); Eos % (Auto) 1.9 % (0.0-4.0); Hematocrit 38.5 % (35.0-46.0); Hemoglobin 13.1 gm/dL (11.6-15.3); Lymph # (Auto) 0.7 th/mm3 (1.0-4.8); Lymph % (Auto) 7.8 % (9.0-44.0); Mean Corpuscular HGB Conc 34.1 % (32.0-36.0); Mean Corpuscular Hemoglobin 29.2 pg (27.0-34.0); Mean Corpuscular Volume 85.7 fL (80.0-100.0); Mean Platelet Volume 9.4 fL (7.0-11.0); Mono # (Auto) 0.6 th/mm3 (0.0-0.9); Mono % (Auto) 5.9 % (0.0-8.0); Neut # (Auto) 7.9 th/mm3 (1.8-7.7); Neut % (Auto) 84.2 % (16.0-70.0); Platelet Count 155 th/mm3 (150-450); White Blood Count 9.4 th/mm3 (4.0-11.0)
[2018-06-19 16:25] LABS: Calcium 7.8 mg/dL (8.5-10.1); Carbon Dioxide 19.1 meq/L (21.0-32.0); Magnesium 1.8 mg/dL (1.5-2.5); Potassium 3.8 meq/L (3.5-5.1)
[2018-06-19] MEDS ORDERED: Diatrizoate Meglum/Diatrizoate Sod Liq 9 ML UDC PO ONE (17:00)
--- NOTE | 2018-06-19 21:06 | CT ---
EXAM DATE: 06/19/2018 8:34 PM EDT AGE/SEX: 88 years / Female INDICATIONS: Abdomen pain with constipation. CLINICAL DATA: This is the patient's initial encounter. Patient reports that signs and symptoms have been present for 1 day and indicates a pain score of 6/10. MEDICAL/SURGICAL HISTORY: Hypertension. Gastroesophageal reflux disease. Cholecystectomy. Kyp hoplasty. Appendectomy. Bilateral hip replacements RADIATION DOSE: 7.53 CTDI (mGy) [place] [facility] [place] 04/17/2018. . TECHNIQUE: Multiple contiguous axial images were obtained through the abdomen. Images were obtained using multiple row detector helical technique. Using automated exposure control and adjustment of the mA and/or kV according to patient size, radiation dose was kept as low as reasonably achievable to o btain optimal diagnostic quality images. DICOM format image data is available electronically for rev iew and comparison. FINDINGS: Lower Lungs: Patchy opacity at the lung bases bilaterally indicating atelectasis. Liver: Cholecystectomy clips in the gallbladder fossa. Liver within normal limits. Spleen: Homogeneous density without enlargement. Pancreas: Unremarkable without mass or calcification. Kidneys: Normal in size and shape. No evidence of mass or hydronephrosis. Adrenal Glands: Unremarkable. Aorta: Diffuse aortic calcification. Aortic diameter within normal limits. Bowel/Mesentery: Possible circumferential rectal wall thickening Multiple colonic diverticula. No ev idence of acute diverticulitis. No evidence of bowel dilatation. No free air or free fluid. Appendix not identified. Abdominal Wall: Intact. Retroperitoneum: No evidence of adenopathy in the retrocrural, para-aortic, or deep pelvic regions. Bladder: Distended. Reproductive Organs: No abnormal masses or calcifications seen. Inguinal: The inguinal region is unremarkable without evidence of adenopathy. Bony Structures: Degenerative findings of lumbar spine. Grade 1 anterolisthesis L4 on L5. Prior vert ebroplasty of the lower thoracic spine. CONCLUSION: 1. Circumferential wall thickening of the rectum suggesting inflammatory change. 2. Status post cholecystectomy. 3. Diffuse atherosclerotic disease. 4. Patchy atelectasis at the lung bases. Electronically signed by: Fernando Cool MD 06/19/2018 9:05 PM EDT
[2018-06-20] MEDS: Sod Chloride 0.9% Inj 1,000 ML IV.CONT SCH ×2 (05:21→06:30)
[2018-06-20 06:51] LABS: Calcium 7.6 mg/dL (8.5-10.1); Carbon Dioxide 20.8 meq/L (21.0-32.0); Potassium 4.1 meq/L (3.5-5.1)
[2018-06-20] MEDS: Hydrocortisone 10 MG Tablet PO SCH (08:30)
[2018-06-20] MEDS: Pantoprazole Sodium 20 MG DR Tablet PO SCH (08:32)
[2018-06-20] MEDS: Senna/Docusate Sodium 8.6/50 MG Tablet PO SCH (08:32)
--- NOTE | 2018-06-20 08:50 | P.PNIM ---
Subjective Interval history: Patient resting in bed c/o leaking IV site Offers no other complaints at this time Oriented to person and place Physical Exam Vital signs: Vital Signs 06/19/18 12:00 Temperature 98 F Pulse Rate 91 H Respiratory Rate 16 Blood Pressure 133/62 Pulse Oximetry 95 Intake & Output 06/19/18 06/20/18 06/20/18 18:59 06:59 18:59 Intake Total 1500 / 1500 1000 / 1000 Output Total 420 / 420 Balance 1080 / 1080 1000 / 1000 Intake: IV 1000 / 1000 1000 / 1000 NS Inj 1,000 ML @ 84 mls/hr IV. 1000 / 1000 1000 / 1000 CONT .[id number] SHEN Rx#:[id number] Oral 500 / 500 Output: Urine 300 / 300 Stool 120 / 120 Other: # Voids 2 # Incontinent Voids 0 Date of Last Bowel Movement 06/19/18 06/19/18 # Bowel Movements 2 # Incontinent Bowel Movements 1 Narrative: GENERAL: NAD, Awake and alert SKIN: Warm and dry. CARDIO: Regular RESP: Breath sounds equal bilaterally. No accessory muscle use. ABD: Abdomen soft, non-tender, nondistended. EXT: No cyanosis, or edema. BACK: Nontender without obvious deformity. Results - Labs CBC & Chem 7: 06/19/18 14:24 06/20/18 05:45 Laboratory Results - last 24 hr 06/19/18 06/19/18 06/19/18 11:15 14:24 14:24 WBC 9.4 RBC 4.50 Hgb 13.1 D Hct 38.5 MCV 85.7 MCH 29.2 MCHC 34.1 RDW 15.0 Plt Count 155 D MPV 9.4 Neut % (Auto) 84.2 H Lymph % (Auto) 7.8 L [place] % (Auto) 5.9 Eos % (Auto) 1.9 Baso % (Auto) 0.2 Neut # (Auto) 7.9 H Lymph # (Auto) 0.7 L [place] # (Auto) 0.6 Eos # (Auto) 0.2 Baso # (Auto) 0.0 WBC Differential . Differential Comment Auto diff final Sodium 142 Potassium 3.8 D Chloride 110 H Carbon Dioxide 19.1 L Anion Gap 13 BUN 21 H Creatinine 0.95 Estimated GFR 56 L Random Glucose 94 Calcium 7.8 L D Magnesium 1.8 Stl C.difficile Tox PCR Negative St C. diff Tox Epid 027 Negative 06/20/18 05:45 WBC RBC Hgb Hct MCV MCH MCHC RDW Plt Count MPV Neut % (Auto) Lymph % (Auto) [place] % (Auto) Eos % (Auto) Baso % (Auto) Neut # (Auto) Lymph # (Auto) [place] # (Auto) Eos # (Auto) Baso # (Auto) WBC Differential Differential Comment Sodium 144 Potassium 4.1 Chloride 114 H Carbon Dioxide 20.8 L Anion Gap 9 BUN 16 Creatinine 0.75 Estimated GFR 73 L Random Glucose 77 Calcium 7.6 L Magnesium Stl C.difficile Tox PCR St C. diff Tox Epid 027 Microbiology 06/18/18 10:45 Catheterized Urine Urine Culture - Preliminary No growth in 24 hours - Imaging Impressions Abdomen/Pelvis CT 06/19/18 00:00 CONCLUSION: 1. Circumferential wall thickening of the rectum suggesting inflammatory change. 2. Status post cholecystectomy. 3. Diffuse atherosclerotic disease. 4. Patchy atelectasis at the lung bases. Assessment and Plan - Assessment (1) Intractable back pain Code(s): M54.9 - Dorsalgia, unspecified Status: Inactive Plan: Intractable back pain Falls Dehydration- resolved Diarrhea - resolved - Pt is an 88 y/o female with HTN, GERD, CKD stage 3, and sciatica who presented to the ED at [facility] [place]18[place]18 with complaints of neck pain and low back pain. - Per the ED physicians noted the pt reportedly fell this morning and was lying on the floor and yelling for help when her neighbor called EMS. Patient was reportedly found down in her own feces and was brought to ED for further evaluation. - Lumbar Spine CT (06/18/18): - Negative for any acute bony fracture - Mild grade 1 anterior spondylolisthesis of L4 over L5 and L5 over S1 - Disc degeneration and disc space narrowing at L5-S1 - Moderate diffuse broad-based bulging with right lateral bulging at L4-5 with some mild to moderate spinal canal stenosis at this level - Diffuse broad-based bulging at L5-S1, and mild broad-based bulging at L2- 3. - Cervical spine CT (06/18/18): - Negative for any fractures or subluxation. - Pts labs in the ED noted WBC count 16.9, Hgb 16/Hct 48.5, Cr 1.55, BUN 26, Tbili 1.5. Labs are likely consistent with more dehydration - WBC decreased to 9.4 with IV hydration, CBC fir (06/20) pending - (06/20) BUN 16, creatinine 0.75, estimated GFR 73 - Her UA was abnormal and culture showed no growth in 24 hours - Pt was given a bolus of NS in the ED. - Continue with NS @ 84mL/hr - Encourage oral intake - Pain control with [place] 5/325 Q4H PRN - PT evaluation - Pt may need placement at SNF at the end of this hospitalization - Awaiting repeat labs this AM - KUB (06/18/18) --> Nonobstructive bowel gas pattern. - Abdomen/Pelvis CT (06/19/18): - Circumferential wall thickening of the rectum suggesting inflammatory change. - Status post cholecystectomy. - Diffuse atherosclerotic disease. - Patchy atelectasis at the lung bases. - Stool for C. diff negative - Supportive care HTN - Pts BP is low/normal in the ED - Monitor closely - Clonidine PRN - Pt noted to be tachycardic, which may be related to more dehydration, monitor HR on telemetry GERD - PPI (2) Falls Code(s): W19.XXXA - Unspecified fall, initial encounter Status: Acute (3) HTN (hypertension) Code(s): I10 - Essential (primary) hypertension Status: Acute (4) GERD (gastroesophageal reflux disease) Code(s): K21.9 - Gastro-esophageal reflux disease without esophagitis Status: Acute (5) Dehydration Code(s): E86.0 - Dehydration Status: Acute
[2018-06-20] MEDS ORDERED: Polyethylene Glycol 3350 17 GM Packet PO ONE (14:12)
--- NOTE | 2018-06-20 14:34 | P.DS ---
Date of admission: 06/18/18 15:25 Primary care physician: UNKNOWN Attending physician on discharge: Gold Puente Anticipated date of discharge: 06/20/18 Brief History from admission: Ms. Christiansen is an 88 y/o female with HTN, GERD, CKD stage 3, and sciatica who presented to the ED at [facility] [place] on [place]/18/18 with complaints of neck pain and low back pain. Per the ED physicians noted the pt reportedly fell this morning and was lying on the floor and yelling for help when her neighbor called EMS. Patient was reportedly found down in her own feces according to report from the ED physician. She states that she slipped and fell in the bathroom. She denies any LOC. She was brought to ED for further evaluation with complaints of neck and back pain. She states that she was able to walk without difficulty prior to her fall this morning. She had a Lumbar Spine CT in the ED which was negative for any acute bony fracture, but did note mild grade 1 anterior spondylolisthesis of L4 over L5 and L5 over S1, disc degeneration and disc space narrowing at L5-S1, moderate diffuse broad-based bulging with right lateral bulging at L4-5 with some mild to moderate spinal canal stenosis at this level, diffuse broad-based bulging at L5-S1, and mild broad-based bulging at L2-3. Cervical spine CT was negative for any fractures or subluxation. Pts labs in the ED noted WBC count 16.9, Hgb 16/Hct 48.5, Cr 1.55, BUN 26, Tbili 1.5. Her UA was abnormal and culture is pending. Patient denies any fever/ chills. Patient denies any dysuria, urgency or frequency. The patient denies any headache, visual change, chest pain, SOB, nausea/vomiting, abd pain, focal weakness or numbness of the extremity. Patient complains of sharp pain localized to her neck and low back area. Patient states that she has intermittent diarrhea for the past several days. Past Medical History Arthritis Anxiety [place]'s disease Hypertension HO-CHUNK in bilateral ears. Sciatica Sarcoidosis GERD CKD, stage 3 Polymyalgia Rheumatica Asthma Past Surgical History Appendectomy Cholecystectomy Hysterectomy Pituitary adenoma removal Left hip replacement Tonsillectomy Hemorrhoidectomy Reported Medications -Omeprazole 20 Mg PO DAILY -Paxil 5 Mg PO DAILY -Aspirin 81 Mg CHEW DAILY -Ventolin HFA 90mcg 2 puffs QID PRN -Calcium with Vitamin D 600mg-400IU 2 tablets PO daily -Hydrocortisone 10 Mg PO in AM and 5 Mg in PM ?Zofran Odt 4 Mg SL Q12HR PRN ?Qc Milk of Magnesia 30 Ml PO Q12H PRN ?Flexeril 5 Mg PO DAILY PRN ?Cartia Xt 120 Mg PO DAILY ?Miralax Powder (Polyethylene Glycol 3350 Powder) 17 Gm Powd 17 Gm PO HS Family History Maternal medical history significant for NC at the age of 67. Father had Alzheimer disease. Social History Denies any current tobacco use. Denies any alcohol use. Denies any illicit drug use. Pt reports that she lives at [facility] DS: Diagnosis - Discharge Diagnosis (1) Intractable back pain Status: Inactive (2) Falls Status: Acute (3) HTN (hypertension) Status: Acute (4) GERD (gastroesophageal reflux disease) Status: Acute (5) Dehydration Status: Acute DS: Summary Hospital Course: Intractable back pain Falls Dehydration- resolved Diarrhea - resolved - Pt is an 88 y/o female with HTN, GERD, CKD stage 3, and sciatica who presented to the ED at [facility] [place] on 06/18/18 with complaints of neck pain and low back pain. - Per the ED physicians noted the pt reportedly fell this morning and was lying on the floor and yelling for help when her neighbor called EMS. Patient was reportedly found down in her own feces and was brought to ED for further evaluation. - Lumbar Spine CT (06/18/18): - Negative for any acute bony fracture - Mild grade 1 anterior spondylolisthesis of L4 over L5 and L5 over S1 - Disc degeneration and disc space narrowing at L5-S1 - Moderate diffuse broad-based bulging with right lateral bulging at L4-5 with some mild to moderate spinal canal stenosis at this level - Diffuse broad-based bulging at L5-S1, and mild broad-based bulging at L2- 3. - Cervical spine CT (06/18/18): - Negative for any fractures or subluxation. - Pts labs in the ED noted WBC count 16.9, Hgb 16/Hct 48.5, Cr 1.55, BUN 26, Tbili 1.5. Labs are likely consistent with more dehydration - WBC decreased to 9.4 with IV hydration, CBC fir (06/20) pending - (06/20) BUN 16, creatinine 0.75, estimated GFR 73 - Her UA was abnormal and culture showed no growth in 24 hours - Pt was given a bolus of NS in the ED. - Continue with NS @ 84mL/hr - Encourage oral intake - Pain control with [place] 5/325 Q4H PRN - PT evaluation - Pt may need placement at SNF at the end of this hospitalization - Awaiting repeat labs this AM - KUB (06/18/18) --> Nonobstructive bowel gas pattern. - Abdomen/Pelvis CT (06/19/18): - Circumferential wall thickening of the rectum suggesting inflammatory change. - Status post cholecystectomy. - Diffuse atherosclerotic disease. - Patchy atelectasis at the lung bases. - add hydrocortisone supp - Stool for C. diff negative - Supportive care HTN - Pts BP is low/normal in the ED - Monitor closely - Clonidine PRN - Pt noted to be tachycardic, which may be related to more dehydration, monitor HR on telemetry GERD - PPI DC to SNF for strengthening - Time Spent with Patient Total time spent providing and/or coordinating discharge services: Greater than 30 minutes Exam Vital signs: Vital Signs 06/20/18 08:00 06/20/18 11:22 Temperature 97.8 F 97.6 F Pulse Rate 87 85 Respiratory Rate 16 16 Blood Pressure 156/79 H 142/61 H Pulse Oximetry 96 96 Intake & Output 06/19/18 06/20/18 06/20/18 18:59 06:59 18:59 Intake Total 1500 / 1500 1000 / 1000 Output Total 420 / 420 Balance 1080 / 1080 1000 / 1000 Intake: IV 1000 / 1000 1000 / 1000 NS Inj 1,000 ML @ 84 mls/hr IV. 1000 / 1000 1000 / 1000 CONT .[id number] [facility] Rx#:[id number] Oral 500 / 500 Output: Urine 300 / 300 Stool 120 / 120 Other: # Voids 2 # Incontinent Voids 0 Date of Last Bowel Movement 06/19/18 06/19/18 # Bowel Movements 2 # Incontinent Bowel Movements 1 Narrative: GENERAL: NAD, Awake and alert SKIN: Warm and dry. CARDIO: Regular RESP: Breath sounds equal bilaterally. No accessory muscle use. ABD: Abdomen soft, non-tender, nondistended. EXT: No cyanosis, or edema. BACK: Nontender without obvious deformity. Results Procedures completed during hospitalization: none Labs on day of discharge: Labs from last 24 hours 06/20/18 06/20/18 06/19/18 05:45 05:45 14:24 WBC Pending RBC Pending Hgb Pending Hct Pending MCV MCH MCHC RDW Plt Count Pending MPV Neut % (Auto) Lymph % (Auto) [place] % (Auto) Eos % (Auto) Baso % (Auto) Neut # (Auto) Lymph # (Auto) [place] # (Auto) Eos # (Auto) Baso # (Auto) WBC Differential Pending Differential Comment Pending Sodium 144 142 Potassium 4.1 3.8 D Chloride 114 H 110 H Carbon Dioxide 20.8 L 19.1 L Anion Gap 9 13 BUN 16 21 H Creatinine 0.75 0.95 Estimated GFR 73 L 56 L Random Glucose 77 94 Calcium 7.6 L 7.8 L D Magnesium 1.8 06/19/18 14:24 WBC 9.4 RBC 4.50 Hgb 13.1 D Hct 38.5 MCV 85.7 MCH 29.2 MCHC 34.1 RDW 15.0 Plt Count 155 D MPV 9.4 Neut % (Auto) 84.2 H Lymph % (Auto) 7.8 L [place] % (Auto) 5.9 Eos % (Auto) 1.9 Baso % (Auto) 0.2 Neut # (Auto) 7.9 H Lymph # (Auto) 0.7 L [place] # (Auto) 0.6 Eos # (Auto) 0.2 Baso # (Auto) 0.0 WBC Differential . Differential Comment Auto diff final Sodium Potassium Chloride Carbon Dioxide Anion Gap BUN Creatinine Estimated GFR Random Glucose Calcium Magnesium - Impressions ITS Impressions Abdomen X-Ray 06/18/18 00:00 CONCLUSION: Nonspecific, nonobstructive bowel gas pattern. Cervical Spine CT 06/18/18 11:00 CONCLUSION: 1. No fracture or subluxation. Chest X-Ray 06/18/18 11:00 CONCLUSION: Chronic appearing interstitial changes Head CT 06/18/18 11:00 CONCLUSION: 1. No acute intracranial abnormality. . Lumbar Spine CT 06/18/18 11:00 CONCLUSION: 1. No acute bony fracture. 2. Mild grade 1 anterior spondylolisthesis of L4 over L5 and L5 over S1. 3. Disc degeneration and disc space narrowing at L5-S1. Moderate diffuse broad- based bulging with right lateral bulging at L4-5. There is some mild to moderate spinal canal stenosis at this level. 4. Diffuse broad-based bulging at L5-S1. 5. Mild broad-based bulging L2-3. Abdomen/Pelvis CT 06/19/18 00:00 CONCLUSION: 1. Circumferential wall thickening of the rectum suggesting inflammatory change. 2. Status post cholecystectomy. 3. Diffuse atherosclerotic disease. 4. Patchy atelectasis at the lung bases. Discharge Plan - Discharge Disposition Patient Disposition: Discharge to SNF - Discharge Condition Condition: Stable - Discharge Order Discharge Orders: Discharge Order (Routine); Ordered 06/20/18 Ordered By: Rebekah Ortega - Discharge Details Anticipated Discharge Date: 06/20/18 - Physicians Team Primary Care Provider: UNKNOWN, Attending Provider: Gold Puente Other Providers: Janice Ogden,Bryan
[2018-06-20 15:07] LABS: Baso % (Auto) 0.3 % (0.0-2.0); Eos # (Auto) 0.2 th/mm3 (0.0-0.4); Eos % (Auto) 2.1 % (0.0-4.0); Hematocrit 40.4 % (35.0-46.0); Lymph # (Auto) 0.7 th/mm3 (1.0-4.8); Lymph % (Auto) 9.2 % (9.0-44.0); Mean Corpuscular HGB Conc 34.5 % (32.0-36.0); Mean Corpuscular Hemoglobin 29.5 pg (27.0-34.0); Mean Corpuscular Volume 85.5 fL (80.0-100.0); Mean Platelet Volume 8.8 fL (7.0-11.0); Mono # (Auto) 0.4 th/mm3 (0.0-0.9); Mono % (Auto) 4.6 % (0.0-8.0); Neut # (Auto) 6.5 th/mm3 (1.8-7.7); Neut % (Auto) 83.8 % (16.0-70.0); Platelet Count 176 th/mm3 (150-450); Red Blood Count 4.73 mil/mm3 (4.00-5.30); Red Cell Distribution Width 14.8 % (11.6-17.2); White Blood Count 7.8 th/mm3 (4.0-11.0)
[2018-06-20 15:14] VITALS: BP 126/60; PULSE 87; TEMP 98.1; O2SAT 97
[2018-06-20] MEDS ORDERED: Hydrocortisone Acetate 25 MG Supp RECTAL SCH (21:00)
[2018-06-21] MEDS ORDERED: Polyethylene Glycol 3350 17 GM Packet PO SCH (09:00)
== END 2018-06-20 18:37 ==
LOC: NEPHCDU 10:08 → NEPE 10:08 → NEDA 10:08 → UNDODISOB 15:49 → NEPHCDU 17:55
PROVIDERS: ADMIT Hospitalist; ATTEND Hospitalist
DX: D86.9 Sarcoidosis, unspecified; K21.9 Gastro-esophageal reflux disease without esophagitis; W01.0XXA Fall on same level from slipping, tripping and stumbling without subsequent striking against object, initial encounter; J45.909 Unspecified asthma, uncomplicated; I12.9 Hypertensive chronic kidney disease with stage 1 through stage 4 chronic kidney disease, or unspecified chronic kidney disease; Z79.82 Long term (current) use of aspirin; N18.3 Chronic kidney disease, stage 3 (moderate); M51.36 Other intervertebral disc degeneration, lumbar region; J98.11 Atelectasis; Z96.642 Presence of left artificial hip joint; M35.3 Polymyalgia rheumatica; M48.061 Spinal stenosis, lumbar region without neurogenic claudication; Y92.002 Bathroom of unspecified non-institutional (private) residence as the place of occurrence of the external cause; Z90.49 Acquired absence of other specified parts of digestive tract; Z82.0 Family history of epilepsy and other diseases of the nervous system; M43.16 Spondylolisthesis, lumbar region; E27.1 Primary adrenocortical insufficiency; Z90.710 Acquired absence of both cervix and uterus; E86.0 Dehydration